=== PATIENT | male | born 1970 | race Caucasian/White ===

== ENCOUNTER 2018-10-21 03:24 | Emergency (ER) | payer BC ==
--- OUTSIDE RECORDS SUMMARY | 2018-10-21 03:27 | XMS REPORT ---
:1970 Author Organization [facility] Address [address] [place] [address] Care Team Providers Name Role Phone Unavailable Unavailable Unavailable Payers Payer Name Policy Type Policy Number Effective Date Expiration Date Problems This patient has no known problems. Allergies, Adverse Reactions, Alerts Allergy Name Allergy Status Severity Reaction(s) Onset Inactive Treating Comments Type Date Date Clinician No Known DA Active U 2018-0 Allergies 07-30 00:00: 00 methylprednisol DA Active SV 2018- one 07-30 00:00: 00 Medications This patient has no known medications. Results Test Description Test Time Test Comments Text Results Atomic Results Result Comments - MRI LW JNT W/CONTRAST RT 2018-07-30 12:20:00 Patient Name: DEMARCUS SWEENEY Unit No: [id number] EXAMS: CPT CODE: [id number] MRI LW JNT W/[place] [id number] MRI ARTHROGRAM RIGHT HIP DIAGNOSIS: 1. 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 Complex moderately displaced tear of the superior anterior and posterior labrum. There is associated moderate to high-grade diffuse chondral loss right hip joint. 2. Mild distal gluteus medius minimus tendinosis. INDICATION: Right hip pain COMPARISON: None PULSE SEQUENCES: Multiplanar, multisequence MRI is obtained of the right hip post arthrography. There is satisfactory contrast distention of the right hip joint. Complex acetabular labral tear. The ligamentum teres and transverse ligaments are intact. High grade chondral loss right hip joint. 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 The iliopsoas, rectus femoris and hamstring tendons are normal. Gluteus minimus tendinosis. No muscle belly atrophy or edema. No iliopsoas or trochanteric bursal fluid to suggest bursitis. The visualized pelvic structures are normal. There are no regional soft tissue abnormalities or aggressive osseous lesions. RIGHT HIP ARTHROGRAM WITH INTRA-ARTICULAR MARCAINE INJECTION Comment: After informed consent was obtained a 25-gauge needle is inserted into the right hip joint under fluoroscopic control using sterile technique. A total volume of 8 mL consisting of a combination of equal parts Isovue-300 and dilute gadolinium is instilled into the joint space. This is followed by intra-articular injection of 4 mL of Marcaine. The patient tolerated the procedure well. 0.5 minutes of fluoroscopy time was used on this exam. Post arthrographic films show no extravasation of contrast outside the joint. at 1220 Reported and signed by: Tina Kate MD [facility] NAME: DEMARCUS SWEENEY [address] [facility] PHYS: DEVANTECAROLA Eric Winn : 1970 AGE: 47 SEX: M [place] [id number] LOC: [facility] PHONE #: [phone] EXAM DATE: 07/30/2018 STATUS: REG CLI FAX #: [phone] RAD #: D/C DT PAGE 1 Signed Report (CONTINUED) Patient Name: DEMARCUS SWEENEY Unit No: [id number] EXAMS: CPT CODE: [id number] MRI LW JNT W/[place] [id number] <Continued> CC: Eric Vargas MD Technologist: Caro Paredes(R) Transcribed D/ (1220) tMARISELAGVG [facility] NAME: DEMARCUS SWEENEY [address] [facility] PHYS: SOO VargasEric Mason : 1970 AGE: 47 SEX: M [place] [address] LOC: [facility] PHONE #: [phone] EXAM DATE: 07/30/2018 STATUS: REG CLI FAX #: [phone] RAD #: D/C DT PAGE 2 Signed Report Patient Name: DEMARCUS SWEENEY Unit No: [id number] EXAMS: CPT CODE: [id number] MRI LW JNT W/[place] [id number] <Continued> Orig Print D/T: S: 07/30/2018 (1223) [facility] NAME: DEMARCUS SWEENEY [address] [facility] PHYS: Eric Scherer : 1970 AGE: 47 SEX: M [place], [place] [address] LOC: [facility] PHONE #: [phone] EXAM DATE: 07/30/2018 STATUS: REG CLI FAX #: [phone] RAD #: D/C DT PAGE 3 Signed Report - XR ARTHROGRAM HIP W/O AN 2018-07-30 12:20:00 Patient Name: DEMARCUS SWEENEY RT+ Unit No: [id number] EXAMS: CPT CODE: [id number] XR ARTHROGRAM HIP W/O AN RT+ [id number] MRI ARTHROGRAM RIGHT HIP DIAGNOSIS: 1. 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 Complex moderately displaced tear of the superior anterior and posterior labrum. There is associated moderate to high-grade diffuse chondral loss right hip joint. 2. Mild distal gluteus medius minimus tendinosis. INDICATION: Right hip pain COMPARISON: None PULSE SEQUENCES: Multiplanar, multisequence MRI is obtained of the right hip post arthrography. There is satisfactory contrast distention of the right hip joint. Complex acetabular labral tear. The ligamentum teres and transverse ligaments are intact. High grade chondral loss right hip joint. 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 The iliopsoas, rectus femoris and hamstring tendons are normal. Gluteus minimus tendinosis. No muscle belly atrophy or edema. No iliopsoas or trochanteric bursal fluid to suggest bursitis. The visualized pelvic structures are normal. There are no regional soft tissue abnormalities or aggressive osseous lesions. RIGHT HIP ARTHROGRAM WITH INTRA-ARTICULAR MARCAINE INJECTION Comment: After informed consent was obtained a 25-gauge needle is inserted into the right hip joint under fluoroscopic control using sterile technique. A total volume of 8 mL consisting of a combination of equal parts Isovue-300 and dilute gadolinium is instilled into the joint space. This is followed by intra-articular injection of 4 mL of Marcaine. The patient tolerated the procedure well. 0.5 minutes of fluoroscopy time was used on this exam. Post arthrographic films show no extravasation of contrast outside the joint. at 1220 Reported and signed by: Tina Kate MD [facility] NAME: DEMARCUS SWEENEY [address] [facility] PHYS: SOO Eric Winn : 1970 AGE: 47 SEX: M [place] [address] LOC: Y.RAD PHONE #: [phone] EXAM DATE: 07/30/2018 STATUS: REG CLI FAX #: [phone] RAD #: D/C DT PAGE 1 Signed Report (CONTINUED) Patient Name: DEMARCUS SWEENEY Unit No: [id number] EXAMS: CPT CODE: [id number] XR ARTHROGRAM HIP W/O AN RT+ [id number] <Continued> CC: Chico Hurtado MD; Eric Vargas MD Technologist: WERNER LAUREN, RT(R) Transcribed D/ (1220) t.GVG [facility] NAME: DEMARCUS SWEENEY [address] [facility] PHYS: DEVANTECAROLA Eric Winn : 1970 AGE: 47 SEX: M [place] [address] LOC: Y.RAD PHONE #: [phone] EXAM DATE: 07/30/2018 STATUS: REG CLI FAX #: [phone] RAD #: D/C DT PAGE 2 Signed Report Patient Name: DEMARCUS SWEENEY Unit No: [id number] EXAMS: CPT CODE: [id number] XR ARTHROGRAM HIP W/O AN RT+ [id number] <Continued> Orig Print D/T: S: 07/30/2018 (1223) [facility] NAME: DEMARCUS SWEENEY [address] [facility] PHYS: Eric Scherer : 1970 AGE: 47 SEX: M [place], [place] [address] LOC: Y.RAD PHONE #: [phone] EXAM DATE: 07/30/2018 STATUS: REG CLI FAX #: [phone] RAD #: D/C DT PAGE 3 Signed Report
[2018-10-21] MEDS ORDERED: THIAMINE 200 MG/2 ML INJ ONE (04:04)
[2018-10-21] MEDS ORDERED: MULTIVITAMINS 10 ML VIAL (INJ) IV ONE (04:04)
[2018-10-21] MEDS ORDERED: NA CHLORIDE 0.9% 1,000 ML ONE (04:04)
[2018-10-21] MEDS ORDERED: FOLIC ACID 5 MG/ML VIAL ONE (04:05)
[2018-10-21 04:10] LABS: Absolute Lymphocytes (CBC) 1.7 K/uL (0.7-4.9); Basophils % 0.5 % (0-1.3); Eosinophils % 0.3 % (0-4.4); Hematocrit 42.2 % (39.6-49.0); Lymphocytes % 13.6 % (15.3-44.8); MPV 8.8 fL (7.6-11.3); Monocytes % 6.1 % (3.3-12.3); RBC Red Blood Cell Count 4.57 M/uL (4.33-5.43)
[2018-10-21] MEDS ORDERED: MORPHINE 4 MG/ML SYR ONE (04:11)
[2018-10-21] MEDS ORDERED: ONDANSETRON 4 MG/2 ML VIAL ONE (04:11)
[2018-10-21 04:16] LABS: Potassium 3.1 mmol/L (3.5-5.1)
[2018-10-21] MEDS ORDERED: POTASSIUM CL SA 10 MEQ TAB PO ONE (06:17)
[2018-10-21] MEDS ORDERED: FENTANYL CITR 100 MCG/2 ML ONE (06:25)
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
--- NOTE | 2018-10-22 07:55 | EKG ---
Test Date: 2018-10-21 Test Time: 04:05:28 Estimator: MEASUREMENT RESULTS: Intervals: Rate: 88 NV: 150 QRSD: 92 QT: 420 QTc: 508 Belcher: P: 78 NV: 150 QRS: 49 T: 59 INTERPRETIVE STATEMENTS: Normal sinus rhythm Prolonged QT Abnormal ECG Compared to ECG 06/03/2014 11:21:56 Prolonged QT interval now present Electronically Signed On 10-22-18 07:53:56 CDT by Geronimo Grace
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
== END 2018-10-21 09:23 | disposition home or self-care (01) ==
LOC: ER 03:24
DX: S29.011A Strain of muscle and tendon of front wall of thorax, initial encounter (principal); F10.129 Alcohol abuse with intoxication, unspecified; Y04.2XXA Assault by strike against or bumped into by another person, initial encounter; Y93.9 Activity, unspecified; Y92.89 Other specified places as the place of occurrence of the external cause; Z72.0 Tobacco use
CPT/HCPCS: 36415; 70450; 70486; 71250; 72192; 76377; 80048; 80320; 85025; 93005; 96365; 96366; 96375; 99284; J2405; J3010; J3411; J7030

== ENCOUNTER 2019-11-16 03:29 | Emergency (ER) | payer OTHER, SELFPAY ==
--- OUTSIDE RECORDS SUMMARY | 2019-11-16 03:31 | XMS REPORT | Continuity of Care Document ---
:[address] [facility] t Address [address] [place] [address] Care Team Providers Name Role Phone Unavailable Unavailable Unavailable Payers Payer Name Policy Type Policy Number Effective Date Expiration Date S ource Problems This patient has no known problems. Allergies, Adverse Reactions, Alerts Allergy Allergy Status Severity Reaction(s) Onset Inactive Treating Comm ents Source Name Type Date Date Clinician No Known DA Active U 0 [facility] 07[facility]30 [place] [facility] DA Active SV 0 [facility] ednisolo 07-30 [place] ne 00[facility]00[facility] Medications This patient has no known medications. Procedures This patient has no known procedures. Results Test Description Test Time Test Comments Results Result [facility] e Comments - MRI [facility] 2018-07-30 Patient Name: W/CONTRAST RT 12:20:00 DEMARCUS SWEENEY Unit No: [id number] EXAMS: CPT CODE: [id number] MRI LW [facility] W/[place] [id number] MRI ARTHROGRAM RIGHT HIP DIAGNOSIS: 1. Congenitally [...] Reported and signed by: Tina Kate MD [facility] NAME: DEMARCUS SWEENEY [address] [facility] PHYS: Eric Scherer : 1970 AGE: 47 SEX: M [place], [place] [address] LOC: Y.RAD PHONE #: [phone] EXAM DATE: 07/30/2018 STATUS: REG CLI FAX #: [phone] RAD #: D/C DT PAGE 1 Signed Report (CONTINUED) Patient Name: DEMARCUS SWEENEY Unit No: [id number] EXAMS: CPT CODE: [id number] MRI LW JNT W/[place] [id number] <Continued> CC: Eric Vargas MD Technologist: Caro Paredes(R) Transcribed D/ (1220) [email or web address] [facility] NAME: DEMARCUS SWEENEY [address] [facility] PHYS: Eric Scherer : 1970 AGE: 47 SEX: M [place], [place] [address] LOC: Y.RAD PHONE #: [phone] EXAM DATE: 07/30/2018 STATUS: REG CLI FAX #: [phone] RAD #: D/C DT PAGE 2 Signed Report Patient Name: DEMARCUS SWEENEY Unit No: [id number] EXAMS: CPT CODE: [id number] MRI LW JNT W/[place] [id number] <Continued> Orig Print D/T: S: 07/30/2018 (1223) [facility] NAME: DEMARCUS SWEENEY [address] [facility] PHYS: Eric Scherer Shgreysonwinnie : 1970 AGE: 47 SEX: M [place], [place] [address] LOC: Y.RAD PHONE #: [phone] EXAM DATE: 07/30/2018 STATUS: REG CLI FAX #: [phone] RAD #: D/C DT PAGE 3 Signed Report - XR ARTHROGRAM 2018-07-30 Patient Name: HIP W/O AN RT+ 12:20:00 DEMARCUS SWEENEY Unit No: [id number] EXAMS: CPT CODE: [id number] XR ARTHROGRAM HIP W/O AN RT+ [id number] MRI ARTHROGRAM RIGHT HIP DIAGNOSIS: 1. Congenitally [...] Reported and signed by: Tina Kate MD [facility] NAME: DEMARCUS SWEENEY [address] [facility] PHYS: SOO VargasEric Mason : 1970 AGE: 47 SEX: M [place] [address] LOC: Y.RAD PHONE #: [phone] EXAM DATE: 07/30/2018 STATUS: REG CLI FAX #: [phone] RAD #: D/C DT PAGE 1 Signed Report (CONTINUED) Patient Name: DEMARCUS SWEENEY Unit No: [id number] EXAMS: CPT CODE: [id number] XR ARTHROGRAM HIP W/O AN RT+ [id number] <Continued> CC: Chico Hurtado MD; Eric Vargas MD Technologist: WERNER LAUREN, RT(R) Transcribed D/ (1220) [email or web address] [facility] NAME: DEMARCUS SWEENEY [address] [facility] PHYS: SOO VargasEric Mason : 1970 AGE: 47 SEX: M [place] [address] LOC: Y.RAD PHONE #: [phone] EXAM DATE: 07/30/2018 STATUS: REG CLI FAX #: [phone] RAD #: D/C DT PAGE 2 Signed Report Patient Name: DEMARCUS SWEENEY Unit No: [id number] EXAMS: CPT CODE: [id number] XR ARTHROGRAM HIP W/O AN RT+ [id number] <Continued> Orig Print D/T: S: 07/30/2018 (1223) [facility] NAME: DEMARCUS SWEENEY [address] [facility] PHYS: Eric Scherer : 1970 AGE: 47 SEX: M [place], [place] [address] LOC: Y.RAD PHONE #: [phone] EXAM DATE: 07/30/2018 STATUS: REG CLI FAX #: [phone] RAD #: D/C DT PAGE 3 Signed Report
[2019-11-16] MEDS ORDERED: NA CHLORIDE 0.9% 1,000 ML ONE (05:26)
[2019-11-16] MEDS ORDERED: ONDANSETRON 4 MG/2 ML VIAL ONE (05:26)
[2019-11-16] MEDS ORDERED: MORPHINE 4 MG/ML SYR ONE ×2 (05:26→06:55)
[2019-11-16 05:38] LABS: Absolute Lymphocytes (CBC) 1.5 K/uL (0.7-4.9); Basophils % 0.7 % (0-1.3); Hematocrit 39.2 % (39.6-49.0); Lymphocytes % 19.4 % (15.3-44.8); MPV 8.9 fL (7.6-11.3); RBC Red Blood Cell Count 4.26 M/uL (4.33-5.43)
[2019-11-16 05:46] LABS: Urine Blood 3+ (NEG); Urine Glucose NEGATIVE (NEG); Urine Protein 2+ (NEG); Urine Specific Gravity 1.025 (1.005-1.030); Urine pH 6.5 (5.0-7.0)
[2019-11-16 05:47] LABS: Albumin 3.6 g/dL (3.4-5.0); Bilirubin Direct 0.1 mg/dL (0-0.2); Bilirubin Total 0.4 mg/dL (0.2-1.0); Potassium 3.9 mmol/L (3.5-5.1); Protein, Total 7.2 g/dL (6.4-8.2)
--- NOTE | 2019-11-16 06:43 | EDPHYS ---
Physician Documentation [facility] Name: Brandon Galdamez Age: 49 yrs Sex: Male : 1970 Arrival Date: 11/16/2019 Time: 03:31 Bed 17 Private MD: ED Physician Tray Tillman HPI: 11/15 05:45 This 49 yrs old Male presents to ER via Ambulatory with complaints of Back pkl Pain. 05:45 The patient complains of pain in the right flank. The pain does not radiate. Onset: The pkl symptoms/episode began/occurred just prior to arrival, 3 hour(s) ago. Historical: - Allergies: 03:45 No Known Allergies; sg - PMHx: 03:58 None; sg - PSHx: 03:45 bone scraping R hip; sg - Immunization history:: Adult Immunizations up to date. - Social history:: Smoking status: Patient denies any tobacco usage or history of. ROS: 05:45 Eyes: Negative for injury, pain, redness, and discharge, ENT: Negative for injury, pkl pain, and discharge, Neck: Negative for injury, pain, and swelling, Cardiovascular: Negative for chest pain, palpitations, and edema, Respiratory: Negative for shortness of breath, cough, wheezing, and pleuritic chest pain, Abdomen/GI: Negative for abdominal pain, nausea, vomiting, diarrhea, and constipation. 05:45 Back: Positive for flank pain, on the right. 05:45 : Negative for urinary symptoms. 05:45 MS/extremity: Negative for acute changes. 05:45 Skin: Negative for rash. 05:45 Neuro: Negative for altered mental status, loss of consciousness. Exam: 05:45 Head/Face: Normocephalic, atraumatic. Eyes: Pupils equal round and reactive to light, pkl extra-ocular motions intact. Lids and lashes normal. Conjunctiva and sclera are non-icteric and not injected. Cornea within normal limits. Periorbital areas with no swelling, redness, or edema. ENT: Nares patent. No nasal discharge, no septal abnormalities noted. Tympanic membranes are normal and external auditory canals are clear. Oropharynx with no redness, swelling, or masses, exudates, or evidence of obstruction, uvula midline. Mucous membranes moist. Neck: Trachea midline, no thyromegaly or masses palpated, and no cervical lymphadenopathy. Supple, full range of motion without nuchal rigidity, or vertebral point tenderness. No Meningismus. Chest/axilla: Normal chest wall appearance and motion. Nontender with no deformity. No lesions are appreciated. Cardiovascular: Regular rate and rhythm with a normal S1 and S2. No gallops, murmurs, or rubs. Normal PMI, no JVD. No pulse deficits. Respiratory: Lungs have equal breath sounds bilaterally, clear to auscultation and percussion. No rales, rhonchi or wheezes noted. No increased work of breathing, no retractions or nasal flaring. Abdomen/GI: Soft, non-tender, with normal bowel sounds. No distension or tympany. No guarding or rebound. No evidence of tenderness throughout. 05:45 Back: pain, that is moderate, of the right flank. 05:45 : Exam negative for acute changes. 05:45 Musculoskeletal/extremity: Exam is negative for acute changes. 05:45 Skin: Exam negative for rash. 05:45 Neuro: Orientation: is normal, Mentation: is normal, Cranial nerves: grossly normal, Motor: is normal. Vital Signs: 03:45 BP 142 / 80; Pulse 77; Resp 18; Temp 97.6; Pulse Ox 99% on R/A; Weight 113.4 kg (R); sg Pain 4/10; 04:30 BP 149 / 101; Pulse 90; Resp 19; Pulse Ox 98% on R/A; Pain 9/10; mt2 05:00 BP 138 / 90; Pulse 88; Resp 16; Pulse Ox 98% on R/A; Pain 5/10; mt2 06:00 BP 126 / 65; Pulse 83; Resp 16; Pulse Ox 96% on R/A; Pain 0/10; mt2 07:08 BP 125 / 69; Pulse 72; Temp 98.0(TE); Pulse Ox 97% ; Pain 0/10; mt2 MDM: 04:35 Patient medically screened. pkl 06:29 Data reviewed: vital signs, nurses notes, radiologic studies, CT scan. ED course: pkl Patient feeling better. Discussed lab. and CT Scan results with patient. Advised to folllow up with Urologist in 2 to 3 days. Patient understood instructions. 11/15 04:41 Order name: Basic Metabolic Panel; Complete Time: 05:48 pkl 11/15 04:41 Order name: CBC with Diff; Complete Time: 05:48 pkl 11/15 04:41 Order name: Hepatic Function; Complete Time: 05:48 pkl 11/15 04:41 Order name: Lipase; Complete Time: 05:48 pkl 11/15 04:41 Order name: CT Stone Protocol pkl 11/15 05:19 Order name: Urine Dipstick--Ancillary (enter results); Complete Time: 05:48 sg 11/15 04:41 Order name: IV Saline Lock; Complete Time: 05:23 pkl 11/15 04:41 Order name: Labs collected and sent; Complete Time: 05:23 pkl Administered Medications: 05:22 Drug: Zofran (Ondansetron) 4 mg Route: IVP; Site: right antecubital; mt2 06:00 Follow up: Response: No adverse reaction; Marked relief of symptoms; Nausea is decreasedmt2 05:23 Drug: NS 0.9% 1000 ml Route: IV; Rate: 1000 ml; Site: right antecubital; mt2 06:12 Follow up: Response: No adverse reaction; Marked relief of symptoms; IV Status: mt2 Completed infusion; IV Intake: 1000ml 07:09 Follow up: IV Status: Completed infusion; IV Intake: 1000ml mt2 05:23 Drug: morphine 4 mg Route: IVP; Site: right antecubital; mt2 06:00 Follow up: BP 126 / 65; Pulse 83 bpm; Resp 16 bpm; Pulse Ox 96% RA; Pain 0/10 Adult; mt2 Response: No adverse reaction; Marked relief of symptoms; Pain is decreased 06:46 Drug: morphine 4 mg Route: IVP; Site: right antecubital; mt2 07:08 Follow up: BP 125 / 69; Pulse 72 bpm; Temp 98.0 Temporal; Pulse Ox 97% ; Pain 0/10 mt2 Adult; Response: No adverse reaction; Marked relief of symptoms; Pain is decreased Disposition: 11/16/19 06:42 Discharged to Home. Impression: Mild right hydronephrosis and proximal hydroureter. 5 mm proximal right ureteral calculus . - Condition is Stable. - Prescriptions for Tylenol- Codeine #3 300-30 mg Oral Tablet - take 2 tablets by ORAL route every 8 hours As needed; 40 tablet. Flomax 0.4 mg Oral Capsule, Sust. Release 24 hr - take 1 capsule by ORAL route once daily 1/2 hour following the same meal each day; 20 capsule. - Medication Reconciliation Form, Thank You Letter, Antibiotic Education, Prescription Opioid Use form. - Follow up: Brian Dwyer MD; When: 2 - 3 days; Reason: Re-evaluation by your physician. - Problem is new. - Symptoms have improved. Signatures: Dispatcher [employer] EDME Eric Kitchen RN RN sg Tray Tillman MD MD pkl Ysabel Barry RN RN mt2 Corrections: (The following items were deleted from the chart) 07:11 06:42 11/16/2019 06:42 Discharged to Home. Impression: Mild right hydronephrosis and mt2 proximal hydroureter. 5 mm proximal right ureteral calculus . Condition is Stable. Forms are Medication Reconciliation Form, Thank You Letter, Antibiotic Education, Prescription Opioid Use. Follow up: Brian Dwyer; When: 2 - 3 days; Reason: Re-evaluation by your physician. Problem is new. Symptoms have improved. pkl
--- NOTE | 2019-11-16 06:43 | ER ---
Nurse's Notes [facility] Name: Brandon Galdamez Age: 49 yrs Sex: Male : 1970 Arrival Date: 11/16/2019 Time: 03:31 Bed 17 Private MD: Diagnosis: Mild right hydronephrosis and proximal hydroureter. 5 mm proximal right ureteral calculus Presentation: 11/15 03:45 Chief complaint: Patient states: Right sided flank pain that is described as dull and sg stabbing, pt reports that the pain does not radiate any where, reports nausea, states pain was severe 02/07 now states its more just dull like 08/08. Coronavirus screen: Patient denies a cough. Patient denies shortness of breath or difficulty breathing. Patient denies measured and/or subjective temperature greater than 100.4F prior to today's visit. Patient denies travel on a cruise ship or to a country the [facility] currently lists as an affected area. Patient denies contact with known and/or suspected case of COVID-19. Proceed with normal triage. Ebola Screen: Patient negative for fever greater than or equal to 101.5 degrees Fahrenheit, and additional compatible Ebola Virus Disease symptoms Patient denies exposure to infectious person. Patient denies travel to an Ebola-affected area in the 21 days before illness onset. No symptoms or risks identified at this time. Initial Sepsis Screen: Does the patient meet any 2 criteria? No. Patient's initial sepsis screen is negative. Does the patient have a suspected source of infection? No. Patient's initial sepsis screen is negative. Risk Assessment: Do you want to hurt yourself or someone else? Patient reports no desire to harm self or others. Onset of symptoms was November 16, 2019. Care prior to arrival: None. Transition of care: patient was not received from another setting of care. 03:45 Method Of Arrival: Ambulatory sg 03:45 Acuity: KAILA 3 sg Historical: - Allergies: 03:45 No Known Allergies; sg - PMHx: 03:58 None; sg - PSHx: 03:45 bone scraping R hip; sg - Immunization history:: Adult Immunizations up to date. - Social history:: Smoking status: Patient denies any tobacco usage or history of. Screenin:30 Abuse screen: Denies threats or abuse. Nutritional screening: No deficits noted. mt2 Tuberculosis screening: No symptoms or risk factors identified. Fall Risk None identified. Assessment: 04:30 Reassessment: No changes from previously documented assessment. Patient and/or family mt2 updated on plan of care and expected duration. Pain level reassessed. General: Appears uncomfortable, Behavior is cooperative. Pain: Complains of pain in abdomen Pain currently is 9 out of 10 on a pain scale. Quality of pain is described as sharp. Neuro: No deficits noted. Cardiovascular: No deficits noted. Respiratory: No deficits noted. GI: Reports upper abdominal pain, nausea. : No deficits noted. EENT: No deficits noted. Derm: No deficits noted. Musculoskeletal: No deficits noted. 05:30 Reassessment: Patient and/or family updated on plan of care and expected duration. Pain mt2 level reassessed. Neuro: No deficits noted. Neuro: No deficits noted. Level of Consciousness is awake, alert, obeys commands. 06:50 Reassessment: Patient states symptoms have improved. Pain: Denies pain. mt2 Vital Signs: 03:45 BP 142 / 80; Pulse 77; Resp 18; Temp 97.6; Pulse Ox 99% on R/A; Weight 113.4 kg (R); sg Pain 4/10; 04:30 BP 149 / 101; Pulse 90; Resp 19; Pulse Ox 98% on R/A; Pain 9/10; mt2 05:00 BP 138 / 90; Pulse 88; Resp 16; Pulse Ox 98% on R/A; Pain 5/10; mt2 06:00 BP 126 / 65; Pulse 83; Resp 16; Pulse Ox 96% on R/A; Pain 0/10; mt2 07:08 BP 125 / 69; Pulse 72; Temp 98.0(TE); Pulse Ox 97% ; Pain 0/10; mt2 ED Course: 03:31 Patient arrived in ED. ag3 03:44 Arm band placed on. sg 03:45 Triage completed. sg 03:51 Ysabel Barry, RN is Primary Nurse. mt2 04:30 Patient has correct armband on for positive identification. Fall risk band placed. Bed mt2 in low position. Call light in reach. Side rails up X 1. 04:30 No provider procedures requiring assistance completed. Inserted saline lock: 18 gauge mt2 in right antecubital area, using aseptic technique. 04:35 Tray Tillman MD is Attending Physician. pkl 05:23 Basic Metabolic Panel Sent. mt2 05:23 CBC with Diff Sent. mt2 05:23 Hepatic Function Sent. mt2 05:23 Lipase Sent. mt2 05:43 CT Stone Protocol In Process Unspecified. EDMS 06:39 Brian Dwyer MD is Referral Physician. pkl 06:50 IV discontinued, intact, bleeding controlled, No redness/swelling at site. Pressure mt2 dressing applied. Administered Medications: 05:22 Drug: Zofran (Ondansetron) 4 mg Route: IVP; Site: right antecubital; mt2 06:00 Follow up: Response: No adverse reaction; Marked relief of symptoms; Nausea is decreasedmt2 05:23 Drug: NS 0.9% 1000 ml Route: IV; Rate: 1000 ml; Site: right antecubital; mt2 06:12 Follow up: Response: No adverse reaction; Marked relief of symptoms; IV Status: mt2 Completed infusion; IV Intake: 1000ml 07:09 Follow up: IV Status: Completed infusion; IV Intake: 1000ml mt2 05:23 Drug: morphine 4 mg Route: IVP; Site: right antecubital; mt2 06:00 Follow up: BP 126 / 65; Pulse 83 bpm; Resp 16 bpm; Pulse Ox 96% RA; Pain 0/10 Adult; mt2 Response: No adverse reaction; Marked relief of symptoms; Pain is decreased 06:46 Drug: morphine 4 mg Route: IVP; Site: right antecubital; mt2 07:08 Follow up: BP 125 / 69; Pulse 72 bpm; Temp 98.0 Temporal; Pulse Ox 97% ; Pain 0/10 mt2 Adult; Response: No adverse reaction; Marked relief of symptoms; Pain is decreased Intake: 06:12 IV: 1000ml; Total: 1000ml. mt2 07:09 IV: 1000ml; Total: 2000ml. mt2 Outcome: 06:42 Discharge ordered by . pkl 06:50 Discharged to home ambulatory. mt2 06:50 Condition: improved 06:50 Discharge instructions given to patient, Instructed on discharge instructions, follow up and referral plans. medication usage, Demonstrated understanding of instructions, follow-up care, medications, Prescriptions given X 2. 07:11 Patient left the ED. mt2 Signatures: Dispatcher [employer] Eric Holliday RN RN sg Tray Tillman MD MD pkl Gomez, Alice ag3 Ysabel Barry RN RN mt2 Corrections: (The following items were deleted from the chart) 03:58 03:45 Acuity: KAILA 4 tanja agrawal
--- NOTE | 2019-11-18 08:36 | RAD REPORT ---
EXAM DESCRIPTION: CT - Stone Protocol - 11/16/2019 7:29 am CLINICAL HISTORY: The patient is 49 years old and is Male; right flank pain TECHNIQUE: Axial computed tomography images of the abdomen and pelvis without intravenous contrast. Sagittal and coronal reformatted images were created and reviewed. This CT exam was performed usi ng one or more of the following dose reduction techniques: automated exposure control, adjustment o f the mA and/or kV according to patient size, and/or use of iterative reconstruction technique. COMPARISON: No relevant prior studies available. FINDINGS: LUNG BASES: Unremarkable. No mass. No consolidation. ABDOMEN: LIVER: Homogeneous without focal mass. GALLBLADDER AND BILE DUCTS: Surgical clips are present in the right upper quadrant, consistent w ith previous cholecystectomy. PANCREAS: Unremarkable. No ductal dilation. SPLEEN: Unremarkable. ADRENALS: Unremarkable. No mass. KIDNEYS AND URETERS: Mild right hydronephrosis and proximal hydroureter is present secondary to a 0.5 cm proximal right ureteral calculus. Mild edema of the right kidney with perinephric and elina ureteral stranding is present. The left kidney is normal. STOMACH AND BOWEL: Postsurgical change of the stomach is present. The small bowel is normal in c aliber. Stool is present throughout colon. A few scattered colonic diverticula are noted without surr ounding inflammation. There is no bowel obstruction. PELVIS: APPENDIX: The appendix is normal in caliber without surrounding inflammation. BLADDER: The bladder is not well distended. REPRODUCTIVE: Unremarkable as visualized. ABDOMEN and PELVIS: INTRAPERITONEAL SPACE: Unremarkable. No free air. No significant fluid collection. BONES/JOINTS: Mild multilevel degenerative change of the spine is present. SOFT TISSUES: The soft tissues are normal. VASCULATURE: Unremarkable. No abdominal aortic aneurysm. LYMPH NODES: Unremarkable. No enlarged lymph nodes. IMPRESSION: Mild right hydronephrosis and proximal hydroureter is present secondary to a 0.5 cm prox imal right ureteral calculus. Electronically signed by: Angle Saul MD 11/16/2019 6:14 AM CDT Due to temporary technical issues with the PACS/Fluency reporting system, reports are being signed by the in house radiologist without review as a courtesy to ensure prompt reporting. The interpreting r adiologist is fully responsible for the content of the report.
== END 2019-11-16 07:11 | disposition home or self-care (01) ==
LOC: ER 03:29
DX: N13.2 Hydronephrosis with renal and ureteral calculous obstruction (principal)
CPT/HCPCS: 96361; 85025; 80048; 36415; 80076; 81003; 83690; 76377; 74176; 96375; 96374; 99284; J7030; J2405

== ENCOUNTER 2020-01-30 09:03 | Emergency (ER) | payer OTHER ==
[2020-01-30 09:35] LABS: Absolute Lymphocytes (CBC) 1.3 K/uL (0.7-4.9); Basophils % 0.5 % (0-1.3); Hematocrit 46.8 % (39.6-49.0); Lymphocytes % 15.3 % (15.3-44.8); MPV 8.5 fL (7.6-11.3); RBC Red Blood Cell Count 5.17 M/uL (4.33-5.43)
[2020-01-30 09:55] LABS: Albumin 4.2 g/dL (3.4-5.0); Bilirubin Direct 0.3 mg/dL (0-0.2); Bilirubin Total 1.1 mg/dL (0.2-1.0); Potassium 3.8 mmol/L (3.5-5.1); Protein, Total 8.8 g/dL (6.4-8.2)
[2020-01-30] MEDS ORDERED: NA CHLORIDE 0.9% 1,000 ML ONE (10:10)
[2020-01-30] MEDS ORDERED: ONDANSETRON 4 MG/2 ML VIAL ONE (10:10)
[2020-01-30] MEDS ORDERED: MORPHINE 4 MG/ML SYR ONE (10:10)
--- NOTE | 2020-01-30 10:30 | ER ---
Nurse's Notes [facility] Name: Brandon Galdamez Age: 49 yrs Sex: Male : 1970 Arrival Date: 01/30/2020 Time: 09:06 Bed 20 Private MD: Diagnosis: Upper abdominal pain, unspecified-enteritis vs ilieus Presentation: 01/29 09:21 Chief complaint: Patient states: upper abd pain, diarrhea, nausea since yesterday after iw lunch, hx of hernia repair. Coronavirus screen: At this time, the client does not indicate any symptoms associated with coronavirus-19. Ebola Screen: Patient negative for fever greater than or equal to 101.5 degrees Fahrenheit, and additional compatible Ebola Virus Disease symptoms Patient denies exposure to infectious person. Patient denies travel to an Ebola-affected area in the 21 days before illness onset. No symptoms or risks identified at this time. Initial Sepsis Screen: Does the patient meet any 2 criteria? No. Patient's initial sepsis screen is negative. Does the patient have a suspected source of infection? No. Patient's initial sepsis screen is negative. Risk Assessment: Do you want to hurt yourself or someone else? Patient reports no desire to harm self or others. Onset of symptoms was January 29, 2020. 09:21 Method Of Arrival: Ambulatory iw 09:21 Acuity: KAILA 3 iw Historical: - Allergies: 09:24 No Known Allergies; iw - PSHx: 10:38 bone scraping R hip; Hernia repair; ph - Immunization history:: Adult Immunizations. - Social history:: Smoking status: unknown. Screenin:01 Abuse screen: Denies threats or abuse. Denies injuries from another. Nutritional ph screening: No deficits noted. Tuberculosis screening: No symptoms or risk factors identified. Fall Risk None identified. Assessment: 10:00 General: Appears in no apparent distress. comfortable, Behavior is calm, cooperative, ph appropriate for age, Denies fever. Pain: Complains of pain in right upper quadrant. Neuro: Level of Consciousness is awake, alert, obeys commands, Oriented to person, place, time, situation. Cardiovascular: Capillary refill < 3 seconds in bilateral fingers Patient's skin is warm and dry. Respiratory: Airway is patent Respiratory effort is even, unlabored, Respiratory pattern is regular, symmetrical, Denies cough, shortness of breath. GI: Abdomen is non-distended, Reports upper abdominal pain, diarrhea, nausea. Derm: Skin is healthy with good turgor, Skin is pink, warm \T\ dry. Musculoskeletal: Circulation, motion, and sensation intact. Range of motion: intact in all extremities. 10:02 Reassessment: Patient appears in no apparent distress at this time. Patient and/or ph family updated on plan of care and expected duration. Pain level reassessed. Patient is alert, oriented x 3, equal unlabored respirations, skin warm/dry/pink. Pt medicated for pain per provider order, awaiting CT results. Vital Signs: 09:21 BP 136 / 86; Pulse 92; Resp 18 S; Temp 98.2; Pulse Ox 99% on R/A; iw 10:51 BP 139 / 91; Pulse 86; Resp 18; Temp 97.9; Pulse Ox 99% on R/A; ph ED Course: 09:06 Patient arrived in ED. ds1 09:17 [facility]C [facility] kb 09:17 Jayme Clark MD is Attending Physician. kb 09:22 Triage completed. iw 09:25 Initial lab(s) drawn, by me, sent to lab. Inserted saline lock: 20 gauge in right dh3 antecubital area, using aseptic technique. Blood collected. 09:48 CT Abd/Pelvis - IV Contrast Only In Process Unspecified. EDMS 09:59 Tiffany Jaramillo, RN is Primary Nurse. ph 10:01 Arm band placed on Patient placed in an exam room, on a stretcher. ph 10:02 Patient has correct armband on for positive identification. Placed in gown. Bed in low ph position. Call light in reach. Side rails up X 1. Pulse ox on. NIBP on. Door closed. Noise minimized. Warm blanket given. 10:38 No provider procedures requiring assistance completed. ph Administered Medications: 10:05 Drug: morphine 4 mg Route: IVP; Site: right antecubital; iw 10:38 Follow up: Response: No adverse reaction; Pain is decreased; RASS: Alert and Calm (0) ph 10:05 Drug: Zofran (Ondansetron) 4 mg Route: IVP; Site: right antecubital; iw 10:38 Follow up: Response: No adverse reaction; Nausea is decreased ph 10:05 Drug: NS 0.9% 1000 ml Route: IV; Rate: 1000 ml; Site: right antecubital; 10:51 Follow up: Response: No adverse reaction; IV Status: Completed infusion; IV Intake: ph 300ml Intake: 10:51 IV: 300ml; Total: 300ml. ph Outcome: 10:29 Discharge ordered by . israel 10:51 Discharged to home ambulatory, with significant other. ph 10:51 Condition: good 10:51 Discharge instructions given to patient, Instructed on discharge instructions, follow up and referral plans. medication usage, clear liquid diet Demonstrated understanding of instructions, follow-up care, wound care, Prescriptions given X 2. 10:52 Patient left the ED. ph Signatures: Dispatcher [employer] EDMS Mita Mercer, NEERAJ CONKLIN-Delmis Roger ds1 Christie Ozuna RN JOSE ENRIQUE Tiffany Jaramillo RN RN Tahira Dunlap 3
--- NOTE | 2020-01-30 10:30 | EDPHYS ---
Physician Documentation [facility] Name: Brandon Galdamez Age: 49 yrs Sex: Male : 1970 Arrival Date: 01/30/2020 Time: 09:06 Bed 20 Private MD: ED Physician Jayme Clark HPI: 01/29 09:25 This 49 yrs old Male presents to ER via Ambulatory with complaints of kb Abdominal Pain - Upper. 09:25 The patient presents with abdominal pain in the upper abdomen. Onset: The kb symptoms/episode began/occurred yesterday. The symptoms do not radiate. Associated signs and symptoms: Pertinent positives: diarrhea, nausea, Pertinent negatives: fever, vomiting. The symptoms are described as constant. Modifying factors: The symptoms are alleviated by nothing, the symptoms are aggravated by pressure. Severity of pain: At its worst the pain was moderate in the emergency department the pain is unchanged. The patient has experienced a previous episode, several years ago he came in with similar pain and was taken to surgery for a hernia. The patient has not recently seen a physician. Historical: - Allergies: 09:24 No Known Allergies; iw - PSHx: 10:38 bone scraping R hip; Hernia repair; ph - Immunization history:: Adult Immunizations. - Social history:: Smoking status: unknown. ROS: 09:25 Constitutional: Negative for fever, chills, and weight loss, Cardiovascular: Negative kb for chest pain, palpitations, and edema, Respiratory: Negative for shortness of breath, cough, wheezing, and pleuritic chest pain, Back: Negative for injury and pain, : Negative for injury, bleeding, discharge, and swelling, MS/Extremity: Negative for injury and deformity, Skin: Negative for injury, rash, and discoloration, Neuro: Negative for headache, weakness, numbness, tingling, and seizure. 09:25 Abdomen/GI: Positive for abdominal pain, nausea, diarrhea, Negative for vomiting. Exam: 09:25 Constitutional: This is a well developed, well nourished patient who is awake, alert, kb and in no acute distress. Head/Face: Normocephalic, atraumatic. Chest/axilla: Normal chest wall appearance and motion. Nontender with no deformity. No lesions are appreciated. Cardiovascular: Regular rate and rhythm with a normal S1 and S2. No gallops, murmurs, or rubs. Normal PMI, no JVD. No pulse deficits. Respiratory: Lungs have equal breath sounds bilaterally, clear to auscultation and percussion. No rales, rhonchi or wheezes noted. No increased work of breathing, no retractions or nasal flaring. Back: No spinal tenderness. No costovertebral tenderness. Full range of motion. Skin: Warm, dry with normal turgor. Normal color with no rashes, no lesions, and no evidence of cellulitis. MS/ Extremity: Pulses equal, no cyanosis. Neurovascular intact. Full, normal range of motion. Neuro: Awake and alert, GCS 15, oriented to person, place, time, and situation. Cranial nerves II-XII grossly intact. Motor strength 5/5 in all extremities. Sensory grossly intact. Cerebellar exam normal. Normal gait. 09:25 Abdomen/GI: Inspection: obese Bowel sounds: normal, Palpation: soft, in all quadrants, moderate abdominal tenderness, in the right upper quadrant. Vital Signs: 09:21 BP 136 / 86; Pulse 92; Resp 18 S; Temp 98.2; Pulse Ox 99% on R/A; iw 10:51 BP 139 / 91; Pulse 86; Resp 18; Temp 97.9; Pulse Ox 99% on R/A; ph MDM: 09:17 Patient medically screened. kb 09:25 Data reviewed: vital signs, nurses notes. Data interpreted: Pulse oximetry: on room air kb is 99 %. Interpretation: normal. 10:21 Counseling: I had a detailed discussion with the patient and/or guardian regarding: the kb historical points, exam findings, and any diagnostic results supporting the discharge/admit diagnosis, lab results, radiology results, the need for outpatient follow up, a family practitioner, to return to the emergency department if symptoms worsen or persist or if there are any questions or concerns that arise at home. 10:23 ED course: Verbal CT report received from Dr Marvin. Small bowel enteritis vs ileus, kb no small bowel obstruction.. 01/29 09:23 Order name: Basic Metabolic Panel; Complete Time: 09:56 kb 01/29 09:23 Order name: CBC with Diff; Complete Time: 09:43 kb 01/29 09:23 Order name: Hepatic Function; Complete Time: 09:56 kb 01/29 09:23 Order name: Lipase; Complete Time: 09:56 kb 01/29 09:23 Order name: CT Abd/Pelvis - IV Contrast Only kb 01/29 09:23 Order name: IV Saline Lock; Complete Time: 09:29 kb 01/29 09:23 Order name: Labs collected and sent; Complete Time: 09:29 kb Administered Medications: 10:05 Drug: morphine 4 mg Route: IVP; Site: right antecubital; iw 10:38 Follow up: Response: No adverse reaction; Pain is decreased; RASS: Alert and Calm (0) ph 10:05 Drug: Zofran (Ondansetron) 4 mg Route: IVP; Site: right antecubital; iw 10:38 Follow up: Response: No adverse reaction; Nausea is decreased ph 10:05 Drug: NS 0.9% 1000 ml Route: IV; Rate: 1000 ml; Site: right antecubital; iw 10:51 Follow up: Response: No adverse reaction; IV Status: Completed infusion; IV Intake: ph 300ml Disposition: 01/30 09:19 Co-signature as Attending Physician, Jayme Clark MD I agree with the assessment and kdr plan of care. Disposition: 01/30/20 10:29 Discharged to Home. Impression: Upper abdominal pain, unspecified - enteritis vs ilieus. - Condition is Stable. - Discharge Instructions: Viral Gastroenteritis, Adult, [id number], Ileus. - Prescriptions for Bentyl 20 mg Oral Tablet - take 1 tablet by ORAL route every 6 hours As needed; 20 tablet. Zofran 4 mg Oral Tablet - take 1 tablet by ORAL route every 6 hours As needed; 20 tablet. - Medication Reconciliation Form, Thank You Letter, Antibiotic Education, Prescription Opioid Use, Work release form form. - Follow up: Emergency Department; When: As needed; Reason: Worsening of condition. Follow up: Private Physician; When: 2 - 3 days; Reason: Recheck today's complaints, Continuance of care, Re-evaluation by your physician. Signatures: Dispatcher [employer] EDMita Mena, NEERAJ CONKLIN-Jayme Mendiola MD MD kdr Williams, Irene, RN RN iw Tiffany Jaramillo RN RN ph Corrections: (The following items were deleted from the chart) 10/01 10:52 10:29 01/30/2020 10:29 Discharged to Home. Impression: Upper abdominal pain, ph unspecified - enteritis vs ilieus. Condition is Stable. Discharge Instructions: Ileus. Forms are Medication Reconciliation Form, Thank You Letter, Antibiotic Education, Prescription Opioid Use. Follow up: Emergency Department; When: As needed; Reason: Worsening of condition. Follow up: Private Physician; When: 2 - 3 days; Reason: Recheck today's complaints, Continuance of care, Re-evaluation by your physician. kb
[2020-01-30 11:01] VITALS: O2SAT 99
[2020-01-30 11:02] VITALS: BP 139/91; TEMP 97.9
--- NOTE | 2020-01-31 09:01 | RAD REPORT ---
EXAM DESCRIPTION: CT - Abdomen Pelvis W Contrast - 01/30/2020 10:18 pm CLINICAL HISTORY: ABD PAIN COMPARISON: Stone Protocol dated 11/16/2019 TECHNIQUE: Biphasic, helical CT imaging of the abdomen and pelvis was performed following 100 ml non -ionic IV contrast. No oral contrast administered. All CT scans are performed using dose optimization technique as appropriate and may include automated exposure control or mA/KV adjustment according to patient size. FINDINGS: No suspicious findings in the lung bases. The liver, spleen, and pancreas show no suspicious findings. Liver attenuation is borderline or mild fatty infiltrated. Cholecystectomy clips are present. No biliary tree dilatation. Symmetric renal function is seen with no hydronephrosis or suspicious renal mass. No pyelonephritis o r acute parenchymal process. Urinary bladder is contracted limiting assessment. No adrenal abnormalit ies. Small hiatal hernia is present. Gastric surgical changes are noted. No mass or wall thickening at the gastric staple line. Multiple distended and dilated air and fluid-filled small bowel loops are prese nt in the jejunum and proximal ileum. Patient has a relatively smooth tapering back to normal diamete r in the mid and distal ileum. An obstructing mass is not identified. Appendix is normal. No acute co nelia finding identifiable. Patient has a few diverticula. No free air, free fluid or inflammatory stranding. No mass or bulky lymphadenopathy. Postsurgical c hanges are present to the midline upper abdomen from prior hernia repair. Patient has a 6 centimeter fat only supraumbilical hernia. Neck of the hernia is relatively small at 15 mm. No bowel involvement . Fat extends into each inguinal canal. Disc and bony degenerative changes are present. No acute bone finding. No acute vascular finding. IMPRESSION: Multiple distended and dilated small bowel loops with smooth transition into the mid and distal ileum. Enteritis is favored over small bowel obstruction. Repeat imaging can be performed if the patient has progressive symptoms. No free or emergent CT finding. Patient has a 6 centimeter supraumbilical fat only hernia with a 15 millimeter neck. This is inferior to the prior surgically repaired upper abdominal ventral hernia.
== END 2020-01-30 10:52 | disposition home or self-care (01) ==
LOC: ER 09:03
DX: R10.10 Upper abdominal pain, unspecified (principal)
CPT/HCPCS: 96361; 85025; 80048; 36415; 82565; 80076; 83690; 74177; 96375; 96374; 99284; Q9967; J7030; J2405

== ENCOUNTER 2020-11-20 07:12 | Day surgery (SDC) | payer OTHER ==
[2020-11-20] MEDS ORDERED: Ringers Lactate 1,000 ML IV ONE (07:43)
[2020-11-20] MEDS ORDERED: Phenylephrine HCl 10 MG/ML 1 ML VIAL ONE (08:07)
[2020-11-20] MEDS ORDERED: propofoL 200 MG/20 ML VIAL IV ONE ×4 (08:07→08:55)
[2020-11-20] MEDS ORDERED: LIDOCAINE 1% MPF 5 ML VIAL ONE (08:07)
[2020-11-20] MEDS ORDERED: SIMETHICONE 40 MG/ 0.6 ML ONE (08:55)
[2020-11-20 09:22] VITALS: O2SAT 99
[2020-11-20 09:36] VITALS: BP 130/85; TEMP 97.5
--- NOTE | 2020-11-20 15:23 | OP ---
Surgeon: Apollo Roe MD Procedure Performed: Colonoscopy. Indication For Procedure: Abdominal pain, rectal bleeding, questionable history of Crohn disease. Plan For Anesthesia: Monitored anesthesia care. Complexity: Average. Technique: After obtaining informed consent from the patient and explaining risks and complications, which include, but are not limited to bleeding, infection, perforation, and anesthesia complication, the patient was placed in the left lateral position and sedation was given. Subsequently, digital r ectal exam was performed that revealed large external hemorrhoids. The scope was inserted into the r ectum. Retroflexion had revealed medium-sized internal hemorrhoids. The patient's hemorrhoids are t he likely source of bleeding. Scope was then advanced to the cecum. The TI could not be intubated, then gradually withdrawn while carefully examining the mucosa. After the completion of examination, scope and equipment were withdrawn and procedure terminated in a safe manner. Findings: External and internal hemorrhoids. Few diverticula seen in the sigmoid. In the descendin g colon, a 4 mm polyp seen. This was removed by hot biopsy polypectomy. In the mid descending colon , a large flat polyp around 2.5 cm was seen. This was removed. First this was injected with tattoo ink for left and then using EMR technique with the help of a snare complete resection of the polyp wa s done. Subsequently, a clip was placed to close the site of the resection. No other gross abnormal ity seen in the colon. Random biopsies taken. Complications: None. Tolerance To Anesthesia: Excellent. Postoperative Diagnoses: Large colon polyp, diverticulosis, internal and external hemorrhoids. Plan: 1.Await pathology results. 2.Staged colonoscopy in 1 year due to large polyps. 3.Proceed with EGD, small bowel workup and capsule. 4.For hemorrhoids, recommend seeing General Surgery. Return to GI clinic in 2 weeks. US/MODL Voice ID: [id number] Report ID: [id number]
== END 2020-11-20 09:47 | disposition home or self-care (01) ==
LOC: OR 07:12
PROVIDERS: ATTEND Internal Medicine Gastroenterology
PROC: 0DBM8ZX Excision of Descending Colon, Via Natural or Artificial Opening Endoscopic, Diagnostic (ICD-10-PCS; 2020-11-20)
PROC: 0DBE8ZX Excision of Large Intestine, Via Natural or Artificial Opening Endoscopic, Diagnostic (ICD-10-PCS; 2020-11-20)
PROC: 0DBK8ZX Excision of Ascending Colon, Via Natural or Artificial Opening Endoscopic, Diagnostic (ICD-10-PCS; principal; 2020-11-20 08:00)
DX: R10.9 Unspecified abdominal pain (principal); R19.7 Diarrhea, unspecified; K62.5 Hemorrhage of anus and rectum; R15.9 Full incontinence of feces; R53.83 Other fatigue; K50.90 Crohn's disease, unspecified, without complications; D12.2 Benign neoplasm of ascending colon; D12.4 Benign neoplasm of descending colon; K64.4 Residual hemorrhoidal skin tags; K64.8 Other hemorrhoids; K57.30 Diverticulosis of large intestine without perforation or abscess without bleeding
CPT/HCPCS: 88305; 45384; 45380; 45385; J2704 ×4; J2370; J7120

== ENCOUNTER 2020-11-30 07:30 | Day surgery (SDC) | payer OTHER ==
[2020-11-30] MEDS ORDERED: Ringers Lactate 1,000 ML IV ONE (08:08)
[2020-11-30] MEDS ORDERED: SUCCINYLCHOLINE 20 MG/ML (10 ML) IV ONE (08:58)
[2020-11-30] MEDS ORDERED: LIDOCAINE 2% MPF 5 ML VIAL IJ ONE (09:00)
[2020-11-30] MEDS ORDERED: propofoL 200 MG/20 ML VIAL IV ONE (09:00)
[2020-11-30 09:32] VITALS: TEMP 97.7; O2SAT 98
[2020-11-30 09:45] VITALS: BP 126/87
--- NOTE | 2020-11-30 14:21 | OP ---
Surgeon: Apollo Roe MD Procedure Performed: Esophagogastroduodenoscopy. Indication For Procedure: Abdominal pain, diarrhea. Plan For Anesthesia: Monitored anesthesia care. Complexity: Average. Technique: After obtaining informed consent from the patient and explaining risks and complications, which include, but are not limited to bleeding, infection, perforation, and anesthesia complication, the patient was placed in left lateral position. Sedation was given. From then on, the scope was a dvanced to the mouth and carefully guided up to the third portion of the duodenum. After completion of examination, scope and equipment were withdrawn. The procedure terminated in a safe manner. Findings: Esophagus: No gross lesions in the upper and mid esophagus. In the distal esophagus, the re was evidence of salmon-colored mucosa suspicious of Reyes [place] classification C1M2. The GE ju nction appeared to be at around 40 cm from the incisors. Stomach: In the proximal stomach fundic region, there was residual food debris that was noticed and at around 45 cm length from the incisors, a moderate stricture was visualized. With gentle pressure, the scope was advanced through the stricture. The total stricture lines appears to be around 3 cm. Biopsies were taken from the stricture site. After the stricture across the rest of the stomach ant rum and remaining body showed mild striped erythema. Biopsies done. Duodenum: The bulb second and third portion appeared normal. Small bowel biopsies taken to rule out celiac disease. Complications: None. Tolerance To Anesthesia: Excellent. 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 Plan: 1.Await pathology results. 2.Follow up in the GI Clinic. 3.Continue PPI. 4.Follow up with bariatric surgeon for further management of stricture as it is likely causing his s ymptoms. US/MODL Voice ID: [id number] Report ID: [id number]
== END 2020-11-30 09:50 | disposition home or self-care (01) ==
LOC: OR 07:30
PROVIDERS: ATTEND Internal Medicine Gastroenterology
PROC: 0DB88ZX Excision of Small Intestine, Via Natural or Artificial Opening Endoscopic, Diagnostic (ICD-10-PCS; 2020-11-30)
PROC: 0DB78ZX Excision of Stomach, Pylorus, Via Natural or Artificial Opening Endoscopic, Diagnostic (ICD-10-PCS; 2020-11-30)
PROC: 0DB68ZX Excision of Stomach, Via Natural or Artificial Opening Endoscopic, Diagnostic (ICD-10-PCS; 2020-11-30)
PROC: 0DB38ZX Excision of Lower Esophagus, Via Natural or Artificial Opening Endoscopic, Diagnostic (ICD-10-PCS; principal; 2020-11-30 08:30)
DX: K21.00 Gastro-esophageal reflux disease with esophagitis, without bleeding (principal); K29.50 Unspecified chronic gastritis without bleeding; R19.7 Diarrhea, unspecified; Z20.822 Contact with and (suspected) exposure to COVID-19
CPT/HCPCS: 88312; 88305; 43239; U0003; J2704; J0330; J7120

== ENCOUNTER 2021-03-07 07:41 | Emergency (ER) | payer OTHER ==
[2021-03-07] MEDS ORDERED: NA CHLORIDE 0.9% 1,000 ML ONE (08:03)
[2021-03-07] MEDS ORDERED: ONDANSETRON 4 MG/2 ML VIAL ONE (08:03)
[2021-03-07] MEDS ORDERED: MORPHINE 4 MG/ML SYR ONE (08:03)
[2021-03-07 08:23] LABS: Absolute Lymphocytes (CBC) 1.5 K/uL (0.7-4.9); Basophils % 0.4 % (0-1.3); Hematocrit 41.6 % (39.6-49.0); Lymphocytes % 17.6 % (15.3-44.8); MPV 7.8 fL (7.6-11.3); RBC Red Blood Cell Count 4.53 M/uL (4.33-5.43)
--- NOTE | 2021-03-07 08:44 | RAD REPORT ---
EXAM DESCRIPTION: CT - Stone Protocol - 03/07/2021 8:24 am CLINICAL HISTORY: Abdominal pain. COMPARISON: 2018 TECHNIQUE: Computed axial tomography of the abdomen pelvis was obtained without oral or IV contrast. Lack of IV and oral contrast limits evaluation of solid organs, bowel, and vessels. Coronal reformat jessica images were obtained and reviewed. All CT scans are performed using dose optimization technique as appropriate and may include automated exposure control or mA/KV adjustment according to patient size. FINDINGS: 4 millimeter calculus right UVJ. Mild to moderate right hydronephrosis. A renal calculus i s not seen. Subcentimeter left renal cystic mass An ureteral calculus is not noted. A bladder calculus is not present. The liver, spleen, pancreas and adrenals appear grossly normal. Postsurgical changes involve the stomach. Cholecystectomy. A ventral hernia repair. Complex ventral hernia. Contains fat. The neck measures 1.5 centimeters. The herniated fat above 1 co mponent of a hernia measures 6.7 centimeters. A second component of the hernia contains herniated fat measuring 4.1 centimeters. Postsurgical changes lower lumbar spine. Small inguinal hernias contain fat There is no evidence of diverticulitis. The appendix appears normal. Calcified left lung granuloma IMPRESSION: 4 millimeter calculus right UVJ resulting in mild to moderate right hydronephrosis
[2021-03-07] MEDS ORDERED: TAMSULOSIN 0.4 MG SR CAP ONE (08:53)
[2021-03-07] MEDS ORDERED: KETOROLAC 30 MG/ML INJ ONE (08:53)
[2021-03-07] MEDS ORDERED: MAGNESIUM SULFATE 1 gm IVPB 1 GM/100 ML BAG IV ONE (08:54)
[2021-03-07 08:58] LABS: Urine Blood 1+ (Negative); Urine Glucose Negative (Negative); Urine Protein Negative (Negative); Urine Specific Gravity >=1.030 (1.005-1.030)
[2021-03-07 09:25] LABS: Urine Amorphous Sediment 1+ /HPF (NONE SEEN); Urine Bacteria <20 /HPF (NONE SEEN)
--- NOTE | 2021-03-07 09:55 | ER ---
Nurse's Notes [facility] Name: Brandon Galdamez Age: 50 yrs Sex: Male : 1970 Arrival Date: 03/07/2021 Time: 07:43 Bed 7 Private MD: Diagnosis: Calculus of ureter Presentation: 03/07 08:00 Chief complaint: Patient states: "I have been having right flank pain since 0300 this jd3 morning and it feels like my previous kidney stones. my doctor recently started me on Flomax to help move the stones.". Coronavirus screen: At this time, the client does not indicate any symptoms associated with coronavirus-19. Ebola Screen: Patient negative for fever greater than or equal to 101.5 degrees Fahrenheit, and additional compatible Ebola Virus Disease symptoms. Initial Sepsis Screen: Does the patient meet any 2 criteria? No. Patient's initial sepsis screen is negative. Does the patient have a suspected source of infection? No. Patient's initial sepsis screen is negative. Risk Assessment: Do you want to hurt yourself or someone else? Patient reports no desire to harm self or others. Onset of symptoms was March 07, 2021. 08:00 Method Of Arrival: Ambulatory jd3 08:00 Acuity: KAILA 3 jd3 Historical: - Allergies: 08:02 No Known Allergies; jd3 - Home Meds: 08:02 Omeprazole Oral [Active]; gabapentin oral [Active]; Flomax Oral [Active]; jd3 - PMHx: 08:02 GERD; Kidney stone; jd3 - PSHx: 08:02 hernia repair; Cholecystectomy; back; hip; jd3 - Immunization history:: Adult Immunizations up to date, Client reports receiving the 2nd dose of the Covid vaccine. - Social history:: Smoking status: Patient/guardian denies using tobacco, but has a distant history of tobacco abuse. Screenin:04 Abuse screen: Denies threats or abuse. Nutritional screening: No deficits noted. jd3 Tuberculosis screening: No symptoms or risk factors identified. Fall Risk Ambulatory Aid- None/Bed Rest/Nurse Assist (0 pts). Gait- Normal/Bed Rest/Wheelchair (0 pts) Mental Status- Oriented to own ability (0 pts). Total Long Fall Scale indicates No Risk (0-24 pts). Assessment: 08:19 General: Appears in no apparent distress. uncomfortable, Behavior is calm, cooperative. jd3 Pain: Complains of pain in right flank Also complains of nausea. Neuro: Level of Consciousness is awake, alert, obeys commands, Oriented to person, place, time, situation. Cardiovascular: Capillary refill < 3 seconds Patient's skin is warm and dry. Respiratory: Airway is patent Respiratory effort is even, unlabored, Respiratory pattern is regular, symmetrical. GI: Abd is soft X 4 quads Abdomen is tender to palpation. : Reports inability to void, pain in right flank(s). 08:48 Reassessment: Patient and/or family updated on plan of care and expected duration. Pain tw2 level reassessed. Patient is alert, oriented x 3, equal unlabored respirations, skin warm/dry/pink. 10:18 Reassessment: Patient and/or family updated on plan of care and expected duration. Pain jd3 level reassessed. Patient is alert, oriented x 3, equal unlabored respirations, skin warm/dry/pink. Vital Signs: 08:03 BP 175 / 100; Pulse 91; Resp 21 S; Temp 97.9(O); Pulse Ox 98% on R/A; Weight 140.61 kg jd3 (R); Height 6 ft. 1 in. (185.42 cm) (R); Pain 10/10; 08:47 BP 103 / 65; Pulse 80; Resp 18; Pulse Ox 97% on R/A; tw2 10:18 BP 120 / 65; Pulse 73; Resp 18; Pulse Ox 100% on R/A; jd3 08:03 Body Mass Index 40.90 (140.61 kg, 185.42 cm) jd3 ED Course: 07:43 Patient arrived in ED. ds1 07:52 [facility] Mercer [facility]C [facility] kb 07:52 Sarabjit Smith MD is Attending Physician. kb 07:55 Yousuf Marin RN is Primary Nurse. jd3 08:02 Triage completed. jd3 08:04 Arm band placed on. jd3 08:04 Patient has correct armband on for positive identification. Placed in gown. Bed in low jd3 position. Call light in reach. Side rails up X2. Adult w/ patient. Pulse ox on. NIBP on. 08:19 Inserted saline lock: 18 gauge in right antecubital area, using aseptic technique. jd3 Blood collected. 08:24 CT Stone Protocol In Process Unspecified. EDMS 09:54 Darien Shin MD is Referral Physician. kb 10:19 No provider procedures requiring assistance completed. IV discontinued, intact, jd3 bleeding controlled, No redness/swelling at site. Pressure dressing applied. Administered Medications: 08:18 Drug: NS 0.9% 1000 ml Route: IV; Rate: 1000 ml; Site: right antecubital; jd3 09:30 Follow up: Response: No adverse reaction; IV Status: Completed infusion; IV Intake: jd3 1000ml 08:18 Drug: Zofran (Ondansetron) 4 mg Route: IVP; Site: right antecubital; jd3 09:18 Follow up: Response: No adverse reaction; Nausea is decreased jd3 08:18 Drug: morphine 4 mg Route: IVP; Site: right antecubital; jd3 09:18 Follow up: Response: No adverse reaction; Pain is decreased; RASS: Alert and Calm (0) jd3 09:03 Drug: Flomax (tamsulosin) 0.4 mg Route: PO; tw2 10:03 Follow up: Response: No adverse reaction jd3 09:04 Drug: Ketorolac 15 mg Route: IVP; Site: right antecubital; tw2 10:04 Follow up: Response: No adverse reaction; Pain is decreased jd3 09:06 Drug: Magnesium Sulfate 1 grams Route: IVPB; Infused Over: 30 mins; Site: right tw2 antecubital; 09:38 Follow up: Response: No adverse reaction; IV Status: Completed infusion; IV Intake: jd3 100ml Intake: 09:30 IV: 1000ml; Total: 1000ml. jd3 09:38 IV: 100ml; Total: 1100ml. jd3 Outcome: 09:54 Discharge ordered by . kb 10:19 Discharged to home ambulatory, with significant other. jd3 10:19 Condition: stable 10:19 Discharge instructions given to patient, significant other, Instructed on discharge instructions, follow up and referral plans. medication usage, Demonstrated understanding of instructions, follow-up care, medications, Prescriptions given X 2. 10:19 Patient left the ED. jd3 Signatures: Dispatcher [employer] EDMita Mena, PHARMACY GRAD INTERN-C PHARMACY GRAD INTERN-Ckb Delmis Blue ds1 Maria L Virgen, RN RN tw2 Yousuf Marin, RN RN jd3
--- NOTE | 2021-03-07 09:55 | EDPHYS ---
Physician Documentation [facility] Name: Brandon Galdamez Age: 50 yrs Sex: Male : 1970 Arrival Date: 03/07/2021 Time: 07:43 Bed 7 Private MD: ED Physician Sarabjit Smith HPI: 03/07 07:58 This 50 yrs old Male presents to ER via Unassigned with complaints of kb Possible Kidney Stone. 07:58 The patient complains of pain in the right flank. The pain does not radiate. Onset: The kb symptoms/episode began/occurred this morning, at 03:00. Modifying factors: The symptoms are alleviated by nothing. the symptoms are aggravated by nothing. Associated signs and symptoms: Pertinent positives: nausea, difficulty urinating, small amounts. Severity of pain: At its worst the pain was moderate in the emergency department the pain is unchanged. The patient has experienced similar episodes in the past, a few times. The patient has not recently seen a physician. Pt reports right flank pain that began at 0300 today. States he feels like he needs to urinate, but when he tries he only dribbles. Has had kidney stones in the past and this feels the same. . Historical: - Allergies: 08:02 No Known Allergies; jd3 - Home Meds: 08:02 Omeprazole Oral [Active]; gabapentin oral [Active]; Flomax Oral [Active]; jd3 - PMHx: 08:02 GERD; Kidney stone; jd3 - PSHx: 08:02 hernia repair; Cholecystectomy; back; hip; jd3 - Immunization history:: Adult Immunizations up to date, Client reports receiving the 2nd dose of the Covid vaccine. - Social history:: Smoking status: Patient/guardian denies using tobacco, but has a distant history of tobacco abuse. ROS: 07:59 Constitutional: Negative for fever, chills, and weight loss. kb 07:59 Abdomen/GI: Positive for nausea, Negative for abdominal pain, vomiting, diarrhea. 07:59 Back: Positive for flank pain, on the right. 07:59 : Positive for small amounts, difficulty urinating. 07:59 All other systems are negative. Exam: 07:59 Constitutional: This is a well developed, well nourished patient who is awake, alert, kb and in no acute distress. Head/Face: Normocephalic, atraumatic. ENT: Moist Mucous membranes Cardiovascular: Regular rate and rhythm with a normal S1 and S2. No gallops, murmurs, or rubs. No pulse deficits. Respiratory: Respirations even and unlabored. No increased work of breathing, no retractions or nasal flaring. Abdomen/GI: Soft, non-tender. No distention Skin: Warm, dry with normal turgor. Normal color. MS/ Extremity: Pulses equal, no cyanosis. Neurovascular intact. Full, normal range of motion. Neuro: Awake and alert, GCS 15, oriented to person, place, time, and situation. Moves all extremities. Normal gait. Psych: Awake, alert, with orientation to person, place and time. Behavior, mood, and affect are within normal limits. 07:59 Back: CVA tenderness, that is mild, is noted on the right. Vital Signs: 08:03 BP 175 / 100; Pulse 91; Resp 21 S; Temp 97.9(O); Pulse Ox 98% on R/A; Weight 140.61 kg jd3 (R); Height 6 ft. 1 in. (185.42 cm) (R); Pain 10/10; 08:47 BP 103 / 65; Pulse 80; Resp 18; Pulse Ox 97% on R/A; tw2 10:18 BP 120 / 65; Pulse 73; Resp 18; Pulse Ox 100% on R/A; jd3 08:03 Body Mass Index 40.90 (140.61 kg, 185.42 cm) jd3 MDM: 07:53 Patient medically screened. kb 07:57 Data reviewed: vital signs, nurses notes. Data interpreted: Pulse oximetry: on room air kb is 100 %. Interpretation: normal. 09:47 Counseling: I had a detailed discussion with the patient and/or guardian regarding: the kb historical points, exam findings, and any diagnostic results supporting the discharge/admit diagnosis, lab results, radiology results, the need for outpatient follow up, a urologist, to return to the emergency department if symptoms worsen or persist or if there are any questions or concerns that arise at home. ED course: Pain controlled. Pt educated on need for follow up with urology. Verbal understanding received. Pt has prescription for flomax that was given by pcp yesterday. 09:56 ED course: [employer] aware reviewed. Pt was prescribed 120 Tramadol on 03/05/21. kb 03/07 07:57 Order name: Basic Metabolic Panel; Complete Time: 08:37 kb 03/07 07:57 Order name: CBC with Diff; Complete Time: 08:24 kb 03/07 07:57 Order name: CT Stone Protocol; Complete Time: 08:48 kb 03/07 07:57 Order name: Urine Microscopic Only; Complete Time: 09:28 kb 03/07 08:58 Order name: Urine Dipstick-Ancillary; Complete Time: 09:01 EDMS 03/07 07:57 Order name: IV Saline Lock; Complete Time: 08:18 kb 03/07 07:57 Order name: Labs collected and sent; Complete Time: 08:18 kb 03/07 07:57 Order name: Urine Dipstick-Ancillary (obtain specimen); Complete Time: 08:59 kb Administered Medications: 08:18 Drug: NS 0.9% 1000 ml Route: IV; Rate: 1000 ml; Site: right antecubital; jd3 09:30 Follow up: Response: No adverse reaction; IV Status: Completed infusion; IV Intake: jd3 1000ml 08:18 Drug: Zofran (Ondansetron) 4 mg Route: IVP; Site: right antecubital; jd3 09:18 Follow up: Response: No adverse reaction; Nausea is decreased jd3 08:18 Drug: morphine 4 mg Route: IVP; Site: right antecubital; jd3 09:18 Follow up: Response: No adverse reaction; Pain is decreased; RASS: Alert and Calm (0) jd3 09:03 Drug: Flomax (tamsulosin) 0.4 mg Route: PO; tw2 10:03 Follow up: Response: No adverse reaction jd3 09:04 Drug: Ketorolac 15 mg Route: IVP; Site: right antecubital; tw2 10:04 Follow up: Response: No adverse reaction; Pain is decreased jd3 09:06 Drug: Magnesium Sulfate 1 grams Route: IVPB; Infused Over: 30 mins; Site: right tw2 antecubital; 09:38 Follow up: Response: No adverse reaction; IV Status: Completed infusion; IV Intake: jd3 100ml Disposition Summary: 03/07/21 09:54 Discharge Ordered Location: Home kb Condition: Stable kb Diagnosis - Calculus of ureter kb Followup: kb - With: Emergency Department - When: As needed - Reason: Worsening of condition Followup: kb - With: Darien Shin MD - When: 2 - 3 days - Reason: Recheck today's complaints Discharge Instructions: - Kidney Stones, [id number]-[id number] kb - Dietary Guidelines to Help Prevent Kidney Stones kb - Discharge Summary Sheet tw2 Forms: - Medication Reconciliation Form kb - Work release form tw2 - Thank You Letter kb - Antibiotic Education kb - Prescription Opioid Use kb Prescriptions: - Zofran 4 mg Oral Tablet - take 1 tablet by ORAL route every 6 hours As needed; 20 tablet; Refills: 0, kb Product Selection Permitted - Diclofenac Sodium 75 mg Oral tablet,delayed release (DR/EC) - take 1 tablet by ORAL route 2 times per day As needed; 30 tablet; Refills: 0, kb Product Selection Permitted Addendum: 03/09/2021 08:35 Co-signature as Attending Physician, Sarabjit Smith MD I agree with the assessment and s p3 plan of care. Signatures: Dispatcher [employer] EDMita Mena, PARCEL CONTRACTOR-C PARCEL CONTRACTOR-CkMaria L Matos, RN RN tw2 Yousuf Marin RN RN jd3 Sarabjit Smith MD MD sp3
[2021-03-07 10:49] VITALS: TEMP 97.9
[2021-03-07 10:51] VITALS: BP 120/65; O2SAT 100
--- OUTSIDE RECORDS SUMMARY | 2021-03-13 15:01 | XMS REPORT | Continuity of Care Document ---
:1970 Author Organization [facility] t Address [address] [place] [address] Care Team Providers Name Role Phone Unavailable Unavailable Unavailable Payers Payer Name Policy Type Policy Number Effective Date Expiration Date S ource Problems This patient has no known problems. Allergies, Adverse Reactions, Alerts Allergy Allergy Status Severity Reaction(s) Onset Inactive Treating Comm ents Source Name Type Date Date Clinician No Known DA Active U 2018-0 [facility] [place] [facility] DA Active SV 2018-0 [facility] ed[facility] 07[facility]30 [place] [facility] Medications This patient has no known medications. Procedures This patient has no known procedures. Results Test Description Test Time Test Comments Results Result [facility] e Comments - MRI [facility] 2018-07-30 Patient Name: W/CONTRAST RT 12:20:00 DEMARCUS SWEENEY Unit No: [id number] EXAMS: CPT CODE: [id number] MRI [facility] W/[place] [address] MRI ARTHROGRAM RIGHT HIP DIAGNOSIS: 1. Congenitally [...] Reported and signed by: Tina Kate MD [facility] NAME: DEMARCUS SWEENEY [address] [facility] [address] PHYS: Eric Scherer : 1970 AGE: 47 SEX: M [place], [place] [address] LOC: Y.RAD PHONE #: [phone] EXAM DATE: 07/30/2018 STATUS: REG CLI FAX #: [phone] RAD #: D/C DT PAGE 1 Signed Report (CONTINUED) Patient Name: DEMARCUS SWEENEY Unit No: [id number] EXAMS: CPT CODE: [id number] MRI LW JNT W/[place] [address] <Continued> CC: Eric Vargas MD Technologist: Caro Paredes(R) Transcribed D/ (1220) t.BRAEDEN.GVG [facility] NAME: DEMARCUS SWEENEY [address] [facility] [address] PHYS: Eric Scherer : 1970 AGE: 47 SEX: M [place], [place] [address] LOC: Y.RAD PHONE #: [phone] EXAM DATE: 07/30/2018 STATUS: REG CLI FAX #: [phone] RAD #: D/C DT PAGE 2 Signed Report Patient Name: DEMARCUS SWEENEY Unit No: [id number] EXAMS: CPT CODE: [id number] MRI LW JNT W/[place] [address] <Continued> Orig Print D/T: S: 07/30/2018 (1223) [facility] NAME: DEMARCUS SWEENEY [address] [facility] [address] PHYS: BROBA - Brown,Eric Shgreysonwinnie : 1970 AGE: 47 SEX: M [place], [place] [address] LOC: Y.RAD PHONE #: [phone] EXAM DATE: 07/30/2018 STATUS: REG CLI FAX #: [phone] RAD #: D/C DT PAGE 3 Signed Report - XR ARTHROGRAM 2018-07-30 Patient Name: HIP W/O AN RT+ 12:20:00 DEMARCUS SWEENEY Unit No: [id number] EXAMS: CPT CODE: [id number] XR ARTHROGRAM HIP W/O AN RT+ 55362 MRI ARTHROGRAM RIGHT HIP DIAGNOSIS: 1. Congenitally [...] Reported and signed by: Tina Kate MD [facility] NAME: DEMARCUS SWEENEY [address] [facility] [address] PHYS: SOO VargasEric Mason : 1970 AGE: 47 SEX: M [place] [address] LOC: Y.RAD PHONE #: [phone] EXAM DATE: 07/30/2018 STATUS: REG CLI FAX #: [phone] RAD #: D/C DT PAGE 1 Signed Report (CONTINUED) Patient Name: DEMARCUS SWEENEY Unit No: [id number] EXAMS: CPT CODE: [id number] XR ARTHROGRAM HIP W/O AN RT+ 18105 <Continued> CC: Chico Hurtado MD; Eric Vargas MD Technologist: WERNER LAUREN, RT(R) Transcribed D/ (1220) t.MAGDALENAR.GVG [facility] NAME: DEMARCUS SWEENEY [address] [facility] [address] PHYS: SOO VargasEric Mason : 1970 AGE: 47 SEX: M [place] [address] LOC: Y.RAD PHONE #: [phone] EXAM DATE: 07/30/2018 STATUS: REG CLI FAX #: [phone] RAD #: D/C DT PAGE 2 Signed Report Patient Name: DEMARCUS SWEENEY Unit No: [id number] EXAMS: CPT CODE: [id number] XR ARTHROGRAM HIP W/O AN RT+ 09493 <Continued> Orig Print D/T: S: 07/30/2018 (1223) [facility] NAME: DEMARCUS SWEENEY [address] [facility] [address] PHYS: Eric Scherer : 1970 AGE: 47 SEX: M [place], [place] [address] LOC: Y.RAD PHONE #: [phone] EXAM DATE: 07/30/2018 STATUS: REG CLI FAX #: [phone] RAD #: D/C DT PAGE 3 Signed Report
== END 2021-03-07 10:19 | disposition home or self-care (01) ==
LOC: ER 07:41
DX: N20.1 Calculus of ureter (principal); K21.9 Gastro-esophageal reflux disease without esophagitis
CPT/HCPCS: 96365; 96361; 85025; 80048; 36415; 76377; 74176; 96375; 99284; J3475; J7030; J2405; 81003; 81015

== ENCOUNTER 2021-03-23 19:52 | Emergency (ER) | payer OTHER ==
--- OUTSIDE RECORDS SUMMARY | 2021-03-23 19:54 | XMS REPORT | Continuity of Care Document ---
:1970 Author Organization [facility] t Address [address] [place] [address] Care Team Providers Name Role Phone Unavailable Unavailable Unavailable Payers Payer Name Policy Type Policy Number Effective Date Expiration Date S ource Problems This patient has no known problems. Allergies, Adverse Reactions, Alerts Allergy Allergy Status Severity Reaction(s) Onset Inactive Treating Comm ents Source Name Type Date Date Clinician No Known DA Active U 0 [facility] 07[facility] [place] [facility] methylpr DA Active SV 0 [facility] ednisolo 07-30 [place] ne 00:00[facility] Medications This patient has no known medications. Procedures This patient has no known procedures. Results Test Description Test Time Test Comments Results Result [facility] e Comments - MRI [facility] 2018-07-30 Patient Name: W/CONTRAST RT 12:20:00 DEMARCUS SWEENEY Unit No: [id number] EXAMS: CPT CODE: [id number] MRI [facility] W/[place] [address] MRI ARTHROGRAM RIGHT HIP DIAGNOSIS: 1. Congenitally [...] Reported and signed by: Tina Kate MD [facility] NAME: DEMARCUS SWEENEY [address] [facility] PHYS: Eric Scherer : 1970 AGE: 47 SEX: M [place], [place] [address] LOC: Y.RAD PHONE #: [phone] EXAM DATE: 07/30/2018 STATUS: REG CLI FAX #: [phone] RAD #: D/C DT PAGE 1 Signed Report (CONTINUED) Patient Name: DEMARCUS SWEENEY Unit No: [id number] EXAMS: CPT CODE: [id number] MRI LW JNT W/[place] [address] <Continued> CC: Eric Vargas MD Technologist: Caro Paredes(R) Transcribed D/ (1220) t.MAGDALENAR.GVG [facility] NAME: DEMARCUS SWEENEY [address] [facility] PHYS: Eric Scherer : 1970 AGE: 47 SEX: M [place], [place] [address] LOC: Y.RAD PHONE #: [phone] EXAM DATE: 07/30/2018 STATUS: REG CLI FAX #: [phone] RAD #: D/C DT PAGE 2 Signed Report Patient Name: DEMARCUS SWEENEY Unit No: [id number] EXAMS: CPT CODE: [id number] MRI LW JNT W/[place] [address] <Continued> Orig Print D/T: S: 07/30/2018 (1223) [facility] NAME: DEMARCUS SWEENEY [address] [facility] PHYS: SOO Hoa Eric Vargas : 1970 AGE: 47 SEX: M [place], [place] [address] LOC: Y.RAD PHONE #: [phone] EXAM DATE: 07/30/2018 STATUS: REG CLI FAX #: [phone] RAD #: D/C DT PAGE 3 Signed Report - XR ARTHROGRAM 2018-07-30 Patient Name: HIP W/O AN RT+ 12:20:00 DEMARCUS SWEENEY Unit No: [id number] EXAMS: CPT CODE: [id number] XR ARTHROGRAM HIP W/O AN RT+ 42649 MRI ARTHROGRAM RIGHT HIP DIAGNOSIS: 1. Congenitally [...] Reported and signed by: Tina Kate MD [facility] NAME: DEMARCUS SWEENEY [address] [facility] PHYS: SOO VargasEric Mason : 1970 AGE: 47 SEX: M [place] [address] LOC: Y.RAD PHONE #: [phone] EXAM DATE: 07/30/2018 STATUS: REG CLI FAX #: [phone] RAD #: D/C DT PAGE 1 Signed Report (CONTINUED) Patient Name: DEMARCUS SWEENEY Unit No: [id number] EXAMS: CPT CODE: [id number] XR ARTHROGRAM HIP W/O AN RT+ 15087 <Continued> CC: Chico Hurtado MD; Eric Vargas MD Technologist: WERNER LAUREN, RT(R) Transcribed D/ (1220) t.MAGDALENAR.GVG [facility] NAME: DEMARCUS SWEENEY [address] [facility] PHYS: SOO VargasEric Mason : 1970 AGE: 47 SEX: M [place] [address] LOC: Y.RAD PHONE #: [phone] EXAM DATE: 07/30/2018 STATUS: REG CLI FAX #: [phone] RAD #: D/C DT PAGE 2 Signed Report Patient Name: DEMARCUS SWEENEY Unit No: [id number] EXAMS: CPT CODE: [id number] XR ARTHROGRAM HIP W/O AN RT+ 35764 <Continued> Orig Print D/T: S: 07/30/2018 (1223) [facility] NAME: DEMARCUS SWEENEY [address] [facility] PHYS: Eric Scherer : 1970 AGE: 47 SEX: M [place], [place] [address] LOC: Y.RAD PHONE #: [phone] EXAM DATE: 07/30/2018 STATUS: REG CLI FAX #: [phone] RAD #: D/C DT PAGE 3 Signed Report
--- NOTE | 2021-03-23 21:08 | RAD REPORT ---
EXAM DESCRIPTION: RAD - Hip Right 2 View - 03/23/2021 8:56 pm CLINICAL HISTORY: hip pain COMPARISON: Hip Right 2 View dated 10/21/2018; Hip Right 2 View dated 03/02/2018; Stone Protocol dated 03/07/2021 FINDINGS: AP and frog-leg views of the right hip were obtained. No dislocation or acute fracture identifiable. Joint space is narrowed superiorly. Minimal sclerotic changes to the acetabular rim noted not significantly different from prior imaging. Degenerative spur s are seen along the articular margins of the femoral head. This has progressed over the multi year i nterval back to 2018. Patient has a shortened right femoral neck as a normal variant. There is a oval rather than rounded contour to the femoral head. This is a developmental variant for this patient. N o AVN in the femoral head identified on plain film. No pathologic or destructive process seen. No per iarticular mass or hematoma. IMPRESSION: Right hip moderate degenerative changes are present and have shown slow progression over the interval dating back to 2018. No acute right hip joint finding.
[2021-03-23] MEDS ORDERED: HYDROCODONE/APAP 7.5/325 MG TAB ONE (21:19)
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
[2021-03-23 21:58] VITALS: TEMP 97.9; O2SAT 99
[2021-03-23 21:59] VITALS: BP 125/85
== END 2021-03-23 21:53 | disposition home or self-care (01) ==
LOC: ER 19:52
DX: M25.551 Pain in right hip (principal); V89.2XXA Person injured in unspecified motor-vehicle accident, traffic, initial encounter
CPT/HCPCS: 99283

== ENCOUNTER 2022-09-21 11:43 | Emergency (ER) | payer OTHER ==
--- OUTSIDE RECORDS SUMMARY | 2022-09-21 11:47 | XMS REPORT | Continuity of Care Document ---
:1970 Author Organization [facility] t Address [address] [place] [address] [address] [place] [address] Care Team Providers Name Role Phone July Gonzalez Attending Clinician Unavailable Ricky Torres Attending Clinician Unavailable TRICIA_Dallin Attending Clinician Unavailable Ricky Torres Admitting Clinician Unavailable Phi Admitting Clinician Unavailable UNDEFINED Admitting Clinician Unavailable Payers Payer Name Policy Type Policy Number Effective Date Expiration Date S forrest [facility] [id number] UHC - MEDICARE [id number] COMPLETE (MEDICARE REPLACEMENT [facility] [id number] [facility] 00:00:00 (PPO) Problems Condition Condition Condition Status Onset Resolution Last Treating Co mments Source Name Details Category Date Date Treatment Clinician Date Neck pain Neck Pain Problem Active Aza aleisha 2-03 Orthope 00:00: dic 00 Sports Medicin e Cervical Cervical Problem Active Azale a spondylosi Spondylosi 2-03 Or thope s with s with 00:00: dic radiculopa Radiculopa 00 Sp orts thy thy Medicin e Situation Situation Problem Active Aza aleisha with with 1-18 Orthope explicit Explicit 00:00: dic context Context 00 Sports Medicin e 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 2-10 Orthop e of the of the 00:00: dic capital [employer] 00 Sports femoral Femoral Medicin 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 Sourav payne itis of itis of 5-30 Orthope hip Hip 00:00: dic 00 Sports Medicin e Acetabular Acetabular Problem Active A elmer labrum Labrum 4-01 Orthope tear Tear 00:00: dic 00 Sports Medicin e Hip pain Hip Pain Problem Active Azale a 3-22 Orthope 00:00: dic 00 Sports Medicin e Allergies, Adverse Reactions, Alerts Allergy Allergy Status Severity Reaction(s) Onset Inactive Treating Comm ents Source Name Type Date Date Clinician methylpr DA Active SV BLISTERS [facility] ednisolo FACE/MOUTH 07-30 [facility] ne 00:00: [place] 00 [facility] No Known DA Active U [facility] Allergie 07-30 [facility] 00:00: Orthope 00 dic Hospita l methylpr DA Active SV [facility] ednisolo 07-30 [facility] 00:00: Orthope 00 dic Hospita l Social History Smoking Status Start Date Stop Date Source Former Smoker [facility] Sports Medicine Medications Ordered Filled Start Stop Current Ordering Indication Dosage Frequency Signature Comments Components Source Medication Medication Date Date Medication? Clinician (SIG) Name Name meloxicam meloxicam No meloxicam Kendra 15 mg 15 mg 2-15 15 mg Orthope tablet TAKE tablet TAKE 00:00: tablet dic 1 TABLET BY 1 TABLET BY 00 TAKE 1 Sports MOUTH EVERY MOUTH EVERY TABLET BY Medicin DAY DAY MOUTH e EVERY DAY aspirin 325 aspirin 325 No aspirin Kendra mg tablet 1 mg tablet 1 08-07 325 mg Orthope TAB PO Q12H TAB PO Q12H 00:00: tablet 1 dic 00 TAB PO Sports Q12H Medicin e Tylenol-Cod Tylenol-Cod No Tylenol-Co Kendra eine #3 300 eine #3 300 08-07 deine #3 Orthope mg-30 mg mg-30 mg 00:00: 300 mg-30 dic tablet 1 tablet 1 00 mg tablet Sp orts tablet PO tablet PO 1 tablet M edicin Q6H PRN Q6H PRN PO Q6H PRN e pain pain pain Zofran 4 mg Zofran 4 mg 2019-0 No Zofran 4 Kendra tablet 1 tablet 1 4-09 mg tablet Or thope TAB PO Q4H TAB PO Q4H 00:00: 1 TAB PO dic PRN NAUSEA PRN NAUSEA 00 Q4H PRN Sports NAUSEA Medicin e Accu-Chek Accu-Chek No Accu-Chek Kendra Arlene Plus Arlene Plus Arlene Plus Orthope test strips test strips test d ic USE TO USE TO strips USE Sport s CHECK CHECK TO CHECK Medicin GLUSOE GLUSOE GLUSOE e TWICE A DAY TWICE A DAY TWICE A DAY Accu-Chek Accu-Chek No Accu-Chek Kendra Fastclix Fastclix Fastclix Ort hope Lancet Drum Lancet Drum Lancet dic USE TO USE TO Drum USE Sports CHECK BLOOD CHECK BLOOD TO CHECK Medicin SUGAR TWICE SUGAR TWICE BLOOD e A DAY A DAY SUGAR TWICE A DAY Accu-Chek Accu-Chek No Accu-Chek Kendra Guide Me Guide Me Guide Sc Meredith lopez Glucose Glucose Glucose dic Meter USE Meter USE Meter USE Sports TO TEST TO TEST TO TEST Medici n BLOOD SUGAR BLOOD SUGAR BLOOD e TWICE A DAY TWICE A DAY SUGAR TWICE A DAY amoxicillin amoxicillin No amoxicilli Kendra [phone] 875 Orthope mg-potassiu mg-potassiu mg-potassi dic m m um Sports clavulanate clavulanate clavulanat Medicin 125 mg 125 mg e 125 mg e tablet TAKE tablet TAKE tablet ONE (1) ONE (1) TAKE ONE TABLET(S) TABLET(S) (1) BY MOUTH BY MOUTH TABLET(S) EVERY EVERY BY MOUTH TWELVE TWELVE EVERY HOURS FOR HOURS FOR TWELVE SEVEN DAYS. SEVEN DAYS. HOURS FOR SEVEN DAYS. celecoxib celecoxib No celecoxib Kendra 200 mg 200 mg 200 mg Orthope capsule capsule capsule dic TAKE ONE TAKE ONE TAKE ONE Spo rts (1) (1) (1) Medicin CAPSULE(S) CAPSULE(S) CAPSULE(S) e BY MOUTH BY MOUTH BY MOUTH TWICE A DAY TWICE A DAY TWICE A WITH FOOD. WITH FOOD. DAY WITH FOOD. doxycycline doxycycline No doxycyclin Kendra hyclate 100 hyclate 100 e hyclate Orthope mg capsule mg capsule 100 mg d ic TAKE 1 TAKE 1 capsule Sports CAPSULE BY CAPSULE BY TAKE 1 M edicin MOUTH TWICE MOUTH TWICE CAPSULE BY e A DAY A DAY MOUTH TWICE A DAY gabapentin gabapentin No gabapentin Kendra 600 mg 600 mg 600 mg Orthope tablet TAKE tablet TAKE tablet dic ONE (1) ONE (1) TAKE ONE Sport s TABLET(S) TABLET(S) (1) Medic in BY MOUTH BY MOUTH TABLET(S) e THREE TIMES THREE TIMES BY MOUTH A DAY. A DAY. THREE TIMES A DAY. hydrocodone hydrocodone No hydrocodon Kendra 10 10 e 10 Orthope mg-acetamin mg-acetamin mg-acetami dic ophen 325 ophen 325 nophen 325 Sports mg tablet mg tablet mg tablet Medicin TAKE 1 TAKE 1 TAKE 1 e TABLET BY TABLET BY TABLET BY MOUTH EVERY MOUTH EVERY MOUTH 6 HOURS 6 HOURS EVERY 6 NEEDED ONLY NEEDED ONLY HOURS FOR FOR NEEDED BREAKTHROUG BREAKTHROUG ONLY FOR H PAIN H PAIN BREAKTHROU GH PAIN ibuprofen ibuprofen No ibuprofen Kendra 800 mg 800 mg 800 mg Orthope tablet tablet tablet dic Sports Medicin e metaxalone metaxalone No metaxalone Kendra 800 mg 800 mg 800 mg Orthope tablet TAKE tablet TAKE tablet dic ONE (1) ONE (1) TAKE ONE Sport s TABLET(S) TABLET(S) (1) Medic in BY MOUTH BY MOUTH TABLET(S) e TWICE A DAY TWICE A DAY BY MOUTH NEEDED. NEEDED. TWICE A DAY NEEDED. metformin metformin No metformin Kendra ER 500 mg ER 500 mg ER 500 mg Orthope tablet,exte tablet,exte tablet,ext dic nded nded ended Sports release 24 release 24 release 24 Medicin hr TAKE ONE hr TAKE ONE hr TAKE e (1) (1) ONE (1) TABLET(S) TABLET(S) TABLET(S) BY MOUTH BY MOUTH BY MOUTH ONCE A DAY ONCE A DAY ONCE A DAY WITH WITH WITH EVENING EVENING EVENING MEAL. MEAL. MEAL. methocarbam methocarbam No methocarba Kendra ol 500 mg ol 500 mg mol 500 mg Orthope tablet TAKE tablet TAKE tablet dic 1 TABLET BY 1 TABLET BY TAKE 1 Sports MOUTH THREE MOUTH THREE TABLET BY Medicin TIMES A DAY TIMES A DAY MOUTH e NEEDED NEEDED THREE FOR MUSCLE FOR MUSCLE TIMES A SPASMS SPASMS DAY NEEDED FOR MUSCLE SPASMS Micro Thin Micro Thin No Micro Thin Kendra Lancets 33 Lancets 33 Lancets 33 Orthope gauge USE gauge USE gauge USE dic DIRECTED DIRECTED S ports ONCE A DAY ONCE A DAY DIRECTED Medicin WHILE WHILE ONCE A DAY e FASTING IN FASTING IN WHILE THE THE FASTING IN MORNING. MORNING. THE MORNING. mupirocin 2 mupirocin 2 No mupirocin Kendra % topical % topical 2 % Ortho pe ointment ointment topical dic APPLY TO APPLY TO ointment Spo rts AFFECTED AFFECTED APPLY TO Med icin AREA TWICE AREA TWICE AFFECTED e A DAY FOR 5 A DAY FOR 5 AREA TWICE DAYS. DAYS. A DAY FOR 5 DAYS. naproxen naproxen No naproxen Aza aleisha 375 mg 375 mg 375 mg Orthope tablet TAKE tablet TAKE tablet dic 1 TABLET BY 1 TABLET BY TAKE 1 Sports MOUTH TWICE MOUTH TWICE TABLET BY Medicin A DAY WITH A DAY WITH MOUTH e MEALS MEALS TWICE A DAY WITH MEALS ofloxacin ofloxacin No ofloxacin Kendra 0.3 % ear 0.3 % ear 0.3 % ear Orthope drops drops drops dic INSTILL INSTILL INSTILL Sports FIVE (5) FIVE (5) FIVE (5) Med icin DROPS INTO DROPS INTO DROPS INTO e EACH EAR EACH EAR EACH EAR TWICE A DAY TWICE A DAY TWICE A FOR 7 DAYS. FOR 7 DAYS. DAY FOR 7 DAYS. omeprazole omeprazole No omeprazole Kendra 40 mg 40 mg 40 mg Orthope capsule,del capsule,del capsule,de dic ayed ayed layed Sports release release release Medici n TAKE ONE TAKE ONE TAKE ONE e (1) (1) (1) CAPSULE(S) CAPSULE(S) CAPSULE(S) BY MOUTH BY MOUTH BY MOUTH ONCE A DAY. ONCE A DAY. ONCE A DAY. Ozempic Ozempic No Ozempic Kendra 0.25 mg or 0.25 mg or 0.25 mg or Orthope 0.5 mg (2 0.5 mg (2 0.5 mg (2 dic mg/1.5 mL) mg/1.5 mL) mg/1.5 mL) Sports subcutaneou subcutaneou subcutaneo Medicin s pen s pen us pen e injector injector injector INJECT 0.5 INJECT 0.5 INJECT 0.5 MG UNDER MG UNDER MG UNDER THE SKIN THE SKIN THE SKIN ONCE ONCE ONCE WEEKLY. WEEKLY. WEEKLY. phentermine phentermine No phentermin Kendra 37.5 mg 37.5 mg e 37.5 mg Orth ope tablet TAKE tablet TAKE tablet dic ONE (1) ONE (1) TAKE ONE Sport s TABLET(S) TABLET(S) (1) Medic in BY MOUTH BY MOUTH TABLET(S) e ONCE A DAY. ONCE A DAY. BY MOUTH ONCE A DAY. ropinirole ropinirole No ropinirole Kendra 1 mg tablet 1 mg tablet 1 mg O rthope TAKE ONE TAKE ONE tablet dic (1) (1) TAKE ONE Sports TABLET(S) TABLET(S) (1) Medic in BY MOUTH BY MOUTH TABLET(S) e TWICE A DAY TWICE A DAY BY MOUTH NEEDED. NEEDED. TWICE A DAY NEEDED. sildenafil sildenafil No sildenafil Kendra 50 mg 50 mg 50 mg Orthope tablet TAKE tablet TAKE tablet dic ONE (1) ONE (1) TAKE ONE Sport s TABLET(S) TABLET(S) (1) Medic in BY MOUTH BY MOUTH TABLET(S) e ONCE A DAY ONCE A DAY BY MOUTH NEEDED. NEEDED. ONCE A DAY NEEDED. tamsulosin tamsulosin No tamsulosin Kendra 0.4 mg 0.4 mg 0.4 mg Orthope capsule capsule capsule dic TAKE ONE TAKE ONE TAKE ONE Spo rts (1) (1) (1) Medicin CAPSULE(S) CAPSULE(S) CAPSULE(S) e BY MOUTH BY MOUTH BY MOUTH DAILY. DAILY. DAILY. terbinafine terbinafine No terbinafin Kendra HCl 250 mg HCl 250 mg e HCl 250 Orthope tablet TAKE tablet TAKE mg tablet dic ONE (1) ONE (1) TAKE ONE Sport s TABLET(S) TABLET(S) (1) Medic in BY MOUTH BY MOUTH TABLET(S) e ONCE A DAY. ONCE A DAY. BY MOUTH ONCE A DAY. tramadol 50 tramadol 50 No tramadol Kendra mg tablet mg tablet 50 mg Orth ope TAKE ONE TAKE ONE tablet dic (1) (1) TAKE ONE Sports TABLET(S) TABLET(S) (1) Medic in BY MOUTH BY MOUTH TABLET(S) e EVERY SIX EVERY SIX BY MOUTH HOURS HOURS EVERY SIX NEEDED. NEEDED. HOURS NEEDED. triamcinolo triamcinolo No triamcinol Kendra ne ne one Orthope acetonide acetonide acetonide dic 0.1 % 0.1 % 0.1 % Sports topical topical topical Medici n cream APPLY cream APPLY cream e A SMALL A SMALL APPLY A AMOUNT TO AMOUNT TO SMALL AFFECTED AFFECTED AMOUNT TO AREA TWICE AREA TWICE AFFECTED A DAY. A DAY. AREA TWICE A DAY. venlafaxine venlafaxine No venlafaxin Kendra ER 37.5 mg ER 37.5 mg e ER 37.5 Orthope capsule,ext capsule,ext mg d ic ended ended capsule,ex Sports release 24 release 24 tended M edicin hr TAKE ONE hr TAKE ONE release 24 e (1) (1) hr TAKE CAPSULE(S) CAPSULE(S) ONE (1) BY MOUTH BY MOUTH CAPSULE(S) ONCE A DAY ONCE A DAY BY MOUTH WITH FOOD. WITH FOOD. ONCE A DAY WITH FOOD. Vital Signs Vital Name Observation Time Observation Value Comments Source Height 2022-04-07 00:00:00 72 [in_i] Kendra O rthopedic Sports Medicine BMI (Body Mass 2022-04-07 00:00:00 38 kg/m2 Kendra Orthopedic Index) Sports Medicine Body Weight 2022-04-07 00:00:00 280 [lb_av] Kendra Robin rthopedic Sports Medicine Procedures Procedure Date / Time Performing Clinician Source Performed MRI CERVICAL SPINE W/O 2022-04-07 00:00:00 Danuta benjamin Orthopedic CONTRAST Sports Medicine electromyogram + nerve 2022-04-07 00:00:00 Danuta benjamin Orthopedic conduction study Sports Medicine [id number] 2021-05-18 00:00:00 [facility] [place] [facility] Plan of Care Planned Activity Planned Date Details Comments Source Instructions Kendra Estradaed ic Sports Medicine Encounters Start End Encounter Admission Attending Care Care Encounter Source Date/Time Date/Time Type Type Clinicians Facility Department ID 2022-07-25 [place] [facility] [id number] Common 10:01:02 July [id number] [facility]22-07-22 [facility] [id number] Common 11:46:08 July [place]24 [facility] 2022-07-01 [facility] [id number] Common 08:21:02 July [place]03 [facility] 2022-06-17 Outpatient [place], [facility] [id number] [facility] 11:07:03 July [id number] [facility] 2021-05-07 Inpatient OANH Vance ADMI [id number] [facility] 14:00:00 Ricky [id number] [place] [facility] 2022-04-08 2022-04-08 Outpatient FOG_Goytia_ AOSM AOSM [id number] Kendra 00:00:00 00:00:00 eSnia [id number] Ortho pe dic Sports Medicin e 2022-04-07 2022-04-07 Outpatient FOG_Goytia_ AOSM AOSM [id number] Kendra 00:00:00 00:00:00 Senia [id number] Ortho pe dic Sports Medicin e 2022-04-07 2022-04-07 Kevin Webb [facility]OS[facility] [place] - [facility]o [id number] Kendra 00:00:00 00:00:00 Lucy Villagomez MD: 74[address] FOG[facility]Ofc dic [facility], [place] [address] , Ph. [phone] 2021-10-01 2021-10-01 Outpatient FOG_Goytia_ AOSM AOSM [id number] Kendra 03:15:00 03:15:00 Senia [id number] Ortho pe dic Sports Medicin e 2021-10-01 2021-10-01 Outpatient FOG_Goytia_ AOSM AOSM [id number] Kendra 00:00:00 00:00:00 Senia [id number] Ortho pe dic Sports Medicin e 2021-10-01 2021-10-01 Outpatient FOG_Goytia_ AOSM AOSM [id number] Kendra 00:00:00 00:00:00 Senia [id number] Ortho pe dic Sports Medicin e 2021-05-18 2021-05-19 Inpatient OANH Vance ADMI [id number] [facility] 07:44:00 12:18:00 Ricky [id number] [place] [facility] 2021-05-18 2021-05-19 Inpatient OANH Vance ADMI [id number] [facility] 07:44:00 12:18:00 Ricky 96 [place] [facility] 2021-05-07 2021-05-07 Outpatient TJ Torres LABO [id number] [facility] 18:12:00 18:12:00 Ricky 43 [facility] Results Test Description Test Time Test Comments Results Result [facility] e Comments - XR PELVIS 1/2021-05-19 VIEWS 07:25:00 [facility] : 1970 Sex: M Patient Name: DEMARCUS SWEENEY Unit No: [id number] EXAMS: CPT CODE: [id number] XR PELVIS 05/02 VIEWS 84744 INTRAOPERATIVE LEG LENGTH FILM COMMENT: COMPARISON: No prior exams available. In progress right hip replacement is noted. INTRAOPERATIVE LEG LENGTH FILM COMMENT: COMPARISON: No prior exams available. In progress right hip replacement is noted. AP portable right hip COMMENT: The patient is status post joint replacement which is articulating normally. at 0725 Reported and signed by: Jonathan Park MD CC: Ricky Torres Technologist: ALEXIS ANNA. RT(R) Transcribed D/ (0725) [facility] NAME: DEMARCUS SWEENEY [address] [facility] PHYS: Ricky Rizzo MD : 1970 AGE: 50 SEX: M [place], [place] [address] LOC: Y.315 A PHONE #: [phone] EXAM DATE: 05/18/2021 STATUS: ADM IN FAX #: [phone] RAD #: D/C DT PAGE 1 Signed Report Patient Name: DEMARCUS SWEENEY Unit No: [id number] EXAMS: CPT CODE: [id number] XR PELVIS 1/2 VIEWS 64329 (Continued) Orig Print D/T: S: 05/19/2021 (0856) [facility] NAME: DEMARCUS SWEENEY [address] [facility] PHYS: Ricky Rizzo MD : 1970 AGE: 50 SEX: M [place], [place] [address] LOC: Y.315 A PHONE #: [phone] EXAM DATE: 05/18/2021 STATUS: ADM IN FAX #: [phone] RAD #: D/C DT PAGE 2 Signed Report - XR PELVIS 1/2 2021-05-19 VIEWS 07:25:00 [facility] 1970 Sex: M Patient Name: DEMARCUS SWEENEY Unit No: [id number] EXAMS: CPT CODE: [id number] XR PELVIS 1/2 VIEWS 69020 INTRAOPERATIVE LEG LENGTH FILM COMMENT: COMPARISON: No prior exams available. In progress right hip replacement is noted. INTRAOPERATIVE LEG LENGTH FILM COMMENT: COMPARISON: No prior exams available. In progress right hip replacement is noted. AP portable right hip COMMENT: The patient is status post joint replacement which is articulating normally. at 0725 Reported and signed by: Jonathan Park MD CC: Ricky Torres Technologist: ALEXIS ANNA. RT(R) Transcribed D/ (0725) [facility] NAME: DEMARCUS SWEENEY [address] [facility] PHYS: Ricky Rizzo MD : 1970 AGE: 50 SEX: M [place], [place] [address] LOC: Y.315 A PHONE #: [phone] EXAM DATE: 05/18/2021 STATUS: ADM IN FAX #: [phone] RAD #: D/C DT PAGE 1 Signed Report Patient Name: DEMARCUS SWEENEY Unit No: [id number] EXAMS: CPT CODE: [id number] XR PELVIS 05/02 VIEWS 96436 (Continued) Orig Print D/T: S: 05/19/2021 (0856) [facility] NAME: DEMARCUS SWEENEY [address] [facility] PHYS: Ricky Rizzo MD : 1970 AGE: 50 SEX: M [place], [place] [address] LOC: Y.315 A PHONE #: [phone] EXAM DATE: 05/18/2021 STATUS: ADM IN FAX #: [phone] RAD #: D/C DT PAGE 2 Signed Report - XR PELVIS /2021-05-19 VIEWS 07:25:00 [facility] 1970 Sex: M Patient Name: DEMARCUS SWEENEY Unit No: [id number] EXAMS: CPT CODE: [id number] XR PELVIS 1/2 VIEWS 86278 INTRAOPERATIVE LEG LENGTH FILM COMMENT: COMPARISON: No prior exams available. In progress right hip replacement is noted. INTRAOPERATIVE LEG LENGTH FILM COMMENT: COMPARISON: No prior exams available. In progress right hip replacement is noted. AP portable right hip COMMENT: The patient is status post joint replacement which is articulating normally. at 0725 Reported and signed by: Jonathan Park MD CC: Ricky Torres Technologist: IVAN HUDSON RT(R) Transcribed D/ (0725) [facility] NAME: DEMARCUS SWEENEY [address] [facility] PHYS: Ricky Rizzo MD : 1970 AGE: 50 SEX: M [place] [address] LOC: Y.315 A PHONE #: [phone] EXAM DATE: 05/18/2021 STATUS: ADM IN FAX #: [phone] RAD #: D/C DT PAGE 1 Signed Report Patient Name: DEMARCUS SWEENEY Unit No: [id number] EXAMS: CPT CODE: [id number] XR PELVIS 1/2 VIEWS 86372 (Continued) Orig Print D/T: S: 05/19/2021 (0856) [facility] NAME: DEMARCUS SWEENEY [address] [facility] PHYS: Ricky Rizzo MD : 1970 AGE: 50 SEX: M [place] [address] LOC: Y.315 A PHONE #: [phone] EXAM DATE: 05/18/2021 STATUS: ADM IN FAX #: [phone] RAD #: D/C DT PAGE 2 Signed Report BASIC METABOLIC PANEL 2021-05-19 06:46:00 Test Item Value Reference Range Interpretation Comme nts SODIUM (test code = NA) 141 mmol/L 136-145 N POTASSIUM (test code = K) 4.6 mmol/L 3.5-5.1 N CHLORIDE (test code = CL) 104.0 mmol/L 98-107 N CARBON DIOXIDE (test code = 27.6 mmol/L 21-32 N CO2) GLUCOSE (test code = GLU) 95 mg/dL 70-110 N BLOOD UREA NITROGEN (test code 15 mg/dL 7-18 N = BUN) GLOMERULAR FILTRATION RATE 66.9 >60 U nit of measure: mL/min/1.73 (test code = GFR) [id number] Range:Healthy Adults >90 mL/m in/1.73 m2 For Chronic Kidney Disease: Stage II Mild Decreas e in GFR 60-90 Stage III Moder ate Decrease in GFR 30-59 St age IV Severe Decrease in GFR 15-29 Stage V Kidney Failure <15 CREATININE (test code = CREAT) 1.16 mg/dL 0.55-1.30 N CALCIUM (test code = CA) 8.4 mg/dL 8.2-10.1 N HGB [id number] 06:04:00 Test Item Value Reference Range Interpretation Comments HEMOGLOBIN (test code = HGB) 12.1 g/dL 12-16 N HEMATOCRIT (test code = HCT) 36.1 % 37-47 L SPECIMEN COMMENT: POD #[id number] 08:39:00 Test Item Value Reference Range Interpretation Comments [id number] Negative Negative The test was performed (test code = at: [facility] [id number]) TESTING SIT ENote: this entry is for TR ACKING purposes only a nd the testwas done ou [facility] per[facility] in spec imen comments. The test was performed at: [facility] TESTING SITEon: 05/11/21Patient's account number from transferring facility: [id number] patient's current lab results are: NegativePROTHROMBIN [id number] 17:18:00 Test Item Value Reference Range Interpretation Comments PROTHROMBIN TIME 11.7 secs 10.1-12.5 N PATIENT (test code = PTP) INTERNATIONAL NORMAL 1.03 <2.0 RECOMME NDED THERAPEUTIC RATIO (test code = RANGE FOR ORAL INR) ANTICOAGULANTTR EATMENT: CONDITION INRPr ophylaxis of venous throm bosis in 2.0 - 3.0 high- risk medical or surg ical patientsTreatme nt of venous thrombos is 2.0 - 3.0Prevention o f embolism 2.0 - 3.0Prevention o f recurrent embol ism, or 3.0 - 4.5 patie nts with mechanical pros thetic intravascular v burr IS PATIENT ON ANTICOAGULANTS ? YLIST ANTICOAGULANT/ANTI PLT MEDICATION : AspirinHas Lab been notified if Patient is on Heparin Drip? NOIf Yes, order CBC, OCCULT BLOOD, PT every other day NTHROMBOPLASTIN TIME [id number] 17:18:00 Test Item Value Reference Range Interpretation Comments PTT ACTIVATED (test 40.1 secs 24.9-37.0 HH VERIFIED BY REPEAT code = APTT) ANALYSIS.CRITIC AL VALUE CALLED TO KEVIN GRANADOS BACK & CONFIRMED? YESB Kellee Bailey.AEG 05/07 1718 IS PATIENT ON ANTICOAGULANTS ? YLIST ANTICOAGULANT/ANTI PLT MEDICATION : AspirinHas Lab been notified if Patient is on Heparin Drip? NOIf Yes, order CBC, OCCULT BLOOD, PT every other day NCOMPREHENSIVE METABOLIC [id number] 17:08:00 Test Item Value Reference Range Interpretation Comments SODIUM (test code = 140 mmol/L 136-145 N NA) POTASSIUM (test code = 4.6 mmol/L 3.5-5.1 N K) CHLORIDE (test code = 104.0 mmol/L 98-107 N CL) CARBON DIOXIDE (test 27.5 mmol/L 21-32 N code = CO2) GLUCOSE (test code = 114 mg/dL 70-110 H GLU) BLOOD UREA NITROGEN 15 mg/dL 7-18 N (test code = BUN) GLOMERULAR FILTRATION 66.9 >60 Unit o f measure: RATE (test code = GFR) mL/mi n/1.73 [id number] Range:Healthy Adults >90 mL/min/1.73 m2 For Chronic Kidney Disease: Stage II Mild Decrease i n GFR 60-90 Stage III Moderate Decrea se in GFR 30-59 St age IV Severe Decre ase in GFR 15-29 St age V Kidney Failur e <15 CREATININE (test code 1.16 mg/dL 0.55-1.30 N = CREAT) TOTAL PROTEIN (test 6.9 g/dL 6.4-8.2 N code = PROT) ALBUMIN (test code = 3.6 g/dL 3.4-5.0 N ALB) GLOBULIN (test code = 3.3 g/dL 2.2-4.2 N GLOB) ALBUMIN/GLOBULIN RATIO 1.1 0.7-2.0 N (test code = A/G) CALCIUM (test code = 8.4 mg/dL 8.2-10.1 N CA) BILIRUBIN TOTAL (test 0.40 mg/dL 0.2-1.00 N code = BILT) SGOT/AST (test code = 16.0 U/L 15-37 N AST) SGPT/ALT (test code = 28.0 U/L 12-78 N Please note new ALT) normal range. ALKALINE PHOSPHATASE 115 U/L 46-116 N TOTAL (test code = ALKP) CBC W/AUTO [id number] 17:07:00 Test Item Value Reference Range Interpretation Comments WHITE BLOOD CELL (test code = WBC) 5.4 K/mm3 5.7-10.5 L RED BLOOD CELL (test code = RBC) 4.48 M/mm3 4.2-5.4 N HEMOGLOBIN (test code = HGB) 13.7 g/dL 12-16 N HEMATOCRIT (test code = HCT) 39.4 % 37-47 N MEAN CELL VOLUME (test code = MCV) 88 fL 80-98 N MEAN CELL HGB (test code = MCH) 30.6 pg 27-34 N MEAN CELL HGB CONCENTRATION (test 34.8 g/dL 30.8-34.1 H code = MCHC) RED CELL DISTRIBUTION WIDTH (test 12.6 % 11-16 N code = RDW) PLT (test code = PLT) 269 K/mm3 130-400 N MEAN PLATELET VOLUME (test code = 10.6 fL 8.9-12.1 N MPV) NEUTROPHIL % (test code = NT%) 51.3 % 45-70 N LYMPHOCYTE % (test code = LY%) 36.2 % 20-40 N MONOCYTE % (test code = MO%) 8.3 % 3-10 N EOSINOPHIL % (test code = EO%) 3.3 % 1-5 N BASOPHIL % (test code = BA%) 0.7 % 0.0-1.1 N NEUTROPHIL # (test code = NT#) 2.76 K/mm3 2.00-7.50 N LYMPHOCYTE # (test code = LY#) 1.95 K/mm3 1.50-4.00 N MONOCYTE # (test code = MO#) 0.45 K/mm3 0.2-0.8 N EOSINOPHIL # (test code = EO#) 0.18 K/mm3 0.04-0.4 N BASOPHIL # (test code = BA#) 0.04 K/mm3 0.02-0.10 N MANUAL DIFF REQUIRED (test code = NO MANUAL DIFF MDIFF) NUCLEATED RED BLOOD CELL (test 0 % 0-0 N code = NRBC) - MRI LW JNT W/CONTRAST [id number] 12:20:00 Patient Name: DEMARCUS SWEENEY Unit No: [id number] EXAMS: CPT CODE: [id number] MRI LW JNT W/CONTRASTRT 23299 MRI ARTHROGRAM RIGHT HIP DIAGNOSIS: 1. 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 Complex moderately displaced tear of the [...] 25-gauge needle is inserted into the right hipjoint under fluoroscopic control using sterile technique. A total volume of 8 mL consisting of a combination of equal parts Isovue-300 and dilute gadolinium is instilled into the joint space. This is followed by intra-articular injection of 4 mL of Marcaine. The patient tolerated the procedure well. 0.5 minutes of fluoroscopy time was used on this exam. Post arthrographic films show no extravasationof contrast outside the joint. at 1220 Reported and signed by: Manjit Kate MD [facility] NAME: DEMARCUS SWEENEY [address] [facility] Main PHYS: Eric Scherer : 1970 AGE: 47 SEX: M [place] [address] LOC: Y.RAD PHONE #: [phone] EXAM DATE: 07/30/2018 STATUS: REG CLI FAX #: [phone] RAD #: D/C DT PAGE 1 Signed Report (CONTINUED) Patient Name: DEMARCUS SWEENEY Unit No: [id number] EXAMS: CPT CODE: [id number] MRI LW JNT W/[place] [id number] (Continued) CC: Eric Vargas MD Technologist: Caro Paredes(R) Transcribed D/ (1220) SantiG [facility] NAME: DEMARCUS SWEENEY [address] [facility] Main PHYS: Eric Scherer : 1970 AGE: 47 SEX: M [place] [address] LOC: Y.RAD PHONE #: [phone] EXAM DATE: 07/30/2018 STATUS: REG CLI FAX #: [phone] RAD #: D/C DT PAGE 2 Signed Report Patient Name: DEMARCUS SWEENEY Unit No: [id number] EXAMS: CPT CODE: [id number] MRI LW JNT W/[place] [id number] (Continued) Orig Print D/T: S: 07/30/2018 (1223) [facility] NAME: DEMARCUS SWEENEY[address] [facility] Main PHYS: Eric Scherer : 1970 AGE: 47 SEX: M [place] [address] LOC: Y.RAD PHONE #: [phone] EXAM DATE: 07/30/2018 STATUS: REG CLI FAX#: [phone] RAD #: D/C DT PAGE 3 Signed Report- XR ARTHROGRAM HIP W/O AN RT+2018-07-30 12:20:00 Patient Name: DEMARCUS SWEENEY Unit No: [id number] EXAMS: CPT CODE: [id number] XR ARTHROGRAM HIP W/O AN RT+ 98943 MRI ARTHROGRAM RIGHT HIP DIAGNOSIS: 1. 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 Complex moderately displaced tear of the superior anterior and posterior labrum.There is associated moderate to high-grade diffuse chondral [...] aggressive osseous lesions. RIGHT HIP ARTHROGRAM WITH INTRA- ARTICULAR MARCAINE INJECTION Comment: After informed consent was obtained a 25- gauge needle is inserted into the right hip joint under fluoroscopic control using sterile technique. A total volume of 8 mL consisting ofa combination of equal parts Isovue-300 and dilute gadolinium is instilled into the joint space. This is followed by intra-articular injection of 4 mL of Marcaine. The patient tolerated the procedure well. 0.5 minutes of fluoroscopy time was used on this exam. Post arthrographic films show no extravasation of contrast outside the joint. at 1220 Reported and signed by: Manjit Kate MD [facility] NAME: DEMARCUS SWEENEY [address] [facility] PHYS: Eric Scherer : 1970 AGE: 47 SEX: M [place], [place] [address] LOC: Y.RAD PHONE #: [phone] EXAM DATE: 07/30/2018 STATUS: REG CLI FAX #:[phone] RAD #: D/C DT PAGE 1 Signed Report (CONTINUED) Patient Name: DEMARCUS SWEENEY Unit No:[id number] EXAMS: CPT CODE: [id number] XR ARTHROGRAM HIP W/O AN RT+ 65363 (Continued) CC: Kevin Hurtado MD; Eric Vargas MD Technologist: WERNER LAUREN, RT(R) Transcribed D/ (1220) ValerieGVG [facility] NAME: DEMARCUS SWEENEY [address] [facility] PHYS: Eric Scherer : 1970 AGE: 47 SEX: M [place] [address] LOC: Y.RAD PHONE #: [phone] EXAM DATE: 07/30/2018 STATUS: REG CLI FAX #: [phone] RAD #: D/C DT PAGE 2 Signed Report Patient Name: DEMARCUS SWEENEY Unit No: [id number] EXAMS: CPT CODE: [id number] XR ARTHROGRAM HIP W/O AN RT+ 47562 (Continued) Orig Print D/T: S: 07/30/2018 (1223) [facility] NAME: DEMARCUS SWEENEY [address] [facility] PHYS: Eric Scherer : 1970 AGE: 47 SEX: M [place] [address] LOC: Y.RAD PHONE #: [phone] EXAM DATE: 07/30/2018 STATUS: REG CLI FAX #: [phone] RAD #: D/C DT PAGE 3 Signed Report Notes Date/Time Note Provider Source 2021-05-19 09:10:00-00:00 [facility] ([facility]) Clinical Note REPORT#:[id number] REPORT STATUS: Signed DATE:05/19/21 TIME: 909 PATIENT: DEAMRCUS SWEENEY UNIT #: [id number] ROOM/BED: [address] : [birth year] AGE: 50 SEX: M ATTEND: Elias Torres MD ADM AUTHOR: Flako Hoover MD * ALL edits or amendments must be made on the el ectronic/computer document * Clinical Note Note: [facility] Flako bhakta M.D. (cell text [phone]) Assessment/Plan 1.) Anemia of acute blood loss- .Hgb 12.1, asymp tomatic. 2.) S/p Right AHA- .acute mu lti-modal pain control and followup. Anticoagulation as per Dr. Torres. 3.) GERD Hx DVT LLE 2010- .on Tx. States he is o n life long asa. 4.) OsteoArthritis Morbid Obeisty[BMI 40 .6]- .continue on Rx. Body habitus may slow recovery rehab. * OK for DISCHARGE per Internal Medicine. Prior Events/Overnight: Uneventful. Chief Complaint: No significant complaints. Objective Vital Signs Date Temp Pulse Resp B/P B/P Mean Pulse Ox FiO2 05/18-05/19 96.3-98.1 61-80 12-18 110-163/62-80 81.5-98.3 90-100 32 Gen: Alert, oriented, in mild discomfort Neck: No Masses, No Thyromegaly- CV: Regular Rate Rhythm / Edema- no significant Resp: Clear To Ascultation / Normal Respiratory Effort ABD: NonTender / NonDistended MS/Skin: No sign of compartment syndrome / +ankl e DF/PF Other: Labs/X-ray: Laboratory Tests: 05/19 0404 Chemistry Sodium (136 - 145 mmol/L) 141 Potassium (3.5 - 5.1 mmol/L) 4.6 Chloride (98 - 107 mmol/L) 104.0 Carbon Dioxide (21 - 32 mmol/L) 27.6 BUN (7 - 18 mg/dL) 15 Creatinine (0.55 - 1.30 mg/dL) 1.16 Glomerular Filtr Rate (>60) 66.9 Glucose (70 - 110 mg/dL) 95 Calcium (8.2 - 10.1 mg/dL) 8.4 Hematology Hgb (12 - 16 g/dL) 12.1 Hct (37 - 47 %) 36.1 L Flako Mccauley M.D. at 1053 RUST #:[id number] END OF REPORT 2021-05-19 06:44:00-00:00 [facility] ([facility]) Discharge Summary REPORT#:[id number] REPORT STATUS: Signed DATE:05/19/21 TIME: 643 PATIENT: DEMARCUS SWEENEY UNIT #: [id number] ROOM/BED: [address] : [birth year] AGE: 50 SEX: M ATTEND: Elias Torres MD ADM AUTHOR: Ricky Torres MD * ALL edits or amendments must be made on the [employer]/computer document * General Information Discharge date: 05/19/21 Hospital course: Discharge Diagnosis: Right Hip Degenerative Dise ase Procedure: Right Hip Arthroplasty Hospital Course and Findings The patient underwent the pr ocedure without incident. Findings were significant for degenerative disease of the hip. The patient was hemodynamically and medically monitored during the postoperative per iod. Anticoagulation was instituted for postoperative DVT prophylaxis. Th e patient was progressively able to tolerate PO pain med ications and the appropriate diet. Physical therapy was instituted, with a progressive ability to am bulate and perform exercises. The patient was eventually deemed stable and saf e for discharge. Despite factors which projected a longer hospita l stay, the patient fulfilled criteria for earlier than expected disch arge, including control of pain, early mobilization with therapy, and a stable hemodyna linda status. At discharge, the patient was comfortabl e, with a controlled pain level. There were no chest or abdominal symptoms present. Dis charge physical examination demonstrated stable vital signs and no acute dis tress. The patient had an intact wound with no signifi cant drainage, and no calf tenderness and a negative Pat s sign bilaterally. There were no neurolog ic or vascular deficits or changes from the preoperative state. Disposition: Discharged to home Discharge Condition: Stable Instructions: Instruction sheet given to patient Activity: Ambulate with assistance and walking a id, with weight-bearing as instructed in the hospital. Weight bearing limit ations were reviewed with the patient during the hospitalization. Diet: As per preoperatively Prescriptions 1. Pain Medications: As per discharge prescription, with progressive weaning as pain decreases 2. Anticoagulation: As per discharge prescription, or PreOp anticoa gulant, as discussed with patient Follow-up Appointment: Patient instructe d to arrange appointment for an office visit in 2 weeks Med Rec Med Rec Discharge meds: Stop taking the following medications: ASPIRIN (ASPIRIN) 81 MG TAB.CHEW 162 MILLIGRAM ORAL DAILY. traMADol (ULTRAM) 50 MG TAB 50 MILLIGRAM ORAL EVERY 6 HOURS NEEDED. as n eeded for PAIN Continue taking these medications: OMEPRAZOLE ER (PriLOSEC) 40 MG CAP.DR 40 MILLIGRAM ORAL DAILY. MAGNESIUM OXIDE (MAG-OXIDE) 400 MG TAB 400 MILLIGRAM ORAL TWICE DAILY. Start taking the following new medications: ASPIRIN EC (ECOTRIN) 81 MG TAB.EC 81 MILLIGRAM ORAL TWICE DAILY WITH MEALS. Qty = 60 No Refills DOXYCYCLINE HYCLATE (VIBRAMYCIN) 100 MG CAP 100 MILLIGRAM ORAL TWICE DAILY. Days = 7 Qty = 14 No Refills POLYETHYLENE GLYCOL 3350 (MIRALAX) 17 GM POWDER 17 GRAM ORAL BEDTIME. Days = 30 Qty = 30 No Refills Instructions: please take daily for constipation prevention MELOXICAM (MOBIC) 15 MG TAB 15 MILLIGRAM ORAL DAILY. Qty = 30 No Refills HYDROcodone/APAP (NORCO 10/325) 10 MG-325 MG TAB 1 TABLET ORAL EVERY SIX HOURS NEEDED as need ed for prn break through pain Qty = 28 No Refills Instructions: one tab every 6 hours only for breakthrough nely n methocarbamoL (ROBAXIN) 500 MG TAB 500 MILLIGRAM ORAL THREE TIMES DAILY NEEDED. as needed for muscle spasm Qty = 28 No Refills traMADol (ULTRAM) 50 MG TAB 50 MILLIGRAM ORAL EVERY 4 HOURS NEEDED. as n eeded for pain Days = 7 Qty = 28 No Refills Discharge Instructions PCP )( Discharge to: Home/Self Care Discharge Instructions Additional Discharge Routines: Attending Follow- Up )( Diet: Res Diet )( Activity: As Tolerated, C rutches/Walker, Do not Submerge Incision, No Driving Follow-up Appointments Attending Physician: Attending Physician: Ricky Torres MD Electronically Signed by Ricky Torres MD on at 0756 RPT #:[id number] END OF REPORT 2021-05-19 06:43:00-00:00 [facility] ([facility]) Clinical Note REPORT#:[id number] REPORT STATUS: Signed DATE:05/19/21 TIME: 642 PATIENT: DEMARCUS SWEENEY UNIT #: [id number] [facility] AGE: 50 SEX: M ATTEND: Elias Torres MD ADM AUTHOR: Ricky Torres MD * ALL edits or amendments must be made on the el ectronic/computer document * Clinical Note Note: POD# 1 Joint Arthroplasty Patient well, reports pain is mild-moderate AF VSS Exam: dressing dry/intact Moves toes DF/PF Sensory unchanged A/P: Mobilize with physical Therapy DVT prophylaxis ongoing Following labs Remove coverlet, do not recover, patient may ceasar wer Discharge planning home today if PT clears Laboratory Tests 05/19/21 0404: [Embedded Image Not Available] 24 hour I O ending at 0700: 05/19 0700 05/18 1900 Intake Total 680.00 Output Total 1300 300 Balance -620.00 -300 Intake, IV 440.00 Intake, Oral 240 Number Voids 3 1 Output, Urine 1300 300 Patient 291 lb Weight Electronically Signed by Ricky Torres MD on at 0643 RPT #:[id number] END OF REPORT 2021-05-18 20:33:00-00:00 [facility] ([facility]) Clinical Note REPORT#:[id number] REPORT STATUS: Signed DATE:05/18/21 TIME: 2032 PATIENT: DEMARCUS SWEENEY UNIT #: [id number] [facility] AGE: 50 SEX: M ATTEND: Elias Torres MD ADM AUTHOR: Flako Hoover MD * ALL edits or amendments must be made on the el ectronic/computer document * Clinical Note Note: [facility] Flako bhakta MD (cell text [phone]) Internal Medicine Consult at request of : Dr. Kiya Arceo Chief Complaint: right hip pain HPI: 50yo M is now s/p Right Anterior To kike Hip Arthroplasty (AHA) with spinal anesthesia by Dr. Torres. Mr. Sweeney relates 3 months of progressive right hip pain (recently severe), worse with activity, and popping crunchy with restricted motion at times in quality. He has fa iled conservative management. Comorbidities: see below. PmHx: . DVT left leg 10 years ago, childhood ast hma, GERD, BMI 40.6 ALLERGY: Allergies: methylprednisolone (From Faveous) (Coded, Severe, BLISTERS FACE/MOUTH, 07/30/18) Home Medications: Home Medications: OMEPRAZOLE ER (PriLOSEC) 40 MG PO DAILY MAGNESIUM OXIDE (MAG-OXIDE) 400 MG PO BID ASPIRIN EC (ECOTRIN) 81 MG PO BID MEALS DOXYCYCLINE HYCLATE (VIBRAMYCIN) 100 MG PO BID POLYETHYLENE GLYCOL 3350 (MIRALAX) 17 GM PO BEDT MAGALIS MELOXICAM (MOBIC) 15 MG PO DAILY HYDROcodone/APAP (NORCO 10/325) 1 TAB PO Q6HPRN PRN prn break through pain methocarbamoL (ROBAXIN) 500 MG PO TID PRN PRN mu scle spasm traMADol (ULTRAM) 50 MG PO Q4H PRN PRN pain SgHx: . Laminectomy, hernia repair, cholecystect dot, lap band, right hip SHx: Tob: none FHx: .No significant hx of DVT/P E. Alcohol: none Drugs: none Lives: with spouse Vitals: Vital Signs Date Temp Pulse Resp B/P B/P Mean Pulse Ox FiO 2 05/18 96.3-97.8 60-80 12-18 121-163/62-80 93-98 .3 97-100 32 Gen: Alert, in mild discomfort, nl nutrition. EYE: Nl lids conjunctiva. ENT: Nl ears Nose, nl lips,. Neck: Supple, nl thyroid, No masses. CV: Regular Rate Rhythm, no heave or significant murmur. Edema- none RESP: Clear to Auscultation, normal Respiratory effort. ABD: Soft, NonDistended,. LYM: No significant cervical Lymphadenopathy. MS: No sign of compartment syndrome, hip dressin g dry and intact, NEURO: Nonfocal, grossly normal sensation of LE, +Ankle DF/PF . Preop Labs(05/07/2021): CBC:. Hgb 13.7, Plt 269, CHEM: Na 140, K 4.6, Cr 1.16 (eGFR 66.9%), . (medium to high risk of complications or morbid ity) (major surgery) (IV sedative, meds) Assessment Plan 1.) Anemia of Acute Blood Loss- .will recheck to chacha. 2.) S/p Right AHA0 .acute mu lti-modal pain control and followup. Anticoagulation as per Dr. Torres. 3.) GERD Hx DVT LLE 2020- .on Tx. 4.) OsteoArthritis Morbid Obeisty[BMI 40 .6]- .continue on Rx. Body habitus may slow recovery rehab. Flako Mccauley M.D. Thanks! G8427 - current medications obtained and froilane rafi G8730 - pain assessment with tool and followup p [facility] [id number] - offered discussion o n advanced care plan and patient declined to address issue at this time. at 2035 RPT #:[id number] END OF REPORT 2021-05-18 12:44:00-00:00 [facility] ([facility]) Operative Note - Full REPORT#:[id number] REPORT STATUS: Signed DATE:05/18/21 TIME: 1244 PATIENT: DEMARCUS SWEENEY UNIT #: [id number] ROOM/BED: [place] [address] : 72 AGE: 50 SEX: M ATTEND: Elias Torres MD ADM AUTHOR: Ricky Torres MD * ALL edits or amendments must be made on the el [employer]/computer document * Operative Report Start date: 05/18/21 Start time: 0000 Pre-procedure diagnosis: R hip dysplasia, OA, OBESITY BMI 40.6 Post-procedure diagnosis: same Procedures performed: R COMPLEX ZELALEM Technique/Procedure: Posterior Total Hip Replacement OPERATIVE PROCEDURE IN DETAIL [facility], and all questions and concerns were answered. The patient verbally conf irmed the site and side of the surgery and marking of the site was done. The patient was brought to located within [facility] operating room and, after adequate anesthesia was obtained was turned into the lateral decubitus p osition and held there with a well padded pelvic gunn and airplane a rm splint. The leg was then prepped in routine sterile manner, following which it was d raped free, including the perineum and operative areas with adhesive Ioban Drape. A surgical time-out was perf ormed to identify correct patient, surgical site and surgery. We verified patient had received preope rative antibiotics. The skin incision was made i n the axis of the shaft of the femur centered on the greater trochanter and slanted backward in the d irection of the fibers of the gluteus seamus. The skin in cision was carried through subcutaneous tissue down to fascia. After hemostasis, the fascia was divi ded in the direction of its fibers, splitting the fibers of gluteus seamus superiorly. After hemostasis, anterior and posterior flaps were raised, and the Charnley retractor was placed. The interval between the piriformis and the inferior border of gluteus minimus and medius was then identified, and a retractor placed deep beneath gluteus minimus. Gluteus minimus was then retracted off the underlying hip capsule. The piriformis tendon and the rest of the sh ort external rotators and capsule were identified and cut close to its attachment to th e greater trochanter by internally rotating the leg. The hip was then dislocated. Retractors were naila adi around the femoral neck. Using a neck cuting guide, the femoral head and neck were cut at the pre- templated level. Attention was directed to the a cetabulum where anterior and posterior retractors were pl aced. Remnants of labrum were excised anteriorly and posteriorly using a combination of electrocauter y and sharp dissection. Posterior capsule was preserved. The contents of the acetabular fossa were removed by electrocautery an d curettes. This allowed visualization of the cavity of the acetabulum, which was then reamed with molina ccessive reamers. The acetabular component was then insert ed in press-fit mode into the floor of the acetabulum in an appropriate amount of incli nation and anteversion. The trial liner was then introduced into the cup. The retractors were removed, and attention was directed to the femur. Electrocautery was used to remove the tendinous stump of piriformis and surrounding soft tissue to e xpose the lateral-most extent of the femoral neck. A box osteotome was then used to enter the proxima l femur, following which the femur was reamed with successive reamers. The fe mur was then broached with appropriate broaches. A tria l neck and head were placed onto the broach and the hip was reduced. ROM and stability were checked. An intraoperative x-ray confirmed placement of the c omponents and it was used to see if any adjustments were needed. The trial components were th en removed, and the cup liner was inserted and fully seated. The stem was inserted in press-fit mode. The femoral head was seated onto the trunion. The hip wa s then reduced after thoroughly cleansing the inner aspect of the acetabulum to assure that all debr is was removed. The wound was thoroughly washed, and, after reduction of the h ip, the leg was placed on a metal anode machine operator slight abduction and internal rot ation. The capsule, with overlying short rotators, was then reattached in anatomic fashion to the intertrochanteric line and posterior trochanteri c ridge through bony tunnels. The fascia was closed with interrupted #1 Vicryl and #2 Quill sutures. The subcutaneous tissues were closed with as deep la johana of #1 Vicryl, superficial layer of 2-0 Vicryl sutures, and the ski n edges were re-approximate. Dermabond mesh applied. A pillow was placed between the knees an d the patient was then returned to the recovery room in good condition having tolerated the procedure well. Complexity Case was off added complexity due to patient s m orbid obesity with a BMI of 40.6. We needed additional t magalis for positioning, exposure, handling of the soft tissues, management of limb, positioning of retractors and additional time for complex multilayer closure. This case took 1.5 t imes longer than a typical procedure INDICATIONS FOR STREET CLEANER The presence of a skilled molina rgical assistant real estate manager was medically necessary to aid for the entire procedure. Their responsibilities inc lude patient positioning, retraction of soft tissues for wide exposure so that the surgeon can use both hands to perform the surgery, as well as stabili zing the limb for surgical instrumentation throughout the case. Ret raction for exposure/visualization, as well as stabilization of the extremity is vital to the procedure and not possible without an assistant real estate manager. In addition keishain manjit an assistant real estate manager shortens operative times which decrea ses expenses and improves outcomes. I am not part of any residency or fellowship training programs and therefore require the help of the assistant real estate manager listed above for this surgery. IMPLANTS Depuy 54 mm Lehigh cup, 36+4 liner, 6std trilo ck, 36+ 1.5mm CERAMIC head Primary Surgeon: CHRISTI Concentrator Operator(s): YOHAN KATZ Anesthesia: general anesthesia Operative findings: OA Complications: none Estimated blood loss in ml's: 300 Specimens removed/altered: none Implant(s): DEPUY Electronically Signed by Ricky Torres MD on at 1247 RPT #:[id number] END OF REPORT 2018-08-07 10:20:00-00:00 [id number] [place] [address] PATIENT NAME: DEMARCUS SWEENEY ADMIT DATE: 08/07/18 ACCOUNT NO: [id number] ROOM NO: AGE: 47 REPORT TYPE: OPERATIVE REPORT SEX: M ADMITTING PHYSICIAN: ATTENDING PHYSICIAN:Eric Vargas MD OPERATION DATE: 08/07/2018 PREOPERATIVE DIAGNOSIS: Right hip labral tear wi th right hip proximal femoral dysplasia. POSTOPERATIVE DIAGNOSIS: Right hip sandro l tear with right hip proximal femoral dysplasia. PROCEDURE: Right hip arthroscopy with labral mariela ridement. SURGEON: Eric Vargas MD STREET CLEANER: ANESTHESIA: General. DESCRIPTION OF FINDINGS AND INDICATIONS FOR PROC EDURE: The patient is a 47-year-old male with right hip pain and mechani nikita symptoms, progressive in nature, unresponsive to conservative measures. C linical and radiographic evaluation is consistent with a labral t ear and proximal femoral deformity. He had a positive anesthetic re sponse after arthrogram injection to the right hip. Clinical and radiographic evaluation is consiste nt with a labral tear. He was counseled as to the risks and benefits of recomm ended treatment of operative intervention including but not limited to bleedi ng, infection, neurovascular injury, persistent pain, need for additional pro cedures, re-tear, loss of function, development or progression of arthriti s, inability to return to activity, as well as anesthetic risks including but not limited to change in blood pressure, deep venous thrombosis, pulmonar y embolism, heart attack, stroke, or . The patient voiced understandi ng and wished to proceed. PROCEDURE IN DETAIL: After o btaining informed consent, the right hip was marked by me in the preoperative holding area. The jesusita ent was brought to the operative room suite where satisfactory anesthes ia was established by the anesthesia service. The patient was placed in th e Cruz and Nephew hip positioner, well-padded elina don post, and well-padded traction boots. All bony prominences were well padded . Region of the right hip anterior peritrochanteric portal was prepped with ChloraPrep. Time -out was called prior to commencing of procedure, verifying the correct site and correc t side. The patient received preoperative antibiotics within 1 hour of commen cing of procedure. At this point, under spinal needle guidance, the anterio r peritrochanteric portal was established. Traction was placed at the appropriate level. This was marked and subsequently released. At this point, the region of the right hip itself was PATIENT NAME: DEMARCUS SWEENEY ACCOUNT #: [id number] prepped and draped using Chl oraPrep. Time-out was called prior to commencing of procedure, verifying the correct site and correc t side. The patient received preoperative antibiotics within 1 hour of commen cing of procedure. Subsequently, traction was placed and spinal nee dle was then utilized to establish the anterior peritrochanteric portal. Skin incision was made through the skin only. Hemostat was utilized to spread t he subcutaneous tissue. After placement of a nitinol wire in the hip j oint proper through the spinal needle, Cruz and Nephew 4.5-mm trocar was inserted into the hip joint. Upon initial inspection of the hip, there was advanced articu lar cartilage change on the femoral head as well as the acetabulum. Mid ante rior portal was then established under spinal needle guidance. Identi nikita technique was utilized. A 5.0-mm trocar was inserted. Arthroscope was placed in the mid anterior portal. Satisfactory positioning of the anterior peritrochanteric portal was noted. At this point, systematic inspection was performed. Again, there was diffuse labral tearing as well as advanced articular car tilage change on the femoral head and acetabulum. Subsequently, using a combi nation of motorized shaver as well as radiofrequency ablat or, unstable labral tissue was debrided to a stable base. Hemostasis was obtained with electrocauter y. This was performed sequentially with the arthroscope both i n the mid anterior as well as anterior peritrochanteric portals. Anterosuperiorly, ther e was an osteocartilaginous flap that was unstable. This was debrided using motorized shaver back to a stable base. Completion of the labral debridemen t, final images were then obtained. Satisfactory hemostasis was obtained. Traction was then released. Excess fluid was extravasated from the hip. All arthroscopic instruments were removed. A total of 50 mL of 0.5% Marcaine with epinephrine was instilled into the elina-incisional tissues. Wounds were cl osed using interrupted nylon suture. Sterile dressing of Xeroform and 4 x 4s were applied, and they were secured with a Tegaderm. The patient tolerated t he procedure well, was extubated, transferred to [facility], onto the [facility] room in satisfactory condition. ESTIMATED BLOOD LOSS: Minimal. IV FLUIDS: Maintenance. PROGNOSIS: Guarded given underlying nature of hi s condition. Dictated By: Eric Vargas MD WT: OP:YVICKY/SOO/BARON Conf#: [id number]/DID#: [id number] Authenticated and Edited by Eric terry MD On 08/08/18 7:27:37 AM at 0788 PATIENT NAME: DEMARCUS SWEENEY ACCOUNT #: [id number]
[2022-09-21] MEDS ORDERED: DIPHENHYDRAMINE 50 MG/ML VIAL ONE (13:25)
[2022-09-21] MEDS ORDERED: METOCLOPRAMIDE 10 MG/2mL INJ ONE (13:25)
[2022-09-21 13:27] LABS: Absolute Lymphocytes (CBC) 1.5 K/uL (0.7-4.9); Hematocrit 41.9 % (39.6-49.0); Lymphocytes % 26.3 % (15.3-44.8); MCV 91.4 fL (80-100); MPV 8.8 fL (7.6-11.3); RBC Red Blood Cell Count 4.59 M/uL (4.33-5.43)
[2022-09-21 13:50] LABS: Potassium 3.9 mEq/L (3.5-5.1)
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
[2022-09-21 15:58] VITALS: TEMP 98.3
[2022-09-21 16:01] VITALS: BP 115/58; O2SAT 95
== END 2022-09-21 15:39 | disposition home or self-care (01) ==
LOC: ER 11:43
DX: R51.9 Headache, unspecified (principal); V86.59XA Driver of other special all-terrain or other off-road motor vehicle injured in nontraffic accident, initial encounter
CPT/HCPCS: 85025; 80048; 36415; 86900; 86850; 86901; 70450; 72125; 71260; 74177; Q9967; J2765; J1200

== ENCOUNTER 2022-10-04 13:43 | Emergency (ER) | payer OTHER ==
--- OUTSIDE RECORDS SUMMARY | 2022-10-04 14:03 | XMS REPORT | Continuity of Care Document ---
:1970 Author Organization [facility] t Address [address] [place] [address] [address] [place] [address] Care Team Providers Name Role Phone July Gonzalez Attending Clinician Unavailable Ricky Torres Attending Clinician Unavailable TRICIA_Dallin Attending Clinician Unavailable Ricky Torres Admitting Clinician Unavailable Phi Admitting Clinician Unavailable UNDEFINED Admitting Clinician Unavailable Payers Payer Name Policy Type Policy Number Effective Date Expiration Date S forrest [facility] [id number] UHC - MEDICARE [id number] COMPLETE (MEDICARE REPLACEMENT [facility] [id number] 2019 [facility] 00:00:00 (PPO) Problems Condition [...] 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 A elmer itis of itis of 5-30 Orthope hip [...] Date Clinician No Known DA Active [facility] [place] [facility] methylpr DA Active [facility] 07[facility]30 [place] 00:[facility] 00 [facility] methylpr DA Active SV BLISTERS [facility] FACE/MOUTH 07-30 [facility] 00:00: [place] 00 [facility] Social History Smoking Status Start Date Stop [...] Kendra mg tablet 1 mg tablet 1 09 325 mg Orthope TAB PO Q12H TAB [...] Accu-Chek Kendra Guide Me Guide Me Guide Ak Meredith lopez Glucose Glucose Glucose dic Meter [...] Danuta benjamin Orthopedic conduction study Sports Medicine [id number] 2021-05-18 00:00:00 [facility] Plan of Care Planned Activity Planned Date Details Comments Source Instructions Kendra Estradaed ic Sports Medicine Encounters Start End Encounter Admission Attending Care Care Encounter Source Date/Time Date/Time Type Type Clinicians Facility Department ID 2022-07-25 Outpatient [place] [facility] [id number] Common 10:01:02 July [id number] [facility] 2022-07-22 [facility] [id number] Common 11:46:08 July [place]24 [facility] 2022-07-01 [facility] [id number] Common 08:21:02 July Holland03 [facility] 2022-06-17 Outpatient [place], [facility] [id number] [facility] 11:07:03 July [id number] [facility] 2021-05-07 Inpatient OANH Vance ADMI [id number] [facility] 14:00:00 Ricky [id number] [place] [facility] 2022-04-08 2022-04-08 Outpatient FOG_Goytia_ AOSM AOSM [id number] Kendra 00:00:00 00:00:00 [place] [id number] [facility] 2022-04-07 2022-04-07 Outpatient FOG_Goytia_ AOSM AOSM [id number] Kendra 00:00:00 00:00:00 [place] [id number] [facility] 2022-04-07 2022-04-07 Kevin Webb AOSM [place] - Ortho [id number] Kendra 00:00:00 00:00:00 Lucy Villagomez MD: [address] FOG_Ofc dic [facility], [place] [address] , Ph. [phone] 2021-10-01 2021-10-01 Outpatient FOG_Goytia_ AOSM AOSM [id number] Kendra 03:15:00 03:15:00 [place] [id number] Orth[facility] 2021-10-01 2021-10-01 Outpatient FOG_Goytia_ AOSM AOSM [id number] Kendra 00:00:00 00:00:00 [place] [id number] [facility] 2021-10-01 2021-10-01 Outpatient FOG_Goytia_ AOSM AOSM [id number] Kendra 00:00:00 00:00:00 [place] [id number] Orth[facility] pe [facility] 2021-05-18 2021-05-19 Inpatient OANH Vance ADMI [id number] [facility] 07:44:00 12:18:00 Ricky [id number] [place] [facility] 2021-05-18 2021-05-19 Inpatient OANH Vance ADMI [id number] [facility] 07:44:00 12:18:00 Ricky 96 [place] [facility] 2021-05-07 2021-05-07 Outpatient TJ Torres LABO [id number] 113 [facility] 18:12:00 18:12:00 Ricky 43 [facility] Results Test Description Test Time Test Comments Results Result [facility] e Comments - XR PELVIS 1/2021-05-19 VIEWS 07:25:00 [facility] : 1970 Sex: M Patient Name: DEMARCUS SWEENEY Unit No: [id number] EXAMS: CPT CODE: [id number] XR PELVIS 05/02 VIEWS 12082 INTRAOPERATIVE LEG LENGTH FILM COMMENT: COMPARISON: No [...] ALEXIS ANNA. RT(R) Transcribed D/ (0725) [facility] [place] [facility] NAME: DEMARCUS SWEENEY [address] [facility] PHYS: Ricky Rizzo MD : 1970 AGE: 50 SEX: M [place], [place] [address] LOC: Y.315 A PHONE #: [phone] EXAM DATE: 05/18/2021 STATUS: ADM IN FAX #: [phone] RAD #: D/C DT PAGE 1 Signed Report Patient Name: DEMARCUS SWEENEY Unit No: [id number] EXAMS: CPT CODE: [id number] XR PELVIS 1/2 VIEWS 34184 (Continued) Orig Print D/T: S: 05/19/2021 (0856) [place] [facility] NAME: DEMARCUS SWEENEY [address] [facility] PHYS: Ricky Rizzo MD : 1970 AGE: 50 SEX: M [place], [place] [address] LOC: Y.315 A PHONE #: [phone] EXAM DATE: 05/18/2021 STATUS: ADM IN FAX #: [phone] RAD #: D/C DT PAGE 2 Signed Report - XR PELVIS 1/2 2021-05-19 VIEWS 07:25:00 [facility] : 1970 Sex: M Patient Name: DEMARCUS SWEENEY Unit No: [id number] EXAMS: CPT CODE: [id number] XR PELVIS 1/2 VIEWS 12035 INTRAOPERATIVE LEG LENGTH FILM COMMENT: COMPARISON: No [...] ALEXIS ANNA. RT(R) Transcribed D/ (0725) [facility] NAME: DEMARCUS SWEENEY [address] [facility] PHYS: Ricky Rizzo MD : 1970 AGE: 50 SEX: M [place], [place] [address] LOC: Y.315 A PHONE #: [phone] EXAM DATE: 05/18/2021 STATUS: ADM IN FAX #: [phone] RAD #: D/C DT PAGE 1 Signed Report Patient Name: DEMARCUS SWEENEY Unit No: [id number] EXAMS: CPT CODE: [id number] XR PELVIS 05/02 VIEWS 61887 (Continued) Orig Print D/T: S: 05/19/2021 (0856) [facility] NAME: DEMARCUS SWEENEY [address] [facility] PHYS: Ricky Rizzo MD : 1970 AGE: 50 SEX: M [place], [place] [address] LOC: Y.315 A PHONE #: [phone] EXAM DATE: 05/18/2021 STATUS: ADM IN FAX #: [phone] RAD #: D/C DT PAGE 2 Signed Report - XR PELVIS /2021-05-19 VIEWS 07:25:00 [facility] : 1970 Sex: M Patient Name: DEMARCUS SWEENEY Unit No: [id number] EXAMS: CPT CODE: [id number] XR PELVIS 1/2 VIEWS 47113 INTRAOPERATIVE LEG LENGTH FILM COMMENT: COMPARISON: No [...] IVAN HUDSON RT(R) Transcribed D/ (0725) BetitoL [facility] NAME: DEMARCUS SWEENEY [address] [facility] PHYS: Ricky Rizzo MD : 1970 AGE: 50 SEX: M [place] [address] LOC: Y.315 A PHONE #: [phone] EXAM DATE: 05/18/2021 STATUS: ADM IN FAX #: [phone] RAD #: D/C DT PAGE 1 Signed Report Patient Name: DEMARCUS SWEENEY Unit No: [id number] EXAMS: CPT CODE: [id number] XR PELVIS 1/2 VIEWS 64434 (Continued) Orig Print D/T: S: 05/19/2021 (0856) [facility] NAME: DEMARCUS SWEENEY [address] [facility] PHYS: Ricky Rizzo MD : 1970 AGE: 50 SEX: M [place] [address] LOC: Y.315 A PHONE #: [phone] EXAM DATE: 05/18/2021 STATUS: ADM IN FAX #: [phone] RAD #: D/C DT PAGE 2 Signed [...] of measure: mL/min/1.73 (test code = GFR) [id number] e Range:Healthy Adults >90 mL/m in/1.73 m2 For Chronic Kidney Disease: Stage II Mild Decreas e in GFR 60-90 Stage III Moder ate Decrease in GFR 30-59 St age IV Severe Decrease in GFR 15-29 Stage V Kidney Failure <15 CREATININE (test code = CREAT) 1.16 mg/dL 0.55-1.30 N CALCIUM (test code = CA) 8.4 mg/dL 8.2-10.1 N HGB [id number] 06:04:00 Test Item Value Reference Range Interpretation Comments HEMOGLOBIN (test code = HGB) 12.1 g/dL 12-16 N HEMATOCRIT (test code = HCT) 36.1 % 37-47 L SPECIMEN COMMENT: POD #[id number] 08:39:00 Test Item Value Reference Range Interpretation Comments [id number] Negative Negative The test was performed (test code = at: [facility] [id number]) TESTING SIT ENote: this entry is for TR ACKING purposes only a nd the testwas done ou [facility], the [facility]froming [facility] in spec imen comments. The test was performed at: [facility] TESTING SITEon: 05/11/21Patient's account number from transferring facility: [id number] patient's current lab results are: NegativePROTHROMBIN [id number] 17:18:00 Test Item Value Reference Range Interpretation [...] BLOOD, PT every other day NTHROMBOPLASTIN TIME [id number] 17:18:00 Test Item Value Reference Range Interpretation [...] BLOOD, PT every other day NCOMPREHENSIVE METABOLIC [id number] 17:08:00 Test Item Value Reference Range Interpretation [...] RATE (test code = GFR) mL/mi n/1.73 [id number] Range:Healthy Adults >90 mL/min/1.73 m2 For Chronic [...] TOTAL (test code = ALKP) CBC W/AUTO [id number] 17:07:00 Test Item Value Reference Range Interpretation [...] = NRBC) - MRI LW JNT W/CONTRAST [id number] 12:20:00 Patient Name: DEMARCUS SWEENEY Unit No: [id number] EXAMS: CPT CODE: [id number] MRI LW JNT W/CONTRASTRT 39753 MRI ARTHROGRAM RIGHT HIP DIAGNOSIS: 1. Congenitally [...] Reported and signed by: Manjit Kate MD [facility] NAME: DEMARCUS SWEENEY [address] PHYS: Eric Scherer : 1970 AGE: 47 SEX: M [place] [address] LOC: Y.RAD PHONE #: [phone] EXAM DATE: 07/30/2018 STATUS: REG CLI FAX #: [phone] RAD #: D/C DT PAGE 1 Signed Report (CONTINUED) Patient Name: DEMARCUS SWEENEY Unit No: [id number] EXAMS: CPT CODE: [id number] [place] LW JNT W/[place] [address] (Continued) CC: Eric Vargas MD Technologist: Caro Paredes(R) Transcribed D/ (1220) SantiG [facility] NAME: DEMARCUS SWEENEY [address] PHYS: Eric Scherer : 1970 AGE: 47 SEX: M [place] [address] LOC: Y.RAD PHONE #: [phone] EXAM DATE: 07/30/2018 STATUS: REG CLI FAX #: [phone] RAD #: D/C DT PAGE 2 Signed Report Patient Name: DEMARCUS SWEENEY Unit No: [id number] EXAMS: CPT CODE: [id number] [place] JNT W/[place] [address] (Continued) Orig Print D/T: S: 07/30/2018 (1223) [facility] NAME: DEMARCUS SWEENEY[address] [facility] PHYS: Eric Scherer : 1970 AGE: 47 SEX: M [place] [address] LOC: Y.RAD PHONE #: [phone] EXAM DATE: 07/30/2018 STATUS: REG CLI FAX#: [phone] RAD #: D/C DT PAGE 3 Signed Report- XR ARTHROGRAM HIP W/O AN RT+2018-07-30 12:20:00 Patient Name: DEMARCUS SWEENEY Unit No: [id number] EXAMS: CPT CODE: [id number] XR ARTHROGRAM HIP W/O AN RT+ 89380 MRI ARTHROGRAM RIGHT HIP DIAGNOSIS: 1. Congenitally [...] Reported and signed by: Manjit Kate MD [facility] NAME: DEMARCUS SWEENEY [address] [facility] PHYS: Eric Scherer : 1970 AGE: 47 SEX: M [place], [place] [address] LOC: Y.RAD PHONE #: [phone] EXAM DATE: 07/30/2018 STATUS: REG CLI FAX #:[phone] RAD #: D/C DT PAGE 1 Signed Report (CONTINUED) Patient Name: DEMARCUS SWEENEY Unit No:[id number] EXAMS: CPT CODE: [id number] XR ARTHROGRAM HIP W/O AN RT+ 07364 (Continued) CC: Kevin Hurtado MD; Eric Vargas MD Technologist: WERNER LAUREN, RT(R) Transcribed D/ (1220) ValerieGVG [facility] NAME: DEMARCUS SWEENEY [address] [facility] PHYS: Eric Scherer : 1970 AGE: 47 SEX: M [place] [address] LOC: Y.RAD PHONE #: [phone] EXAM DATE: 07/30/2018 STATUS: REG CLI FAX #: [phone] RAD #: D/C DT PAGE 2 Signed Report Patient Name: DEMARCUS SWEENEY Unit No: [id number] EXAMS: CPT CODE: [id number] XR ARTHROGRAM HIP W/O AN RT+ 78786 (Continued) Orig Print D/T: S: 07/30/2018 (1223) [facility] NAME: DEMARCUS SWEENEY [address] [facility] PHYS: Eric Scherer : 1970 AGE: 47 SEX: M [place] [address] LOC: Y.RAD PHONE #: [phone] EXAM DATE: 07/30/2018 STATUS: REG CLI FAX #: [phone] RAD #: D/C DT PAGE 3 Signed Report Notes Date/Time Note Provider Source 2021-05-19 09:10:00-00:00 [facility] Clinical Note REPORT#:[id number] REPORT STATUS: Signed DATE:05/19/21 TIME: 909 PATIENT: DEMARCUS SWEENEY UNIT #: [id number] ROOM/BED: [address] : [birth year] AGE: 50 SEX: M ATTEND: Elias Torres MD ADM AUTHOR: Flako Hoover MD * ALL edits or amendments must be made on the el ectronic/computer document * Clinical Note Note: [facility] Flako bhakta M.D. (cell text [phone]) Assessment/Plan 1.) Anemia of acute blood loss- [...] 36.1 L Flako Mccauley M.D. at [address] [facility] #:[id number] END OF REPORT 2021-05-19 06:44:00-00:00 [facility] ([facility]) Discharge Summary REPORT#:[id number] REPORT STATUS: Signed DATE:05/19/21 TIME: 643 PATIENT: DEMARCUS SWEENEY UNIT #: [id number] ROOM/BED: [address] : [birth year] AGE: 50 SEX: M ATTEND: Elias Torres MD ADM AUTHOR: Ricky Torres MD * ALL edits or amendments must be made on the [employer]/computer document * General Information Discharge date: 05/19/21 [...] Physician: Ricky Torres MD Electronically Signed by Rikcy Torres MD on at 0756 RPT #:[id number] END OF REPORT 2021-05-19 06:43:00-00:00 [facility] ([facility]) Clinical Note REPORT#:[id number] REPORT STATUS: Signed DATE:05/19/21 TIME: 642 PATIENT: DEMARCUS SWEENEY UN[facility] [id number] AGE[facility] 50 SEX: M ATTEND: [...] Ricky Torres MD on at 0643 RPT #:[id number] END OF REPORT 2021-05-18 20:33:00-00:00 [facility]) Clinical Note REPORT#:[id number] REPORT STATUS: Signed DATE:05/18/21 TIME: 2032 PATIENT: DEMARCUS SWEENEY UNIT #: [id number] [facility] AGE: 50 SEX: M ATTEND: Elias Torres MD ADM AUTHOR: Flako Hoover MD * ALL edits or amendments must be made on the el ectronic/computer document * Clinical Note Note: [facility] Flako bhakta MD (cell text [phone]) Internal Medicine Consult at request of : [...] GERD, BMI 40.6 ALLERGY: Allergies: methylprednisolone (From Genomind) (Coded, Severe, BLISTERS FACE/MOUTH, 07/30/18) Home Medications: [...] pain assessment with tool and followup p [facility] 1126F - offered discussion o n advanced care plan and patient declined to address issue at this time. at 2035 RPT #:[id number] END OF REPORT 2021-05-18 12:44:00-00:00 [facility] ([facility]) Operative Note - Full REPORT#:[id number] REPORT STATUS: Signed DATE:05/18/21 TIME: 1244 PATIENT: DEMARCUS SWEENEY UNIT #: [id number] ROOM/BED: [place] [address] : [birth year] AGE: 50 SEX: M ATTEND: Elias Torres MD ADM AUTHOR: Ricky Torres MD * ALL edits or amendments must be made on the el [employer]/computer document * Operative Report Start date: 05/18/21 Start time: 0000 Pre-procedure diagnosis: R hip dysplasia, OA, OBESITY BMI 40.6 Post-procedure diagnosis: same Procedures performed: R COMPLEX ZELALEM Technique/Procedure: Posterior Total Hip Replacement OPERATIVE PROCEDURE IN DETAIL [facility] and all questions and concerns were answered. The patient verbally conf irmed the site and side of the surgery and marking of the site was done. The patient was brought to [facility] operating room and, after adequate [...] the leg was placed on a metal molding and trim installer slight abduction and internal rot ation. 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 In addition keishain manjit an facilities maintenance assistant shortens operative times which decrea ses expenses and improves outcomes. I am not part of any residency or fellowship training programs and therefore require the help of the facilities maintenance assistant listed above for this surgery. IMPLANTS Depuy 54 mm Donna cup, 36+4 liner, 6std trilo ck, 36+ 1.5mm CERAMIC head Primary Surgeon: CHRISTI Acid Tank Cleaner(s): YOHAN KATZ Anesthesia: general anesthesia Operative findings: OA Complications: none Estimated blood loss in ml's: 300 Specimens removed/altered: none Implant(s): DEPUY Electronically Signed by Ricky Torres MD on at 1247 RPT #:[id number] END OF REPORT 2018-08-07 10:20:00-00:00 [id number] [place] [address] PATIENT NAME: DEMARCUS SWEENEY ADMIT DATE: 08/07/18 ACCOUNT NO: [id number] ROOM NO: AGE: 47 REPORT TYPE: OPERATIVE REPORT SEX: M ADMITTING PHYSICIAN: ATTENDING PHYSICIAN:Eric Vargas MD OPERATION DATE: 08/07/2018 PREOPERATIVE DIAGNOSIS: Right hip labral tear wi th right hip proximal femoral dysplasia. POSTOPERATIVE DIAGNOSIS: Right hip sandro l tear with right hip proximal femoral dysplasia. PROCEDURE: Right hip arthroscopy with labral mariela ridement. SURGEON: Eric Vargas MD VOLUNTEER FIREFIGHTER: ANESTHESIA: General. DESCRIPTION OF FINDINGS AND INDICATIONS [...] PATIENT NAME: DEMARCUS SWEENEY ACCOUNT #: [id number] prepped and draped using Chl oraPrep. Time-out [...] he procedure well, was extubated, transferred to [facility], onto the [facility] room in satisfactory condition. ESTIMATED BLOOD LOSS: Minimal. IV FLUIDS: Maintenance. PROGNOSIS: Guarded given underlying nature of hi s condition. Dictated By: Eric Vargas MD WT: OP:YVICKY/SOO/BARON Conf#: [id number]/DID#: [id number] Authenticated and Edited by rEic terry MD On 08/08/18 7:27:37 AM at 0714 PATIENT NAME: DEMARCUS SWEENEY ACCOUNT #: [id number]
--- NOTE | 2022-10-04 14:54 | RAD REPORT ---
EXAM DESCRIPTION: CT - Head Brain Wo Cont - 10/04/2022 2:46 pm CLINICAL HISTORY: HEADACHE Headache, drowsiness COMPARISON: Facial Bones W/ Mpr dated 10/21/2018; Head Brain Wo Cont dated 10/21/2018 TECHNIQUE: All CT scans are performed using dose optimization technique as appropriate and may inclu de automated exposure control or mA/KV adjustment according to patient size. FINDINGS: No intracranial hemorrhage, hydrocephalus or extra-axial fluid collection.No areas of brai n edema or evidence of midline shift. The paranasal sinuses and mastoids are clear. The calvarium is intact. IMPRESSION: No acute intracranial abnormality.
--- NOTE | 2022-10-04 14:56 | RAD REPORT ---
EXAM DESCRIPTION: CT - Head angio - 10/04/2022 2:49 pm CLINICAL HISTORY: HEADACHE Headache, drowsiness COMPARISON: Head Brain Wo Cont dated 10/04/2022; Facial Bones W/ Mpr dated 10/21/2018 TECHNIQUE: CT angiography of the head was performed with MIPs. All CT scans are performed using dose optimization technique as appropriate and may include automated exposure control or mA/KV adjustment according to patient size. FINDINGS: No evidence of large vessel occlusion. No evidence of aneurysm is detected. No flow-limiti ng stenosis or vascular malformation identified. Antegrade flow is seen in the vertebral arteries. The vertebral arteries are codominant. The visualized dural venous sinuses are patent. IMPRESSION: No significant flow abnormality is detected.
--- NOTE | 2022-10-04 14:59 | RAD REPORT ---
EXAM DESCRIPTION: CT - Neck Angio - 10/04/2022 2:49 pm CLINICAL HISTORY: headache, neck pain on right Neck pain, headache, COMPARISON: No comparisons TECHNIQUE: CT angiography of the neck vessels was performed with MIPs. All CT scans are performed using dose optimization technique as appropriate and may include automated exposure control or mA/KV adjustment according to patient size. FINDINGS: A left aortic arch is identified with normal three vessel configuration of the great vesse ls. No significant flow abnormality is seen of the common carotid bilaterally. No significant stenosis is identified involving the cervical segments of both internal carotid arteri es. Normal flow is seen within both vertebral arteries. IMPRESSION: No significant flow abnormality of the neck vessels is identified. NASCET criteria used. Mild 0-49% stenosis Moderate 50-69% stenosis Severe 70-99% stenosis
[2022-10-04 15:08] LABS: Absolute Lymphocytes (CBC) 1.8 K/uL (0.7-4.9); Lymphocytes % 23.1 % (15.3-44.8); MCV 91.3 fL (80-100); MPV 8.6 fL (7.6-11.3); RBC Red Blood Cell Count 4.49 M/uL (4.33-5.43)
[2022-10-04 15:10] LABS: Protime INR 1.03
[2022-10-04 15:23] LABS: Potassium 3.8 mEq/L (3.5-5.1)
[2022-10-04] MEDS ORDERED: dexAMETHasone 10 MG/ML VIAL ONE (15:25)
[2022-10-04] MEDS ORDERED: NA CHLORIDE 0.9% 1,000 ML ONE (15:25)
--- NOTE | 2022-10-04 15:35 | ER ---
Nurse's Notes [facility] Name: Brandon Galdamez Age: 52 yrs Sex: Male : 1970 Arrival Date: 10/04/2022 Time: 13:43 Bed DIS1 Private MD: Diagnosis: Concussion without loss of consciousness;Postconcussional syndrome;Acute post-traumatic headache, not intractable Presentation: 10/04 14:08 Chief complaint: Patient states: "I had an accident at work about 3-4 weeks ago and aa5 I've had a headache since then". Onset of symptoms was September 2022. 14:08 Acuity: KAILA 3 aa5 14:08 Method Of Arrival: Ambulatory aa5 14:08 Coronavirus screen: At this time, the client does not indicate any symptoms associated aa5 with coronavirus-19. Ebola Screen: Patient denies travel to an Ebola-affected area in the 21 days before illness onset. Initial Sepsis Screen: Does the patient meet any 2 criteria? No. Patient's initial sepsis screen is negative. Does the patient have a suspected source of infection? No. Patient's initial sepsis screen is negative. Risk Assessment: Do you want to hurt yourself or someone else? Patient reports no desire to harm self or others. 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 - Social history:: Smoking status: Patient denies any tobacco usage or history of. - Family history:: not pertinent. - Hospitalizations: : No recent hospitalization is reported. Vital Signs: 14:08 BP 140 / 106; Pulse 83; Resp 18 S; Temp 97.5(TE); Pulse Ox 97% on R/A; Weight 129.27 kg aa5 (R); Height 6 ft. 1 in. (R); 14:08 Body Mass Index 37.60 (129.27 kg, 185.42 cm) aa5 Cheney Coma Score: 15:33 Eye Response: spontaneous(4). Motor Response: obeys commands(6). Verbal Response: rn oriented(5). Total: 15. ED Course: 13:45 Patient arrived in ED. rg4 13:55 Jose Alves MD is Attending Physician. rn 14:08 Arm band placed on. aa5 14:10 Triage completed. aa5 14:48 Head Brain Wo Cont In Process Unspecified. EDMS 14:51 CT Head Angio In Process Unspecified. EDMS 14:[address] In Process Unspecified. EDMS 14:53 CT completed. Patient tolerated procedure well. Note: 20 g to rt ac, labs drawn and sj sent by cat. Patient moved back from CT. 15:34 Gonzales Moreland MD is Referral Physician. rn 15:54 Zoë Edward, JOSE ENRIQUE is Primary Nurse. jl7 16:04 Patient has correct armband on for positive identification. aa5 16:04 No provider procedures requiring assistance completed. IV discontinued, intact, aa5 bleeding controlled, No redness/swelling at site. Pressure dressing applied. Administered Medications: 15:22 Drug: Decadron - Dexamethasone IVP 10 mg Route: IVP; Site: right antecubital; aa5 16:03 Follow up: Response: No adverse reaction aa5 15:22 Drug: NS 0.9% IV 1000 ml Route: IV; Rate: 1000 ml; Site: right antecubital; aa5 16:03 Follow up: Response: No adverse reaction; IV Status: Completed infusion; IV Intake: aa5 600ml 16:03 Drug: Ketorolac IVP 30 mg Route: IVP; Site: right antecubital; aa5 16:03 Follow up: Response: Medication administered at discharge. aa5 Medication: 16:04 VIS not applicable for this client. aa5 Intake: 16:03 IV: 600ml; Total: 600ml. aa5 Outcome: 15:34 Discharge ordered by . rn 16:04 Discharged to home ambulatory. aa5 16:04 Condition: stable 16:04 Discharge instructions given to patient, Instructed on discharge instructions, follow up and referral plans. medication usage, Demonstrated understanding of instructions, follow-up care, medications, Prescriptions given X 1. 16:04 Patient left the ED. aa5 Signatures: Dispatcher [employer] Cat Rodriguez Jose Alves MD MD rn Calderon, Audri, RN RN aa5 Jenna Sheridan rg4 Zoë Edward RN RN jl7 Corrections: (The following items were deleted from the chart) 14:17 14:08 BP 140 / 106; Pulse 83bpm; Resp 18bpm; Spontaneous; Pulse Ox 97% RA; Temp 97.5F aa5 Temporal; aa5
--- NOTE | 2022-10-04 15:35 | EDPHYS ---
Physician Documentation [facility] Name: Brandon Galdamez Age: 52 yrs Sex: Male : 1970 Arrival Date: 10/04/2022 Time: 13:43 Bed DIS1 Private MD: ED Physician Jose Alves HPI: 10/04 14:24 This 52 yrs old Male presents to ER via Ambulatory with complaints of Headache. rn 14:24 The patient complains of pain to the right frontal area, right side of the back of head rn and right temporal area. The patient describes the headache as aching. Onset: The symptoms/episode began/occurred 2 week(s) ago. Associated signs and symptoms: Pertinent negatives: altered mental status, fever, rash, vision changes, vision loss, weakness, vertigo. Severity of symptoms: At its worst the pain was moderate, in the emergency department the pain is unchanged. Headache History: Denies prior headaches. The symptoms are alleviated by nothing. the symptoms are aggravated by nothing. The patient has not experienced similar symptoms in the past. The patient has been recently seen by a physician: The patient has been recently seen at the [facility] Emergency Department. Pt reports accident at work 2 weeks ago, came in as trauma, had neg imaging that time, discharged home, headache since then, on right side, no headaches before accident. No focal weakness or neurological complaint. Not on blood thinners. Doesn't recall direct trauma to head, was hearing hard hat. No vomiting. . 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 - Social history:: Smoking status: Patient denies any tobacco usage or history of. - Family history:: not pertinent. - Hospitalizations: : No recent hospitalization is reported. ROS: 14:24 Constitutional: Negative for fever, chills, and weight loss, Eyes: Negative for injury, rn pain, redness, and discharge, Neck: + mild right neck pain Cardiovascular: Negative for chest pain, palpitations, and edema, Respiratory: Negative for shortness of breath, cough, wheezing, and pleuritic chest pain, Abdomen/GI: Negative for abdominal pain, nausea, vomiting, diarrhea, and constipation, Back: Negative for injury and pain, MS/Extremity: Negative for injury and deformity, Skin: Negative for injury, rash, and discoloration, Neuro: Negative for weakness, numbness, tingling, and seizure. Exam: 14:24 Constitutional: This is a well developed, well nourished patient who is awake, alert, rn and in no acute distress. Head/Face: Normocephalic, atraumatic. Eyes: Pupils equal round and reactive to light, extra-ocular motions intact Neck: Mild pain with flexion of neck, not stiff, no masses, no discoloration Cardiovascular: Regular rate and rhythm. No pulse deficits. Respiratory: No increased work of breathing, no retractions or nasal flaring. Abdomen/GI: Soft, non-tender Skin: Warm, dry MS/ Extremity: Pulses equal, no cyanosis. Neuro: Awake and alert, GCS 15, oriented to person, place, time, and situation. Cranial nerves II-XII grossly intact. Motor strength 5/5 in all extremities. Vital Signs: 14:08 BP 140 / 106; Pulse 83; Resp 18 S; Temp 97.5(TE); Pulse Ox 97% on R/A; Weight 129.27 kg aa5 (R); Height 6 ft. 1 in. (R); 14:08 Body Mass Index 37.60 (129.27 kg, 185.42 cm) aa5 Lawley Coma Score: 15:33 Eye Response: spontaneous(4). Motor Response: obeys commands(6). Verbal Response: rn oriented(5). Total: 15. MDM: 13:55 Patient medically screened. rn 15:33 Differential diagnosis: hypertensive headache, migraine, neoplasm, subarachnoid bleed, rn tension headache, trigeminal neuralgia, vasomotor headache, concussion, post-concussion headache. Data reviewed: vital signs, nurses notes, lab test result(s), radiologic studies, CT scan, and as a result, I will discharge patient. Counseling: I had a detailed discussion with the patient and/or guardian regarding: the historical points, exam findings, and any diagnostic results supporting the discharge/admit diagnosis, lab results, radiology results, the need for outpatient follow up, to return to the emergency department if symptoms worsen or persist or if there are any questions or concerns that arise at home. Response to treatment: the patient's symptoms have mildly improved after treatment. Special discussion: I discussed with the patient/guardian in detail that at this point there is no indication for admission to the hospital. It is understood, however, that if the symptoms persist or worsen the patient needs to return immediately for re-evaluation. Based on the history and exam findings, there is no indication for further emergent testing or inpatient evaluation. I discussed with the patient/guardian the need to see the neurologist for further evaluation of the symptoms. 10/04 14:18 Order name: CBC with Diff; Complete Time: 15:32 rn 10/04 14:18 Order name: Basic Metabolic Panel; Complete Time: 15:32 rn 10/04 14:18 Order name: Protime (+inr); Complete Time: 15:11 rn 10/04 14:18 Order name: Ptt, Activated; Complete Time: 15:11 rn 10/04 14:18 Order name: CT Head Angio; Complete Time: 15:11 rn 10/04 14:18 Order name: Neck Angio CT; Complete Time: 15:11 rn 10/04 14:33 Order name: Head Brain Wo Cont; Complete Time: 15:11 EDMS 10/04 14:18 Order name: IV Start; Complete Time: 15:16 rn Administered Medications: 15:22 Drug: Decadron - Dexamethasone IVP 10 mg Route: IVP; Site: right antecubital; aa5 16:03 Follow up: Response: No adverse reaction aa5 15:22 Drug: NS 0.9% IV 1000 ml Route: IV; Rate: 1000 ml; Site: right antecubital; aa5 16:03 Follow up: Response: No adverse reaction; IV Status: Completed infusion; IV Intake: aa5 600ml 16:03 Drug: Ketorolac IVP 30 mg Route: IVP; Site: right antecubital; aa5 16:03 Follow up: Response: Medication administered at discharge. aa5 Disposition Summary: 10/04/22 15:34 Discharge Ordered Location: Home rn Problem: new rn Symptoms: have improved rn Condition: Stable rn Diagnosis - Concussion without loss of consciousness rn - Postconcussional syndrome rn - Acute post-traumatic headache, not intractable rn Followup: rn - With: Gonzales Moreland MD - When: As needed - Reason: Recheck today's complaints, Re-evaluation by your physician Discharge Instructions: - Discharge Summary Sheet rn - Head Injury, Adult rn - Post-Concussion Syndrome rn Forms: - Medication Reconciliation Form rn - Thank You Letter rn - Antibiotic clinical quality rn - Prescription Opioid Use rn - Work release form aa5 Prescriptions: - Medrol (August) 4 mg Oral Tablets, Dose Pack - take 1 tablet by ORAL route as directed - follow package instructions; 1 rn packet; Refills: 0, Product Selection Permitted Signatures: Dispatcher [employer] Jose Hawkins MD MD rn Cherri Agustin RN RN aa5
[2022-10-04] MEDS ORDERED: KETOROLAC 30 MG/ML INJ ONE (16:03)
[2022-10-04 16:12] VITALS: BP 140/106; TEMP 97.5; O2SAT 97
== END 2022-10-04 16:04 | disposition home or self-care (01) ==
LOC: ER 13:43
DX: S06.0X0A Concussion without loss of consciousness, initial encounter (principal); G44.319 Acute post-traumatic headache, not intractable
CPT/HCPCS: 96361; 85025; 80048; 36415; 85610; 85730; 70450; 70496; 70498; 96375; 96374; 99284; Q9967; J1100; J7030

== ENCOUNTER 2022-10-16 20:34 | Emergency (ER) | payer OTHER ==
--- OUTSIDE RECORDS SUMMARY | 2022-10-16 20:37 | XMS REPORT | Continuity of Care Document ---
:1970 Author Organization [facility] t Address [address] [place] [address] [address] [place] [address] Care Team Providers Name Role Phone July Gonzalez Attending Clinician Unavailable Ricky Torres Attending Clinician Unavailable TRICIA_Dallin Attending Clinician Unavailable Ricky Torres Admitting Clinician Unavailable Phi Admitting Clinician Unavailable UNDEFINED Admitting Clinician Unavailable Payers Payer Name Policy Type Policy Number Effective Date Expiration Date S forerst [facility] [id number] UHC - MEDICARE [id number] COMPLETE (MEDICARE REPLACEMENT [facility] [id number] 2019 [facility] 00:00:00 (PPO) Problems Condition Condition Condition Status [...] Known DA Active [facility] [place] [facility] methylpr DA Active [facility] ed[facility]olo 07-30 [place] 00:[place] Orthope 00 [facility] methylpr DA Active SV BLISTERS [facility] ed[facility]olo FACE/MOUTH 07-30 [facility] 00:00: [place] 00 [facility] Social History Smoking Status Start Date Stop [...] Accu-Chek Kendra Guide Me Guide Me Guide Mi Meredith lopez Glucose Glucose Glucose dic Meter [...] Danuta benjamin Orthopedic conduction study Sports Medicine [id number] 2021-05-18 00:00:00 [facility] Plan of Care Planned Activity Planned Date Details Comments Source Instructions Kendra Estradaed ic Sports Medicine Encounters Start End Encounter Admission Attending Care Care Encounter Source Date/Time Date/Time Type Type Clinicians Facility Department ID 2022-07-25 [place] [facility] [id number] Common 10:01:02 July [id number] [facility]22[facility]07[facility]22 [facility] [id number] 11:46:08 July [place]24 [facility] 2022-07-01 [facility] [id number] Common 08:21:02 July [place]03 [facility] 2022-06-17 Outpatient [place], [facility] [id number] [facility] 11:07:03 July [id number] [facility] 2021-05-07 Inpatient OANH Vance ADMI [id number] [facility] 14:00:00 Ricky [id number] [place] [facility] 2022-04-08 2022-04-08 Outpatient FOG_Goytia_ AOSM AOSM [id number] Kendra 00:00:00 00:00:00 Senia [id number] [facility] 2022-04-07 2022-04-07 Outpatient FOG_Goytia_ AOSM AOSM [id number] Kendra 00:00:00 00:00:00 Senia [id number] [facility] 2022-04-07 2022-04-07 Kevin Webb AOSM [place] - [place] [id number] Kendra 00:00:00 00:00:00 Lucy Villagomez MD: 7401 FOG_Ofc dic [facility] [place] [phone] , Ph. [phone] 2021-10-01 2021-10-01 Outpatient FOG_Goytia_ AOSM AOSM [id number] Kendra 03:15:00 03:15:00 [place]ia [id number] Orth[facility] 2021-10-01 2021-10-01 Outpatient FOG_Goytia_ AOSM AOSM [id number] Kendra 00:00:00 00:00:00 Senia [id number] [facility] 2021-10-01 2021-10-01 Outpatient FOG_Goytia_ AOSM AOSM [id number] Kendra 00:00:00 00:00:00 Senia [id number] Orth[facility] pe [facility] 2021-05-18 2021-05-19 Inpatient OANH Vance ADMI [id number] [facility] 07:44:00 12:18:00 Ricky [id number] [place] [facility] 2021-05-18 2021-05-19 Inpatient OANH Vance ADMI [id number] [facility] 07:44:00 12:18:00 Ricky 96 [place] [facility] 2021-05-07 2021-05-07 Outpatient TJ Torres LABO [id number] 113 [facility] 18:12:00 18:12:00 Ricky 43 [facility] Results Test Description Test Time Test Comments Results Result [facility] e Comments - XR PELVIS 1/2021-05-19 VIEWS 07:25:00 [facility] : 1970 Sex: M Patient Name: DEMARCUS SWEENEY Unit No: [id number] EXAMS: CPT CODE: [id number] XR PELVIS 05/02 VIEWS 16880 INTRAOPERATIVE LEG LENGTH FILM COMMENT: COMPARISON: No [...] ALEXIS ANNA. RT(R) Transcribed D/ (0725) Martin [place] [facility] NAME: DEMARCUS SWEENEY [address] [facility] PHYS: Ricky Rizzo MD : 1970 AGE: 50 SEX: M [place], [place] [address] LOC: Y.315 A PHONE #: [phone] EXAM DATE: 05/18/2021 STATUS: ADM IN FAX #: [phone] RAD #: D/C DT PAGE 1 Signed Report Patient Name: DEMARCUS SWEENEY Unit No: [id number] EXAMS: CPT CODE: [id number] XR PELVIS 1/2 VIEWS 87117 (Continued) Orig Print D/T: S: 05/19/2021 (0856) [place] [facility] NAME: DEMARCUS SWEENEY [address] [facility] PHYS: Ricky Rizzo MD : 1970 AGE: 50 SEX: M [place], [place] [address] LOC: Y.315 A PHONE #: [phone] EXAM DATE: 05/18/2021 STATUS: ADM IN FAX #: [phone] RAD #: D/C DT PAGE 2 Signed Report - XR PELVIS 1/2 2021-05-19 VIEWS 07:25:00 [facility] : 1970 Sex: M Patient Name: DEMARCUS SWEENEY Unit No: [id number] EXAMS: CPT CODE: [id number] XR PELVIS 1/2 VIEWS 55390 INTRAOPERATIVE LEG LENGTH FILM COMMENT: COMPARISON: No [...] ALEXIS ANNA. RT(R) Transcribed D/ (0725) Martin [facility] NAME: DEMARCUS SWEENEY [address] [facility] PHYS: Ricky Rizzo MD : 1970 AGE: 50 SEX: M [place], [place] [address] LOC: Y.315 A PHONE #: [phone] EXAM DATE: 05/18/2021 STATUS: ADM IN FAX #: [phone] RAD #: D/C DT PAGE 1 Signed Report Patient Name: DEMARCUS SWEENEY Unit No: [id number] EXAMS: CPT CODE: [id number] XR PELVIS 05/02 VIEWS 75697 (Continued) Orig Print D/T: S: 05/19/2021 (0856) [facility] NAME: DEMARCUS SWEENEY [address] [facility] PHYS: Ricky Rizzo MD : 1970 AGE: 50 SEX: M [place], [place] [address] LOC: Y.315 A PHONE #: [phone] EXAM DATE: 05/18/2021 STATUS: ADM IN FAX #: [phone] RAD #: D/C DT PAGE 2 Signed Report - XR PELVIS /2021-05-19 VIEWS 07:25:00 [facility] 1970 Sex: M Patient Name: DEMARCUS SWEENEY Unit No: [id number] EXAMS: CPT CODE: [id number] XR PELVIS 1/2 VIEWS 37163 INTRAOPERATIVE LEG LENGTH FILM COMMENT: COMPARISON: No [...] IVAN HUDSON RT(R) Transcribed D/ (0725) BetitoL [facility] NAME: DEMARCUS SWEENEY [address] [facility] PHYS: Ricky Rizzo MD : 1970 AGE: 50 SEX: M [place] [address] LOC: Y.315 A PHONE #: [phone] EXAM DATE: 05/18/2021 STATUS: ADM IN FAX #: [phone] RAD #: D/C DT PAGE 1 Signed Report Patient Name: DEMARCUS SWEENEY Unit No: [id number] EXAMS: CPT CODE: [id number] XR PELVIS 1/2 VIEWS 96586 (Continued) Orig Print D/T: S: 05/19/2021 (0856) [facility] NAME: DEMARCUS SWEENEY [address] [facility] PHYS: Ricky Rizzo MD : 1970 AGE: 50 SEX: M [place] [address] LOC: Y.315 A PHONE #: [phone] EXAM DATE: 05/18/2021 STATUS: ADM IN FAX #: [phone] RAD #: D/C DT PAGE 2 Signed [...] of measure: mL/min/1.73 (test code = GFR) y5Aclifque e Range:Healthy Adults >90 mL/m in/1.73 m2 For Chronic Kidney Disease: Stage II Mild Decreas e in GFR 60-90 Stage III Moder ate Decrease in GFR 30-59 St age IV Severe Decrease in GFR 15-29 Stage V Kidney Failure <15 CREATININE (test code = CREAT) 1.16 mg/dL 0.55-1.30 N CALCIUM (test code = CA) 8.4 mg/dL 8.2-10.1 N HGB [id number] 06:04:00 Test Item Value Reference Range Interpretation Comments HEMOGLOBIN (test code = HGB) 12.1 g/dL 12-16 N HEMATOCRIT (test code = HCT) 36.1 % 37-47 L SPECIMEN COMMENT: POD #[id number] 08:39:00 Test Item Value Reference Range Interpretation Comments [id number] Negative Negative The test was performed (test code = at: [facility] [id number]) TESTING SIT ENote: this entry is for TR ACKING purposes only a nd the testwas done ou [facility] in spec imen comments. The test was performed at: [facility] TESTING SITEon: 05/11/21Patient's account number from transferring facility: [id number] patient's current lab results are: NegativePROTHROMBIN [id number] 17:18:00 Test Item Value Reference Range Interpretation [...] BLOOD, PT every other day NTHROMBOPLASTIN TIME [id number] 17:18:00 Test Item Value Reference Range Interpretation [...] BLOOD, PT every other day NCOMPREHENSIVE METABOLIC [id number] 17:08:00 Test Item Value Reference Range Interpretation [...] RATE (test code = GFR) mL/mi n/1.73 u8Stviymcmu Range:Healthy Adults >90 mL/min/1.73 m2 For Chronic [...] TOTAL (test code = ALKP) CBC W/AUTO [id number] 17:07:00 Test Item Value Reference Range Interpretation [...] = NRBC) - MRI LW JNT W/CONTRAST [id number] 12:20:00 Patient Name: DEMARCUS SWEENEY Unit No: [id number] EXAMS: CPT CODE: [id number] MRI LW JNT W/CONTRASTRT 67933 MRI ARTHROGRAM RIGHT HIP DIAGNOSIS: 1. Congenitally [...] Reported and signed by: Manjit Kate MD [facility] NAME: DEMARCUS SWEENEY [address] [facility] PHYS: Eric Scherer : 1970 AGE: 47 SEX: M [place] [address] LOC: Y.RAD PHONE #: [phone] EXAM DATE: 07/30/2018 STATUS: REG CLI FAX #: [phone] RAD #: D/C DT PAGE 1 Signed Report (CONTINUED) Patient Name: DEMARCUS SWEENEY Unit No: [id number] EXAMS: CPT CODE: [id number] [place] LW JNT W/[place] [address] (Continued) CC: Eric Vargas MD Technologist: Caro Paredes(R) Transcribed D/ (1220) SantiG [facility] NAME: DEMARCUS SWEENEY [address] [facility] PHYS: Eric Scherer : 1970 AGE: 47 SEX: M [place] [address] LOC: Y.RAD PHONE #: [phone] EXAM DATE: 07/30/2018 STATUS: REG CLI FAX #: [phone] RAD #: D/C DT PAGE 2 Signed Report Patient Name: DEMARCUS SWEENEY Unit No: [id number] EXAMS: CPT CODE: [id number] MRI LW JNT W/[place] [address] (Continued) Orig Print D/T: S: 07/30/2018 (1223) [facility] NAME: DEMARCUS SWEENEY[address] [facility] PHYS: Eric Scherer : 1970 AGE: 47 SEX: M [place] [address] LOC: Y.RAD PHONE #: [phone] EXAM DATE: 07/30/2018 STATUS: REG CLI FAX#: [phone] RAD #: D/C DT PAGE 3 Signed Report- XR ARTHROGRAM HIP W/O AN RT+2018-07-30 12:20:00 Patient Name: DEMARCUS SWEENEY Unit No: [id number] EXAMS: CPT CODE: [id number] XR ARTHROGRAM HIP W/O AN RT+ 08055 MRI ARTHROGRAM RIGHT HIP DIAGNOSIS: 1. Congenitally [...] Reported and signed by: Manjit Kate MD [facility] NAME: DEMARCUS SWEENEY [address] [facility] PHYS: Eric Scherer : 1970 AGE: 47 SEX: M [place], [place] [address] LOC: Y.RAD PHONE #: [phone] EXAM DATE: 07/30/2018 STATUS: REG CLI FAX #:[phone] RAD #: D/C DT PAGE 1 Signed Report (CONTINUED) Patient Name: DEMARCUS SWEENEY Unit No:[id number] EXAMS: CPT CODE: [id number] XR ARTHROGRAM HIP W/O AN RT+ 58657 (Continued) CC: Kevin Hurtado MD; Eric Vargas MD Technologist: WERNER LAUREN, RT(R) Transcribed D/ (1220) ValerieGVG [facility] NAME: DEMARCUS SWEENEY [address] [facility] PHYS: Eric Scherer : 1970 AGE: 47 SEX: M [place] [address] LOC: Y.RAD PHONE #: [phone] EXAM DATE: 07/30/2018 STATUS: REG CLI FAX #: [phone] RAD #: D/C DT PAGE 2 Signed Report Patient Name: DEMARCUS SWEENEY Unit No: [id number] EXAMS: CPT CODE: [id number] XR ARTHROGRAM HIP W/O AN RT+ 90021 (Continued) Orig Print D/T: S: 07/30/2018 (1223) [facility] NAME: DEMARCUS SWEENEY [address] [facility] PHYS: Eric Scherer : 1970 AGE: 47 SEX: M [place] [address] LOC: Y.RAD PHONE #: [phone] EXAM DATE: 07/30/2018 STATUS: REG CLI FAX #: [phone] RAD #: D/C DT PAGE 3 Signed Report Notes Date/Time Note Provider Source 2021-05-19 09:10:00-00:00 [facility] Clinical Note REPORT#:[id number] REPORT STATUS: Signed DATE:05/19/21 TIME: 909 PATIENT: DEMARCUS SWEENEY UNIT #: [id number] ROOM/BED: [address] : [birth year] AGE: 50 SEX: M ATTEND: Elias Torres MD ADM AUTHOR: Flako Hoover MD * ALL edits or amendments must be made on the el [employer]ronic/computer document * Clinical Note Note: [facility] Flako bhakta M.D. (cell text [phone]) Assessment/Plan 1.) Anemia of acute blood loss- [...] 36.1 L Flako Mccauley M.D. at 1053 [facility] #:[id number] END OF REPORT 2021-05-19 06:44:00-00:00 [facility] ([facility]) Discharge Summary REPORT#:[id number] REPORT STATUS: Signed DATE:05/19/21 TIME: 643 PATIENT: DEMARCUS SWEENEY UNIT #: [id number] ROOM/BED: [address] : 71 AGE: 50 SEX: M ATTEND: Elias Torres MD ADM AUTHOR: Ricky Torres MD * ALL edits or amendments must be made on the [employer]/computer document * General Information Discharge date: 05/19/21 [...] Ricky Torres MD on at 0756 RPT #:[id number] END OF REPORT 2021-05-19 06:43:00-00:00 [facility] ([facility]) Clinical Note REPORT#:[id number] REPORT STATUS: Signed DATE:05/19/21 TIME: 642 PATIENT: DEMARCUS SWEENEY UNIT #: [id number] [facility] AGE: 50 SEX: M ATTEND: [...] Ricky Torres MD on at 0643 RPT #:[id number] END OF REPORT 2021-05-18 20:33:00-00:00 [facility] ([facility]) Clinical Note REPORT#:[id number] REPORT STATUS: Signed DATE:05/18/21 TIME: 2032 PATIENT: DEMARCUS SWEENEY UNIT #: [id number] [facility] AGE: 50 SEX: M ATTEND: Elias Torres MD ADM AUTHOR: Flako Hoover MD * ALL edits or amendments must be made on the el [employer]/computer document * Clinical Note Note: [facility] Flako bhakta MD (cell text [phone]) Internal Medicine Consult at request of : [...] GERD, BMI 40.6 ALLERGY: Allergies: methylprednisolone (From Accertify) (Coded, Severe, BLISTERS FACE/MOUTH, 07/30/18) Home Medications: [...] pain assessment with tool and followup p [facility] 1126F - offered discussion o n advanced care plan and patient declined to address issue at this time. at 2035 RPT #:[id number] END OF REPORT 2021-05-18 12:44:00-00:00 [facility] ([facility]) Operative Note - Full REPORT#:[id number] REPORT STATUS: Signed DATE:05/18/21 TIME: 1244 PATIENT: DEMARCUS SWEENEY UNIT #: [id number] ROOM/BED: [place] [address] : [birth year] AGE: 50 SEX: M ATTEND: Elias Torres MD ADM AUTHOR: Ricky Torres MD * ALL edits or amendments must be made on the el [employer]/computer document * Operative Report Start date: 05/18/21 Start time: 0000 Pre-procedure diagnosis: R hip dysplasia, OA, OBESITY BMI 40.6 Post-procedure diagnosis: same Procedures performed: R COMPLEX ZELALEM Technique/Procedure: Posterior Total Hip Replacement OPERATIVE PROCEDURE IN DETAIL [facility], and all questions and concerns were answered. The patient verbally conf irmed the site and side of the surgery and marking of the site was done. The patient was brought to [facility] operating room and, after adequate anesthesia was [...] the leg was placed on a metal power electronics engineer slight abduction and internal rot ation. The [...] longer than a typical procedure INDICATIONS FOR SOIL CHECKER The presence of a skilled molina rgical recovery assistant was medically necessary to aid for [...] the procedure and not possible without an recovery assistant. In addition keishain manjit an recovery assistant shortens operative times which decrea ses expenses and improves outcomes. I am not part of any residency or fellowship training programs and therefore require the help of the recovery assistant listed above for this surgery. IMPLANTS Depuy 54 mm [place] cup, 36+4 liner, 6std trilo ck, 36+ 1.5mm CERAMIC head Primary Surgeon: CHRISTI Cap Jewel Plate Assembler(s): YOHAN KATZ Anesthesia: general anesthesia Operative findings: OA Complications: none Estimated blood loss in ml's: 300 Specimens removed/altered: none Implant(s): DEPUY Electronically Signed by Ricky Torres MD on at 1247 RPT #:[id number] END OF REPORT 2018-08-07 10:20:00-00:00 [id number] [place] [address] PATIENT NAME: DEMARCUS SWEENEY ADMIT DATE: 08/07/18 ACCOUNT NO: [id number] ROOM NO: AGE: 47 REPORT TYPE: OPERATIVE REPORT SEX: M ADMITTING PHYSICIAN: ATTENDING PHYSICIAN:Eric Vargas MD OPERATION DATE: 08/07/2018 PREOPERATIVE DIAGNOSIS: Right hip labral tear wi th right hip proximal femoral dysplasia. POSTOPERATIVE DIAGNOSIS: Right hip sandro l tear with right hip proximal femoral dysplasia. PROCEDURE: Right hip arthroscopy with labral mariela ridement. SURGEON: Eric Vargas MD SOIL CHECKER: ANESTHESIA: General. DESCRIPTION OF FINDINGS AND INDICATIONS [...] PATIENT NAME: DEMARCUS SWEENEY ACCOUNT #: [id number] prepped and draped using Chl oraPrep. Time-out [...] he procedure well, was extubated, transferred [facility], onto the [facility] room in satisfactory condition. ESTIMATED BLOOD LOSS: Minimal. IV FLUIDS: Maintenance. PROGNOSIS: Guarded given underlying nature of hi s condition. Dictated By: Eric Vargas MD WT: OP:YVICKY/SOO/BARON Conf#: [id number]/DID#: [id number] Authenticated and Edited by Eric terry MD On 08/08/18 7:27:37 AM at 0712 PATIENT NAME: DEMARCUS SWEENEY ACCOUNT #: [id number]
[2022-10-16 21:32] LABS: Absolute Lymphocytes (CBC) 2.1 K/uL (0.7-4.9); Hematocrit 41.8 % (39.6-49.0); Lymphocytes % 26.5 % (15.3-44.8); MCV 92.3 fL (80-100); MPV 8.9 fL (7.6-11.3); RBC Red Blood Cell Count 4.53 M/uL (4.33-5.43)
[2022-10-16 21:53] LABS: Protime INR 1.05
[2022-10-16 21:57] LABS: Albumin 3.7 g/dL (3.4-5.0); Bilirubin Direct 0.1 mg/dL (0-0.2); Bilirubin Indirect, Calculated 0.3 mg/dL (0.2-0.8); Bilirubin Total 0.4 mg/dL (0.2-1.0); Potassium 3.6 mEq/L (3.5-5.1); Protein, Total 7.2 g/dL (6.4-8.2); Troponin High Sensitivity 3.8 pg/mL (<58.9)
--- NOTE | 2022-10-16 22:08 | RAD REPORT ---
EXAM DESCRIPTION: Abrahamt Single View10/16/2022 9:48 pm CLINICAL HISTORY: CHEST PAIN COMPARISON: CHEST SINGLE VIEW dated 06/03/2014; CHEST SINGLE VIEW dated 11/21/2008; CHEST PA AND LAT 2 VIEW dated 02/07/2008 TECHNIQUE: Portable AP view of the chest. FINDINGS: The lungs show no significant interval change, with stable right costophrenic angle blunti ng. No pneumothorax or effusion. The cardiomediastinal contours are unremarkable. IMPRESSION: No acute cardiopulmonary process. Right costophrenic angle blunting, stable probably rel ated to atelectasis.
[2022-10-16] MEDS ORDERED: CYCLOBENZAPRINE 10 MG TAB ONE (22:20)
[2022-10-16] MEDS ORDERED: METOCLOPRAMIDE 10 MG/2mL INJ ONE (22:20)
[2022-10-16] MEDS ORDERED: NA CHLORIDE 0.9% 500 ML ONE (22:21)
[2022-10-16] MEDS ORDERED: KETOROLAC 30 MG/ML INJ ONE (22:21)
[2022-10-16] MEDS ORDERED: MORPHINE 4 MG/ML SYR ONE (22:21)
--- NOTE | 2022-10-16 22:41 | RAD REPORT ---
EXAM DESCRIPTION: CT - Head Brain Wo Cont - 10/16/2022 10:20 pm CLINICAL HISTORY: HEADACHE COMPARISON: Head angio dated 10/04/2022; Head Brain Wo Cont dated 10/04/2022; Head angio dated 10/16/2022 TECHNIQUE: Noncontrast head CT images ad were obtained without IV contrast. Multiplanar reformats we re generated and reviewed. All CT scans are performed using dose optimization technique as appropriate and may include automated exposure control or mA/KV adjustment according to patient size. FINDINGS: No intracranial hemorrhage, mass, or edema. Midline structures are unremarkable. Normal ventricular caliber for age. Akhtar-white matter differentiation is preserved, without evidence of acute infarct. No abnormal extra- axial fluid collections. Mastoid air cells are well aerated. Maxillary sinus mucous retention cyst. No acute bony findings. IMPRESSION: No evidence of an acute intracranial process.
--- NOTE | 2022-10-16 22:51 | RAD REPORT ---
EXAM DESCRIPTION: CT - Head angio - 10/16/2022 10:20 pm CLINICAL HISTORY: persistent headaches COMPARISON: Head Brain Wo Cont dated 10/16/2022; Head angio dated 10/04/2022 TECHNIQUE: Axial CT angiography images of the head was performed with multiplanar and maximum intens ity projection reconstructions. Images performed following intravenous administration of 95 mLmL Isov ue 370. All CT scans are performed using dose optimization technique as appropriate and may include automated exposure control or mA/KV adjustment according to patient size. FINDINGS: No evidence of large vessel occlusion. No evidence of aneurysm or dissection flap is detec jessica. No flow-limiting stenosis or vascular malformation identified. Mild short-segment stenoses maría elena g distal left WIRE BORDER ASSEMBLER branch, and left A2 proximal segment. Antegrade flow is seen in the vertebral arteries. The vertebral arteries are codominant. The visualized dural venous sinuses are grossly patent. IMPRESSION: No evidence of large vessel occlusion or flow-limiting stenosis. Mild short-segment stenoses along the left WIRE BORDER ASSEMBLER and left EC as above. Findings could relate to vasospa sm or vasculitis in the appropriate clinical setting.
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
[2022-10-17 00:43] VITALS: TEMP 98.3
[2022-10-17 00:44] VITALS: O2SAT 95
[2022-10-17 00:47] VITALS: BP 125/60
--- NOTE | 2022-10-17 17:50 | EKG ---
Test Date: 2022-10-16 Test Time: 21:30:35 Reconciliation Specialist: BRENT MEASUREMENT RESULTS: Intervals: Rate: 74 [place]: 150 QRSD: 94 QT: 400 QTc: 444 [place]: P: 61 [place]: 150 QRS: 4 T: 45 INTERPRETIVE STATEMENTS: Normal sinus rhythm with sinus arrhythmia Minimal voltage criteria for LVH, may be normal variant Borderline ECG Compared to ECG 10/21/2018 04:05:28 Left ventricular hypertrophy now present Prolonged QT interval no longer present Electronically Signed On 10-17-22 17:48:58 CDT by Aashish Basilio
== END 2022-10-16 23:59 | disposition home or self-care (01) ==
LOC: ER 20:34
DX: G44.311 Acute post-traumatic headache, intractable (principal); F07.81 Postconcussional syndrome; M54.50 Low back pain, unspecified; R73.03 Prediabetes
CPT/HCPCS: 96361; 93005; 85025; 80048; 36415; 85610; 80076; 84484; 83880; 70450; 70496; 71045; 96375; 96374; 99284; Q9967; J2765; J7040

== ENCOUNTER 2022-11-23 06:22 | Day surgery (SDC) | payer OTHER ==
[2022-11-17 11:10] LABS: Absolute Lymphocytes (CBC) 1.2 K/uL (0.7-4.9); Hematocrit 42.5 % (39.6-49.0); Lymphocytes % 20.1 % (15.3-44.8); MPV 8.3 fL (7.6-11.3); RBC Red Blood Cell Count 4.62 M/uL (4.33-5.43)
[2022-11-17 11:17] LABS: Protime INR 1.04
[2022-11-17 11:25] LABS: Potassium 3.7 mEq/L (3.5-5.1)
[2022-11-23] MEDS ORDERED: NA CHLORIDE 0.9% 1,000 ML ONE (06:47)
[2022-11-23] MEDS ORDERED: FENTANYL CITR 100 MCG/2 ML ONE (07:40)
[2022-11-23] MEDS ORDERED: MIDAZOLAM HCL 2 MG/2 ML INJ ONE (07:40)
[2022-11-23] MEDS ORDERED: NS 0.9% VIAL 30 ML ONE (07:41)
[2022-11-23] MEDS ORDERED: LIDOCAINE 1% MPF 30 ML VIAL ONE (07:41)
[2022-11-23] MEDS ORDERED: LIDOCAINE 2% MPF 5 ML VIAL ONE (07:41)
[2022-11-23] MEDS: CEFAZOLIN SODIUM 1 GM/VIAL ONE ×3 (07:46→08:20)
[2022-11-23] MEDS: BUPIVACAINE 0.25% PF 10 ML VIAL ONE ×2 (07:47→08:21)
[2022-11-23] MEDS ORDERED: propofoL 200 MG/20 ML VIAL IV ONE ×3 (08:00→08:36)
[2022-11-23 10:01] VITALS: BP 113/67; TEMP 97; O2SAT 95
--- NOTE | 2022-11-23 10:51 | P.BOP ---
Preoperative diagnosis: left carpal tunnel syndrome Postoperative diagnosis: same Primary procedure: left open carpal tunnel release Dehydrator Tender: NONE,NONE Estimated blood loss: 3 cc Specimen: none Findings: see dictation Anesthesia: [place]acho block Complications: None Implants: none Fluids & blood products: per anesthesia record Transferred to: Recovery Room Condition: Good
--- NOTE | 2022-11-23 10:53 | P.OP ---
Preoperative diagnosis: left carpal tunnel syndrome Postoperative diagnosis: same Primary procedure: left open carpal tunnel release Anesthesia: [place] block Estimated blood loss: 3 cc Specimen: none Findings: see dictation Operative Technique: Reason for Surgery: The patient had physical exam findings as well as EMG findings consistent with carpal tunnel syndrome. I discussed with the patient at length risks and benefits associated with the procedure. They expressed understanding and elected proceed with operative treatment. Description of Procedure: After informed consent was obtained the patient was identified in the preoperative holding area. The left upper extremity was marked patient. Patient then brought back to the operating room transferred the operative table in supine fashion and placed under [place] block anesthesia. Approximately a 3 cm longitudinal incision was made just ulnar to the thenar crease. Dissection was then taken down to the palmar fascia which was identified. A [place] elevator was then placed just deep to the palmar fascia to protect the median nerve at all times. A 15 blade was then used to release the palmar fascia and transverse carpal ligament leaving the [place] elevator to protect the nerve at all times. Any remaining fascial bands were then released using a blunt tip Metzenbaum scissor. The tips were him superficially to protect the median nerve at all times. The wound was then irrigated thoroughly with normal saline. The skin was approximated using a 5-0 Prolene. Sterile dressings were applied and patient was awakened and transferred to PACU in stable condition. Postoperative plan: The patient will follow-up in 1 to 2 weeks for wound check and suture removal. They may begin to work on range of motion exercises at this time. Complications: None Implants: none Fluids & blood products: per anesthesia record Transferred to: Recovery Room Condition: Good
== END 2022-11-23 09:52 | disposition home or self-care (01) ==
LOC: OR 06:22
PROVIDERS: ATTEND Orthopaedic Surgery Sports Medicine
PROC: 01N50ZZ Release Median Nerve, Open Approach (ICD-10-PCS; principal; 2022-11-23 08:00)
DX: G56.02 Carpal tunnel syndrome, left upper limb (principal)
CPT/HCPCS: 85025; 80048; 36415; 85610; 82947; 85730; 64721; A4216; J2704 ×3; J2001 ×2; J2250; J3010; J7030; J0690

== ENCOUNTER 2022-12-30 06:55 | Day surgery (SDC) | payer OTHER ==
[2022-12-26 11:05] LABS: Absolute Lymphocytes (CBC) 2.1 K/uL (0.7-4.9); Lymphocytes % 32.4 % (15.3-44.8); MCV 90.6 fL (80-100); MPV 8.6 fL (7.6-11.3); Platelets 232 thou/uL (152-406); RBC Red Blood Cell Count 4.52 M/uL (4.33-5.43)
[2022-12-26 11:11] LABS: Protime INR 0.96
[2022-12-26 11:18] LABS: Potassium 3.6 mEq/L (3.5-5.1)
[2022-12-30] MEDS ORDERED: propofoL 200 MG/20 ML VIAL IV ONE ×3 (07:14→08:40)
[2022-12-30] MEDS ORDERED: KETOROLAC 30 MG/ML INJ ONE (07:14)
[2022-12-30] MEDS ORDERED: FENTANYL CITR 100 MCG/2 ML ONE (07:14)
[2022-12-30] MEDS ORDERED: MIDAZOLAM HCL 2 MG/2 ML INJ ONE (07:14)
[2022-12-30] MEDS ORDERED: LIDOCAINE 2% MPF 5 ML VIAL ONE (07:15)
[2022-12-30] MEDS ORDERED: ONDANSETRON 4 MG/2 ML VIAL ONE (07:15)
[2022-12-30] MEDS ORDERED: NS 0.9% VIAL 30 ML ONE (07:21)
[2022-12-30] MEDS ORDERED: LIDOCAINE 1% MPF 30 ML VIAL ONE (07:21)
[2022-12-30] MEDS ORDERED: LIDOCAINE HCL/EPINEPHRINE 20 ML MDV ONE (07:24)
[2022-12-30] MEDS ORDERED: NA CHLORIDE 0.9% 1,000 ML ONE (07:31)
[2022-12-30] MEDS ORDERED: CEFAZOLIN SODIUM 2 GM/VIAL ONE (07:31)
[2022-12-30] MEDS ORDERED: BUPIVACAINE 0.25% PF 10 ML VIAL ONE (07:41)
[2022-12-30 07:49] VITALS: BP 136/75; TEMP 97.9; O2SAT 95
--- NOTE | 2022-12-30 09:00 | P.BOP ---
Preoperative diagnosis: right carpal tunnel syndrome Postoperative diagnosis: same Primary procedure: right open carpal tunnel release Doll Eye Setter: NONE,NONE Estimated blood loss: 2 cc Specimen: none Findings: see dictation Anesthesia: [place]acho block Complications: None Implants: none Fluids & blood products: per anesthesia record Transferred to: Recovery Room Condition: Good
== END 2022-12-30 10:00 | disposition home or self-care (01) ==
LOC: OR 06:55
PROVIDERS: ATTEND Orthopaedic Surgery Sports Medicine
PROC: 01N50ZZ Release Median Nerve, Open Approach (ICD-10-PCS; principal; 2022-12-30 08:00)
DX: G56.01 Carpal tunnel syndrome, right upper limb (principal)
CPT/HCPCS: 85025; 80048; 36415; 85610; 82947; 85730; 64721; A4216; J2704 ×3; J2001 ×2; J2250; J3010; J2405; J7030

== ENCOUNTER 2023-02-24 06:05 | Day surgery (SDC) | payer OTHER ==
[2023-02-15 08:38] LABS: Absolute Lymphocytes (CBC) 1.8 K/uL (0.7-4.9); Hematocrit 40.1 % (39.6-49.0); Lymphocytes % 30.3 % (15.3-44.8); MCV 90.2 fL (80-100); MPV 8.3 fL (7.6-11.3); Platelets 209 thou/uL (152-406); RBC Red Blood Cell Count 4.44 M/uL (4.33-5.43)
[2023-02-15 08:54] LABS: Potassium 3.9 mEq/L (3.5-5.1)
[2023-02-24] MEDS ORDERED: CEFAZOLIN SODIUM 2 GM/VIAL ONE (06:22)
[2023-02-24] MEDS ORDERED: NA CHLORIDE 0.9% 1,000 ML ONE (06:22)
[2023-02-24] MEDS ORDERED: LIDOCAINE 1% MPF 5 ML VIAL ONE (07:07)
[2023-02-24] MEDS ORDERED: dexAMETHasone 10 MG/ML VIAL ONE ×2 (07:07→08:09)
[2023-02-24] MEDS ORDERED: FENTANYL CITR 100 MCG/2 ML ONE (07:07)
[2023-02-24] MEDS ORDERED: SODIUM BICARB 50 MEQ/50ML VIAL ONE (07:08)
[2023-02-24] MEDS ORDERED: MIDAZOLAM HCL 2 MG/2 ML INJ ONE (07:08)
[2023-02-24] MEDS ORDERED: EPINEPHRINE/PF 1 MG/ML AMP ONE ×2 (07:08→07:24)
[2023-02-24] MEDS ORDERED: KETOROLAC 30 MG/ML INJ ONE (08:09)
[2023-02-24] MEDS ORDERED: propofoL 200 MG/20 ML VIAL IV ONE (08:09)
[2023-02-24] MEDS ORDERED: LIDOCAINE 2% MPF 5 ML VIAL ONE (08:10)
[2023-02-24] MEDS ORDERED: ROCURONIUM 50 MG/5 ML VIAL IV ONE (08:10)
[2023-02-24] MEDS ORDERED: ONDANSETRON 4 MG/2 ML VIAL ONE (08:11)
--- NOTE | 2023-02-24 10:12 | P.BOP ---
Preoperative diagnosis: right shoulder rotator cuff tear, biceps tendinitis, impingement syndrome Postoperative diagnosis: same, SLAP tear Primary procedure: right shoulder arthroscopic rotator cuff repair Secondary procedure: right shoulder arthroscopic SLAP debridement Other procedure(s): right shoulder arthroscopic subacromial decompression Estimated blood loss: 5 cc Specimen: none Findings: see dictation Anesthesia: General Complications: None Implants: 1- 5.5 mm arthrex corkscrew, 2- 4.75 mm arthrex swivelocks Fluids & blood products: per anesthesia record Transferred to: Recovery Room Condition: Good
--- NOTE | 2023-02-24 11:34 | RAD REPORT ---
EXAM DESCRIPTION: RAD - Shoulder 1 View - 02/24/2023 11:05 am CLINICAL HISTORY: S/P R RC REPAIR COMPARISON: No comparisons FINDINGS: Single frontal right shoulder projection is submitted. Mild AC joint and glenohumeral join t arthritic changes. No unexpected immediate postoperative finding.
[2023-02-24] MEDS ORDERED: HYDROCODONE/APAP 7.5/325 MG TAB ONE (11:57)
[2023-02-24 14:46] VITALS: BP 119/73; TEMP 97.5; O2SAT 95
== END 2023-02-24 12:44 | disposition home or self-care (01) ==
LOC: OR 06:05
PROVIDERS: ATTEND Orthopaedic Surgery Sports Medicine
PROC: 0RNJ4ZZ Release Right Shoulder Joint, Percutaneous Endoscopic Approach (ICD-10-PCS; principal; 2023-02-24 08:00)
DX: M75.101 Unspecified rotator cuff tear or rupture of right shoulder, not specified as traumatic (principal); M25.811 Other specified joint disorders, right shoulder; M75.21 Bicipital tendinitis, right shoulder; M25.511 Pain in right shoulder
CPT/HCPCS: 85025; 80048; 36415; 85610; 82947; 85730; 73020; 29827; 29826; 29822; J2704; J0171 ×2; J2001 ×2; J2250; J3010; J1100 ×2; J2405; J7030

== ENCOUNTER 2023-12-06 11:37 | Emergency (ER) | payer OTHER ==
--- OUTSIDE RECORDS SUMMARY | 2023-12-06 11:45 | XMS REPORT | Continuity of Care Document ---
Author Name Unknown Address [address] [facility]. [address] [place] [address] [facility] thconnect Address [address] [facility] [address] [place] [address] Care Team Providers Care Electrolysis Investigator Name Role Phone July Gonzalez Attending Clinician Unavailable Ricky Torres Attending Clinician Unavailable Phi Attending Clinician Unavaila Ricky Barrett Admitting Clinician Unavailable Phi Admitting Clinician Unavaila ble UNDEFINED Admitting Clinician Unavailable Payers Payer Name Policy Type Policy Number Effective Date Expirati on Date Source [facility] [id number] Co on [facility] [id number] [facility] - MEDICARE COMPLETE (MEDICARE REPLACEMENT HMO) [id number] [facility] [id number] 2019 00:00:00 Problems Condition Name Condition Details Condition Category Status Onset Date Resolution Date Last Treatment Date Treating Clinician Comments Source Cervical radiculopa thy Cervical Radiculopa thy Problem Active 2022-05 2 00:00: 00 [facility] Neck pain Neck Pain Problem Active 2 00:00: 00 [facility] Cervical spondylosi s with radiculopa thy Cervical Spondylosi s with Radiculopa thy Problem Active 2 00:00: 00 [facility] Situation with explicit context Situation with Explicit Context Problem Active 05-18 00:00: 00 [facility] 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 Problem Active 2020-05 2 00:00: 00 [facility] Acetabular labrum tear Acetabular Labrum Tear Problem Active 07-30 00:00: 00 [facility] Hip pain Hip Pain Problem Active 07-20 00:00: 00 [facility] [id number] Other chronic pain Problem Common [facility] [id number] RLS (restless legs syndrome) Problem Common [facility] [id number] PTSD (post-trau matic stress disorder) Problem [facility] Hyperthyro idism Hyperthyro idism Problem [facility] [id number] Carpal tunnel syndrome of left wrist Problem [facility] [id number] DM (diabetes mellitus) type 2, uncontroll ed, with ketoacidos is Problem Common [facility] [id number] Tear of right rotator cuff, unspecifie d tear extent, unspecifie d whether traumatic Problem Common [facility] [id number] Other secondary osteoarthr itis of right hip Problem Common [facility] [id number] Arthritis Problem [facility] [id number] Carpal tunnel syndrome on both sides Problem Common [facility] [id number] Gastroesop hageal reflux disease without esophagiti s Problem Common [facility] [id number] Carpal tunnel syndrome of right wrist Problem Common [facility] Allergies, Adverse Reactions, Alerts Allergy Name Allergy Type Status Severity Reaction(s) Onset Date Inactive Date Treating Clinician Comments Source No Known Allergie s DA Active U 07-30 00:00: 00 [facility] methylpr ednisolo ne DA Active SV 07-30 00:00: 00 [facility] methylpr ednisolo ne DA Active SV BLISTERS FACE/MOUTH 07-30 00:00: 00 [facility] methylpr ednisolo ne methylpr ednisolo ne Active Unknown [facility] Social History Social Habit Start Date Stop Date Quantity Comments Source History of Tobacco Use [facility] Sex Assigned At [facility] Smoking Status Start Date Stop Date Source Former Smoker [facility] Never Smoker [facility] Medications Ordered Medication Name Filled Medication Name Start Date Stop Date Current Medication? Ordering Clinician Indication Dosage Frequency Signature (SIG) Comments Components Source Methocarbam ol 500 MG Methocarbam ol 500 MG 4-0 - 00:00: 00 No 1{table t} TID Methocarba mol 500 MG HYDROcodone -Acetaminop hen 5-325 MG HYDROcodone -Acetaminop hen 5-325 MG 4-0 - 00:00: 00 No 1{table t_as_ne eded} QID HYDROcodon e-Acetamin ophen 5-325 MG Methocarbam ol 500 MG Methocarbam ol 500 MG 4-0 - 00:00: 00 No 1{table t} TID Methocarba mol 500 MG Methocarbam ol 500 MG Methocarbam ol 500 MG 4-0 1- 00:00: 00 No 1{table t} TID Methocarba mol 500 MG HYDROcodone -Acetaminop hen 5-325 MG HYDROcodone -Acetaminop hen 5-325 MG 4-0 - 00:00: 00 No 1{table t_as_ne eded} QID HYDROcodon e-Acetamin ophen 5-325 MG Methocarbam ol 500 MG Methocarbam ol 500 MG 4-0 - 00:00: 00 No 1{table t} TID Methocarba mol 500 MG HYDROcodone -Acetaminop hen 5-325 MG HYDROcodone -Acetaminop hen 5-325 MG 2024-0 1-03 00:00: 00 No 1{table t_as_ne eded} QID HYDROcodon e-Acetamin ophen 5-325 MG Methocarbam ol 500 MG Methocarbam ol 500 MG 2024-0 1-03 00:00: 00 No 1{table t} TID Methocarba mol 500 MG HYDROcodone -Acetaminop hen 5-325 MG HYDROcodone -Acetaminop hen 5-325 MG 2024-0 1-03 00:00: 00 No 1{table t_as_ne eded} QID HYDROcodon e-Acetamin ophen 5-325 MG Methocarbam ol 500 MG Methocarbam ol 500 MG 2024-0 1-03 00:00: 00 No 1{table t} TID Methocarba mol 500 MG HYDROcodone -Acetaminop hen 5-325 MG HYDROcodone -Acetaminop hen 5-325 MG 2024-0 1- 00:00: 00 No 1{table t_as_ne eded} QID HYDROcodon e-Acetamin ophen 5-325 MG Methocarbam ol 500 MG Methocarbam ol 500 MG 2024-0 1-03 00:00: 00 No 1{table t} TID Methocarba mol 500 MG HYDROcodone -Acetaminop hen 5-325 MG HYDROcodone -Acetaminop hen 5-325 MG 2024-0 1-03 00:00: 00 No 1{table t_as_ne eded} QID HYDROcodon e-Acetamin ophen 5-325 MG Methocarbam ol 500 MG Methocarbam ol 500 MG 2024-0 1-03 00:00: 00 No 1{table t} TID Methocarba mol 500 MG HYDROcodone -Acetaminop hen 5-325 MG HYDROcodone -Acetaminop hen 5-325 MG 2024-0 1-03 00:00: 00 No 1{table t_as_ne eded} QID HYDROcodon e-Acetamin ophen 5-325 MG Methocarbam ol 500 MG Methocarbam ol 500 MG 2024-0 1-03 00:00: 00 No 1{table t} TID Methocarba mol 500 MG HYDROcodone -Acetaminop hen 5-325 MG HYDROcodone -Acetaminop hen 5-325 MG 2024-0 1-03 00:00: 00 No 1{table t_as_ne eded} QID HYDROcodon e-Acetamin ophen 5-325 MG Methocarbam ol 500 MG Methocarbam ol 500 MG 4-0 1-03 00:00: 00 No 1{table t} TID Methocarba mol 500 MG HYDROcodone -Acetaminop hen 5-325 MG HYDROcodone -Acetaminop hen 5-325 MG 4-0 1-03 00:00: 00 No 1{table t_as_ne eded} QID HYDROcodon e-Acetamin ophen 5-325 MG Methocarbam ol 500 MG Methocarbam ol 500 MG 4-0 1-03 00:00: 00 No 1{table t} TID Methocarba mol 500 MG HYDROcodone -Acetaminop hen 5-325 MG HYDROcodone -Acetaminop hen 5-325 MG 4-0 1-03 00:00: 00 No 1{table t_as_ne eded} QID HYDROcodon e-Acetamin ophen 5-325 MG Methocarbam ol 500 MG Methocarbam ol 500 MG 4-0 1-03 00:00: 00 No 1{table t} TID Methocarba mol 500 MG HYDROcodone -Acetaminop hen 5-325 MG HYDROcodone -Acetaminop hen 5-325 MG 4-0 1-03 00:00: 00 No 1{table t_as_ne eded} QID HYDROcodon e-Acetamin ophen 5-325 MG HYDROcodone -Acetaminop hen 5-325 MG HYDROcodone -Acetaminop hen 5-325 MG 4-0 1-03 00:00: 00 No 1{table t_as_ne eded} QID HYDROcodon e-Acetamin ophen 5-325 MG Methocarbam ol 500 MG Methocarbam ol 500 MG 3-1 2-14 00:00: 00 No 1{table t} Methocarba mol 500 MG HYDROcodone -Acetaminop hen 5-325 MG HYDROcodone -Acetaminop hen 5-325 MG 3-1 2-14 00:00: 00 No 1{table t_as_ne eded} QID HYDROcodon e-Acetamin ophen 5-325 MG Methocarbam ol 500 MG Methocarbam ol 500 MG 2022-05 2-14 00:00: 00 No 1{table t} Methocarba mol 500 MG HYDROcodone -Acetaminop hen 5-325 MG HYDROcodone -Acetaminop hen 5-325 MG 2022-05 2-14 00:00: 00 No 1{table t_as_ne eded} QID HYDROcodon e-Acetamin ophen 5-325 MG HYDROcodone -Acetaminop hen 5-325 MG HYDROcodone -Acetaminop hen 5-325 MG 2022-05 2-14 00:00: 00 No 1{table t_as_ne eded} QID HYDROcodon e-Acetamin ophen 5-325 MG Methocarbam ol 500 MG Methocarbam ol 500 MG 2022-05 2-14 00:00: 00 No 1{table t} Methocarba mol 500 MG HYDROcodone -Acetaminop hen 5-325 MG HYDROcodone -Acetaminop hen 5-325 MG 2022-05 2-14 00:00: 00 No 1{table t_as_ne eded} QID HYDROcodon e-Acetamin ophen 5-325 MG Methocarbam ol 500 MG Methocarbam ol 500 MG 2022-05 2-14 00:00: 00 No 1{table t} Methocarba mol 500 MG HYDROcodone -Acetaminop hen 5-325 MG HYDROcodone -Acetaminop hen 5-325 MG 2022-05 2-14 00:00: 00 No 1{table t_as_ne eded} QID HYDROcodon e-Acetamin ophen 5-325 MG Methocarbam ol 500 MG Methocarbam ol 500 MG 2022-05 2-14 00:00: 00 No 1{table t} Methocarba mol 500 MG HYDROcodone -Acetaminop hen 5-325 MG HYDROcodone -Acetaminop hen 5-325 MG 2022-05 2-14 00:00: 00 No 1{table t_as_ne eded} QID HYDROcodon e-Acetamin ophen 5-325 MG Methocarbam ol 500 MG Methocarbam ol 500 MG 2022-05 2-14 00:00: 00 No 1{table t} Methocarba mol 500 MG HYDROcodone -Acetaminop hen 5-325 MG HYDROcodone -Acetaminop hen 5-325 MG 2023-1 2-14 00:00: 00 No 1{table t_as_ne eded} QID HYDROcodon e-Acetamin ophen 5-325 MG Methocarbam ol 500 MG Methocarbam ol 500 MG 2022-05 2-14 00:00: 00 No 1{table t} Methocarba mol 500 MG HYDROcodone -Acetaminop hen 5-325 MG HYDROcodone -Acetaminop hen 5-325 MG 2022-05 2-14 00:00: 00 No 1{table t_as_ne eded} QID HYDROcodon e-Acetamin ophen 5-325 MG Methocarbam ol 500 MG Methocarbam ol 500 MG 2022-05 2-14 00:00: 00 No 1{table t} Methocarba mol 500 MG HYDROcodone -Acetaminop hen 5-325 MG HYDROcodone -Acetaminop hen 5-325 MG 2022-05 2-14 00:00: 00 No 1{table t_as_ne eded} QID HYDROcodon e-Acetamin ophen 5-325 MG Methocarbam ol 500 MG Methocarbam ol 500 MG 2022-05 2-14 00:00: 00 No 1{table t} Methocarba mol 500 MG HYDROcodone -Acetaminop hen 5-325 MG HYDROcodone -Acetaminop hen 5-325 MG 2022-05 2-14 00:00: 00 No 1{table t_as_ne eded} QID HYDROcodon e-Acetamin ophen 5-325 MG Methocarbam ol 500 MG Methocarbam ol 500 MG 2022-05 2-14 00:00: 00 No 1{table t} Methocarba mol 500 MG HYDROcodone -Acetaminop hen 5-325 MG HYDROcodone -Acetaminop hen 5-325 MG 2022- 2-14 00:00: 00 No 1{table t_as_ne eded} QID HYDROcodon e-Acetamin ophen 5-325 MG Methocarbam ol 500 MG Methocarbam ol 500 MG 2022-05 2-14 00:00: 00 No 1{table t} Methocarba mol 500 MG HYDROcodone -Acetaminop hen 5-325 MG HYDROcodone -Acetaminop hen 5-325 MG 2022- 2-14 00:00: 00 No 1{table t_as_ne eded} QID HYDROcodon e-Acetamin ophen 5-325 MG Methocarbam ol 500 MG Methocarbam ol 500 MG 2022-05 2-14 00:00: 00 No 1{table t} Methocarba mol 500 MG HYDROcodone -Acetaminop hen 5-325 MG HYDROcodone -Acetaminop hen 5-325 MG 2022-05 2-14 00:00: 00 No 1{table t_as_ne eded} QID HYDROcodon e-Acetamin ophen 5-325 MG Methocarbam ol 500 MG Methocarbam ol 500 MG 2022-05 2-14 00:00: 00 No 1{table t} Methocarba mol 500 MG HYDROcodone -Acetaminop hen 5-325 MG HYDROcodone -Acetaminop hen 5-325 MG 2022-05 2-14 00:00: 00 No 1{table t_as_ne eded} QID HYDROcodon e-Acetamin ophen 5-325 MG Methocarbam ol 500 MG Methocarbam ol 500 MG 2022-05 2-14 00:00: 00 No 1{table t} Methocarba mol 500 MG HYDROcodone -Acetaminop hen 5-325 MG HYDROcodone -Acetaminop hen 5-325 MG 2022-05 2-14 00:00: 00 No 1{table t_as_ne eded} QID HYDROcodon e-Acetamin ophen 5-325 MG Methocarbam ol 500 MG Methocarbam ol 500 MG 2022-05 2-14 00:00: 00 No 1{table t} Methocarba mol 500 MG HYDROcodone -Acetaminop hen 5-325 MG HYDROcodone -Acetaminop hen 5-325 MG 2022-05 2-14 00:00: 00 No 1{table t_as_ne eded} QID HYDROcodon e-Acetamin ophen 5-325 MG Methocarbam ol 500 MG Methocarbam ol 500 MG 1 2-14 00:00: 00 No 1{table t} Methocarba mol 500 MG HYDROcodone -Acetaminop hen 5-325 MG HYDROcodone -Acetaminop hen 5-325 MG 2022- 2-14 00:00: 00 No 1{table t_as_ne eded} QID HYDROcodon e-Acetamin ophen 5-325 MG Methocarbam ol 500 MG Methocarbam ol 500 MG 2022-05 2- 00:00: 00 No 1{table t} Methocarba mol 500 MG Methocarbam ol 500 MG Methocarbam ol 500 MG 2022-05 2- 00:00: 00 No 1{table t} Methocarba mol 500 MG HYDROcodone -Acetaminop hen 5-325 MG HYDROcodone -Acetaminop hen 5-325 MG 2022-05 2- 00:00: 00 No 1{table t_as_ne eded} QID HYDROcodon e-Acetamin ophen 5-325 MG HYDROcodone -Acetaminop hen 7.5-325 MG HYDROcodone -Acetaminop hen 7.5-325 MG 2022-05 00:00: 00 No 1{table t_as_ne eded} QID HYDROcodon e-Acetamin ophen 7.5-325 MG HYDROcodone -Acetaminop hen 7.5-325 MG HYDROcodone -Acetaminop hen 7.5-325 MG 2022-05 00:00: 00 No 1{table t_as_ne eded} QID HYDROcodon e-Acetamin ophen 7.5-325 MG HYDROcodone -Acetaminop hen 7.5-325 MG HYDROcodone -Acetaminop hen 7.5-325 MG 2022-05 00:00: 00 No 1{table t_as_ne eded} QID HYDROcodon e-Acetamin ophen 7.5-325 MG HYDROcodone -Acetaminop hen 7.5-325 MG HYDROcodone -Acetaminop hen 7.5-325 MG 2022-05 00:00: 00 No 1{table t_as_ne eded} QID HYDROcodon e-Acetamin ophen 7.5-325 MG HYDROcodone -Acetaminop hen 7.5-325 MG HYDROcodone -Acetaminop hen 7.5-325 MG 2022-05 00:00: 00 No 1{table t_as_ne eded} QID HYDROcodon e-Acetamin ophen 7.5-325 MG HYDROcodone -Acetaminop hen 7.5-325 MG HYDROcodone -Acetaminop hen 7.5-325 MG 2022-05 00:00: 00 No 1{table t_as_ne eded} QID HYDROcodon e-Acetamin ophen 7.5-325 MG HYDROcodone -Acetaminop hen 7.5-325 MG HYDROcodone -Acetaminop hen 7.5-325 MG 2022-05 00:00: 00 No 1{table t_as_ne eded} QID HYDROcodon e-Acetamin ophen 7.5-325 MG HYDROcodone -Acetaminop hen 7.5-325 MG HYDROcodone -Acetaminop hen 7.5-325 MG 2022-05 00:00: 00 No 1{table t_as_ne eded} QID HYDROcodon e-Acetamin ophen 7.5-325 MG HYDROcodone -Acetaminop hen 7.5-325 MG HYDROcodone -Acetaminop hen 7.5-325 MG 2022-05 00:00: 00 No 1{table t_as_ne eded} QID HYDROcodon e-Acetamin ophen 7.5-325 MG HYDROcodone -Acetaminop hen 7.5-325 MG HYDROcodone -Acetaminop hen 7.5-325 MG 2022-05 00:00: 00 No 1{table t_as_ne eded} QID HYDROcodon e-Acetamin ophen 7.5-325 MG HYDROcodone -Acetaminop hen 7.5-325 MG HYDROcodone -Acetaminop hen 7.5-325 MG 2022-05 00:00: 00 No 1{table t_as_ne eded} QID HYDROcodon e-Acetamin ophen 7.5-325 MG HYDROcodone -Acetaminop hen 7.5-325 MG HYDROcodone -Acetaminop hen 7.5-325 MG 2022-05 00:00: 00 No 1{table t_as_ne eded} QID HYDROcodon e-Acetamin ophen 7.5-325 MG HYDROcodone -Acetaminop hen 7.5-325 MG HYDROcodone -Acetaminop hen 7.5-325 MG 2022-05 00:00: 00 No 1{table t_as_ne eded} QID HYDROcodon e-Acetamin ophen 7.5-325 MG HYDROcodone -Acetaminop hen 7.5-325 MG HYDROcodone -Acetaminop hen 7.5-325 MG 2022-05 00:00: 00 No 1{table t_as_ne eded} QID HYDROcodon e-Acetamin ophen 7.5-325 MG HYDROcodone -Acetaminop hen 7.5-325 MG HYDROcodone -Acetaminop hen 7.5-325 MG 2022-05 00:00: 00 No 1{table t_as_ne eded} QID HYDROcodon e-Acetamin ophen 7.5-325 MG HYDROcodone -Acetaminop hen 7.5-325 MG HYDROcodone -Acetaminop hen 7.5-325 MG 2022-05 00:00: 00 No 1{table t_as_ne eded} QID HYDROcodon e-Acetamin ophen 7.5-325 MG HYDROcodone -Acetaminop hen 7.5-325 MG HYDROcodone -Acetaminop hen 7.5-325 MG 2022-05 00:00: 00 No 1{table t_as_ne eded} QID HYDROcodon e-Acetamin ophen 7.5-325 MG HYDROcodone -Acetaminop hen 7.5-325 MG HYDROcodone -Acetaminop hen 7.5-325 MG 2022-05 00:00: 00 No 1{table t_as_ne eded} QID HYDROcodon e-Acetamin ophen 7.5-325 MG HYDROcodone -Acetaminop hen 7.5-325 MG HYDROcodone -Acetaminop hen 7.5-325 MG 2022-05 00:00: 00 No 1{table t_as_ne eded} QID HYDROcodon e-Acetamin ophen 7.5-325 MG HYDROcodone -Acetaminop hen 7.5-325 MG HYDROcodone -Acetaminop hen 7.5-325 MG 2022-05 00:00: 00 No 1{table t_as_ne eded} QID HYDROcodon e-Acetamin ophen 7.5-325 MG HYDROcodone -Acetaminop hen 7.5-325 MG HYDROcodone -Acetaminop hen 7.5-325 MG 2022-05 00:00: 00 No 1{table t_as_ne eded} QID HYDROcodon e-Acetamin ophen 7.5-325 MG HYDROcodone -Acetaminop hen 7.5-325 MG HYDROcodone -Acetaminop hen 7.5-325 MG 2022-05 00:00: 00 No 1{table t_as_ne eded} QID HYDROcodon e-Acetamin ophen 7.5-325 MG HYDROcodone -Acetaminop hen 7.5-325 MG HYDROcodone -Acetaminop hen 7.5-325 MG 2022-05 00:00: 00 No 1{table t_as_ne eded} QID HYDROcodon e-Acetamin ophen 7.5-325 MG Methocarbam ol 500 MG Methocarbam ol 500 MG 2022-05 00:00: 00 No 1{table t} Methocarba mol 500 MG Methocarbam ol 500 MG Methocarbam ol 500 MG 2022-05 00:00: 00 No 1{table t} Methocarba mol 500 MG Methocarbam ol 500 MG Methocarbam ol 500 MG 2022-05 00:00: 00 No 1{table t} Methocarba mol 500 MG HYDROcodone -Acetaminop hen 7.5-325 MG HYDROcodone -Acetaminop hen 7.5-325 MG 2022-05 00:00: 00 No 1{table t_as_ne eded} QID HYDROcodon e-Acetamin ophen 7.5-325 MG Methocarbam ol 500 MG Methocarbam ol 500 MG 2022-05 00:00: 00 No 1{table t} Methocarba mol 500 MG HYDROcodone -Acetaminop hen 7.5-325 MG HYDROcodone -Acetaminop hen 7.5-325 MG 2022-05 00:00: 00 No 1{table t_as_ne eded} QID HYDROcodon e-Acetamin ophen 7.5-325 MG Methocarbam ol 500 MG Methocarbam ol 500 MG 2022-05 00:00: 00 No 1{table t} Methocarba mol 500 MG HYDROcodone -Acetaminop hen 7.5-325 MG HYDROcodone -Acetaminop hen 7.5-325 MG 2022-05 00:00: 00 No 1{table t_as_ne eded} QID HYDROcodon e-Acetamin ophen 7.5-325 MG Methocarbam ol 500 MG Methocarbam ol 500 MG 2022-05 00:00: 00 No 1{table t} Methocarba mol 500 MG HYDROcodone -Acetaminop hen 7.5-325 MG HYDROcodone -Acetaminop hen 7.5-325 MG 2022-05 00:00: 00 No 1{table t_as_ne eded} QID HYDROcodon e-Acetamin ophen 7.5-325 MG Methocarbam ol 500 MG Methocarbam ol 500 MG 2022-05 00:00: 00 No 1{table t} Methocarba mol 500 MG Methocarbam ol 500 MG Methocarbam ol 500 MG 2022-05 00:00: 00 No 1{table t} Methocarba mol 500 MG Methocarbam ol 500 MG Methocarbam ol 500 MG 2022-05 00:00: 00 No 1{table t} Methocarba mol 500 MG Methocarbam ol 500 MG Methocarbam ol 500 MG 2022-05 00:00: 00 No 1{table t} Methocarba mol 500 MG Methocarbam ol 500 MG Methocarbam ol 500 MG 2022-05 00:00: 00 No 1{table t} Methocarba mol 500 MG Methocarbam ol 500 MG Methocarbam ol 500 MG 2022-05 00:00: 00 No 1{table t} Methocarba mol 500 MG Methocarbam ol 500 MG Methocarbam ol 500 MG 2022-05 00:00: 00 No 1{table t} Methocarba mol 500 MG Methocarbam ol 500 MG Methocarbam ol 500 MG 2022-05 00:00: 00 No 1{table t} Methocarba mol 500 MG Methocarbam ol 500 MG Methocarbam ol 500 MG 2022-05 00:00: 00 No 1{table t} Methocarba mol 500 MG Methocarbam ol 500 MG Methocarbam ol 500 MG 2022-05 00:00: 00 No 1{table t} Methocarba mol 500 MG Methocarbam ol 500 MG Methocarbam ol 500 MG 2022-05 00:00: 00 No 1{table t} Methocarba mol 500 MG Methocarbam ol 500 MG Methocarbam ol 500 MG 2022-05 00:00: 00 No 1{table t} Methocarba mol 500 MG Methocarbam ol 500 MG Methocarbam ol 500 MG 2022-05 00:00: 00 No 1{table t} Methocarba mol 500 MG Methocarbam ol 500 MG Methocarbam ol 500 MG 2022-05 00:00: 00 No 1{table t} Methocarba mol 500 MG Methocarbam ol 500 MG Methocarbam ol 500 MG 2022-05 00:00: 00 No 1{table t} Methocarba mol 500 MG Methocarbam ol 500 MG Methocarbam ol 500 MG 2022-05 00:00: 00 No 1{table t} Methocarba mol 500 MG Methocarbam ol 500 MG Methocarbam ol 500 MG 2022-05 00:00: 00 No 1{table t} Methocarba mol 500 MG Methocarbam ol 500 MG Methocarbam ol 500 MG 2022-05 00:00: 00 No 1{table t} Methocarba mol 500 MG Methocarbam ol 500 MG Methocarbam ol 500 MG 2022-05 00:00: 00 No 1{table t} Methocarba mol 500 MG Methocarbam ol 500 MG Methocarbam ol 500 MG 2022-05 00:00: 00 No 1{table t} Methocarba mol 500 MG Methocarbam ol 500 MG Methocarbam ol 500 MG 2022-05 00:00: 00 No 1{table t} Methocarba mol 500 MG HYDROcodone -Acetaminop hen 7.5-325 MG HYDROcodone -Acetaminop hen 7.5-325 MG 2022-05 00:00: 00 No 1{table t_as_ne eded} QID HYDROcodon e-Acetamin ophen 7.5-325 MG HYDROcodone -Acetaminop hen 7.5-325 MG HYDROcodone -Acetaminop hen 7.5-325 MG 2022-05 00:00: 00 No 1{table t_as_ne eded} QID HYDROcodon e-Acetamin ophen 7.5-325 MG HYDROcodone -Acetaminop hen 7.5-325 MG HYDROcodone -Acetaminop hen 7.5-325 MG 2022-05 00:00: 00 No 1{table t_as_ne eded} QID HYDROcodon e-Acetamin ophen 7.5-325 MG HYDROcodone -Acetaminop hen 7.5-325 MG HYDROcodone -Acetaminop hen 7.5-325 MG 2022-05 00:00: 00 No 1{table t_as_ne eded} QID HYDROcodon e-Acetamin ophen 7.5-325 MG HYDROcodone -Acetaminop hen 7.5-325 MG HYDROcodone -Acetaminop hen 7.5-325 MG 2022-05 00:00: 00 No 1{table t_as_ne eded} QID HYDROcodon e-Acetamin ophen 7.5-325 MG HYDROcodone -Acetaminop hen 7.5-325 MG HYDROcodone -Acetaminop hen 7.5-325 MG 2022-05 00:00: 00 No 1{table t_as_ne eded} QID HYDROcodon e-Acetamin ophen 7.5-325 MG HYDROcodone -Acetaminop hen 7.5-325 MG HYDROcodone -Acetaminop hen 7.5-325 MG 2022-05 00:00: 00 No 1{table t_as_ne eded} QID HYDROcodon e-Acetamin ophen 7.5-325 MG HYDROcodone -Acetaminop hen 7.5-325 MG HYDROcodone -Acetaminop hen 7.5-325 MG 2022-05 00:00: 00 No 1{table t_as_ne eded} QID HYDROcodon e-Acetamin ophen 7.5-325 MG HYDROcodone -Acetaminop hen 7.5-325 MG HYDROcodone -Acetaminop hen 7.5-325 MG 2022-05 00:00: 00 No 1{table t_as_ne eded} QID HYDROcodon e-Acetamin ophen 7.5-325 MG HYDROcodone -Acetaminop hen 7.5-325 MG HYDROcodone -Acetaminop hen 7.5-325 MG 2022- 1- 00:00: 00 No 1{table t_as_ne eded} QID HYDROcodon e-Acetamin ophen 7.5-325 MG HYDROcodone -Acetaminop hen 7.5-325 MG HYDROcodone -Acetaminop hen 7.5-325 MG 2022-1 1- 00:00: 00 No 1{table t_as_ne eded} QID HYDROcodon e-Acetamin ophen 7.5-325 MG HYDROcodone -Acetaminop hen 7.5-325 MG HYDROcodone -Acetaminop hen 7.5-325 MG 2022-1 1- 00:00: 00 No 1{table t_as_ne eded} QID HYDROcodon e-Acetamin ophen 7.5-325 MG HYDROcodone -Acetaminop hen 7.5-325 MG HYDROcodone -Acetaminop hen 7.5-325 MG 2022-05 01- 00:00: 00 No 1{table t_as_ne eded} QID HYDROcodon e-Acetamin ophen 7.5-325 MG HYDROcodone -Acetaminop hen 7.5-325 MG HYDROcodone -Acetaminop hen 7.5-325 MG 2022-05-06 00:00: 00 No 1{table t_as_ne eded} QID HYDROcodon e-Acetamin ophen 7.5-325 MG HYDROcodone -Acetaminop hen 7.5-325 MG HYDROcodone -Acetaminop hen 7.5-325 MG 2022-05 01- 00:00: 00 No 1{table t_as_ne eded} QID HYDROcodon e-Acetamin ophen 7.5-325 MG HYDROcodone -Acetaminop hen 7.5-325 MG HYDROcodone -Acetaminop hen 7.5-325 MG 2022- 1- 00:00: 00 No 1{table t_as_ne eded} QID HYDROcodon e-Acetamin ophen 7.5-325 MG HYDROcodone -Acetaminop hen 7.5-325 MG HYDROcodone -Acetaminop hen 7.5-325 MG 2022- 1- 00:00: 00 No 1{table t_as_ne eded} QID HYDROcodon e-Acetamin ophen 7.5-325 MG HYDROcodone -Acetaminop hen 7.5-325 MG HYDROcodone -Acetaminop hen 7.5-325 MG 2022-05 00:00: 00 No 1{table t_as_ne eded} QID HYDROcodon e-Acetamin ophen 7.5-325 MG HYDROcodone -Acetaminop hen 7.5-325 MG HYDROcodone -Acetaminop hen 7.5-325 MG 2022-05 00:00: 00 No 1{table t_as_ne eded} QID HYDROcodon e-Acetamin ophen 7.5-325 MG HYDROcodone -Acetaminop hen 7.5-325 MG HYDROcodone -Acetaminop hen 7.5-325 MG 2022-05 00:00: 00 No 1{table t_as_ne eded} QID HYDROcodon e-Acetamin ophen 7.5-325 MG HYDROcodone -Acetaminop hen 7.5-325 MG HYDROcodone -Acetaminop hen 7.5-325 MG 2022-05 00:00: 00 No 1{table t_as_ne eded} QID HYDROcodon e-Acetamin ophen 7.5-325 MG HYDROcodone -Acetaminop hen 7.5-325 MG HYDROcodone -Acetaminop hen 7.5-325 MG 2022-05 00:00: 00 No 1{table t_as_ne eded} QID HYDROcodon e-Acetamin ophen 7.5-325 MG HYDROcodone -Acetaminop hen 7.5-325 MG HYDROcodone -Acetaminop hen 7.5-325 MG 2022-05 00:00: 00 No 1{table t_as_ne eded} QID HYDROcodon e-Acetamin ophen 7.5-325 MG HYDROcodone -Acetaminop hen 7.5-325 MG HYDROcodone -Acetaminop hen 7.5-325 MG 2022-05 00:00: 00 No 1{table t_as_ne eded} QID HYDROcodon e-Acetamin ophen 7.5-325 MG HYDROcodone -Acetaminop hen 7.5-325 MG HYDROcodone -Acetaminop hen 7.5-325 MG 2022-05 00:00: 00 No 1{table t_as_ne eded} QID HYDROcodon e-Acetamin ophen 7.5-325 MG HYDROcodone -Acetaminop hen 7.5-325 MG HYDROcodone -Acetaminop hen 7.5-325 MG 2022-1 1- 00:00: 00 No 1{table t_as_ne eded} QID HYDROcodon e-Acetamin ophen 7.5-325 MG HYDROcodone -Acetaminop hen 7.5-325 MG HYDROcodone -Acetaminop hen 7.5-325 MG 3-1 1- 00:00: 00 No 1{table t_as_ne eded} QID HYDROcodon e-Acetamin ophen 7.5-325 MG HYDROcodone -Acetaminop hen 7.5-325 MG HYDROcodone -Acetaminop hen 7.5-325 MG 3-1 0 00:00: 00 No 1{table t_as_ne eded} QID HYDROcodon e-Acetamin ophen 7.5-325 MG HYDROcodone -Acetaminop hen 7.5-325 MG HYDROcodone -Acetaminop hen 7.5-325 MG 2022-1 0- 00:00: 00 No 1{table t_as_ne eded} QID HYDROcodon e-Acetamin ophen 7.5-325 MG HYDROcodone -Acetaminop hen 7.5-325 MG HYDROcodone -Acetaminop hen 7.5-325 MG 2022-1 0 00:00: 00 No 1{table t_as_ne eded} QID HYDROcodon e-Acetamin ophen 7.5-325 MG HYDROcodone -Acetaminop hen 7.5-325 MG HYDROcodone -Acetaminop hen 7.5-325 MG 3-1 0- 00:00: 00 No 1{table t_as_ne eded} QID HYDROcodon e-Acetamin ophen 7.5-325 MG HYDROcodone -Acetaminop hen 7.5-325 MG HYDROcodone -Acetaminop hen 7.5-325 MG 3-1 0- 00:00: 00 No 1{table t_as_ne eded} QID HYDROcodon e-Acetamin ophen 7.5-325 MG HYDROcodone -Acetaminop hen 7.5-325 MG HYDROcodone -Acetaminop hen 7.5-325 MG 3-1 0-31 00:00: 00 No 1{table t_as_ne eded} QID HYDROcodon e-Acetamin ophen 7.5-325 MG HYDROcodone -Acetaminop hen 7.5-325 MG HYDROcodone -Acetaminop hen 7.5-325 MG 3-1 0-31 00:00: 00 No 1{table t_as_ne eded} QID HYDROcodon e-Acetamin ophen 7.5-325 MG HYDROcodone -Acetaminop hen 7.5-325 MG HYDROcodone -Acetaminop hen 7.5-325 MG 2022-1 0- 00:00: 00 No 1{table t_as_ne eded} QID HYDROcodon e-Acetamin ophen 7.5-325 MG HYDROcodone -Acetaminop hen 7.5-325 MG HYDROcodone -Acetaminop hen 7.5-325 MG 2022- 0- 00:00: 00 No 1{table t_as_ne eded} QID HYDROcodon e-Acetamin ophen 7.5-325 MG HYDROcodone -Acetaminop hen 7.5-325 MG HYDROcodone -Acetaminop hen 7.5-325 MG 2022-1 0- 00:00: 00 No 1{table t_as_ne eded} QID HYDROcodon e-Acetamin ophen 7.5-325 MG HYDROcodone -Acetaminop hen 7.5-325 MG HYDROcodone -Acetaminop hen 7.5-325 MG 2022-1 0- 00:00: 00 No 1{table t_as_ne eded} QID HYDROcodon e-Acetamin ophen 7.5-325 MG HYDROcodone -Acetaminop hen 7.5-325 MG HYDROcodone -Acetaminop hen 7.5-325 MG 2022-1 0-31 00:00: 00 No 1{table t_as_ne eded} QID HYDROcodon e-Acetamin ophen 7.5-325 MG HYDROcodone -Acetaminop hen 7.5-325 MG HYDROcodone -Acetaminop hen 7.5-325 MG 2022-1 0-31 00:00: 00 No 1{table t_as_ne eded} QID HYDROcodon e-Acetamin ophen 7.5-325 MG HYDROcodone -Acetaminop hen 7.5-325 MG HYDROcodone -Acetaminop hen 7.5-325 MG 2022-1 0- 00:00: 00 No 1{table t_as_ne eded} QID HYDROcodon e-Acetamin ophen 7.5-325 MG HYDROcodone -Acetaminop hen 7.5-325 MG HYDROcodone -Acetaminop hen 7.5-325 MG 2022-1 0- 00:00: 00 No 1{table t_as_ne eded} QID HYDROcodon e-Acetamin ophen 7.5-325 MG HYDROcodone -Acetaminop hen 7.5-325 MG HYDROcodone -Acetaminop hen 7.5-325 MG 2022-1 0 00:00: 00 No 1{table t_as_ne eded} QID HYDROcodon e-Acetamin ophen 7.5-325 MG HYDROcodone -Acetaminop hen 7.5-325 MG HYDROcodone -Acetaminop hen 7.5-325 MG 2022- 0 00:00: 00 No 1{table t_as_ne eded} QID HYDROcodon e-Acetamin ophen 7.5-325 MG HYDROcodone -Acetaminop hen 7.5-325 MG HYDROcodone -Acetaminop hen 7.5-325 MG 2022- 0 00:00: 00 No 1{table t_as_ne eded} QID HYDROcodon e-Acetamin ophen 7.5-325 MG HYDROcodone -Acetaminop hen 7.5-325 MG HYDROcodone -Acetaminop hen 7.5-325 MG 2022-1 0 00:00: 00 No 1{table t_as_ne eded} QID HYDROcodon e-Acetamin ophen 7.5-325 MG HYDROcodone -Acetaminop hen 7.5-325 MG HYDROcodone -Acetaminop hen 7.5-325 MG 2022-1 0 00:00: 00 No 1{table t_as_ne eded} QID HYDROcodon e-Acetamin ophen 7.5-325 MG HYDROcodone -Acetaminop hen 7.5-325 MG HYDROcodone -Acetaminop hen 7.5-325 MG 2023-1 0-31 00:00: 00 No 1{table t_as_ne eded} QID HYDROcodon e-Acetamin ophen 7.5-325 MG HYDROcodone -Acetaminop hen 7.5-325 MG HYDROcodone -Acetaminop hen 7.5-325 MG 3-1 0-31 00:00: 00 No 1{table t_as_ne eded} QID HYDROcodon e-Acetamin ophen 7.5-325 MG HYDROcodone -Acetaminop hen 7.5-325 MG HYDROcodone -Acetaminop hen 7.5-325 MG 3-1 0- 00:00: 00 No 1{table t_as_ne eded} QID HYDROcodon e-Acetamin ophen 7.5-325 MG HYDROcodone -Acetaminop hen 7.5-325 MG HYDROcodone -Acetaminop hen 7.5-325 MG 3-1 0- 00:00: 00 No 1{table t_as_ne eded} QID HYDROcodon e-Acetamin ophen 7.5-325 MG HYDROcodone -Acetaminop hen 7.5-325 MG HYDROcodone -Acetaminop hen 7.5-325 MG 3-1 0- 00:00: 00 No 1{table t_as_ne eded} QID HYDROcodon e-Acetamin ophen 7.5-325 MG HYDROcodone -Acetaminop hen 7.5-325 MG HYDROcodone -Acetaminop hen 7.5-325 MG 3-1 0- 00:00: 00 No 1{table t_as_ne eded} QID HYDROcodon e-Acetamin ophen 7.5-325 MG HYDROcodone -Acetaminop hen 7.5-325 MG HYDROcodone -Acetaminop hen 7.5-325 MG 3-1 0- 00:00: 00 No 1{table t_as_ne eded} QID HYDROcodon e-Acetamin ophen 7.5-325 MG HYDROcodone -Acetaminop hen 7.5-325 MG HYDROcodone -Acetaminop hen 7.5-325 MG 3-1 0- 00:00: 00 No 1{table t_as_ne eded} QID HYDROcodon e-Acetamin ophen 7.5-325 MG HYDROcodone -Acetaminop hen 7.5-325 MG HYDROcodone -Acetaminop hen 7.5-325 MG 2022- 0-19 00:00: 00 No 1{table t_as_ne eded} QID HYDROcodon e-Acetamin ophen 7.5-325 MG HYDROcodone -Acetaminop hen 7.5-325 MG HYDROcodone -Acetaminop hen 7.5-325 MG 2022- 0-19 00:00: 00 No 1{table t_as_ne eded} QID HYDROcodon e-Acetamin ophen 7.5-325 MG HYDROcodone -Acetaminop hen 7.5-325 MG HYDROcodone -Acetaminop hen 7.5-325 MG 2022- 0- 00:00: 00 No 1{table t_as_ne eded} QID HYDROcodon e-Acetamin ophen 7.5-325 MG HYDROcodone -Acetaminop hen 7.5-325 MG HYDROcodone -Acetaminop hen 7.5-325 MG 2022-05 0-19 00:00: 00 No 1{table t_as_ne eded} QID HYDROcodon e-Acetamin ophen 7.5-325 MG HYDROcodone -Acetaminop hen 7.5-325 MG HYDROcodone -Acetaminop hen 7.5-325 MG 2022-05 0 00:00: 00 No 1{table t_as_ne eded} QID HYDROcodon e-Acetamin ophen 7.5-325 MG HYDROcodone -Acetaminop hen 7.5-325 MG HYDROcodone -Acetaminop hen 7.5-325 MG 2022- 0-19 00:00: 00 No 1{table t_as_ne eded} QID HYDROcodon e-Acetamin ophen 7.5-325 MG HYDROcodone -Acetaminop hen 7.5-325 MG HYDROcodone -Acetaminop hen 7.5-325 MG 2022- 0-19 00:00: 00 No 1{table t_as_ne eded} QID HYDROcodon e-Acetamin ophen 7.5-325 MG HYDROcodone -Acetaminop hen 7.5-325 MG HYDROcodone -Acetaminop hen 7.5-325 MG 2023-1 0-19 00:00: 00 No 1{table t_as_ne eded} QID HYDROcodon e-Acetamin ophen 7.5-325 MG HYDROcodone -Acetaminop hen 7.5-325 MG HYDROcodone -Acetaminop hen 7.5-325 MG 3-1 0-19 00:00: 00 No 1{table t_as_ne eded} QID HYDROcodon e-Acetamin ophen 7.5-325 MG HYDROcodone -Acetaminop hen 7.5-325 MG HYDROcodone -Acetaminop hen 7.5-325 MG 3-1 0-19 00:00: 00 No 1{table t_as_ne eded} QID HYDROcodon e-Acetamin ophen 7.5-325 MG HYDROcodone -Acetaminop hen 7.5-325 MG HYDROcodone -Acetaminop hen 7.5-325 MG 3-1 0-19 00:00: 00 No 1{table t_as_ne eded} QID HYDROcodon e-Acetamin ophen 7.5-325 MG HYDROcodone -Acetaminop hen 7.5-325 MG HYDROcodone -Acetaminop hen 7.5-325 MG 3-1 0-19 00:00: 00 No 1{table t_as_ne eded} QID HYDROcodon e-Acetamin ophen 7.5-325 MG HYDROcodone -Acetaminop hen 7.5-325 MG HYDROcodone -Acetaminop hen 7.5-325 MG 3-1 0-19 00:00: 00 No 1{table t_as_ne eded} QID HYDROcodon e-Acetamin ophen 7.5-325 MG HYDROcodone -Acetaminop hen 7.5-325 MG HYDROcodone -Acetaminop hen 7.5-325 MG 3-1 0-19 00:00: 00 No 1{table t_as_ne eded} QID HYDROcodon e-Acetamin ophen 7.5-325 MG HYDROcodone -Acetaminop hen 7.5-325 MG HYDROcodone -Acetaminop hen 7.5-325 MG 3-1 0-19 00:00: 00 No 1{table t_as_ne eded} QID HYDROcodon e-Acetamin ophen 7.5-325 MG HYDROcodone -Acetaminop hen 7.5-325 MG HYDROcodone -Acetaminop hen 7.5-325 MG 2022-1 0-19 00:00: 00 No 1{table t_as_ne eded} QID HYDROcodon e-Acetamin ophen 7.5-325 MG HYDROcodone -Acetaminop hen 7.5-325 MG HYDROcodone -Acetaminop hen 7.5-325 MG 2022- 0-19 00:00: 00 No 1{table t_as_ne eded} QID HYDROcodon e-Acetamin ophen 7.5-325 MG HYDROcodone -Acetaminop hen 7.5-325 MG HYDROcodone -Acetaminop hen 7.5-325 MG 2022- 0-19 00:00: 00 No 1{table t_as_ne eded} QID HYDROcodon e-Acetamin ophen 7.5-325 MG HYDROcodone -Acetaminop hen 7.5-325 MG HYDROcodone -Acetaminop hen 7.5-325 MG 2022- 0-19 00:00: 00 No 1{table t_as_ne eded} QID HYDROcodon e-Acetamin ophen 7.5-325 MG HYDROcodone -Acetaminop hen 7.5-325 MG HYDROcodone -Acetaminop hen 7.5-325 MG 2022- 0- 00:00: 00 No 1{table t_as_ne eded} QID HYDROcodon e-Acetamin ophen 7.5-325 MG HYDROcodone -Acetaminop hen 7.5-325 MG HYDROcodone -Acetaminop hen 7.5-325 MG 2022- 0-19 00:00: 00 No 1{table t_as_ne eded} QID HYDROcodon e-Acetamin ophen 7.5-325 MG HYDROcodone -Acetaminop hen 7.5-325 MG HYDROcodone -Acetaminop hen 7.5-325 MG 2022- 0-19 00:00: 00 No 1{table t_as_ne eded} QID HYDROcodon e-Acetamin ophen 7.5-325 MG HYDROcodone -Acetaminop hen 7.5-325 MG HYDROcodone -Acetaminop hen 7.5-325 MG 2022-1 0-19 00:00: 00 No 1{table t_as_ne eded} QID HYDROcodon e-Acetamin ophen 7.5-325 MG HYDROcodone -Acetaminop hen 7.5-325 MG HYDROcodone -Acetaminop hen 7.5-325 MG 3-1 0-19 00:00: 00 No 1{table t_as_ne eded} QID HYDROcodon e-Acetamin ophen 7.5-325 MG HYDROcodone -Acetaminop hen 7.5-325 MG HYDROcodone -Acetaminop hen 7.5-325 MG 3-1 0-19 00:00: 00 No 1{table t_as_ne eded} QID HYDROcodon e-Acetamin ophen 7.5-325 MG HYDROcodone -Acetaminop hen 7.5-325 MG HYDROcodone -Acetaminop hen 7.5-325 MG 3-1 0-19 00:00: 00 No 1{table t_as_ne eded} QID HYDROcodon e-Acetamin ophen 7.5-325 MG HYDROcodone -Acetaminop hen 7.5-325 MG HYDROcodone -Acetaminop hen 7.5-325 MG 3-1 0-19 00:00: 00 No 1{table t_as_ne eded} QID HYDROcodon e-Acetamin ophen 7.5-325 MG HYDROcodone -Acetaminop hen 7.5-325 MG HYDROcodone -Acetaminop hen 7.5-325 MG 3-1 0-19 00:00: 00 No 1{table t_as_ne eded} QID HYDROcodon e-Acetamin ophen 7.5-325 MG HYDROcodone -Acetaminop hen 7.5-325 MG HYDROcodone -Acetaminop hen 7.5-325 MG 3-1 0-19 00:00: 00 No 1{table t_as_ne eded} QID HYDROcodon e-Acetamin ophen 7.5-325 MG Acetaminoph en-Codeine 300-30 MG Acetaminoph en-Codeine 300-30 MG 3-1 0-11 00:00: 00 No 1{table t_as_ne eded} QID Acetaminop hen-Codein e 300-30 MG Acetaminoph en-Codeine 300-30 MG Acetaminoph en-Codeine 300-30 MG 2023-1 0-11 00:00: 00 No 1{table t_as_ne eded} QID Acetaminop hen-Codein e 300-30 MG Acetaminoph en-Codeine 300-30 MG Acetaminoph en-Codeine 300-30 MG 2023-1 0-11 00:00: 00 No 1{table t_as_ne eded} QID Acetaminop hen-Codein e 300-30 MG Acetaminoph en-Codeine 300-30 MG Acetaminoph en-Codeine 300-30 MG 2023-1 0-11 00:00: 00 No 1{table t_as_ne eded} QID Acetaminop hen-Codein e 300-30 MG Acetaminoph en-Codeine 300-30 MG Acetaminoph en-Codeine 300-30 MG 2023-1 0-11 00:00: 00 No 1{table t_as_ne eded} QID Acetaminop hen-Codein e 300-30 MG Acetaminoph en-Codeine 300-30 MG Acetaminoph en-Codeine 300-30 MG 2023-1 0-11 00:00: 00 No 1{table t_as_ne eded} QID Acetaminop hen-Codein e 300-30 MG Acetaminoph en-Codeine 300-30 MG Acetaminoph en-Codeine 300-30 MG 2023-1 0-11 00:00: 00 No 1{table t_as_ne eded} QID Acetaminop hen-Codein e 300-30 MG Acetaminoph en-Codeine 300-30 MG Acetaminoph en-Codeine 300-30 MG 2023-1 0-11 00:00: 00 No 1{table t_as_ne eded} QID Acetaminop hen-Codein e 300-30 MG Acetaminoph en-Codeine 300-30 MG Acetaminoph en-Codeine 300-30 MG 2023-1 0-11 00:00: 00 No 1{table t_as_ne eded} QID Acetaminop hen-Codein e 300-30 MG Acetaminoph en-Codeine 300-30 MG Acetaminoph en-Codeine 300-30 MG 2023-1 0-11 00:00: 00 No 1{table t_as_ne eded} QID Acetaminop hen-Codein e 300-30 MG Acetaminoph en-Codeine 300-30 MG Acetaminoph en-Codeine 300-30 MG 2023-1 0-11 00:00: 00 No 1{table t_as_ne eded} QID Acetaminop hen-Codein e 300-30 MG Acetaminoph en-Codeine 300-30 MG Acetaminoph en-Codeine 300-30 MG 2023-1 0-11 00:00: 00 No 1{table t_as_ne eded} QID Acetaminop hen-Codein e 300-30 MG Acetaminoph en-Codeine 300-30 MG Acetaminoph en-Codeine 300-30 MG 2023-1 0- 00:00: 00 No 1{table t_as_ne eded} QID Acetaminop hen-Codein e 300-30 MG Acetaminoph en-Codeine 300-30 MG Acetaminoph en-Codeine 300-30 MG 2023-1 0-11 00:00: 00 No 1{table t_as_ne eded} QID Acetaminop hen-Codein e 300-30 MG Acetaminoph en-Codeine 300-30 MG Acetaminoph en-Codeine 300-30 MG 2023-1 0-11 00:00: 00 No 1{table t_as_ne eded} QID Acetaminop hen-Codein e 300-30 MG Acetaminoph en-Codeine 300-30 MG Acetaminoph en-Codeine 300-30 MG 2023-1 0-11 00:00: 00 No 1{table t_as_ne eded} QID Acetaminop hen-Codein e 300-30 MG Acetaminoph en-Codeine 300-30 MG Acetaminoph en-Codeine 300-30 MG 2023-1 0-11 00:00: 00 No 1{table t_as_ne eded} QID Acetaminop hen-Codein e 300-30 MG Acetaminoph en-Codeine 300-30 MG Acetaminoph en-Codeine 300-30 MG 2023-1 0-11 00:00: 00 No 1{table t_as_ne eded} QID Acetaminop hen-Codein e 300-30 MG Acetaminoph en-Codeine 300-30 MG Acetaminoph en-Codeine 300-30 MG 2023-1 0-11 00:00: 00 No 1{table t_as_ne eded} QID Acetaminop hen-Codein e 300-30 MG Acetaminoph en-Codeine 300-30 MG Acetaminoph en-Codeine 300-30 MG 2023-1 0-11 00:00: 00 No 1{table t_as_ne eded} QID Acetaminop hen-Codein e 300-30 MG Acetaminoph en-Codeine 300-30 MG Acetaminoph en-Codeine 300-30 MG 2023-1 0-11 00:00: 00 No 1{table t_as_ne eded} QID Acetaminop hen-Codein e 300-30 MG Acetaminoph en-Codeine 300-30 MG Acetaminoph en-Codeine 300-30 MG 2023-1 0-11 00:00: 00 No 1{table t_as_ne eded} QID Acetaminop hen-Codein e 300-30 MG Acetaminoph en-Codeine 300-30 MG Acetaminoph en-Codeine 300-30 MG 2023-1 0-11 00:00: 00 No 1{table t_as_ne eded} QID Acetaminop hen-Codein e 300-30 MG Acetaminoph en-Codeine 300-30 MG Acetaminoph en-Codeine 300-30 MG 2023-1 0-11 00:00: 00 No 1{table t_as_ne eded} QID Acetaminop hen-Codein e 300-30 MG Acetaminoph en-Codeine 300-30 MG Acetaminoph en-Codeine 300-30 MG 2023-1 0-11 00:00: 00 No 1{table t_as_ne eded} QID Acetaminop hen-Codein e 300-30 MG Acetaminoph en-Codeine 300-30 MG Acetaminoph en-Codeine 300-30 MG 2023-1 0-11 00:00: 00 No 1{table t_as_ne eded} QID Acetaminop hen-Codein e 300-30 MG Acetaminoph en-Codeine 300-30 MG Acetaminoph en-Codeine 300-30 MG 2023-1 0-11 00:00: 00 No 1{table t_as_ne eded} QID Acetaminop hen-Codein e 300-30 MG Acetaminoph en-Codeine 300-30 MG Acetaminoph en-Codeine 300-30 MG 2023-1 0-11 00:00: 00 No 1{table t_as_ne eded} QID Acetaminop hen-Codein e 300-30 MG Acetaminoph en-Codeine 300-30 MG Acetaminoph en-Codeine 300-30 MG 2023-1 0-11 00:00: 00 No 1{table t_as_ne eded} QID Acetaminop hen-Codein e 300-30 MG Acetaminoph en-Codeine 300-30 MG Acetaminoph en-Codeine 300-30 MG 2023-0 8-29 00:00: 00 No 1{table t_as_ne eded} QID Acetaminop hen-Codein e 300-30 MG Acetaminoph en-Codeine 300-30 MG Acetaminoph en-Codeine 300-30 MG 2023-0 8-29 00:00: 00 No 1{table t_as_ne eded} QID Acetaminop hen-Codein e 300-30 MG Acetaminoph en-Codeine 300-30 MG Acetaminoph en-Codeine 300-30 MG 2023-0 8-29 00:00: 00 No 1{table t_as_ne eded} QID Acetaminop hen-Codein e 300-30 MG Acetaminoph en-Codeine 300-30 MG Acetaminoph en-Codeine 300-30 MG 2023-0 8-29 00:00: 00 No 1{table t_as_ne eded} QID Acetaminop hen-Codein e 300-30 MG Acetaminoph en-Codeine 300-30 MG Acetaminoph en-Codeine 300-30 MG 2023-0 8-29 00:00: 00 No 1{table t_as_ne eded} QID Acetaminop hen-Codein e 300-30 MG Acetaminoph en-Codeine 300-30 MG Acetaminoph en-Codeine 300-30 MG 2023-0 8-29 00:00: 00 No 1{table t_as_ne eded} QID Acetaminop hen-Codein e 300-30 MG Acetaminoph en-Codeine 300-30 MG Acetaminoph en-Codeine 300-30 MG 2023-0 8-29 00:00: 00 No 1{table t_as_ne eded} QID Acetaminop hen-Codein e 300-30 MG Acetaminoph en-Codeine 300-30 MG Acetaminoph en-Codeine 300-30 MG 2023-0 8-29 00:00: 00 No 1{table t_as_ne eded} QID Acetaminop hen-Codein e 300-30 MG Acetaminoph en-Codeine 300-30 MG Acetaminoph en-Codeine 300-30 MG 2023-0 8-29 00:00: 00 No 1{table t_as_ne eded} QID Acetaminop hen-Codein e 300-30 MG Acetaminoph en-Codeine 300-30 MG Acetaminoph en-Codeine 300-30 MG 2023-0 8-29 00:00: 00 No 1{table t_as_ne eded} QID Acetaminop hen-Codein e 300-30 MG Acetaminoph en-Codeine 300-30 MG Acetaminoph en-Codeine 300-30 MG 2023-0 8-29 00:00: 00 No 1{table t_as_ne eded} QID Acetaminop hen-Codein e 300-30 MG Acetaminoph en-Codeine 300-30 MG Acetaminoph en-Codeine 300-30 MG 2023-0 8-29 00:00: 00 No 1{table t_as_ne eded} QID Acetaminop hen-Codein e 300-30 MG Acetaminoph en-Codeine 300-30 MG Acetaminoph en-Codeine 300-30 MG 2023-0 8-29 00:00: 00 No 1{table t_as_ne eded} QID Acetaminop hen-Codein e 300-30 MG Acetaminoph en-Codeine 300-30 MG Acetaminoph en-Codeine 300-30 MG 2023-0 8-29 00:00: 00 No 1{table t_as_ne eded} QID Acetaminop hen-Codein e 300-30 MG Acetaminoph en-Codeine 300-30 MG Acetaminoph en-Codeine 300-30 MG 2023-0 8-29 00:00: 00 No 1{table t_as_ne eded} QID Acetaminop hen-Codein e 300-30 MG Acetaminoph en-Codeine 300-30 MG Acetaminoph en-Codeine 300-30 MG 2023-0 8-29 00:00: 00 No 1{table t_as_ne eded} QID Acetaminop hen-Codein e 300-30 MG Acetaminoph en-Codeine 300-30 MG Acetaminoph en-Codeine 300-30 MG 2023-0 8-29 00:00: 00 No 1{table t_as_ne eded} QID Acetaminop hen-Codein e 300-30 MG Acetaminoph en-Codeine 300-30 MG Acetaminoph en-Codeine 300-30 MG 2023-0 8-29 00:00: 00 No 1{table t_as_ne eded} QID Acetaminop hen-Codein e 300-30 MG Acetaminoph en-Codeine 300-30 MG Acetaminoph en-Codeine 300-30 MG 2023-0 8-29 00:00: 00 No 1{table t_as_ne eded} QID Acetaminop hen-Codein e 300-30 MG Acetaminoph en-Codeine 300-30 MG Acetaminoph en-Codeine 300-30 MG 2023-0 8-29 00:00: 00 No 1{table t_as_ne eded} QID Acetaminop hen-Codein e 300-30 MG Acetaminoph en-Codeine 300-30 MG Acetaminoph en-Codeine 300-30 MG 2023-0 8-29 00:00: 00 No 1{table t_as_ne eded} QID Acetaminop hen-Codein e 300-30 MG Acetaminoph en-Codeine 300-30 MG Acetaminoph en-Codeine 300-30 MG 2023-0 8-29 00:00: 00 No 1{table t_as_ne eded} QID Acetaminop hen-Codein e 300-30 MG Acetaminoph en-Codeine 300-30 MG Acetaminoph en-Codeine 300-30 MG 2023-0 8-29 00:00: 00 No 1{table t_as_ne eded} QID Acetaminop hen-Codein e 300-30 MG Acetaminoph en-Codeine 300-30 MG Acetaminoph en-Codeine 300-30 MG 2023-0 8-29 00:00: 00 No 1{table t_as_ne eded} QID Acetaminop hen-Codein e 300-30 MG Acetaminoph en-Codeine 300-30 MG Acetaminoph en-Codeine 300-30 MG 2023-0 8-29 00:00: 00 No 1{table t_as_ne eded} QID Acetaminop hen-Codein e 300-30 MG Acetaminoph en-Codeine 300-30 MG Acetaminoph en-Codeine 300-30 MG 2023-0 8-29 00:00: 00 No 1{table t_as_ne eded} QID Acetaminop hen-Codein e 300-30 MG Acetaminoph en-Codeine 300-30 MG Acetaminoph en-Codeine 300-30 MG 2023-0 8-29 00:00: 00 No 1{table t_as_ne eded} QID Acetaminop hen-Codein e 300-30 MG Acetaminoph en-Codeine 300-30 MG Acetaminoph en-Codeine 300-30 MG 2023-0 8-29 00:00: 00 No 1{table t_as_ne eded} QID Acetaminop hen-Codein e 300-30 MG Acetaminoph en-Codeine 300-30 MG Acetaminoph en-Codeine 300-30 MG 2023-0 8-29 00:00: 00 No 1{table t_as_ne eded} QID Acetaminop hen-Codein e 300-30 MG Acetaminoph en-Codeine 300-30 MG Acetaminoph en-Codeine 300-30 MG 2023-0 7-25 00:00: 00 No 1{table t_as_ne eded} QID Acetaminop hen-Codein e 300-30 MG Acetaminoph en-Codeine 300-30 MG Acetaminoph en-Codeine 300-30 MG 2023-0 725 00:00: 00 No 1{table t_as_ne eded} QID Acetaminop hen-Codein e 300-30 MG Acetaminoph en-Codeine 300-30 MG Acetaminoph en-Codeine 300-30 MG 2023-0 7-25 00:00: 00 No 1{table t_as_ne eded} QID Acetaminop hen-Codein e 300-30 MG Acetaminoph en-Codeine 300-30 MG Acetaminoph en-Codeine 300-30 MG 2023-0 7-25 00:00: 00 No 1{table t_as_ne eded} QID Acetaminop hen-Codein e 300-30 MG Acetaminoph en-Codeine 300-30 MG Acetaminoph en-Codeine 300-30 MG 2023-0 -25 00:00: 00 No 1{table t_as_ne eded} QID Acetaminop hen-Codein e 300-30 MG Acetaminoph en-Codeine 300-30 MG Acetaminoph en-Codeine 300-30 MG 2023-0 -25 00:00: 00 No 1{table t_as_ne eded} QID Acetaminop hen-Codein e 300-30 MG Acetaminoph en-Codeine 300-30 MG Acetaminoph en-Codeine 300-30 MG 2023-0 -25 00:00: 00 No 1{table t_as_ne eded} QID Acetaminop hen-Codein e 300-30 MG Acetaminoph en-Codeine 300-30 MG Acetaminoph en-Codeine 300-30 MG 2023-0 -25 00:00: 00 No 1{table t_as_ne eded} QID Acetaminop hen-Codein e 300-30 MG Acetaminoph en-Codeine 300-30 MG Acetaminoph en-Codeine 300-30 MG 2023-0 7-25 00:00: 00 No 1{table t_as_ne eded} QID Acetaminop hen-Codein e 300-30 MG Acetaminoph en-Codeine 300-30 MG Acetaminoph en-Codeine 300-30 MG 2023-0 -25 00:00: 00 No 1{table t_as_ne eded} QID Acetaminop hen-Codein e 300-30 MG Acetaminoph en-Codeine 300-30 MG Acetaminoph en-Codeine 300-30 MG 2023-0 7-25 00:00: 00 No 1{table t_as_ne eded} QID Acetaminop hen-Codein e 300-30 MG Acetaminoph en-Codeine 300-30 MG Acetaminoph en-Codeine 300-30 MG 2023-0 7-25 00:00: 00 No 1{table t_as_ne eded} QID Acetaminop hen-Codein e 300-30 MG Acetaminoph en-Codeine 300-30 MG Acetaminoph en-Codeine 300-30 MG 2023-0 7-25 00:00: 00 No 1{table t_as_ne eded} QID Acetaminop hen-Codein e 300-30 MG Acetaminoph en-Codeine 300-30 MG Acetaminoph en-Codeine 300-30 MG 2023-0 7-25 00:00: 00 No 1{table t_as_ne eded} QID Acetaminop hen-Codein e 300-30 MG Acetaminoph en-Codeine 300-30 MG Acetaminoph en-Codeine 300-30 MG 2023-0 7-25 00:00: 00 No 1{table t_as_ne eded} QID Acetaminop hen-Codein e 300-30 MG Acetaminoph en-Codeine 300-30 MG Acetaminoph en-Codeine 300-30 MG 2023-0 7-25 00:00: 00 No 1{table t_as_ne eded} QID Acetaminop hen-Codein e 300-30 MG Acetaminoph en-Codeine 300-30 MG Acetaminoph en-Codeine 300-30 MG 2023-0 7-25 00:00: 00 No 1{table t_as_ne eded} QID Acetaminop hen-Codein e 300-30 MG Acetaminoph en-Codeine 300-30 MG Acetaminoph en-Codeine 300-30 MG 2023-0 7-25 00:00: 00 No 1{table t_as_ne eded} QID Acetaminop hen-Codein e 300-30 MG Acetaminoph en-Codeine 300-30 MG Acetaminoph en-Codeine 300-30 MG 2023-0 7-25 00:00: 00 No 1{table t_as_ne eded} QID Acetaminop hen-Codein e 300-30 MG Acetaminoph en-Codeine 300-30 MG Acetaminoph en-Codeine 300-30 MG 2023-0 7-25 00:00: 00 No 1{table t_as_ne eded} QID Acetaminop hen-Codein e 300-30 MG Acetaminoph en-Codeine 300-30 MG Acetaminoph en-Codeine 300-30 MG 2023-0 7-25 00:00: 00 No 1{table t_as_ne eded} QID Acetaminop hen-Codein e 300-30 MG Acetaminoph en-Codeine 300-30 MG Acetaminoph en-Codeine 300-30 MG 2023-0 7-25 00:00: 00 No 1{table t_as_ne eded} QID Acetaminop hen-Codein e 300-30 MG Acetaminoph en-Codeine 300-30 MG Acetaminoph en-Codeine 300-30 MG 2023-0 7-25 00:00: 00 No 1{table t_as_ne eded} QID Acetaminop hen-Codein e 300-30 MG Acetaminoph en-Codeine 300-30 MG Acetaminoph en-Codeine 300-30 MG 2023-0 7-25 00:00: 00 No 1{table t_as_ne eded} QID Acetaminop hen-Codein e 300-30 MG Acetaminoph en-Codeine 300-30 MG Acetaminoph en-Codeine 300-30 MG 2023-0 7-25 00:00: 00 No 1{table t_as_ne eded} QID Acetaminop hen-Codein e 300-30 MG Acetaminoph en-Codeine 300-30 MG Acetaminoph en-Codeine 300-30 MG 2023-0 7-25 00:00: 00 No 1{table t_as_ne eded} QID Acetaminop hen-Codein e 300-30 MG Acetaminoph en-Codeine 300-30 MG Acetaminoph en-Codeine 300-30 MG 2023-0 725 00:00: 00 No 1{table t_as_ne eded} QID Acetaminop hen-Codein e 300-30 MG Acetaminoph en-Codeine 300-30 MG Acetaminoph en-Codeine 300-30 MG 2023-0 7-25 00:00: 00 No 1{table t_as_ne eded} QID Acetaminop hen-Codein e 300-30 MG Acetaminoph en-Codeine 300-30 MG Acetaminoph en-Codeine 300-30 MG 2023-0 -25 00:00: 00 No 1{table t_as_ne eded} QID Acetaminop hen-Codein e 300-30 MG Pregabalin 100 MG Pregabalin 100 MG 3-0 -19 00:00: 00 No 1{capsu le} BID Pregabalin 100 MG Pregabalin 100 MG Pregabalin 100 MG 3-0 -19 00:00: 00 No 1{capsu le} BID Pregabalin 100 MG Pregabalin 100 MG Pregabalin 100 MG 3-0 -19 00:00: 00 No 1{capsu le} BID Pregabalin 100 MG Pregabalin 100 MG Pregabalin 100 MG 3-0 -19 00:00: 00 No 1{capsu le} BID Pregabalin 100 MG Pregabalin 100 MG Pregabalin 100 MG 3-0 -19 00:00: 00 No 1{capsu le} BID Pregabalin 100 MG Pregabalin 100 MG Pregabalin 100 MG 3-0 -19 00:00: 00 No 1{capsu le} BID Pregabalin 100 MG Pregabalin 100 MG Pregabalin 100 MG 3-0 -19 00:00: 00 No 1{capsu le} BID Pregabalin 100 MG Pregabalin 100 MG Pregabalin 100 MG 3-0 -19 00:00: 00 No 1{capsu le} BID Pregabalin 100 MG Pregabalin 100 MG Pregabalin 100 MG 3-0 -19 00:00: 00 No 1{capsu le} BID Pregabalin 100 MG Pregabalin 100 MG Pregabalin 100 MG 3-0 -19 00:00: 00 No 1{capsu le} BID Pregabalin 100 MG Pregabalin 100 MG Pregabalin 100 MG 3-0 -19 00:00: 00 No 1{capsu le} BID Pregabalin 100 MG Pregabalin 100 MG Pregabalin 100 MG 3-0 -19 00:00: 00 No 1{capsu le} BID Pregabalin 100 MG Pregabalin 100 MG Pregabalin 100 MG 3-0 -19 00:00: 00 No 1{capsu le} BID Pregabalin 100 MG Pregabalin 100 MG Pregabalin 100 MG 3-0 -19 00:00: 00 No 1{capsu le} BID Pregabalin 100 MG Pregabalin 100 MG Pregabalin 100 MG 3-0 -19 00:00: 00 No 1{capsu le} BID Pregabalin 100 MG Pregabalin 100 MG Pregabalin 100 MG 3-0 09-16 00:00: 00 No 1{capsu le} BID Pregabalin 100 MG Pregabalin 100 MG Pregabalin 100 MG 2022-0 09-16 00:00: 00 No 1{capsu le} BID Pregabalin 100 MG Pregabalin 100 MG Pregabalin 100 MG 3-0 09-16 00:00: 00 No 1{capsu le} BID Pregabalin 100 MG Pregabalin 100 MG Pregabalin 100 MG 2022-0 09-16 00:00: 00 No 1{capsu le} BID Pregabalin 100 MG Pregabalin 100 MG Pregabalin 100 MG 2022-0 09-16 00:00: 00 No 1{capsu le} BID Pregabalin 100 MG Pregabalin 100 MG Pregabalin 100 MG 3-0 09-16 00:00: 00 No 1{capsu le} BID Pregabalin 100 MG Pregabalin 100 MG Pregabalin 100 MG 3-0 19 00:00: 00 No 1{capsu le} BID Pregabalin 100 MG Pregabalin 100 MG Pregabalin 100 MG 3-0 09-16 00:00: 00 No 1{capsu le} BID Pregabalin 100 MG Pregabalin 100 MG Pregabalin 100 MG 3-0 19 00:00: 00 No 1{capsu le} BID Pregabalin 100 MG Pregabalin 100 MG Pregabalin 100 MG 0 -19 00:00: 00 No 1{capsu le} BID Pregabalin 100 MG Pregabalin 100 MG Pregabalin 100 MG 0 -19 00:00: 00 No 1{capsu le} BID Pregabalin 100 MG Pregabalin 100 MG Pregabalin 100 MG 0 -19 00:00: 00 No 1{capsu le} BID Pregabalin 100 MG Pregabalin 100 MG Pregabalin 100 MG 0 -19 00:00: 00 No 1{capsu le} BID Pregabalin 100 MG Pregabalin 100 MG Pregabalin 100 MG 0 19 00:00: 00 No 1{capsu le} BID Pregabalin 100 MG meloxicam 15 mg tablet TAKE 1 TABLET BY MOUTH EVERY DAY meloxicam 15 mg tablet TAKE 1 TABLET BY MOUTH EVERY DAY 0 2-15 00:00: 00 No meloxicam 15 mg tablet TAKE 1 TABLET BY MOUTH EVERY DAY [facility] aspirin 325 mg tablet 1 TAB PO Q12H aspirin 325 mg tablet 1 TAB PO Q12H 0 -09 00:00: 00 No aspirin 325 mg tablet 1 TAB PO Q12H [facility] Tylenol-Cod eine #3 300 mg-30 mg tablet 1 tablet PO Q6H PRN pain Tylenol-Cod eine #3 300 mg-30 mg tablet 1 tablet PO Q6H PRN pain 09 00:00: 00 No Tylenol-Co deine #3 300 mg-30 mg tablet 1 tablet PO Q6H PRN pain [facility] Zofran 4 mg tablet 1 TAB PO Q4H PRN NAUSEA Zofran 4 mg tablet 1 TAB PO Q4H PRN NAUSEA 0 09 00:00: 00 No Zofran 4 mg tablet 1 TAB PO Q4H PRN NAUSEA [facility] Tylenol with Codeine #3 300-30 MG Tylenol with Codeine #3 300-30 MG 0 3-07 00:00: 00 No 1{table t_as_ne eded} QID Tylenol with Codeine #3 300-30 MG Tylenol with Codeine #3 300-30 MG Tylenol with Codeine #3 300-30 MG 2019-0 3-07 00:00: 00 No 1{table t_as_ne eded} QID Tylenol with Codeine #3 300-30 MG Tylenol with Codeine #3 300-30 MG Tylenol with Codeine #3 300-30 MG 2019-0 307 00:00: 00 No 1{table t_as_ne eded} QID Tylenol with Codeine #3 300-30 MG Tylenol with Codeine #3 300-30 MG Tylenol with Codeine #3 300-30 MG 2019-0 3 00:00: 00 No 1{table t_as_ne eded} QID Tylenol with Codeine #3 300-30 MG Tylenol with Codeine #3 300-30 MG Tylenol with Codeine #3 300-30 MG 2019-0 07-05 00:00: 00 No 1{table t_as_ne eded} QID Tylenol with Codeine #3 300-30 MG Tylenol with Codeine #3 300-30 MG Tylenol with Codeine #3 300-30 MG 2019-0 07-05 00:00: 00 No 1{table t_as_ne eded} QID Tylenol with Codeine #3 300-30 MG Tylenol with Codeine #3 300-30 MG Tylenol with Codeine #3 300-30 MG 2019-0 07-05 00:00: 00 No 1{table t_as_ne eded} QID Tylenol with Codeine #3 300-30 MG Tylenol with Codeine #3 300-30 MG Tylenol with Codeine #3 300-30 MG 2019-0 3 00:00: 00 No 1{table t_as_ne eded} QID Tylenol with Codeine #3 300-30 MG Tylenol with Codeine #3 300-30 MG Tylenol with Codeine #3 300-30 MG 2019-0 307 00:00: 00 No 1{table t_as_ne eded} QID Tylenol with Codeine #3 300-30 MG Tylenol with Codeine #3 300-30 MG Tylenol with Codeine #3 300-30 MG 2019-0 3- 00:00: 00 No 1{table t_as_ne eded} QID Tylenol with Codeine #3 300-30 MG Tylenol with Codeine #3 300-30 MG Tylenol with Codeine #3 300-30 MG 2019-0 3-07 00:00: 00 No 1{table t_as_ne eded} QID Tylenol with Codeine #3 300-30 MG Tylenol with Codeine #3 300-30 MG Tylenol with Codeine #3 300-30 MG 2019-0 3-07 00:00: 00 No 1{table t_as_ne eded} QID Tylenol with Codeine #3 300-30 MG Tylenol with Codeine #3 300-30 MG Tylenol with Codeine #3 300-30 MG 2019-0 3 00:00: 00 No 1{table t_as_ne eded} QID Tylenol with Codeine #3 300-30 MG Tylenol with Codeine #3 300-30 MG Tylenol with Codeine #3 300-30 MG 2019-0 3 00:00: 00 No 1{table t_as_ne eded} QID Tylenol with Codeine #3 300-30 MG Tylenol with Codeine #3 300-30 MG Tylenol with Codeine #3 300-30 MG 2019-0 3 00:00: 00 No 1{table t_as_ne eded} QID Tylenol with Codeine #3 300-30 MG Tylenol with Codeine #3 300-30 MG Tylenol with Codeine #3 300-30 MG 2019-0 307 00:00: 00 No 1{table t_as_ne eded} QID Tylenol with Codeine #3 300-30 MG Tylenol with Codeine #3 300-30 MG Tylenol with Codeine #3 300-30 MG 2019-0 3-07 00:00: 00 No 1{table t_as_ne eded} QID Tylenol with Codeine #3 300-30 MG Tylenol with Codeine #3 300-30 MG Tylenol with Codeine #3 300-30 MG 2019-0 3-07 00:00: 00 No 1{table t_as_ne eded} QID Tylenol with Codeine #3 300-30 MG Tylenol with Codeine #3 300-30 MG Tylenol with Codeine #3 300-30 MG 2019-0 3-07 00:00: 00 No 1{table t_as_ne eded} QID Tylenol with Codeine #3 300-30 MG Tylenol with Codeine #3 300-30 MG Tylenol with Codeine #3 300-30 MG 2019-0 307 00:00: 00 No 1{table t_as_ne eded} QID Tylenol with Codeine #3 300-30 MG Tylenol with Codeine #3 300-30 MG Tylenol with Codeine #3 300-30 MG 2019-0 3 00:00: 00 No 1{table t_as_ne eded} QID Tylenol with Codeine #3 300-30 MG Tylenol with Codeine #3 300-30 MG Tylenol with Codeine #3 300-30 MG 2019-0 07-05 00:00: 00 No 1{table t_as_ne eded} QID Tylenol with Codeine #3 300-30 MG Tylenol with Codeine #3 300-30 MG Tylenol with Codeine #3 300-30 MG 2019-0 07-05 00:00: 00 No 1{table t_as_ne eded} QID Tylenol with Codeine #3 300-30 MG Tylenol with Codeine #3 300-30 MG Tylenol with Codeine #3 300-30 MG 2019-0 07-05 00:00: 00 No 1{table t_as_ne eded} QID Tylenol with Codeine #3 300-30 MG Tylenol with Codeine #3 300-30 MG Tylenol with Codeine #3 300-30 MG 2019-0 07-05 00:00: 00 No 1{table t_as_ne eded} QID Tylenol with Codeine #3 300-30 MG Tylenol with Codeine #3 300-30 MG Tylenol with Codeine #3 300-30 MG 2019-0 3 00:00: 00 No 1{table t_as_ne eded} QID Tylenol with Codeine #3 300-30 MG Tylenol with Codeine #3 300-30 MG Tylenol with Codeine #3 300-30 MG 2019-0 307 00:00: 00 No 1{table t_as_ne eded} QID Tylenol with Codeine #3 300-30 MG Tylenol with Codeine #3 300-30 MG Tylenol with Codeine #3 300-30 MG 07-05 00:00: 00 No 1{table t_as_ne eded} QID Tylenol with Codeine #3 300-30 MG Tylenol with Codeine #3 300-30 MG Tylenol with Codeine #3 300-30 MG 07-05 00:00: 00 No 1{table t_as_ne eded} QID Tylenol with Codeine #3 300-30 MG One Daily Multivitami n Men - One Daily Multivitami n Men - No One Daily Multivitam in Men - traZODone HCl 50 MG traZODone HCl 50 MG No traZODone HCl 50 MG rOPINIRole HCl 1 MG rOPINIRole HCl 1 MG No 1{table t} BID rOPINIRole HCl 1 MG Celecoxib 200 MG Celecoxib 200 MG No 1{capsu le_with _food} BID Celecoxib 200 MG Ondansetron HCl 8 MG Ondansetron HCl 8 MG No 1{table t_as_ne eded} QD Ondansetro n HCl 8 MG Metaxalone 800 MG Metaxalone 800 MG No 1{table t} BID Metaxalone 800 MG Omeprazole 40 MG Omeprazole 40 MG No QD Omeprazole 40 MG Potassium 99 MG Potassium 99 MG No 1{table t} QD Potassium 99 MG Magnesium 250 MG Magnesium 250 MG No 1{table t_with_ a_meal} QD Magnesium 250 MG metFORMIN HCl 500 MG metFORMIN HCl 500 MG No 1{table t_with_ a_meal} QD metFORMIN HCl 500 MG Ozempic (1 MG/DOSE) 4 MG/3ML Ozempic (1 MG/DOSE) 4 MG/3ML No Ozempic (1 MG/DOSE) 4 MG/3ML Diclofenac Sodium 75 MG Diclofenac Sodium 75 MG No Diclofenac Sodium 75 MG Aspirin 81 81 MG Aspirin 81 81 MG No 1{table t} QD Aspirin 81 81 MG Vitamin B-12 5000 MCG Vitamin B-12 5000 MCG No Vitamin B-12 5000 MCG PARoxetine HCl 30 MG PARoxetine HCl 30 MG No PARoxetine HCl 30 MG Calcium 600 MG Calcium 600 MG No 1{table t_with_ meals} QD Calcium 600 MG One Daily Multivitami n Men - One Daily Multivitami n Men - No One Daily Multivitam in Men - traZODone HCl 50 MG traZODone HCl 50 MG No traZODone HCl 50 MG rOPINIRole HCl 1 MG rOPINIRole HCl 1 MG No 1{table t} BID rOPINIRole HCl 1 MG Celecoxib 200 MG Celecoxib 200 MG No 1{capsu le_with _food} BID Celecoxib 200 MG Ondansetron HCl 8 MG Ondansetron HCl 8 MG No 1{table t_as_ne eded} QD Ondansetro n HCl 8 MG Metaxalone 800 MG Metaxalone 800 MG No 1{table t} BID Metaxalone 800 MG Omeprazole 40 MG Omeprazole 40 MG No QD Omeprazole 40 MG Potassium 99 MG Potassium 99 MG No 1{table t} QD Potassium 99 MG Magnesium 250 MG Magnesium 250 MG No 1{table t_with_ a_meal} QD Magnesium 250 MG metFORMIN HCl 500 MG metFORMIN HCl 500 MG No 1{table t_with_ a_meal} QD metFORMIN HCl 500 MG Ozempic (1 MG/DOSE) 4 MG/3ML Ozempic (1 MG/DOSE) 4 MG/3ML No Ozempic (1 MG/DOSE) 4 MG/3ML Diclofenac Sodium 75 MG Diclofenac Sodium 75 MG No Diclofenac Sodium 75 MG Aspirin 81 81 MG Aspirin 81 81 MG No 1{table t} QD Aspirin 81 81 MG Ozempic (1 MG/DOSE) 4 MG/3ML Ozempic (1 MG/DOSE) 4 MG/3ML No Ozempic (1 MG/DOSE) 4 MG/3ML Vitamin B-12 5000 MCG Vitamin B-12 5000 MCG No Vitamin B-12 5000 MCG PARoxetine HCl 30 MG PARoxetine HCl 30 MG No PARoxetine HCl 30 MG Calcium 600 MG Calcium 600 MG No 1{table t_with_ meals} QD Calcium 600 MG One Daily Multivitami n Men - One Daily Multivitami n Men - No One Daily Multivitam in Men - Aspirin 81 81 MG Aspirin 81 81 MG No 1{table t} QD Aspirin 81 81 MG traZODone HCl 50 MG traZODone HCl 50 MG No traZODone HCl 50 MG rOPINIRole HCl 1 MG rOPINIRole HCl 1 MG No 1{table t} BID rOPINIRole HCl 1 MG Celecoxib 200 MG Celecoxib 200 MG No 1{capsu le_with _food} BID Celecoxib 200 MG Ondansetron HCl 8 MG Ondansetron HCl 8 MG No 1{table t_as_ne eded} QD Ondansetro n HCl 8 MG Metaxalone 800 MG Metaxalone 800 MG No 1{table t} BID Metaxalone 800 MG Omeprazole 40 MG Omeprazole 40 MG No QD Omeprazole 40 MG Potassium 99 MG Potassium 99 MG No 1{table t} QD Potassium 99 MG rOPINIRole HCl 1 MG rOPINIRole HCl 1 MG No 1{table t} BID rOPINIRole HCl 1 MG Magnesium 250 MG Magnesium 250 MG No 1{table t_with_ a_meal} QD Magnesium 250 MG metFORMIN HCl 500 MG metFORMIN HCl 500 MG No 1{table t_with_ a_meal} QD metFORMIN HCl 500 MG Ozempic (1 MG/DOSE) 4 MG/3ML Ozempic (1 MG/DOSE) 4 MG/3ML No Ozempic (1 MG/DOSE) 4 MG/3ML Diclofenac Sodium 75 MG Diclofenac Sodium 75 MG No Diclofenac Sodium 75 MG Aspirin 81 81 MG Aspirin 81 81 MG No 1{table t} QD Aspirin 81 81 MG metFORMIN HCl 500 MG metFORMIN HCl 500 MG No 1{table t_with_ a_meal} QD metFORMIN HCl 500 MG Vitamin B-12 5000 MCG Vitamin B-12 5000 MCG No Vitamin B-12 5000 MCG Ondansetron HCl 8 MG Ondansetron HCl 8 MG No 1{table t_as_ne eded} QD Ondansetro n HCl 8 MG PARoxetine HCl 30 MG PARoxetine HCl 30 MG No PARoxetine HCl 30 MG Calcium 600 MG Calcium 600 MG No 1{table t_with_ meals} QD Calcium 600 MG One Daily Multivitami n Men - One Daily Multivitami n Men - No One Daily Multivitam in Men - traZODone HCl 50 MG traZODone HCl 50 MG No traZODone HCl 50 MG rOPINIRole HCl 1 MG rOPINIRole HCl 1 MG No 1{table t} BID rOPINIRole HCl 1 MG Celecoxib 200 MG Celecoxib 200 MG No 1{capsu le_with _food} BID Celecoxib 200 MG Ondansetron HCl 8 MG Ondansetron HCl 8 MG No 1{table t_as_ne eded} QD Ondansetro n HCl 8 MG Metaxalone 800 MG Metaxalone 800 MG No 1{table t} BID Metaxalone 800 MG Omeprazole 40 MG Omeprazole 40 MG No QD Omeprazole 40 MG Potassium 99 MG Potassium 99 MG No 1{table t} QD Potassium 99 MG Magnesium 250 MG Magnesium 250 MG No 1{table t_with_ a_meal} QD Magnesium 250 MG Magnesium 250 MG Magnesium 250 MG No 1{table t_with_ a_meal} QD Magnesium 250 MG metFORMIN HCl 500 MG metFORMIN HCl 500 MG No 1{table t_with_ a_meal} QD metFORMIN HCl 500 MG Ozempic (1 MG/DOSE) 4 MG/3ML Ozempic (1 MG/DOSE) 4 MG/3ML No Ozempic (1 MG/DOSE) 4 MG/3ML Diclofenac Sodium 75 MG Diclofenac Sodium 75 MG No Diclofenac Sodium 75 MG Aspirin 81 81 MG Aspirin 81 81 MG No 1{table t} QD Aspirin 81 81 MG Vitamin B-12 5000 MCG Vitamin B-12 5000 MCG No Vitamin B-12 5000 MCG PARoxetine HCl 30 MG PARoxetine HCl 30 MG No PARoxetine HCl 30 MG Calcium 600 MG Calcium 600 MG No 1{table t_with_ meals} QD Calcium 600 MG One Daily Multivitami n Men - One Daily Multivitami n Men - No One Daily Multivitam in Men - One Daily Multivitami n Men - One Daily Multivitami n Men - No One Daily Multivitam in Men - traZODone HCl 50 MG traZODone HCl 50 MG No traZODone HCl 50 MG rOPINIRole HCl 1 MG rOPINIRole HCl 1 MG No 1{table t} BID rOPINIRole HCl 1 MG Celecoxib 200 MG Celecoxib 200 MG No 1{capsu le_with _food} BID Celecoxib 200 MG Ondansetron HCl 8 MG Ondansetron HCl 8 MG No 1{table t_as_ne eded} QD Ondansetro n HCl 8 MG Metaxalone 800 MG Metaxalone 800 MG No 1{table t} BID Metaxalone 800 MG Omeprazole 40 MG Omeprazole 40 MG No QD Omeprazole 40 MG Potassium 99 MG Potassium 99 MG No 1{table t} QD Potassium 99 MG Magnesium 250 MG Magnesium 250 MG No 1{table t_with_ a_meal} QD Magnesium 250 MG metFORMIN HCl 500 MG metFORMIN HCl 500 MG No 1{table t_with_ a_meal} QD metFORMIN HCl 500 MG Ozempic (1 MG/DOSE) 4 MG/3ML Ozempic (1 MG/DOSE) 4 MG/3ML No Ozempic (1 MG/DOSE) 4 MG/3ML Celecoxib 200 MG Celecoxib 200 MG No 1{capsu le_with _food} BID Celecoxib 200 MG Diclofenac Sodium 75 MG Diclofenac Sodium 75 MG No Diclofenac Sodium 75 MG Aspirin 81 81 MG Aspirin 81 81 MG No 1{table t} QD Aspirin 81 81 MG Vitamin B-12 5000 MCG Vitamin B-12 5000 MCG No Vitamin B-12 5000 MCG Vitamin B-12 5000 MCG Vitamin B-12 5000 MCG No Vitamin B-12 5000 MCG PARoxetine HCl 30 MG PARoxetine HCl 30 MG No PARoxetine HCl 30 MG Calcium 600 MG Calcium 600 MG No 1{table t_with_ meals} QD Calcium 600 MG One Daily Multivitami n Men - One Daily Multivitami n Men - No One Daily Multivitam in Men - traZODone HCl 50 MG traZODone HCl 50 MG No traZODone HCl 50 MG rOPINIRole HCl 1 MG rOPINIRole HCl 1 MG No 1{table t} BID rOPINIRole HCl 1 MG Celecoxib 200 MG Celecoxib 200 MG No 1{capsu le_with _food} BID Celecoxib 200 MG Metaxalone 800 MG Metaxalone 800 MG No 1{table t} BID Metaxalone 800 MG Ondansetron HCl 8 MG Ondansetron HCl 8 MG No 1{table t_as_ne eded} QD Ondansetro n HCl 8 MG Metaxalone 800 MG Metaxalone 800 MG No 1{table t} BID Metaxalone 800 MG Omeprazole 40 MG Omeprazole 40 MG No QD Omeprazole 40 MG Potassium 99 MG Potassium 99 MG No 1{table t} QD Potassium 99 MG Magnesium 250 MG Magnesium 250 MG No 1{table t_with_ a_meal} QD Magnesium 250 MG PARoxetine HCl 30 MG PARoxetine HCl 30 MG No PARoxetine HCl 30 MG metFORMIN HCl 500 MG metFORMIN HCl 500 MG No 1{table t_with_ a_meal} QD metFORMIN HCl 500 MG Ozempic (1 MG/DOSE) 4 MG/3ML Ozempic (1 MG/DOSE) 4 MG/3ML No Ozempic (1 MG/DOSE) 4 MG/3ML Diclofenac Sodium 75 MG Diclofenac Sodium 75 MG No Diclofenac Sodium 75 MG Aspirin 81 81 MG Aspirin 81 81 MG No 1{table t} QD Aspirin 81 81 MG Potassium 99 MG Potassium 99 MG No 1{table t} QD Potassium 99 MG Vitamin B-12 5000 MCG Vitamin B-12 5000 MCG No Vitamin B-12 5000 MCG PARoxetine HCl 30 MG PARoxetine HCl 30 MG No PARoxetine HCl 30 MG Calcium 600 MG Calcium 600 MG No 1{table t_with_ meals} QD Calcium 600 MG One Daily Multivitami n Men - One Daily Multivitami n Men - No One Daily Multivitam in Men - traZODone HCl 50 MG traZODone HCl 50 MG No traZODone HCl 50 MG rOPINIRole HCl 1 MG rOPINIRole HCl 1 MG No 1{table t} BID rOPINIRole HCl 1 MG Celecoxib 200 MG Celecoxib 200 MG No 1{capsu le_with _food} BID Celecoxib 200 MG Ondansetron HCl 8 MG Ondansetron HCl 8 MG No 1{table t_as_ne eded} QD Ondansetro n HCl 8 MG Metaxalone 800 MG Metaxalone 800 MG No 1{table t} BID Metaxalone 800 MG Omeprazole 40 MG Omeprazole 40 MG No QD Omeprazole 40 MG Omeprazole 40 MG Omeprazole 40 MG No QD Omeprazole 40 MG Potassium 99 MG Potassium 99 MG No 1{table t} QD Potassium 99 MG Magnesium 250 MG Magnesium 250 MG No 1{table t_with_ a_meal} QD Magnesium 250 MG metFORMIN HCl 500 MG metFORMIN HCl 500 MG No 1{table t_with_ a_meal} QD metFORMIN HCl 500 MG Ozempic (1 MG/DOSE) 4 MG/3ML Ozempic (1 MG/DOSE) 4 MG/3ML No Ozempic (1 MG/DOSE) 4 MG/3ML Diclofenac Sodium 75 MG Diclofenac Sodium 75 MG No Diclofenac Sodium 75 MG Aspirin 81 81 MG Aspirin 81 81 MG No 1{table t} QD Aspirin 81 81 MG Calcium 600 MG Calcium 600 MG No 1{table t_with_ meals} QD Calcium 600 MG traZODone HCl 50 MG traZODone HCl 50 MG No traZODone HCl 50 MG Vitamin B-12 5000 MCG Vitamin B-12 5000 MCG No Vitamin B-12 5000 MCG PARoxetine HCl 30 MG PARoxetine HCl 30 MG No PARoxetine HCl 30 MG Calcium 600 MG Calcium 600 MG No 1{table t_with_ meals} QD Calcium 600 MG One Daily Multivitami n Men - One Daily Multivitami n Men - No One Daily Multivitam in Men - traZODone HCl 50 MG traZODone HCl 50 MG No traZODone HCl 50 MG rOPINIRole HCl 1 MG rOPINIRole HCl 1 MG No 1{table t} BID rOPINIRole HCl 1 MG Celecoxib 200 MG Celecoxib 200 MG No 1{capsu le_with _food} BID Celecoxib 200 MG Ondansetron HCl 8 MG Ondansetron HCl 8 MG No 1{table t_as_ne eded} QD Ondansetro n HCl 8 MG Metaxalone 800 MG Metaxalone 800 MG No 1{table t} BID Metaxalone 800 MG Omeprazole 40 MG Omeprazole 40 MG No QD Omeprazole 40 MG Potassium 99 MG Potassium 99 MG No 1{table t} QD Potassium 99 MG Magnesium 250 MG Magnesium 250 MG No 1{table t_with_ a_meal} QD Magnesium 250 MG metFORMIN HCl 500 MG metFORMIN HCl 500 MG No 1{table t_with_ a_meal} QD metFORMIN HCl 500 MG Ozempic (1 MG/DOSE) 4 MG/3ML Ozempic (1 MG/DOSE) 4 MG/3ML No Ozempic (1 MG/DOSE) 4 MG/3ML Diclofenac Sodium 75 MG Diclofenac Sodium 75 MG No Diclofenac Sodium 75 MG Aspirin 81 81 MG Aspirin 81 81 MG No 1{table t} QD Aspirin 81 81 MG Metaxalone 800 MG Metaxalone 800 MG No 1{table t} BID Metaxalone 800 MG Ozempic (1 MG/DOSE) 4 MG/3ML Ozempic (1 MG/DOSE) 4 MG/3ML No Ozempic (1 MG/DOSE) 4 MG/3ML Celecoxib 200 MG Celecoxib 200 MG No 1{capsu le_with _food} BID Celecoxib 200 MG metFORMIN HCl 500 MG metFORMIN HCl 500 MG No 1{table t_with_ a_meal} QD metFORMIN HCl 500 MG Calcium 600 MG Calcium 600 MG No 1{table t_with_ meals} QD Calcium 600 MG Omeprazole 40 MG Omeprazole 40 MG No QD Omeprazole 40 MG Vitamin B-12 5000 MCG Vitamin B-12 5000 MCG No Vitamin B-12 5000 MCG rOPINIRole HCl 1 MG rOPINIRole HCl 1 MG No 1{table t} BID rOPINIRole HCl 1 MG PARoxetine HCl 30 MG PARoxetine HCl 30 MG No PARoxetine HCl 30 MG Magnesium 250 MG Magnesium 250 MG No 1{table t_with_ a_meal} QD Magnesium 250 MG Diclofenac Sodium 75 MG Diclofenac Sodium 75 MG No Diclofenac Sodium 75 MG Ondansetron HCl 8 MG Ondansetron HCl 8 MG No 1{table t_as_ne eded} QD Ondansetro n HCl 8 MG Potassium 99 MG Potassium 99 MG No 1{table t} QD Potassium 99 MG One Daily Multivitami n Men - One Daily Multivitami n Men - No One Daily Multivitam in Men - Aspirin 81 81 MG Aspirin 81 81 MG No 1{table t} QD Aspirin 81 81 MG traZODone HCl 50 MG traZODone HCl 50 MG No traZODone HCl 50 MG Diclofenac Sodium 75 MG Diclofenac Sodium 75 MG No Diclofenac Sodium 75 MG rOPINIRole HCl 1 MG rOPINIRole HCl 1 MG No 1{table t} BID rOPINIRole HCl 1 MG Calcium 600 MG Calcium 600 MG No 1{table t_with_ meals} QD Calcium 600 MG Ozempic (1 MG/DOSE) 4 MG/3ML Ozempic (1 MG/DOSE) 4 MG/3ML No Ozempic (1 MG/DOSE) 4 MG/3ML Metaxalone 800 MG Metaxalone 800 MG No 1{table t} BID Metaxalone 800 MG Accu-Chek Arlene Plus test strips USE TO CHECK GLUSOE TWICE A DAY Accu-Chek Arlene Plus test strips USE TO CHECK GLUSOE TWICE A DAY No Accu-Chek Arlene Plus test strips USE TO CHECK GLUSOE TWICE A DAY [facility] Accu-Chek Fastclix Lancet Drum USE TO CHECK BLOOD SUGAR TWICE A DAY Accu-Chek Fastclix Lancet Drum USE TO CHECK BLOOD SUGAR TWICE A DAY No Accu-Chek Fastclix Lancet Drum USE TO CHECK BLOOD SUGAR TWICE A DAY [facility] Accu-Chek Guide Me Glucose Meter USE TO TEST BLOOD SUGAR TWICE A DAY Accu-Chek Guide Me Glucose Meter USE TO TEST BLOOD SUGAR TWICE A DAY No Accu-Chek Guide Me Glucose Meter USE TO TEST BLOOD SUGAR TWICE A DAY [facility] amoxicillin 875 mg-potassiu m clavulanate 125 mg tablet TAKE ONE (1) TABLET(S) BY MOUTH EVERY TWELVE HOURS FOR SEVEN DAYS. amoxicillin 875 mg-potassiu m clavulanate 125 mg tablet TAKE ONE (1) TABLET(S) BY MOUTH EVERY TWELVE HOURS FOR SEVEN DAYS. No amoxicilli n 875 mg-potassi um clavulanat e 125 mg tablet TAKE ONE (1) TABLET(S) BY MOUTH EVERY TWELVE HOURS FOR SEVEN DAYS. [facility] celecoxib 200 mg capsule TAKE ONE (1) CAPSULE(S) BY MOUTH TWICE A DAY WITH FOOD. celecoxib 200 mg capsule TAKE ONE (1) CAPSULE(S) BY MOUTH TWICE A DAY WITH FOOD. No celecoxib 200 mg capsule TAKE ONE (1) CAPSULE(S) BY MOUTH TWICE A DAY WITH FOOD. [facility] doxycycline hyclate 100 mg capsule TAKE 1 CAPSULE BY MOUTH TWICE A DAY doxycycline hyclate 100 mg capsule TAKE 1 CAPSULE BY MOUTH TWICE A DAY No doxycyclin e hyclate 100 mg capsule TAKE 1 CAPSULE BY MOUTH TWICE A DAY [facility] gabapentin 600 mg tablet TAKE ONE (1) TABLET(S) BY MOUTH THREE TIMES A DAY. gabapentin 600 mg tablet TAKE ONE (1) TABLET(S) BY MOUTH THREE TIMES A DAY. No gabapentin 600 mg tablet TAKE ONE (1) TABLET(S) BY MOUTH THREE TIMES A DAY. [facility] hydrocodone 10 mg-acetamin ophen 325 mg tablet TAKE 1 TABLET BY MOUTH EVERY 6 HOURS NEEDED ONLY FOR BREAKTHROUG H PAIN hydrocodone 10 mg-acetamin ophen 325 mg tablet TAKE 1 TABLET BY MOUTH EVERY 6 HOURS NEEDED ONLY FOR BREAKTHROUG H PAIN No hydrocodon e 10 mg-acetami nophen 325 mg tablet TAKE 1 TABLET BY MOUTH EVERY 6 HOURS NEEDED ONLY FOR BREAKTHROU GH PAIN [facility] ibuprofen 800 mg tablet ibuprofen 800 mg tablet No ibuprofen 800 mg tablet [facility] metaxalone 800 mg tablet TAKE ONE (1) TABLET(S) BY MOUTH TWICE A DAY NEEDED. metaxalone 800 mg tablet TAKE ONE (1) TABLET(S) BY MOUTH TWICE A DAY NEEDED. No metaxalone 800 mg tablet TAKE ONE (1) TABLET(S) BY MOUTH TWICE A DAY NEEDED. [facility] metformin ER 500 mg tablet,exte nded release 24 hr TAKE ONE (1) TABLET(S) BY MOUTH ONCE A DAY WITH EVENING MEAL. metformin ER 500 mg tablet,exte nded release 24 hr TAKE ONE (1) TABLET(S) BY MOUTH ONCE A DAY WITH EVENING MEAL. No metformin ER 500 mg tablet,ext ended release 24 hr TAKE ONE (1) TABLET(S) BY MOUTH ONCE A DAY WITH EVENING MEAL. [facility] methocarbam ol 500 mg tablet TAKE 1 TABLET BY MOUTH THREE TIMES A DAY NEEDED FOR MUSCLE SPASMS methocarbam ol 500 mg tablet TAKE 1 TABLET BY MOUTH THREE TIMES A DAY NEEDED FOR MUSCLE SPASMS No methocarba mol 500 mg tablet TAKE 1 TABLET BY MOUTH THREE TIMES A DAY NEEDED FOR MUSCLE SPASMS [facility] Micro Thin Lancets 33 gauge USE DIRECTED ONCE A DAY WHILE FASTING IN THE MORNING. Micro Thin Lancets 33 gauge USE DIRECTED ONCE A DAY WHILE FASTING IN THE MORNING. No Micro Thin Lancets 33 gauge USE DIRECTED ONCE A DAY WHILE FASTING IN THE MORNING. [facility] mupirocin 2 % topical ointment APPLY TO AFFECTED AREA TWICE A DAY FOR 5 DAYS. mupirocin 2 % topical ointment APPLY TO AFFECTED AREA TWICE A DAY FOR 5 DAYS. No mupirocin 2 % topical ointment APPLY TO AFFECTED AREA TWICE A DAY FOR 5 DAYS. [facility] naproxen 375 mg tablet TAKE 1 TABLET BY MOUTH TWICE A DAY WITH MEALS naproxen 375 mg tablet TAKE 1 TABLET BY MOUTH TWICE A DAY WITH MEALS No naproxen 375 mg tablet TAKE 1 TABLET BY MOUTH TWICE A DAY WITH MEALS [facility] ofloxacin 0.3 % ear drops INSTILL FIVE (5) DROPS INTO EACH EAR TWICE A DAY FOR 7 DAYS. ofloxacin 0.3 % ear drops INSTILL FIVE (5) DROPS INTO EACH EAR TWICE A DAY FOR 7 DAYS. No ofloxacin 0.3 % ear drops INSTILL FIVE (5) DROPS INTO EACH EAR TWICE A DAY FOR 7 DAYS. [facility] omeprazole 40 mg capsule,del ayed release TAKE ONE (1) CAPSULE(S) BY MOUTH ONCE A DAY. omeprazole 40 mg capsule,del ayed release TAKE ONE (1) CAPSULE(S) BY MOUTH ONCE A DAY. No omeprazole 40 mg capsule,de layed release TAKE ONE (1) CAPSULE(S) BY MOUTH ONCE A DAY. [facility] Ozempic 0.25 mg or 0.5 mg (2 mg/1.5 mL) subcutaneou s pen injector INJECT 0.5 MG UNDER THE SKIN ONCE WEEKLY. Ozempic 0.25 mg or 0.5 mg (2 mg/1.5 mL) subcutaneou s pen injector INJECT 0.5 MG UNDER THE SKIN ONCE WEEKLY. No Ozempic 0.25 mg or 0.5 mg (2 mg/1.5 mL) subcutaneo us pen injector INJECT 0.5 MG UNDER THE SKIN ONCE WEEKLY. [facility] phentermine 37.5 mg tablet TAKE ONE (1) TABLET(S) BY MOUTH ONCE A DAY. phentermine 37.5 mg tablet TAKE ONE (1) TABLET(S) BY MOUTH ONCE A DAY. No phentermin e 37.5 mg tablet TAKE ONE (1) TABLET(S) BY MOUTH ONCE A DAY. [facility] ropinirole 1 mg tablet TAKE ONE (1) TABLET(S) BY MOUTH TWICE A DAY NEEDED. ropinirole 1 mg tablet TAKE ONE (1) TABLET(S) BY MOUTH TWICE A DAY NEEDED. No ropinirole 1 mg tablet TAKE ONE (1) TABLET(S) BY MOUTH TWICE A DAY NEEDED. [facility] sildenafil 50 mg tablet TAKE ONE (1) TABLET(S) BY MOUTH ONCE A DAY NEEDED. sildenafil 50 mg tablet TAKE ONE (1) TABLET(S) BY MOUTH ONCE A DAY NEEDED. No sildenafil 50 mg tablet TAKE ONE (1) TABLET(S) BY MOUTH ONCE A DAY NEEDED. [facility] tamsulosin 0.4 mg capsule TAKE ONE (1) CAPSULE(S) BY MOUTH DAILY. tamsulosin 0.4 mg capsule TAKE ONE (1) CAPSULE(S) BY MOUTH DAILY. No tamsulosin 0.4 mg capsule TAKE ONE (1) CAPSULE(S) BY MOUTH DAILY. [facility] terbinafine HCl 250 mg tablet TAKE ONE (1) TABLET(S) BY MOUTH ONCE A DAY. terbinafine HCl 250 mg tablet TAKE ONE (1) TABLET(S) BY MOUTH ONCE A DAY. No terbinafin e HCl 250 mg tablet TAKE ONE (1) TABLET(S) BY MOUTH ONCE A DAY. [facility] tramadol 50 mg tablet TAKE ONE (1) TABLET(S) BY MOUTH EVERY SIX HOURS NEEDED. tramadol 50 mg tablet TAKE ONE (1) TABLET(S) BY MOUTH EVERY SIX HOURS NEEDED. No tramadol 50 mg tablet TAKE ONE (1) TABLET(S) BY MOUTH EVERY SIX HOURS NEEDED. [facility] triamcinolo ne acetonide 0.1 % topical cream APPLY A SMALL AMOUNT TO AFFECTED AREA TWICE A DAY. triamcinolo ne acetonide 0.1 % topical cream APPLY A SMALL AMOUNT TO AFFECTED AREA TWICE A DAY. No triamcinol one acetonide 0.1 % topical cream APPLY A SMALL AMOUNT TO AFFECTED AREA TWICE A DAY. [facility] venlafaxine ER 37.5 mg capsule,ext ended release 24 hr TAKE ONE (1) CAPSULE(S) BY MOUTH ONCE A DAY WITH FOOD. venlafaxine ER 37.5 mg capsule,ext ended release 24 hr TAKE ONE (1) CAPSULE(S) BY MOUTH ONCE A DAY WITH FOOD. No venlafaxin e ER 37.5 mg capsule,ex tended release 24 hr TAKE ONE (1) CAPSULE(S) BY MOUTH ONCE A DAY WITH FOOD. [facility] duloxetine 40 mg capsule,del ayed release TAKE ONE (1) CAPSULE(S) BY MOUTH ONCE A DAY. duloxetine 40 mg capsule,del ayed release TAKE ONE (1) CAPSULE(S) BY MOUTH ONCE A DAY. No duloxetine 40 mg capsule,de layed release TAKE ONE (1) CAPSULE(S) BY MOUTH ONCE A DAY. [facility] hydrocodone 5 mg-acetamin ophen 325 mg tablet TAKE ONE (1) TABLET(S) BY MOUTH EVERY SIX HOURS NEEDED. hydrocodone 5 mg-acetamin ophen 325 mg tablet TAKE ONE (1) TABLET(S) BY MOUTH EVERY SIX HOURS NEEDED. No hydrocodon e 5 mg-acetami nophen 325 mg tablet TAKE ONE (1) TABLET(S) BY MOUTH EVERY SIX HOURS NEEDED. [facility] metformin 500 mg tablet TAKE ONE (1) TABLET(S) BY MOUTH DAILY. metformin 500 mg tablet TAKE ONE (1) TABLET(S) BY MOUTH DAILY. No metformin 500 mg tablet TAKE ONE (1) TABLET(S) BY MOUTH DAILY. [facility] methocarbam ol 500 mg tablet TAKE ONE (1) TABLET(S) BY MOUTH THREE TIMES A DAY NEEDED. methocarbam ol 500 mg tablet TAKE ONE (1) TABLET(S) BY MOUTH THREE TIMES A DAY NEEDED. No methocarba mol 500 mg tablet TAKE ONE (1) TABLET(S) BY MOUTH THREE TIMES A DAY NEEDED. [facility] omeprazole 40 mg capsule,del ayed release TAKE ONE (1) CAPSULE(S) BY MOUTH EVERY MORNING 30 MINTUES BEFORE MORNING MEAL. omeprazole 40 mg capsule,del ayed release TAKE ONE (1) CAPSULE(S) BY MOUTH EVERY MORNING 30 MINTUES BEFORE MORNING MEAL. No omeprazole 40 mg capsule,de layed release TAKE ONE (1) CAPSULE(S) BY MOUTH EVERY MORNING 30 MINTUES BEFORE MORNING MEAL. [facility] ondansetron 8 mg disintegrat ing tablet TAKE ONE (1) TABLET(S) BY MOUTH EVERY EIGHT HOURS NEEDED. ondansetron 8 mg disintegrat ing tablet TAKE ONE (1) TABLET(S) BY MOUTH EVERY EIGHT HOURS NEEDED. No ondansetro n 8 mg disintegra ting tablet TAKE ONE (1) TABLET(S) BY MOUTH EVERY EIGHT HOURS NEEDED. [facility] Ozempic 1 mg/dose (4 mg/3 mL) subcutaneou s pen injector INJECT ONE (1) MG SUBCUTANEOU SLY WEEKLY. Ozempic 1 mg/dose (4 mg/3 mL) subcutaneou s pen injector INJECT ONE (1) MG SUBCUTANEOU SLY WEEKLY. No Ozempic 1 mg/dose (4 mg/3 mL) subcutaneo us pen injector INJECT ONE (1) MG SUBCUTANEO USLY WEEKLY. [facility] paroxetine 30 mg tablet TAKE ONE (1) TABLET(S) BY MOUTH DAILY. paroxetine 30 mg tablet TAKE ONE (1) TABLET(S) BY MOUTH DAILY. No paroxetine 30 mg tablet TAKE ONE (1) TABLET(S) BY MOUTH DAILY. [facility] pregabalin 100 mg capsule TAKE ONE (1) CAPSULE(S) BY MOUTH TWICE A DAY. pregabalin 100 mg capsule TAKE ONE (1) CAPSULE(S) BY MOUTH TWICE A DAY. No pregabalin 100 mg capsule TAKE ONE (1) CAPSULE(S) BY MOUTH TWICE A DAY. [facility] ropinirole 1 mg tablet TAKE ONE (1) TABLET(S) BY MOUTH TWICE A DAY. ropinirole 1 mg tablet TAKE ONE (1) TABLET(S) BY MOUTH TWICE A DAY. No ropinirole 1 mg tablet TAKE ONE (1) TABLET(S) BY MOUTH TWICE A DAY. [facility] Vitamin B-12 5000 MCG Vitamin B-12 5000 MCG No Vitamin B-12 5000 MCG Celecoxib 200 MG Celecoxib 200 MG No 1{capsu le_with _food} BID Celecoxib 200 MG traZODone HCl 50 MG traZODone HCl 50 MG No traZODone HCl 50 MG Magnesium 250 MG Magnesium 250 MG No 1{table t_with_ a_meal} QD Magnesium 250 MG metFORMIN HCl 500 MG metFORMIN HCl 500 MG No 1{table t_with_ a_meal} QD metFORMIN HCl 500 MG Omeprazole 40 MG Omeprazole 40 MG No QD Omeprazole 40 MG Potassium 99 MG Potassium 99 MG No 1{table t} QD Potassium 99 MG Diclofenac Sodium 75 MG Diclofenac Sodium 75 MG No Diclofenac Sodium 75 MG PARoxetine HCl 30 MG PARoxetine HCl 30 MG No PARoxetine HCl 30 MG Aspirin 81 81 MG Aspirin 81 81 MG No 1{table t} QD Aspirin 81 81 MG One Daily Multivitami n Men - One Daily Multivitami n Men - No One Daily Multivitam in Men - Ondansetron HCl 8 MG Ondansetron HCl 8 MG No 1{table t_as_ne eded} QD Ondansetro n HCl 8 MG metFORMIN HCl 500 MG metFORMIN HCl 500 MG No 1{table t_with_ a_meal} QD metFORMIN HCl 500 MG rOPINIRole HCl 1 MG rOPINIRole HCl 1 MG No 1{table t} BID rOPINIRole HCl 1 MG Calcium 600 MG Calcium 600 MG No 1{table t_with_ meals} QD Calcium 600 MG Ozempic (1 MG/DOSE) 4 MG/3ML Ozempic (1 MG/DOSE) 4 MG/3ML No Ozempic (1 MG/DOSE) 4 MG/3ML Metaxalone 800 MG Metaxalone 800 MG No 1{table t} BID Metaxalone 800 MG Vitamin B-12 5000 MCG Vitamin B-12 5000 MCG No Vitamin B-12 5000 MCG Celecoxib 200 MG Celecoxib 200 MG No 1{capsu le_with _food} BID Celecoxib 200 MG traZODone HCl 50 MG traZODone HCl 50 MG No traZODone HCl 50 MG Magnesium 250 MG Magnesium 250 MG No 1{table t_with_ a_meal} QD Magnesium 250 MG Omeprazole 40 MG Omeprazole 40 MG No QD Omeprazole 40 MG Potassium 99 MG Potassium 99 MG No 1{table t} QD Potassium 99 MG Diclofenac Sodium 75 MG Diclofenac Sodium 75 MG No Diclofenac Sodium 75 MG PARoxetine HCl 30 MG PARoxetine HCl 30 MG No PARoxetine HCl 30 MG Aspirin 81 81 MG Aspirin 81 81 MG No 1{table t} QD Aspirin 81 81 MG One Daily Multivitami n Men - One Daily Multivitami n Men - No One Daily Multivitam in Men - Ondansetron HCl 8 MG Ondansetron HCl 8 MG No 1{table t_as_ne eded} QD Ondansetro n HCl 8 MG Potassium 99 MG Potassium 99 MG No 1{table t} QD Potassium 99 MG traZODone HCl 50 MG traZODone HCl 50 MG No traZODone HCl 50 MG One Daily Multivitami n Men - One Daily Multivitami n Men - No One Daily Multivitam in Men - PARoxetine HCl 30 MG PARoxetine HCl 30 MG No PARoxetine HCl 30 MG Aspirin 81 81 MG Aspirin 81 81 MG No 1{table t} QD Aspirin 81 81 MG Celecoxib 200 MG Celecoxib 200 MG No 1{capsu le_with _food} BID Celecoxib 200 MG Vitamin B-12 5000 MCG Vitamin B-12 5000 MCG No Vitamin B-12 5000 MCG Magnesium 250 MG Magnesium 250 MG No 1{table t_with_ a_meal} QD Magnesium 250 MG Calcium 600 MG Calcium 600 MG No 1{table t_with_ meals} QD Calcium 600 MG Metaxalone 800 MG Metaxalone 800 MG No 1{table t} BID Metaxalone 800 MG metFORMIN HCl 500 MG metFORMIN HCl 500 MG No 1{table t_with_ a_meal} QD metFORMIN HCl 500 MG Omeprazole 40 MG Omeprazole 40 MG No QD Omeprazole 40 MG Diclofenac Sodium 75 MG Diclofenac Sodium 75 MG No Diclofenac Sodium 75 MG rOPINIRole HCl 1 MG rOPINIRole HCl 1 MG No 1{table t} BID rOPINIRole HCl 1 MG Ozempic (1 MG/DOSE) 4 MG/3ML Ozempic (1 MG/DOSE) 4 MG/3ML No Ozempic (1 MG/DOSE) 4 MG/3ML Ondansetron HCl 8 MG Ondansetron HCl 8 MG No 1{table t_as_ne eded} QD Ondansetro n HCl 8 MG Potassium 99 MG Potassium 99 MG No 1{table t} QD Potassium 99 MG traZODone HCl 50 MG traZODone HCl 50 MG No traZODone HCl 50 MG One Daily Multivitami n Men - One Daily Multivitami n Men - No One Daily Multivitam in Men - PARoxetine HCl 30 MG PARoxetine HCl 30 MG No PARoxetine HCl 30 MG Aspirin 81 81 MG Aspirin 81 81 MG No 1{table t} QD Aspirin 81 81 MG Celecoxib 200 MG Celecoxib 200 MG No 1{capsu le_with _food} BID Celecoxib 200 MG Vitamin B-12 5000 MCG Vitamin B-12 5000 MCG No Vitamin B-12 5000 MCG Magnesium 250 MG Magnesium 250 MG No 1{table t_with_ a_meal} QD Magnesium 250 MG Calcium 600 MG Calcium 600 MG No 1{table t_with_ meals} QD Calcium 600 MG Metaxalone 800 MG Metaxalone 800 MG No 1{table t} BID Metaxalone 800 MG metFORMIN HCl 500 MG metFORMIN HCl 500 MG No 1{table t_with_ a_meal} QD metFORMIN HCl 500 MG Omeprazole 40 MG Omeprazole 40 MG No QD Omeprazole 40 MG Diclofenac Sodium 75 MG Diclofenac Sodium 75 MG No Diclofenac Sodium 75 MG rOPINIRole HCl 1 MG rOPINIRole HCl 1 MG No 1{table t} BID rOPINIRole HCl 1 MG Ozempic (1 MG/DOSE) 4 MG/3ML Ozempic (1 MG/DOSE) 4 MG/3ML No Ozempic (1 MG/DOSE) 4 MG/3ML Ondansetron HCl 8 MG Ondansetron HCl 8 MG No 1{table t_as_ne eded} QD Ondansetro n HCl 8 MG Potassium 99 MG Potassium 99 MG No 1{table t} QD Potassium 99 MG traZODone HCl 50 MG traZODone HCl 50 MG No traZODone HCl 50 MG One Daily Multivitami n Men - One Daily Multivitami n Men - No One Daily Multivitam in Men - PARoxetine HCl 30 MG PARoxetine HCl 30 MG No PARoxetine HCl 30 MG Aspirin 81 81 MG Aspirin 81 81 MG No 1{table t} QD Aspirin 81 81 MG Celecoxib 200 MG Celecoxib 200 MG No 1{capsu le_with _food} BID Celecoxib 200 MG Vitamin B-12 5000 MCG Vitamin B-12 5000 MCG No Vitamin B-12 5000 MCG Magnesium 250 MG Magnesium 250 MG No 1{table t_with_ a_meal} QD Magnesium 250 MG Calcium 600 MG Calcium 600 MG No 1{table t_with_ meals} QD Calcium 600 MG Metaxalone 800 MG Metaxalone 800 MG No 1{table t} BID Metaxalone 800 MG metFORMIN HCl 500 MG metFORMIN HCl 500 MG No 1{table t_with_ a_meal} QD metFORMIN HCl 500 MG Omeprazole 40 MG Omeprazole 40 MG No QD Omeprazole 40 MG Diclofenac Sodium 75 MG Diclofenac Sodium 75 MG No Diclofenac Sodium 75 MG rOPINIRole HCl 1 MG rOPINIRole HCl 1 MG No 1{table t} BID rOPINIRole HCl 1 MG Ozempic (1 MG/DOSE) 4 MG/3ML Ozempic (1 MG/DOSE) 4 MG/3ML No Ozempic (1 MG/DOSE) 4 MG/3ML Ondansetron HCl 8 MG Ondansetron HCl 8 MG No 1{table t_as_ne eded} QD Ondansetro n HCl 8 MG Potassium 99 MG Potassium 99 MG No 1{table t} QD Potassium 99 MG traZODone HCl 50 MG traZODone HCl 50 MG No traZODone HCl 50 MG One Daily Multivitami n Men - One Daily Multivitami n Men - No One Daily Multivitam in Men - PARoxetine HCl 30 MG PARoxetine HCl 30 MG No PARoxetine HCl 30 MG Aspirin 81 81 MG Aspirin 81 81 MG No 1{table t} QD Aspirin 81 81 MG Celecoxib 200 MG Celecoxib 200 MG No 1{capsu le_with _food} BID Celecoxib 200 MG Vitamin B-12 5000 MCG Vitamin B-12 5000 MCG No Vitamin B-12 5000 MCG Magnesium 250 MG Magnesium 250 MG No 1{table t_with_ a_meal} QD Magnesium 250 MG Calcium 600 MG Calcium 600 MG No 1{table t_with_ meals} QD Calcium 600 MG Metaxalone 800 MG Metaxalone 800 MG No 1{table t} BID Metaxalone 800 MG metFORMIN HCl 500 MG metFORMIN HCl 500 MG No 1{table t_with_ a_meal} QD metFORMIN HCl 500 MG Omeprazole 40 MG Omeprazole 40 MG No QD Omeprazole 40 MG Diclofenac Sodium 75 MG Diclofenac Sodium 75 MG No Diclofenac Sodium 75 MG rOPINIRole HCl 1 MG rOPINIRole HCl 1 MG No 1{table t} BID rOPINIRole HCl 1 MG Ozempic (1 MG/DOSE) 4 MG/3ML Ozempic (1 MG/DOSE) 4 MG/3ML No Ozempic (1 MG/DOSE) 4 MG/3ML Ondansetron HCl 8 MG Ondansetron HCl 8 MG No 1{table t_as_ne eded} QD Ondansetro n HCl 8 MG traZODone HCl 50 MG traZODone HCl 50 MG No traZODone HCl 50 MG PARoxetine HCl 30 MG PARoxetine HCl 30 MG No PARoxetine HCl 30 MG Potassium 99 MG Potassium 99 MG No 1{table t} QD Potassium 99 MG Celecoxib 200 MG Celecoxib 200 MG No 1{capsu le_with _food} BID Celecoxib 200 MG One Daily Multivitami n Men - One Daily Multivitami n Men - No One Daily Multivitam in Men - Vitamin B-12 5000 MCG Vitamin B-12 5000 MCG No Vitamin B-12 5000 MCG Aspirin 81 81 MG Aspirin 81 81 MG No 1{table t} QD Aspirin 81 81 MG Calcium 600 MG Calcium 600 MG No 1{table t_with_ meals} QD Calcium 600 MG Metaxalone 800 MG Metaxalone 800 MG No 1{table t} BID Metaxalone 800 MG Diclofenac Sodium 75 MG Diclofenac Sodium 75 MG No Diclofenac Sodium 75 MG Omeprazole 40 MG Omeprazole 40 MG No QD Omeprazole 40 MG Magnesium 250 MG Magnesium 250 MG No 1{table t_with_ a_meal} QD Magnesium 250 MG metFORMIN HCl 500 MG metFORMIN HCl 500 MG No 1{table t_with_ a_meal} QD metFORMIN HCl 500 MG rOPINIRole HCl 1 MG rOPINIRole HCl 1 MG No 1{table t} BID rOPINIRole HCl 1 MG Ozempic (1 MG/DOSE) 4 MG/3ML Ozempic (1 MG/DOSE) 4 MG/3ML No Ozempic (1 MG/DOSE) 4 MG/3ML Ondansetron HCl 8 MG Ondansetron HCl 8 MG No 1{table t_as_ne eded} QD Ondansetro n HCl 8 MG traZODone HCl 50 MG traZODone HCl 50 MG No traZODone HCl 50 MG PARoxetine HCl 30 MG PARoxetine HCl 30 MG No PARoxetine HCl 30 MG Potassium 99 MG Potassium 99 MG No 1{table t} QD Potassium 99 MG Celecoxib 200 MG Celecoxib 200 MG No 1{capsu le_with _food} BID Celecoxib 200 MG One Daily Multivitami n Men - One Daily Multivitami n Men - No One Daily Multivitam in Men - Vitamin B-12 5000 MCG Vitamin B-12 5000 MCG No Vitamin B-12 5000 MCG Aspirin 81 81 MG Aspirin 81 81 MG No 1{table t} QD Aspirin 81 81 MG Calcium 600 MG Calcium 600 MG No 1{table t_with_ meals} QD Calcium 600 MG Metaxalone 800 MG Metaxalone 800 MG No 1{table t} BID Metaxalone 800 MG Diclofenac Sodium 75 MG Diclofenac Sodium 75 MG No Diclofenac Sodium 75 MG Omeprazole 40 MG Omeprazole 40 MG No QD Omeprazole 40 MG Magnesium 250 MG Magnesium 250 MG No 1{table t_with_ a_meal} QD Magnesium 250 MG metFORMIN HCl 500 MG metFORMIN HCl 500 MG No 1{table t_with_ a_meal} QD metFORMIN HCl 500 MG rOPINIRole HCl 1 MG rOPINIRole HCl 1 MG No 1{table t} BID rOPINIRole HCl 1 MG Ozempic (1 MG/DOSE) 4 MG/3ML Ozempic (1 MG/DOSE) 4 MG/3ML No Ozempic (1 MG/DOSE) 4 MG/3ML Ondansetron HCl 8 MG Ondansetron HCl 8 MG No 1{table t_as_ne eded} QD Ondansetro n HCl 8 MG traZODone HCl 50 MG traZODone HCl 50 MG No traZODone HCl 50 MG PARoxetine HCl 30 MG PARoxetine HCl 30 MG No PARoxetine HCl 30 MG Potassium 99 MG Potassium 99 MG No 1{table t} QD Potassium 99 MG Celecoxib 200 MG Celecoxib 200 MG No 1{capsu le_with _food} BID Celecoxib 200 MG One Daily Multivitami n Men - One Daily Multivitami n Men - No One Daily Multivitam in Men - Vitamin B-12 5000 MCG Vitamin B-12 5000 MCG No Vitamin B-12 5000 MCG Aspirin 81 81 MG Aspirin 81 81 MG No 1{table t} QD Aspirin 81 81 MG Calcium 600 MG Calcium 600 MG No 1{table t_with_ meals} QD Calcium 600 MG Metaxalone 800 MG Metaxalone 800 MG No 1{table t} BID Metaxalone 800 MG Diclofenac Sodium 75 MG Diclofenac Sodium 75 MG No Diclofenac Sodium 75 MG Omeprazole 40 MG Omeprazole 40 MG No QD Omeprazole 40 MG Magnesium 250 MG Magnesium 250 MG No 1{table t_with_ a_meal} QD Magnesium 250 MG metFORMIN HCl 500 MG metFORMIN HCl 500 MG No 1{table t_with_ a_meal} QD metFORMIN HCl 500 MG rOPINIRole HCl 1 MG rOPINIRole HCl 1 MG No 1{table t} BID rOPINIRole HCl 1 MG Ozempic (1 MG/DOSE) 4 MG/3ML Ozempic (1 MG/DOSE) 4 MG/3ML No Ozempic (1 MG/DOSE) 4 MG/3ML Ondansetron HCl 8 MG Ondansetron HCl 8 MG No 1{table t_as_ne eded} QD Ondansetro n HCl 8 MG traZODone HCl 50 MG traZODone HCl 50 MG No traZODone HCl 50 MG PARoxetine HCl 30 MG PARoxetine HCl 30 MG No PARoxetine HCl 30 MG Potassium 99 MG Potassium 99 MG No 1{table t} QD Potassium 99 MG Celecoxib 200 MG Celecoxib 200 MG No 1{capsu le_with _food} BID Celecoxib 200 MG One Daily Multivitami n Men - One Daily Multivitami n Men - No One Daily Multivitam in Men - Vitamin B-12 5000 MCG Vitamin B-12 5000 MCG No Vitamin B-12 5000 MCG Aspirin 81 81 MG Aspirin 81 81 MG No 1{table t} QD Aspirin 81 81 MG Calcium 600 MG Calcium 600 MG No 1{table t_with_ meals} QD Calcium 600 MG Metaxalone 800 MG Metaxalone 800 MG No 1{table t} BID Metaxalone 800 MG Diclofenac Sodium 75 MG Diclofenac Sodium 75 MG No Diclofenac Sodium 75 MG Omeprazole 40 MG Omeprazole 40 MG No QD Omeprazole 40 MG Magnesium 250 MG Magnesium 250 MG No 1{table t_with_ a_meal} QD Magnesium 250 MG metFORMIN HCl 500 MG metFORMIN HCl 500 MG No 1{table t_with_ a_meal} QD metFORMIN HCl 500 MG rOPINIRole HCl 1 MG rOPINIRole HCl 1 MG No 1{table t} BID rOPINIRole HCl 1 MG Ozempic (1 MG/DOSE) 4 MG/3ML Ozempic (1 MG/DOSE) 4 MG/3ML No Ozempic (1 MG/DOSE) 4 MG/3ML Ondansetron HCl 8 MG Ondansetron HCl 8 MG No 1{table t_as_ne eded} QD Ondansetro n HCl 8 MG traZODone HCl 50 MG traZODone HCl 50 MG No traZODone HCl 50 MG PARoxetine HCl 30 MG PARoxetine HCl 30 MG No PARoxetine HCl 30 MG Potassium 99 MG Potassium 99 MG No 1{table t} QD Potassium 99 MG Celecoxib 200 MG Celecoxib 200 MG No 1{capsu le_with _food} BID Celecoxib 200 MG Ozempic (1 MG/DOSE) 4 MG/3ML Ozempic (1 MG/DOSE) 4 MG/3ML No Ozempic (1 MG/DOSE) 4 MG/3ML One Daily Multivitami n Men - One Daily Multivitami n Men - No One Daily Multivitam in Men - Vitamin B-12 5000 MCG Vitamin B-12 5000 MCG No Vitamin B-12 5000 MCG Aspirin 81 81 MG Aspirin 81 81 MG No 1{table t} QD Aspirin 81 81 MG Calcium 600 MG Calcium 600 MG No 1{table t_with_ meals} QD Calcium 600 MG Metaxalone 800 MG Metaxalone 800 MG No 1{table t} BID Metaxalone 800 MG Diclofenac Sodium 75 MG Diclofenac Sodium 75 MG No Diclofenac Sodium 75 MG Omeprazole 40 MG Omeprazole 40 MG No QD Omeprazole 40 MG Metaxalone 800 MG Metaxalone 800 MG No 1{table t} BID Metaxalone 800 MG Magnesium 250 MG Magnesium 250 MG No 1{table t_with_ a_meal} QD Magnesium 250 MG metFORMIN HCl 500 MG metFORMIN HCl 500 MG No 1{table t_with_ a_meal} QD metFORMIN HCl 500 MG rOPINIRole HCl 1 MG rOPINIRole HCl 1 MG No 1{table t} BID rOPINIRole HCl 1 MG Ozempic (1 MG/DOSE) 4 MG/3ML Ozempic (1 MG/DOSE) 4 MG/3ML No Ozempic (1 MG/DOSE) 4 MG/3ML Ondansetron HCl 8 MG Ondansetron HCl 8 MG No 1{table t_as_ne eded} QD Ondansetro n HCl 8 MG Diclofenac Sodium 75 MG Diclofenac Sodium 75 MG No Diclofenac Sodium 75 MG Vitamin B-12 5000 MCG Vitamin B-12 5000 MCG No Vitamin B-12 5000 MCG PARoxetine HCl 30 MG PARoxetine HCl 30 MG No PARoxetine HCl 30 MG Calcium 600 MG Calcium 600 MG No 1{table t_with_ meals} QD Calcium 600 MG Potassium 99 MG Potassium 99 MG No 1{table t} QD Potassium 99 MG One Daily Multivitami n Men - One Daily Multivitami n Men - No One Daily Multivitam in Men - traZODone HCl 50 MG traZODone HCl 50 MG No traZODone HCl 50 MG rOPINIRole HCl 1 MG rOPINIRole HCl 1 MG No 1{table t} BID rOPINIRole HCl 1 MG Celecoxib 200 MG Celecoxib 200 MG No 1{capsu le_with _food} BID Celecoxib 200 MG Ondansetron HCl 8 MG Ondansetron HCl 8 MG No 1{table t_as_ne eded} QD Ondansetro n HCl 8 MG Metaxalone 800 MG Metaxalone 800 MG No 1{table t} BID Metaxalone 800 MG Omeprazole 40 MG Omeprazole 40 MG No QD Omeprazole 40 MG traZODone HCl 50 MG traZODone HCl 50 MG No traZODone HCl 50 MG Potassium 99 MG Potassium 99 MG No 1{table t} QD Potassium 99 MG Magnesium 250 MG Magnesium 250 MG No 1{table t_with_ a_meal} QD Magnesium 250 MG metFORMIN HCl 500 MG metFORMIN HCl 500 MG No 1{table t_with_ a_meal} QD metFORMIN HCl 500 MG Ozempic (1 MG/DOSE) 4 MG/3ML Ozempic (1 MG/DOSE) 4 MG/3ML No Ozempic (1 MG/DOSE) 4 MG/3ML Diclofenac Sodium 75 MG Diclofenac Sodium 75 MG No Diclofenac Sodium 75 MG Aspirin 81 81 MG Aspirin 81 81 MG No 1{table t} QD Aspirin 81 81 MG Magnesium 250 MG Magnesium 250 MG No 1{table t_with_ a_meal} QD Magnesium 250 MG Aspirin 81 81 MG Aspirin 81 81 MG No 1{table t} QD Aspirin 81 81 MG Vitamin B-12 5000 MCG Vitamin B-12 5000 MCG No Vitamin B-12 5000 MCG PARoxetine HCl 30 MG PARoxetine HCl 30 MG No PARoxetine HCl 30 MG Calcium 600 MG Calcium 600 MG No 1{table t_with_ meals} QD Calcium 600 MG One Daily Multivitami n Men - One Daily Multivitami n Men - No One Daily Multivitam in Men - traZODone HCl 50 MG traZODone HCl 50 MG No traZODone HCl 50 MG metFORMIN HCl 500 MG metFORMIN HCl 500 MG No 1{table t_with_ a_meal} QD metFORMIN HCl 500 MG rOPINIRole HCl 1 MG rOPINIRole HCl 1 MG No 1{table t} BID rOPINIRole HCl 1 MG Celecoxib 200 MG Celecoxib 200 MG No 1{capsu le_with _food} BID Celecoxib 200 MG Ondansetron HCl 8 MG Ondansetron HCl 8 MG No 1{table t_as_ne eded} QD Ondansetro n HCl 8 MG Metaxalone 800 MG Metaxalone 800 MG No 1{table t} BID Metaxalone 800 MG Omeprazole 40 MG Omeprazole 40 MG No QD Omeprazole 40 MG Potassium 99 MG Potassium 99 MG No 1{table t} QD Potassium 99 MG Magnesium 250 MG Magnesium 250 MG No 1{table t_with_ a_meal} QD Magnesium 250 MG metFORMIN HCl 500 MG metFORMIN HCl 500 MG No 1{table t_with_ a_meal} QD metFORMIN HCl 500 MG Ozempic (1 MG/DOSE) 4 MG/3ML Ozempic (1 MG/DOSE) 4 MG/3ML No Ozempic (1 MG/DOSE) 4 MG/3ML Diclofenac Sodium 75 MG Diclofenac Sodium 75 MG No Diclofenac Sodium 75 MG Aspirin 81 81 MG Aspirin 81 81 MG No 1{table t} QD Aspirin 81 81 MG Calcium 600 MG Calcium 600 MG No 1{table t_with_ meals} QD Calcium 600 MG Vitamin B-12 5000 MCG Vitamin B-12 5000 MCG No Vitamin B-12 5000 MCG PARoxetine HCl 30 MG PARoxetine HCl 30 MG No PARoxetine HCl 30 MG Calcium 600 MG Calcium 600 MG No 1{table t_with_ meals} QD Calcium 600 MG One Daily Multivitami n Men - One Daily Multivitami n Men - No One Daily Multivitam in Men - traZODone HCl 50 MG traZODone HCl 50 MG No traZODone HCl 50 MG One Daily Multivitami n Men - One Daily Multivitami n Men - No One Daily Multivitam in Men - rOPINIRole HCl 1 MG rOPINIRole HCl 1 MG No 1{table t} BID rOPINIRole HCl 1 MG Celecoxib 200 MG Celecoxib 200 MG No 1{capsu le_with _food} BID Celecoxib 200 MG Ondansetron HCl 8 MG Ondansetron HCl 8 MG No 1{table t_as_ne eded} QD Ondansetro n HCl 8 MG Metaxalone 800 MG Metaxalone 800 MG No 1{table t} BID Metaxalone 800 MG Omeprazole 40 MG Omeprazole 40 MG No QD Omeprazole 40 MG Potassium 99 MG Potassium 99 MG No 1{table t} QD Potassium 99 MG PARoxetine HCl 30 MG PARoxetine HCl 30 MG No PARoxetine HCl 30 MG Magnesium 250 MG Magnesium 250 MG No 1{table t_with_ a_meal} QD Magnesium 250 MG metFORMIN HCl 500 MG metFORMIN HCl 500 MG No 1{table t_with_ a_meal} QD metFORMIN HCl 500 MG Ozempic (1 MG/DOSE) 4 MG/3ML Ozempic (1 MG/DOSE) 4 MG/3ML No Ozempic (1 MG/DOSE) 4 MG/3ML Diclofenac Sodium 75 MG Diclofenac Sodium 75 MG No Diclofenac Sodium 75 MG Aspirin 81 81 MG Aspirin 81 81 MG No 1{table t} QD Aspirin 81 81 MG Omeprazole 40 MG Omeprazole 40 MG No QD Omeprazole 40 MG Vitamin B-12 5000 MCG Vitamin B-12 5000 MCG No Vitamin B-12 5000 MCG PARoxetine HCl 30 MG PARoxetine HCl 30 MG No PARoxetine HCl 30 MG Calcium 600 MG Calcium 600 MG No 1{table t_with_ meals} QD Calcium 600 MG Vitamin B-12 5000 MCG Vitamin B-12 5000 MCG No Vitamin B-12 5000 MCG One Daily Multivitami n Men - One Daily Multivitami n Men - No One Daily Multivitam in Men - traZODone HCl 50 MG traZODone HCl 50 MG No traZODone HCl 50 MG rOPINIRole HCl 1 MG rOPINIRole HCl 1 MG No 1{table t} BID rOPINIRole HCl 1 MG Celecoxib 200 MG Celecoxib 200 MG No 1{capsu le_with _food} BID Celecoxib 200 MG Ondansetron HCl 8 MG Ondansetron HCl 8 MG No 1{table t_as_ne eded} QD Ondansetro n HCl 8 MG Metaxalone 800 MG Metaxalone 800 MG No 1{table t} BID Metaxalone 800 MG Omeprazole 40 MG Omeprazole 40 MG No QD Omeprazole 40 MG rOPINIRole HCl 1 MG rOPINIRole HCl 1 MG No 1{table t} BID rOPINIRole HCl 1 MG Potassium 99 MG Potassium 99 MG No 1{table t} QD Potassium 99 MG Magnesium 250 MG Magnesium 250 MG No 1{table t_with_ a_meal} QD Magnesium 250 MG metFORMIN HCl 500 MG metFORMIN HCl 500 MG No 1{table t_with_ a_meal} QD metFORMIN HCl 500 MG Ozempic (1 MG/DOSE) 4 MG/3ML Ozempic (1 MG/DOSE) 4 MG/3ML No Ozempic (1 MG/DOSE) 4 MG/3ML Diclofenac Sodium 75 MG Diclofenac Sodium 75 MG No Diclofenac Sodium 75 MG Aspirin 81 81 MG Aspirin 81 81 MG No 1{table t} QD Aspirin 81 81 MG Ondansetron HCl 8 MG Ondansetron HCl 8 MG No 1{table t_as_ne eded} QD Ondansetro n HCl 8 MG Vitamin B-12 5000 MCG Vitamin B-12 5000 MCG No Vitamin B-12 5000 MCG PARoxetine HCl 30 MG PARoxetine HCl 30 MG No PARoxetine HCl 30 MG Calcium 600 MG Calcium 600 MG No 1{table t_with_ meals} QD Calcium 600 MG One Daily Multivitami n Men - One Daily Multivitami n Men - No One Daily Multivitam in Men - traZODone HCl 50 MG traZODone HCl 50 MG No traZODone HCl 50 MG rOPINIRole HCl 1 MG rOPINIRole HCl 1 MG No 1{table t} BID rOPINIRole HCl 1 MG Celecoxib 200 MG Celecoxib 200 MG No 1{capsu le_with _food} BID Celecoxib 200 MG Ondansetron HCl 8 MG Ondansetron HCl 8 MG No 1{table t_as_ne eded} QD Ondansetro n HCl 8 MG Metaxalone 800 MG Metaxalone 800 MG No 1{table t} BID Metaxalone 800 MG Omeprazole 40 MG Omeprazole 40 MG No QD Omeprazole 40 MG Potassium 99 MG Potassium 99 MG No 1{table t} QD Potassium 99 MG Magnesium 250 MG Magnesium 250 MG No 1{table t_with_ a_meal} QD Magnesium 250 MG metFORMIN HCl 500 MG metFORMIN HCl 500 MG No 1{table t_with_ a_meal} QD metFORMIN HCl 500 MG Ozempic (1 MG/DOSE) 4 MG/3ML Ozempic (1 MG/DOSE) 4 MG/3ML No Ozempic (1 MG/DOSE) 4 MG/3ML Diclofenac Sodium 75 MG Diclofenac Sodium 75 MG No Diclofenac Sodium 75 MG Aspirin 81 81 MG Aspirin 81 81 MG No 1{table t} QD Aspirin 81 81 MG Celecoxib 200 MG Celecoxib 200 MG No 1{capsu le_with _food} BID Celecoxib 200 MG Vitamin B-12 5000 MCG Vitamin B-12 5000 MCG No Vitamin B-12 5000 MCG PARoxetine HCl 30 MG PARoxetine HCl 30 MG No PARoxetine HCl 30 MG Calcium 600 MG Calcium 600 MG No 1{table t_with_ meals} QD Calcium 600 MG One Daily Multivitami n Men - One Daily Multivitami n Men - No One Daily Multivitam in Men - traZODone HCl 50 MG traZODone HCl 50 MG No traZODone HCl 50 MG rOPINIRole HCl 1 MG rOPINIRole HCl 1 MG No 1{table t} BID rOPINIRole HCl 1 MG Celecoxib 200 MG Celecoxib 200 MG No 1{capsu le_with _food} BID Celecoxib 200 MG Ondansetron HCl 8 MG Ondansetron HCl 8 MG No 1{table t_as_ne eded} QD Ondansetro n HCl 8 MG Metaxalone 800 MG Metaxalone 800 MG No 1{table t} BID Metaxalone 800 MG Omeprazole 40 MG Omeprazole 40 MG No QD Omeprazole 40 MG Potassium 99 MG Potassium 99 MG No 1{table t} QD Potassium 99 MG Magnesium 250 MG Magnesium 250 MG No 1{table t_with_ a_meal} QD Magnesium 250 MG metFORMIN HCl 500 MG metFORMIN HCl 500 MG No 1{table t_with_ a_meal} QD metFORMIN HCl 500 MG Ozempic (1 MG/DOSE) 4 MG/3ML Ozempic (1 MG/DOSE) 4 MG/3ML No Ozempic (1 MG/DOSE) 4 MG/3ML Diclofenac Sodium 75 MG Diclofenac Sodium 75 MG No Diclofenac Sodium 75 MG Aspirin 81 81 MG Aspirin 81 81 MG No 1{table t} QD Aspirin 81 81 MG Vitamin B-12 5000 MCG Vitamin B-12 5000 MCG No Vitamin B-12 5000 MCG PARoxetine HCl 30 MG PARoxetine HCl 30 MG No PARoxetine HCl 30 MG Calcium 600 MG Calcium 600 MG No 1{table t_with_ meals} QD Calcium 600 MG One Daily Multivitami n Men - One Daily Multivitami n Men - No One Daily Multivitam in Men - traZODone HCl 50 MG traZODone HCl 50 MG No traZODone HCl 50 MG rOPINIRole HCl 1 MG rOPINIRole HCl 1 MG No 1{table t} BID rOPINIRole HCl 1 MG Celecoxib 200 MG Celecoxib 200 MG No 1{capsu le_with _food} BID Celecoxib 200 MG Ondansetron HCl 8 MG Ondansetron HCl 8 MG No 1{table t_as_ne eded} QD Ondansetro n HCl 8 MG Metaxalone 800 MG Metaxalone 800 MG No 1{table t} BID Metaxalone 800 MG Omeprazole 40 MG Omeprazole 40 MG No QD Omeprazole 40 MG Potassium 99 MG Potassium 99 MG No 1{table t} QD Potassium 99 MG Magnesium 250 MG Magnesium 250 MG No 1{table t_with_ a_meal} QD Magnesium 250 MG metFORMIN HCl 500 MG metFORMIN HCl 500 MG No 1{table t_with_ a_meal} QD metFORMIN HCl 500 MG Ozempic (1 MG/DOSE) 4 MG/3ML Ozempic (1 MG/DOSE) 4 MG/3ML No Ozempic (1 MG/DOSE) 4 MG/3ML Diclofenac Sodium 75 MG Diclofenac Sodium 75 MG No Diclofenac Sodium 75 MG Aspirin 81 81 MG Aspirin 81 81 MG No 1{table t} QD Aspirin 81 81 MG Vitamin B-12 5000 MCG Vitamin B-12 5000 MCG No Vitamin B-12 5000 MCG PARoxetine HCl 30 MG PARoxetine HCl 30 MG No PARoxetine HCl 30 MG Calcium 600 MG Calcium 600 MG No 1{table t_with_ meals} QD Calcium 600 MG Vital Signs Vital Name Observation Time Observation Value Comments S forrest height 2023-05-25 13:30:00 73 [in_i] Commo n [facility] weight 2023-05-25 13:30:00 280 [lb_av] Comm on [facility] temperature 2023-05-25 13:30:00 98.0 [degF] Com [facility] bmi 2023-05-25 13:30:00 36.94 kg/m2 Comm on [facility] blood pressure systolic 2023-05-25 13:30:00 132 mm[Hg] [facility] blood pressure diastolic 2023-05-25 13:30:00 74 mm[Hg] [facility] BMI (Body Mass Index) 2023-04-20 00:00:00 38 kg/m2 [facility] Body Weight 2023-04-20 00:00:00 280 [lb_av] [facility] Height 2023-04-20 00:00:00 72 [in_i] [facility] height 2023-04-13 11:00:00 73 [in_i] Comm n [facility] weight 2023-04-13 11:00:00 280 [lb_av] Comm on [facility] temperature 2023-04-13 11:00:00 98.4 [degF] [facility] bmi 2023-04-13 11:00:00 36.94 kg/m2 Comm on [facility] blood pressure systolic 2023-04-13 11:00:00 134 mm[Hg] [facility] blood pressure diastolic 2023-04-13 11:00:00 82 mm[Hg] Common [facility] height 2023-03-14 15:45:00 73 [in_i] Commo n [facility] weight 2023-03-14 15:45:00 281 [lb_av] Comm on [facility] bmi 2023-03-14 15:45:00 37.07 kg/m2 Comm on [facility] blood pressure systolic 2023-03-14 15:45:00 131 mm[Hg] [facility] blood pressure diastolic 2023-03-14 15:45:00 79 mm[Hg] [facility] height 2023-02-28 08:30:00 73 [in_i] Commo n [facility] weight 2023-02-28 08:30:00 281 [lb_av] Comm on [facility] bmi 2023-02-28 08:30:00 37.07 kg/m2 Comm on [facility] blood pressure systolic 2023-02-28 08:30:00 127 mm[Hg] [facility] blood pressure diastolic 2023-02-28 08:30:00 74 mm[Hg] [facility] height 2023-02-07 15:15:00 73 [in_i] Commo n [facility] weight 2023-02-07 15:15:00 281 [lb_av] Comm on [facility] temperature 2023-02-07 15:15:00 97.8 [degF] Com mon [facility] bmi 2023-02-07 15:15:00 37.07 kg/m2 Comm on [facility] blood pressure systolic 2023-02-07 15:15:00 124 mm[Hg] [facility] blood pressure diastolic 2023-02-07 15:15:00 83 mm[Hg] [facility] height 2023-01-16 13:30:00 73 [in_i] Commo n [facility] weight 2023-01-16 13:30:00 281 [lb_av] Comm on [facility] temperature 2023-01-16 13:30:00 98.3 [degF] Com [facility] bmi 2023-01-16 13:30:00 37.07 kg/m2 Comm on [facility] blood pressure systolic 2023-01-16 13:30:00 112 mm[Hg] [facility] blood pressure diastolic 2023-01-16 13:30:00 69 mm[Hg] [facility] height 2023-01-09 09:30:00 73 [in_i] Commo n [facility] weight 2023-01-09 09:30:00 294 [lb_av] Comm on [facility] bmi 2023-01-09 09:30:00 38.78 kg/m2 Comm on [facility] blood pressure systolic 2023-01-09 09:30:00 121 mm[Hg] [facility] blood pressure diastolic 2023-01-09 09:30:00 74 mm[Hg] [facility] height 2022-12-15 13:45:00 73 [in_i] Commo n [facility] weight 2022-12-15 13:45:00 294 [lb_av] Comm on [facility] temperature 2022-12-15 13:45:00 98.1 [degF] Com [facility] bmi 2022-12-15 13:45:00 38.78 kg/m2 Comm on [facility] blood pressure systolic 2022-12-15 13:45:00 136 mm[Hg] [facility] blood pressure diastolic 2022-12-15 13:45:00 84 mm[Hg] [facility] height 2022-12-01 09:00:00 73 [in_i] Commo n [facility] weight 2022-12-01 09:00:00 285 [lb_av] Comm on [facility] temperature 2022-12-01 09:00:00 98.4 [degF] Com [facility] bmi 2022-12-01 09:00:00 37.6 kg/m2 Commo n [facility] blood pressure systolic 2022-12-01 09:00:00 129 mm[Hg] Common [facility] blood pressure diastolic 2022-12-01 09:00:00 76 mm[Hg] [facility] height 2022-11-09 08:30:00 73 [in_i] Commo n [facility] weight 2022-11-09 08:30:00 285 [lb_av] Comm on [facility] temperature 2022-11-09 08:30:00 97.1 [degF] Com [facility] bmi 2022-11-09 08:30:00 37.6 kg/m2 Commo n [facility] blood pressure systolic 2022-11-09 08:30:00 132 mm[Hg] [facility] blood pressure diastolic 2022-11-09 08:30:00 82 mm[Hg] [facility] height 2022-10-05 13:30:00 73 [in_i] Commo n [facility] weight 2022-10-05 13:30:00 285 [lb_av] Comm on [facility] temperature 2022-10-05 13:30:00 98.0 [degF] Com [facility] bmi 2022-10-05 13:30:00 37.6 kg/m2 Commo n [facility] blood pressure systolic 2022-10-05 13:30:00 134 mm[Hg] [facility] blood pressure diastolic 2022-10-05 13:30:00 82 mm[Hg] [facility] height 2022-09-16 10:40:00 73 [in_i] Commo n [facility] weight 2022-09-16 10:40:00 285.4 [lb_av] Co mmon [facility] temperature 2022-09-16 10:40:00 97.2 [degF] Com [facility] bmi 2022-09-16 10:40:00 37.65 kg/m2 Comm on [facility] oximetry 2022-09-16 10:40:00 96 % Commo n [facility] respiratory rate 2022-09-16 10:40:00 16 /min Common [facility] blood pressure systolic 2022-09-16 10:40:00 132 mm[Hg] Common [facility] blood pressure diastolic 2022-09-16 10:40:00 81 mm[Hg] Common [facility] temperature 2022-07-22 09:00:00 98.0 [degF] Com [facility] bmi 2022-07-22 09:00:00 38.65 kg/m2 Comm on [facility] blood pressure systolic 2022-07-22 09:00:00 134 mm[Hg] Common [facility] blood pressure diastolic 2022-07-22 09:00:00 80 mm[Hg] Common [facility] height 2022-07-22 09:00:00 73 [in_i] Commo n [facility] weight 2022-07-22 09:00:00 293 [lb_av] Comm on [facility] height 2022-06-17 11:00:00 73 [in_i] Commo n [facility] weight 2022-06-17 11:00:00 296.0 [lb_av] Co mmon [facility] temperature 2022-06-17 11:00:00 98.2 [degF] Com [facility] bmi 2022-06-17 11:00:00 39.05 kg/m2 Comm on [facility] oximetry 2022-06-17 11:00:00 95 % Commo n [facility] respiratory rate 2022-06-17 11:00:00 16 /min Common [facility] blood pressure systolic 2022-06-17 11:00:00 136 mm[Hg] [facility] blood pressure diastolic 2022-06-17 11:00:00 78 mm[Hg] [facility] Height 2022-04-07 00:00:00 72 [in_i] [facility] BMI (Body Mass Index) 2022-04-07 00:00:00 38 kg/m2 [facility] Body Weight 2022-04-07 00:00:00 280 [lb_av] [facility] Procedures Procedure Date / Time Performed Performing Clinician Source RADEX SPI CRV MINIMUM 4 VIEWS 2023-04-20 00:00:00 [facility] MRI CERVICAL SPINE W/O CONTRAST 2022-04-07 00:00:00 [facility] electromyogram + nerve conduction study 2022-04-07 00:00:00 [facility] [id number] 2021-05-18 00:00:00 [facility] Colonoscopy 2018-09-19 00:00:00 [facility] Plan of Care Planned Activity Planned Date Details Comments Source Instructions [facility] Encounters Start Date/Time End Date/Time Encounter Type Admission Type Attending Clinicians Care Facility Care Department Encounter ID Source 2022-12-01 09:04:00 Outpatient July Gonzalez [facility] [id number] [facility] 2022-11-09 14:49[facility]01 [facility] [id number] [facility] 2022-11-03 13:34[facility]00 [facility] [id number] [facility] 2022-07-25 10:01:02 Outpatient July Gonzalez [facility] [id number] [facility] 2022-07-22 11:46:08 Outpatient July Gonzalez [facility] [id number] [facility] 2022-07-01 08:21:02 Outpatient July Gonzalez [facility] [id number] [facility] 2022-06-17 11:07:03 Outpatient July Gonzalez [facility] [id number] [facility] 2021-05-07 14:00:00 Inpatient Ricky Vance [facility]AT[facility] ADMI [id number] [facility] 2023-05-25 00:00:00 2023-05-25 00:00:00 [facility] [id number] 2023-05-03 00:00:00 2023-05-03 00:00:00 (TEL) [facility] [id number] [facility] 2023-04-20 00:00:00 2023-04-20 00:00:00 Outpatient TRICIA_Melissa_ Ricky_ AO AO [id number] [facility] 2023-04-20 00:00:00 2023-04-20 00:00:00 Kevin Villagomez MD: [address] [place] [phone] , Ph. [phone] [place] [facility] [place] [facility] [id number] [facility] 2023-04-13 00:00:00 2023-04-13 00:00:00 (PO) Post Op [facility] [id number] [facility] 2023-03-29 00:00:00 2023-03-29 00:00:00 (TEL) [facility] [id number] [facility] 2023-03-14 00:00:00 2023-03-14 00:00:00 (TEL) [facility] [id number] [facility] 2023-03-14 00:00:00 2023-03-14 00:00:00 NON-BILLAB LE VISIT STLMLC STLMLC [id number] [facility] 2023-03-06 00:00:00 2023-03-06 00:00:00 (TEL) STLMLC STLMLC [id number] [facility] 2023-02-28 00:00:00 2023-02-28 00:00:00 NON-BILLAB LE VISIT STLMLC STLMLC [id number] [facility] 2023-02-17 00:00:00 2023-02-17 00:00:00 (TEL) STLMLC STLMLC [id number] [facility] 2023-02-15 00:00:00 2023-02-15 00:00:00 (TEL) STLMLC STLMLC [id number] [facility] 2023-02-13 00:00:00 2023-02-13 00:00:00 (TEL) STLMLC STLMLC [id number] [facility] 2023-02-07 00:00:00 2023-02-07 00:00:00 (F/U) Follow Up Visit STLMLC STLMLC [id number] [facility] 2023-01-17 00:00:00 2023-01-17 00:00:00 (TEL) STLMLC STLMLC [id number] [facility] 2023-01-16 00:00:00 2023-01-16 00:00:00 OFFICE VISIT ESTAB PT LEVEL 4 STLMLC STLMLC [id number] [facility] 2023-01-09 00:00:00 2023-01-09 00:00:00 NON-BILLAB LE VISIT STLMLC STLMLC [id number] [facility] 2022-12-27 00:00:00 2022-12-27 00:00:00 (TEL) STLMLC STLMLC [id number] [facility] 2022-12-19 00:00:00 2022-12-19 00:00:00 (TEL) STLMLC STLMLC [id number] [facility] 2022-12-15 00:00:00 2022-12-15 00:00:00 NON-BILLAB LE VISIT STLMLC STLMLC [id number] [facility] 2022-12-01 00:00:00 2022-12-01 00:00:00 NON-BILLAB LE VISIT STLMLC STLMLC [id number] [facility] 2022-11-22 00:00:00 2022-11-22 00:00:00 (TEL) STLMLC STLMLC [id number] [facility] 2022-11-09 00:00:00 2022-11-09 00:00:00 OFFICE VISIT ESTAB PT LEVEL 4 STLMLC STLMLC [id number] [facility] 2022-10-24 00:00:00 2022-10-24 00:00:00 (TEL) STLMLC STLMLC [id number] [facility] 2022-10-11 00:00:00 2022-10-11 00:00:00 (TEL) STLMLC STLMLC [id number] [facility] 2022-10-11 00:00:00 2022-10-11 00:00:00 (TEL) STLMLC STLMLC [id number] [facility] 2022-10-05 00:00:00 2022-10-05 00:00:00 OFFICE VISIT ESTAB PT LEVEL 4 STLMLC STLMLC [id number] [facility] 2022-10-04 00:00:00 2022-10-04 00:00:00 (TEL) STLMLC STLMLC [id number] [facility] 2022-09-16 00:00:00 2022-09-16 00:00:00 OFFICE VISIT ESTAB PT LEVEL 4 STLMLC STLMLC [id number] [facility] 2022-07-22 00:00:00 2022-07-22 00:00:00 OFFICE VISIT ESTAB PT LEVEL 4 STLMLC STLMLC [id number] [facility] 2022-06-17 00:00:00 2022-06-17 00:00:00 OFFICE VISIT NEW PT LEVEL 4 STLMLC STLMLC [id number] [facility] 2022-04-08 00:00:00 2022-04-08 00:00:00 Outpatient FOG_Goytia_ Robin_MD AOSM AOSM [id number] [facility] 2022-04-08 00:00:00 2022-04-08 00:00:00 Outpatient FOG_Goytia_ Robin_MD AOSM AOSM [id number] [facility] 2022-04-08 00:00:00 2022-04-08 00:00:00 Outpatient FOG_Goytia_ Robin_MD AOSM AOSM [id number] [facility] 2022-04-07 00:00:00 2022-04-07 00:00:00 Outpatient FOG_Goytia_ Robin_MD AOSM AOSM [id number] [facility] 2022-04-07 00:00:00 2022-04-07 00:00:00 Kevin Villagomez MD: [address] [place] [phone] , Ph. [phone] [facility]OSM [facility] - [facility] [place] [facility] [id number] [facility] 2021-10-01 03:15:00 2021-10-01 03:15:00 Outpatient FOG_Goytia_ Robin_MD AOSM AOSM [id number] [facility] 2021-10-01 00:00:00 2021-10-01 00:00:00 Outpatient FOG_Goytia_ Robin_MD AOSM AOSM [id number] [facility] 2021-10-01 00:00:00 2021-10-01 00:00:00 Outpatient FOG_Goytia_ Robin_MD AOSM AOSM [id number] [facility] 2021-05-18 07:44:00 2021-05-19 12:18:00 Inpatient Ricky Vance ADMI [id number] [facility] 2021-05-18 07:44:00 2021-05-19 12:18:00 Inpatient Ricky Vance ADMI [id number] [facility] 2021-05-07 18:12:00 2021-05-07 18:12:00 Outpatient Ricky TorresCL LABO [id number] 43 [facility] Results Test Description Test Time Test Comments Results Result Co mments Source HEMOGLOBIN [id number] 00:00:00* Test Item Value Reference Range Interpretation Comme nts HEMOGLOBIN A1c (test code = 4548-4) 5.2 % of total Hgb See_Comment N [Automated message] The system which generated this result transmitted reference range: <5.7 % of total Hgb. The reference range was not used to interpret this result as normal/abnormal. CBC (INCLUDES DIFF/PLT)2022-09-23 00:00:00* Test Item Value Reference Range Interpretation Comme nts ABSOLUTE BASOPHILS (test code = 704-7) 29 cells/uL See_Comment N [Automated m essage] The system which generated this result transmitted reference range: 0-200 cells/uL. The reference range was not used to interpret this result as normal/abnormal. ABSOLUTE EOSINOPHILS (test code = 711-2) 182 cells/uL See_Comment N [Automated m essage] The system which generated this result transmitted reference range: 15-500 cells/uL. The reference range was not used to interpret this result as normal/abnormal. ABSOLUTE LYMPHOCYTES (test code = 731-0) 1226 cells/uL See_Comment N [Automated m essage] The system which generated this result transmitted reference range: 850-3900 cells/uL. The reference range was not used to interpret this result as normal/abnormal. ABSOLUTE MONOCYTES (test code = 742-7) 393 cells/uL See_Comment N [Automated m essage] The system which generated this result transmitted reference range: 200-950 cells/uL. The reference range was not used to interpret this result as normal/abnormal. ABSOLUTE NEUTROPHILS (test code = 751-8) 3870 cells/uL See_Comment N [Automated m essage] The system which generated this result transmitted reference range: 9199-8526 cells/uL. The reference range was not used to interpret this result as normal/abnormal. BASOPHILS (test code = 706-2) 0.5 % N EOSINOPHILS (test code = 713-8) 3.2 % N HEMATOCRIT (test code = 4544-3) 42.9 % See_Comment N [Automated messa ge] The system which generated this result transmitted reference range: 38.5-50.0 %. The reference range was not used to interpret this result as normal/abnormal. HEMOGLOBIN (test code = 718-7) 14.9 g/dL See_Comment N [Automated messa ge] The system which generated this result transmitted reference range: 13.2-17.1 g/dL. The reference range was not used to interpret this result as normal/abnormal. LYMPHOCYTES (test code = 736-9) 21.5 % N MCH (test code = 785-6) 31.6 pg See_Comment N [Automated messa ge] The system which generated this result transmitted reference range: 27.0-33.0 pg. The reference range was not used to interpret this result as normal/abnormal. MCHC (test code = 786-4) 34.7 g/dL See_Comment N [Automated messa ge] The system which generated this result transmitted reference range: 32.0-36.0 g/dL. The reference range was not used to interpret this result as normal/abnormal. MCV (test code = 787-2) 90.9 fL See_Comment N [Automated messa ge] The system which generated this result transmitted reference range: 80.0-100.0 fL. The reference range was not used to interpret this result as normal/abnormal. MONOCYTES (test code = 5905-5) 6.9 % N MPV (test code = 776-5) 11.4 fL See_Comment N [Automated messa ge] The system which generated this result transmitted reference range: 7.5-12.5 fL. The reference range was not used to interpret this result as normal/abnormal. NEUTROPHILS (test code = 770-8) 67.9 % N PLATELET COUNT (test code = 777-3) 209 Thousand/uL See_Comment N [Automated message] The system which generated this result transmitted reference range: 140-400 Thousand/uL. The reference range was not used to interpret this result as normal/abnormal. RDW (test code = 788-0) 13.1 % See_Comment N [Automated messa ge] The system which generated this result transmitted reference range: 11.0-15.0 %. The reference range was not used to interpret this result as normal/abnormal. RED BLOOD CELL COUNT (test code = 789-8) 4.72 Million/uL See_Comment N [Automated message] The system which generated this result transmitted reference range: 4.20-5.80 Million/uL. The reference range was not used to interpret this result as normal/abnormal. WHITE BLOOD CELL COUNT (test code = 6690-2) 5.7 Thousand/uL See_Comment N [Automated message] The system which generated this result transmitted reference range: 3.8-10.8 Thousand/uL. The reference range was not used to interpret this result as normal/abnormal. MICROALBUMIN, RANDOM URINE (W/CREATININE)2022-09-23 00:00:00* Test Item Value Reference Range Interpretation Comme nts CREATININE, RANDOM URINE (test code = 2161-8) 201 mg/dL See_Comment N [Automated messa ge] The system which generated this result transmitted reference range: 20-320 mg/dL. The reference range was not used to interpret this result as normal/abnormal. ALBUMIN, URINE (test code = 66987-5) 1.4 mg/dL See Note: mg/dL N ALBUMIN/CREATININ E RATIO, RANDOM URINE (test code = 9318-7) 7 mcg/mg creat See_Comment N [Automated messa ge] The system which generated this result transmitted reference range: <30 mcg/mg creat. The reference range was not used to interpret this result as normal/abnormal. LIPID [id number] 00:00:00* Test Item Value Reference Range Interpretation Comme nts CHOL/HDLC RATIO (test code = 9830-1) 4.3 (calc) See_Comment N [Automated messa ge] The system which generated this result transmitted reference range: <5.0 (calc). The reference range was not used to interpret this result as normal/abnormal. CHOLESTEROL, TOTAL (test code = 2093-3) 167 mg/dL See_Comment N [Automated message] The system which generated this result transmitted reference range: <200 mg/dL. The reference range was not used to interpret this result as normal/abnormal. HDL CHOLESTEROL (test code = 2085-9) 39 mg/dL See_Comment L [Automated MetaJurea Tail] The system which generated this result transmitted reference range: > OR = 40 mg/dL. The reference range was not used to interpret this result as normal/abnormal. LDL-CHOLESTEROL (test code = 16355-0) 111 mg/dL (calc) H NON HDL CHOLESTEROL (test code = 20587-8) 128 mg/dL (calc) See_Comment N [Automated message] The system which generated this result transmitted reference range: <130 mg/dL (calc). The reference range was not used to interpret this result as normal/abnormal. TRIGLYCERIDES (test code = 2571-8) 79 mg/dL See_Comment N [Automated MetaJurea ge] The system which generated this result transmitted reference range: <150 mg/dL. The reference range was not used to interpret this result as normal/abnormal. [id number] 00:00:00* Test Item Value Reference Range Interpretation Comme nts TSH (test code = 3016-3) 0.29 mIU/L See_Comment L [Automated MetaJurea Tail] The system which generated this result transmitted reference range: 0.40-4.50 mIU/L. The reference range was not used to interpret this result as normal/abnormal. - XR PELVIS /2 [id number] 07:25:00 [facility] 1970 Sex: M Patient Name: BRANDON SWEENEY Unit No: [id number] EXAMS: CPT CODE: [id number] XR PELVIS 1/2 VIEWS 63772 INTRAOPERATIVE LEG LENGTH FILM COMMENT: COMPARISON: No prior exams available. In progress right hip replacement is noted. INTRAOPERATIVE LEG LENGTH FILM COMMENT: COMPARISON: No prior examsavailable. In progress right hip replacement is noted. AP portable right hip COMMENT: The patient is status post joint replacement which is articulating normally. at 0725 Reported and signed by: Jonathan Park MD CC: Ricky Torres Technologist: ALEXIS ANNA. RT(R) Transcribed D/ (0725) tMARISELAL [facility] NAME: BRANDON SWEENEY [address] [facility] PHYS: Ricky Rizzo MD : 1970 AGE: 50 SEX: M [place], [place] [address] LOC: Y.315 A PHONE #: [phone] EXAMDATE: 05/18/2021 STATUS: ADM IN FAX #: [phone] RAD #: D/C DT PAGE 1 Signed Report Patient Name: BRANDON SWEENEY Unit No: [id number] EXAMS: CPT CODE: [id number] XR PELVIS 1/2 VIEWS 99287 (Continued) Orig Print D/T: S: 05/19/2021 (0856) [facility] NAME: BRANDON SWEENEY[address] [facility] PHYS: Ricky Rizzo MD : 1970 AGE: 50 SEX: M [place], [place] [address] LOC: Y.315 A PHONE #: [phone] EXAM DATE: 05/18/2021 STATUS: ADM IN FAX #: [phone] RAD #: D/C DT PAGE 2 Signed Report- XR PELVIS 1/2 [id number] 07:25:00 [facility] : 1970 Sex: M Patient Name: BRANDON SWEENEY Unit No: [id number] EXAMS: CPT CODE: [id number] XR PELVIS 1/2 VIEWS 04376 INTRAOPERATIVE LEG LENGTH FILM COMMENT: COMPARISON: No prior exams available. In progress right hip replacement is noted. INTRAOPERATIVE LEG LENGTH FILM COMMENT: COMPARISON: No prior examsavailable. In progress right hip replacement is noted. AP portable right hip COMMENT: The patient is status post joint replacement which is articulating normally. at 0725 Reported and signed by: Jonathan Park MD CC: Ricky Torres Technologist: ALEXIS ANNA. RT(R) Transcribed D/ (0725) ValerieJCL [facility] NAME: BRANDON SWEENEY [address] [facility] PHYS: Ricky Rizzo MD : 1970 AGE: 50 SEX: M [place], [place] [address] LOC: Y.315 A PHONE #: [phone] EXAM DATE: 05/18/2021 STATUS: ADM IN FAX #: [phone] RAD #: D/C DT PAGE 1 Signed Report Patient Name: BRANDON SWEENEY Unit No: [id number] EXAMS: CPT CODE: [id number] XR PELVIS 1/2 VIEWS 67803 (Continued) Orig Print D/T: S: 05/19/2021 (0856) [facility] NAME: BRANDON SWEENEY [address] [facility] PHYS: Ricky Rizzo MD : 1970 AGE: 50 SEX: M [place], [place] [address] LOC: Y.315 A PHONE #: [phone] EXAM DATE: 05/18/2021 STATUS: ADM IN FAX #: [phone] RAD #: D/C DT PAGE 2 Signed Report- XR PELVIS 1/2 [id number] 07:25:00 [facility] : 1970 Sex: M Patient Name: BRANDON SWEENEY Unit No: [id number] EXAMS: CPT CODE: [id number] XR PELVIS 1/2 VIEWS 36543 INTRAOPERATIVE LEG LENGTH FILM COMMENT: COMPARISON: No prior exams available. In progress right hip replacement is noted. INTRAOPERATIVE LEG LENGTH FILM COMMENT: COMPARISON: No prior examsavailable. In progress right hip replacement is noted. AP portable right hip COMMENT: The patient is status post joint replacement which is articulating normally. at 0725 Reported and signed by: Jonathan Park MD CC: Ricky Torres Technologist: IVAN HUDSON RT(R) Transcribed D/ (0725) tCHITRA [facility] NAME: BRANDON SWEENEY [address] [facility] PHYS: Ricky Rizoz MD : 1970 AGE: 50 SEX: M [place], [place] [address] LOC: Y.315 A PHONE #: [phone] EXAM DATE: 05/18/2021 STATUS: ADM IN FAX #: [phone] RAD #: D/C DT PAGE 1 Signed Report PatientName: BRANDON SWEENEY Unit No: [id number] EXAMS: CPT CODE: [id number] XR PELVIS 1/2 VIEWS 55422 (Continued) Orig Print D/T: S: 05/19/2021 (0856) [facility] NAME: BRANDON SWEENEY [address] [facility] PHYS: Ricky Rizzo MD : 1970 AGE: 50 SEX: Angelica Dasilva, [place] LOC: Y.315 A PHONE #: [phone] EXAM DATE: 05/18/2021 STATUS: ADM IN FAX #: [phone] RAD #: D/C DT PAGE 2 Signed ReportBASIC METABOLIC [id number] 06:46:00* Test Item Value Reference Range Interpretation Comme nts SODIUM (test code = NA) 141 mmol/L 136-145 N POTASSIUM (test code = K) 4.6 mmol/L 3.5-5.1 N CHLORIDE (test code = CL) 104.0 mmol/L 98-107 N CARBON DIOXIDE (test code = CO2) 27.6 mmol/L 21-32 N GLUCOSE (test code = GLU) 95 mg/dL 70-110 N BLOOD UREA NITROGEN (test code = BUN) 15 mg/dL 7-18 N GLOMERULAR FILTRATION RATE (test code = GFR) 66.9 >60 Unit of m easure: mL/min/1.73 [id number] Range:Healthy Adults >90 mL/min/1.73 m2 For Chronic Kidney Disease: Stage II Mild Decrease in GFR 60-90 Stage III Moderate Decrease in GFR 30-59 Stage IV Severe Decrease in GFR 15-29 Stage V Kidney Failure <15 CREATININE (test code = CREAT) 1.16 mg/dL 0.55-1.30 N CALCIUM (test code = CA) 8.4 mg/dL 8.2-10.1 N HGB [id number] 06:04:00* Test Item Value Reference Range Interpretation Comme nts HEMOGLOBIN (test code = HGB) 12.1 g/dL 12-16 N HEMATOCRIT (test code = HCT) 36.1 % 37-47 L SPECIMEN COMMENT: POD #[id number] 08:39:00* Test Item Value Reference Range Interpretation Comme nts [id number] (test code = YZELY64Vvatvofy) Negative Negative The test was pe rformed at: [facility] [place] 2[place] TESTING SITENote: this entry is for TRACKING purposes only and the testwas done outside [facility] Healthcare, the perfroming entitiy isfound in specimen comments. The test was performed at: [facility] [place]NOTE 2] TESTING SITEon: 05/11/21Patient's account number fromtransferring facility: [id number] patient's current lab results are: NegativePROTHROMBIN [id number] 17:18:00* Test Item Value Reference Range Interpretation Comme nts PROTHROMBIN TIME PATIENT (test code = PTP) 11.7 secs 10.1-12.5 N INTERNATIONAL NORMAL RATIO (test code = INR) 1.03 <2.0 RECOMMENDED THER APEUTIC RANGE FOR ORAL ANTICOAGULANTTREATMENT: CONDITION INRProphylaxis of venous thrombosis in 2.0 - 3.0 high-risk medical or surgical patientsTreatment of venous thrombosis 2.0 - 3.0Prevention of embolism 2.0 - 3.0Prevention of recurrent embolism, or 3.0 - 4.5 patients with mechanical prosthetic intravascular valves IS PATIENT ON ANTICOAGULANTS ? YLIST ANTICOAGULANT/ANTI PLT MEDICATION : AspirinHas Lab been notified if Patient is on Heparin Drip? NOIf Yes, order CBC, OCCULT BLOOD, PT every other day NTHROMBOPLASTIN TIME [id number] 17:18:00 * Test Item Value Reference Range Interpretation Comme nts PTT ACTIVATED (test code = APTT) 40.1 secs 24.9-37.0 HH VERIFIED BY REPE AT ANALYSIS.CRITICAL VALUE CALLED TO KEVIN GRANADOS BACK & CONFIRMED? RHIANNA MontoyaAEG 05/07/21 1718 IS PATIENT ON ANTICOAGULANTS ? YLIST ANTICOAGULANT/ANTI PLT MEDICATION : AspirinHas Lab been notified if Patient is on Heparin Drip? NOIf Yes, order CBC, OCCULT BLOOD, PT every other day NCOMPREHENSIVE METABOLIC [id number] 17:08:00* Test Item Value Reference Range Interpretation Comme nts SODIUM (test code = NA) 140 mmol/L 136-145 N POTASSIUM (test code = K) 4.6 mmol/L 3.5-5.1 N CHLORIDE (test code = CL) 104.0 mmol/L 98-107 N CARBON DIOXIDE (test code = CO2) 27.5 mmol/L 21-32 N GLUCOSE (test code = GLU) 114 mg/dL 70-110 H BLOOD UREA NITROGEN (test code = BUN) 15 mg/dL 7-18 N GLOMERULAR FILTRATION RATE (test code = GFR) 66.9 >60 Unit of m easure: mL/min/1.73 [id number] Range:Healthy Adults >90 mL/min/1.73 m2 For Chronic Kidney Disease: Stage II Mild Decrease in GFR 60-90 Stage III Moderate Decrease in GFR 30-59 Stage IV Severe Decrease in GFR 15-29 Stage V Kidney Failure <15 CREATININE (test code = CREAT) 1.16 mg/dL 0.55-1.30 N TOTAL PROTEIN (test code = PROT) 6.9 g/dL 6.4-8.2 N ALBUMIN (test code = ALB) 3.6 g/dL 3.4-5.0 N GLOBULIN (test code = GLOB) 3.3 g/dL 2.2-4.2 N ALBUMIN/GLOBULIN RATIO (test code = A/G) 1.1 0.7-2.0 N CALCIUM (test code = CA) 8.4 mg/dL 8.2-10.1 N BILIRUBIN TOTAL (test code = BILT) 0.40 mg/dL 0.2-1.00 N SGOT/AST (test code = AST) 16.0 U/L 15-37 N SGPT/ALT (test code = ALT) 28.0 U/L 12-78 N Please note new normal range. ALKALINE PHOSPHATASE TOTAL (test code = ALKP) 115 U/L 46-116 N CBC W/AUTO [id number] 17:07:00* Test Item Value Reference Range Interpretation Comme nts WHITE BLOOD CELL (test code = WBC) [...] 27-34 N MEAN CELL HGB CONCENTRATION (test code = MCHC) 34.8 g/dL 30.8-34.1 H RED CELL DISTRIBUTION WIDTH (test code = RDW) 12.6 % 11-16 N PLT (test code = PLT) 269 K/mm3 130-400 N MEAN PLATELET VOLUME (test c ode = MPV) 10.6 fL 8.9-12.1 N NEUTROPHIL % (test code = NT%) 51.3 [...] K/mm3 0.02-0.10 N MANUAL DIFF REQUIRED (test c ode = MDIFF) NO MANUAL DIFF NUCLEATED RED BLOOD CELL (te st code = NRBC) 0 % 0-0 [facility] [id number] 12:20:00Patient Name: BRANDON SWEENEY Unit No: [id number] EXAMS: CPT CODE: [id number] MRI JNT W/CONTRASTRT 34180 MRI ARTHROGRAM RIGHT HIP DIAGNOSIS: 1. Congenitally [...] on this exam. Post arthrographic films show noextravasation of contrast outside the joint. at 1220 Reported and signed by: Tina Kate MD [facility] NAME: BRANDON SWEENEY [address] [facility] PHYS: Eric Scherer : 1970 AGE: 47 SEX: M [place], [place] [address] LOC: Y.RAD PHONE #: [phone] EXAM DATE: 07/30/2018 STATUS: REG CLI FAX #: [phone] RAD #: D/C DT PAGE 1 Signed Report (CONTINUED) Patient Name: BRANDON SWEENEY Unit No: [id number] EXAMS: CPT CODE: [id number] [place] LW JNT W/[place] [address] (Continued) CC: Eric Vargas MD Technologist: Caro Paredes(R) Transcribed D/ (1220) Diana [facility] NAME: BRANDON SWEENEY [address] [facility] PHYS: Eric Scherer : 1970 AGE: 47 SEX: M [place], [place] [address] LOC: Y.RAD PHONE #: [phone] EXAM DATE: 07/30/2018 STATUS: REG CLI FAX #: [phone] RAD #: D/C DT PAGE 2 Signed Report Patient Name: BRANDON SWEENEY Unit No: [id number] EXAMS: CPT CODE: [id number] MRI LW JNT W/[place] [address] (Continued) Orig Print D/T: S: 07/30/2018 (1223) [facility] NAME: BRANDON SWEENEY [address] [facility] PHYS: Eric Scherer : 1970 AGE: 47 SEX: M [place] [address] LOC: Y.RAD PHONE #: [phone] EXAM DATE: 07/30/2018 STATUS: REG CLI FAX #: [phone] RAD #: D/C DT PAGE 3 Signed Report- XR ARTHROGRAM HIP W/O AN RT+2018-07-30 12:20:00Patient Name: BRANDON SWEENEY Unit No: [id number] EXAMS: CPT CODE: [id number] XR ARTHROGRAM HIP W/OAN RT+ 76988 MRI ARTHROGRAM RIGHT HIP DIAGNOSIS: 1. Congenitally [...] Reported and signed by: Tina Kate MD [facility] NAME: BRANDON SWEENEY [address] [facility] PHYS: Eric Scherer : 1970 AGE: 47 SEX: M [place] [address] LOC: Y.RAD PHONE #: [phone] EXAM DATE: 07/30/2018 STATUS: REG CLI FAX #: [phone] RAD #: D/C DT PAGE 1 Signed Report (CONTINUED) Patient Name: BRANDON SWEENEY Unit No: [id number] EXAMS: CPT CODE: [id number] XR ARTHROGRAM HIP W/O AN RT+ 02340 (Continued) CC: Kevin Hurtado MD; Eric Vargas MD Technologist: WERNER LAUREN, RT(R) Transcribed D/ (1220) ValerieGVG [facility] NAME: BRANDON SWEENEY [address] [facility] PHYS: DEVANTECAROLA Eric Winn : 1970 AGE: 47 SEX: M [place] [address] LOC: Y.RAD PHONE #: [phone] EXAM DATE: 07/30/2018 STATUS: REG CLI FAX #: [phone] RAD #: D/C DT PAGE 2 Signed Report Patient Name: BRANDON SWEENEY Unit No: [id number] EXAMS: CPT CODE: [id number] XR ARTHROGRAM HIP W/O AN RT+ 92468 (Continued) Orig Print D/T: S: 07/30/2018 (1223) [facility] NAME: BRANDON SWEENEY [address] [facility] PHYS: Eric Scherer : 1970 AGE: 47 SEX: M [place], [place] [address] LOC: Y.RAD PHONE #: [phone] EXAM DATE: 07/30/2018 STATUS: REG CLI FAX #: [phone] RAD #: D/C DT PAGE 3 Signed ReportMRI Shoulder Rt Wo ContMRI Shoulder Rt Wo Cont Notes Date/Time Note Provider Source 2021-05-19 09:10:00 [facility] ([facility]) Clinical Note REPORT#:[id number] REPORT STATUS: Signed DATE:05/19/21 TIME: 909 PATIENT: BRANDON SWEENEY UNIT #: [id number] ROOM/BED: [address] : [birth year] AGE: 50 SEX: M ATTEND: Ricky Torres MD ADM AUTHOR: Flako Hoover MD * ALL edits or amendments must be made on the electronic/computer document * Clinical Note Note: [facility] Flako Mccauley M.D. (cell text [phone]) Assessment/Plan 1.) Anemia of acute blood loss- .Hgb 12.1, asymptomatic. 2.) S/p Right AHA- .acute multi-modal pain control and followup. Anticoagulation as per Dr. Torres. 3.) GERD Hx DVT LLE 2010- .on Tx. States he is on life long asa. 4.) OsteoArthritis Morbid Obeisty[BMI 40.6]- .continue on Rx. Body habitus may slow [...] MS/Skin: No sign of compartment syndrome / +ankle DF/PF Other: Labs/X-ray: Laboratory Tests: 05/19 0404 [...] 36.1 L Flako Mccauley M.D. at 1053 RPT #:[id number] END OF REPORT [facility] 2021-05-19 06:44:00 [facility] ([facility]) Discharge Summary REPORT#:[id number] REPORT STATUS: Signed DATE:05/19/21 TIME: 06 PATIENT: BRANDON SWEENEY UNIT #: [id number] [facility] AGE: 50 SEX: M ATTEND: Ricky Torres MD ADM AUTHOR: Ricky Torres MD * ALL edits or amendments must be made on the electronic/computer document * General Information Discharge date: 05/19/21 Hospital course: Discharge Diagnosis: Right Hip Degenerative Disease Procedure: Right Hip Arthroplasty Hospital Course and Findings The patient underwent the procedure without incident. Findings were significant for degenerative disease of the hip. The patient was hemodynamically and medically monitored during the postoperative period. Anticoagulation was instituted for postoperative DVT prophylaxis. The patient was progressively able to tolerate PO pain medications and the appropriate diet. Physical therapy was instituted, with a progressive ability to ambulate and perform exercises. The patient was eventually deemed stable and safe for discharge. Despite factors which projected a longer hospital stay, the patient fulfilled criteria for earlier than expected discharge, including control of pain, early mobilization with therapy, and a stable hemodynamic status. At discharge, the patient was comfortable, with a controlled pain level. There were no chest or abdominal symptoms present. Discharge physical examination demonstrated stable vital signs and no acute distress. The patient had an intact wound with no significant drainage, and no calf tenderness and a negative Pat s sign bilaterally. There were no neurologic or vascular deficits or changes from the preoperative state. Disposition: Discharged to home Discharge Condition: Stable Instructions: Instruction sheet given to patient Activity: Ambulate with assistance and walking aid, with weight-bearing as instructed in the hospital. Weight bearing limitations were reviewed with the patient during the hospitalization. Diet: As per preoperatively Prescriptions 1. Pain Medications: As per discharge prescription, with progressive weaning as pain decreases 2. Anticoagulation: As per discharge prescription, or PreOp anticoagulant, as discussed with patient Follow-up Appointment: Patient instructed to arrange appointment for an office visit in 2 weeks Med Rec Med Rec Discharge meds: Stop taking the following medications: ASPIRIN (ASPIRIN) 81 MG TAB.CHEW 162 MILLIGRAM ORAL DAILY. traMADol (ULTRAM) 50 MG TAB 50 MILLIGRAM ORAL EVERY 6 HOURS NEEDED. as needed for PAIN Continue taking these medications: OMEPRAZOLE [...] TABLET ORAL EVERY SIX HOURS NEEDED as needed for prn break through pain Qty = 28 No Refills Instructions: one tab every 6 hours only for breakthrough pain methocarbamoL (ROBAXIN) 500 MG TAB 500 MILLIGRAM ORAL THREE TIMES DAILY NEEDED. as needed for muscle spasm Qty = 28 No Refills traMADol (ULTRAM) 50 MG TAB 50 MILLIGRAM ORAL EVERY 4 HOURS NEEDED. as needed for pain Days = 7 Qty = 28 No Refills Discharge Instructions PCP )( Discharge to: Home/Self Care Discharge Instructions Additional Discharge Routines: Attending Follow-Up )( Diet: Res Diet )( Activity: As Tolerated, Crutches/Walker, Do not Submerge Incision, No Driving Follow-up Appointments Attending Physician: Attending Physician: Ricky Torres MD at 0756 RPT #:[id number] END OF REPORT [facility] 2021-05-19 06:43:00 [facility] ([facility]) Clinical Note REPORT#:[id number] REPORT STATUS: Signed DATE:05/19/21 TIME: 06 PATIENT: BRANDON SWEENEY UNIT #: [id number] ROOM/BED: [address] : [birth year] AGE: 50 SEX: M ATTEND: Ricky Torres MD ADM AUTHOR: Ricky Torres MD * ALL edits or amendments must be made on the electronic/computer document * Clinical Note Note: POD# 1 Joint Arthroplasty Patient well, reports pain is mild-moderate AF VSS Exam: dressing dry/intact Moves toes DF/PF Sensory unchanged A/P: Mobilize with physical Therapy DVT prophylaxis ongoing Following labs Remove coverlet, do not recover, patient may shower Discharge planning home today if PT clears Laboratory Tests 05/19/21 0404: [Embedded Image Not Available] 24 hour I O ending at 0700: 05/19 0700 05/18 1900 Intake Total 680.00 Output Total 1300 300 Balance -620.00 -300 Intake, IV 440.00 Intake, Oral 240 Number Voids 3 1 Output, Urine 1300 300 Patient 291 lb Weight at 0643 RPT #:[id number] END OF REPORT [facility] 2021-05-18 20:33:00 [facility] ([facility]) Clinical Note REPORT#:[id number] REPORT STATUS: Signed DATE:05/18/21 TIME: 2032 PATIENT: BRANDON SWEENEY UNIT #: [id number] ROOM/BED: [address] : [birth year] AGE: 50 SEX: M ATTEND: Ricky Torres MD ADM AUTHOR: Flako Hoover MD * ALL edits or amendments must be made on the electronic/computer document * Clinical Note Note: [facility] Flako Mccauley MD (cell text [phone]) Internal Medicine Consult at request of : Dr. Ricky Torres Chief Complaint: right hip pain HPI: 50yo M is now s/p Right Anterior Total Hip Arthroplasty (AHA) with spinal anesthesia by Dr. Torres. Mr. Sweeney relates 3 months of progressive right hip pain (recently severe), worse with activity, and popping crunchy with restricted motion at times in quality. He has failed conservative management. Comorbidities: see below. PmHx: . DVT left leg 10 years ago, childhood asthma, GERD, BMI 40.6 ALLERGY: Allergies: methylprednisolone (From MEDROL) (Coded, Severe, BLISTERS FACE/MOUTH, 07/30/18) Home Medications: Home Medications: OMEPRAZOLE ER (PriLOSEC) 40 MG PO DAILY MAGNESIUM OXIDE (MAG-OXIDE) 400 MG PO BID ASPIRIN EC (ECOTRIN) 81 MG PO BID MEALS DOXYCYCLINE HYCLATE (VIBRAMYCIN) 100 MG PO BID POLYETHYLENE GLYCOL 3350 (MIRALAX) 17 GM PO BEDTIME MELOXICAM (MOBIC) 15 MG PO DAILY HYDROcodone/APAP (NORCO 10/325) 1 TAB PO Q6HPRN PRN prn break through pain methocarbamoL (ROBAXIN) 500 MG PO TID PRN PRN muscle spasm traMADol (ULTRAM) 50 MG PO Q4H PRN PRN pain SgHx: . Laminectomy, hernia repair, cholecystectomy, lap band, right hip SHx: Tob: none FHx: .No significant hx of DVT/PE. Alcohol: none Drugs: none Lives: with spouse Vitals: Vital Signs Date Temp Pulse Resp B/P B/P Mean Pulse Ox FiO2 05/18 96.3-97.8 60-80 12-18 121-163/62-80 93-98.3 97-100 32 Gen: Alert, in mild discomfort, nl nutrition. EYE: Nl lids conjunctiva. ENT: Nl ears Nose, nl lips,. Neck: Supple, nl thyroid, No masses. CV: Regular Rate Rhythm, no heave or significant murmur. Edema- none RESP: Clear to Auscultation, normal Respiratory effort. ABD: Soft, NonDistended,. LYM: No significant cervical Lymphadenopathy. MS: No sign of compartment syndrome, hip dressing dry and intact, NEURO: Nonfocal, grossly normal sensation of LE, +Ankle DF/PF . Preop Labs(05/07/2021): CBC:. Hgb 13.7, Plt 269, CHEM: Na 140, K 4.6, Cr 1.16 (eGFR 66.9%), . (medium to high risk of complications or morbidity) (major surgery) (IV sedative, meds) Assessment Plan 1.) Anemia of Acute Blood Loss- .will recheck tomorrow. 2.) S/p Right AHA0 .acute multi-modal pain control and followup. Anticoagulation as per Dr. Torres. 3.) GERD Hx DVT LLE 2020- .on Tx. 4.) OsteoArthritis Morbid Obeisty[BMI 40.6]- .continue on Rx. Body habitus may slow recovery rehab. Flako Mccauley M.D. Thanks! G8427 - current medications obtained and reviewed. G8730 - pain assessment with tool and followup plan 1126F - offered discussion on advanced care plan and patient declined to address issue at this time. at 2035 RPT #:[id number] END OF REPORT [facility] 2021-05-18 12:44:00 [facility] ([facility]) Operative Note - Full REPORT#:[id number] REPORT STATUS: Signed DATE:05/18/21 TIME: 1244 PATIENT: BRANDON SWEENEY UNIT #: [id number] ROOM/BED: Y998-9 : 72 AGE: 50 SEX: M ATTEND: Ricky Torres MD ADM AUTHOR: Ricky Torres MD * ALL edits or amendments must be made on the electronic/computer document * Operative Report Start date: 05/18/21 Start time: 0000 Pre-procedure diagnosis: R hip dysplasia, OA, OBESITY BMI 40.6 Post-procedure diagnosis: same Procedures performed: R COMPLEX ZELALEM Technique/Procedure: Posterior Total Hip Replacement OPERATIVE PROCEDURE IN DETAIL The patient was identified in the holding area, and all questions and concerns were answered. The patient verbally confirmed the site and side of the surgery and marking of the site was done. The patient was brought to the operating room and, after adequate anesthesia was obtained was turned into the lateral decubitus position and held there with a well padded pelvic gunn and airplane arm splint. The leg was then prepped in routine sterile manner, following which it was draped free, including the perineum and operative areas with adhesive Ioban Drape. A surgical time-out was performed to identify correct patient, surgical site and surgery. We verified patient had received preoperative antibiotics. The skin incision was made in the axis of the shaft of the femur centered on the greater trochanter and slanted backward in the direction of the fibers of the gluteus seamus. The skin incision was carried through subcutaneous tissue down to fascia. After hemostasis, the fascia was divided in the direction of its fibers, splitting [...] piriformis tendon and the rest of the short external rotators and capsule were identified and cut close to its attachment to the greater trochanter by internally rotating the leg. The hip was then dislocated. Retractors were placed around the femoral neck. Using a neck cuting guide, the femoral head and neck were cut at the pre- templated level. Attention was directed to the acetabulum where anterior and posterior retractors were placed. Remnants of labrum were excised anteriorly and posteriorly using a combination of electrocautery and sharp dissection. Posterior capsule was preserved. The contents of the acetabular fossa were removed by electrocautery and curettes. This allowed visualization of the cavity of the acetabulum, which was then reamed with successive reamers. The acetabular component was then inserted in press-fit mode into the floor of the acetabulum in an appropriate amount of inclination and anteversion. The trial liner was then introduced into the cup. The retractors were removed, and attention was directed to the femur. Electrocautery was used to remove the tendinous stump of piriformis and surrounding soft tissue to expose the lateral-most extent of the femoral neck. A box osteotome was then used to enter the proximal femur, following which the femur was reamed with successive reamers. The femur was then broached with appropriate broaches. A trial neck and head were placed onto the broach and the hip was reduced. ROM and stability were checked. An intraoperative x-ray confirmed placement of the components and it was used to see if any adjustments were needed. The trial components were then removed, and the cup liner was inserted and fully seated. The stem was inserted in press-fit mode. The femoral head was seated onto the trunion. The hip was then reduced after thoroughly cleansing the inner aspect of the acetabulum to assure that all debris was removed. The wound was thoroughly washed, and, after reduction of the hip, the leg was placed on a metal payroll accounting specialist slight abduction and internal rotation. The capsule, with overlying short rotators, was then reattached in anatomic fashion to the intertrochanteric line and posterior trochanteric ridge through bony tunnels. The fascia was closed with interrupted #1 Vicryl and #2 Quill sutures. The subcutaneous tissues were closed with as deep layer of #1 Vicryl, superficial layer of 2-0 Vicryl sutures, and the skin edges were re-approximate. Dermabond mesh applied. A pillow was placed between the knees and the patient was then returned to the recovery room in good condition having tolerated the procedure well. Complexity Case was off added complexity due to patient s morbid obesity with a BMI of 40.6. We needed additional time for positioning, exposure, handling of the soft tissues, management of limb, positioning of retractors and additional time for complex multilayer closure. This case took 1.5 times longer than a typical procedure INDICATIONS FOR MANAGER REGISTRATION The presence of a skilled surgical first assistant was medically necessary to aid for the entire procedure. Their responsibilities include patient positioning, retraction of soft tissues for wide exposure so that the surgeon can use both hands to perform the surgery, as well as stabilizing the limb for surgical instrumentation throughout the case. Retraction for exposure/visualization, as well as stabilization of the extremity is vital to the procedure and not possible without an customer service assistant. In addition having an customer service assistant shortens operative times which decreases expenses and improves outcomes. I am not part of any residency or fellowship training programs and therefore require the help of the customer service assistant listed above for this surgery. IMPLANTS Depuy 54 mm [place] cup, 36+4 liner, 6std trilock, 36+ 1.5mm CERAMIC head Primary Surgeon: MELISSA Printer Apprentice(s): YOHAN KATZ Anesthesia: general anesthesia Operative findings: OA Complications: none Estimated blood loss in ml's: 300 Specimens removed/altered: none Implant(s): DEPUY at 1247 [facility] #:[id number] END OF REPORT [facility] 2018-08-07 10:20:00 [id number] [place] [id number] PATIENT NAME: BRANDON SWEENEY ADMIT DATE: 08/07/18 ACCOUNT NO: [id number] ROOM NO: AGE: 47 REPORT TYPE: OPERATIVE REPORT SEX: M ADMITTING PHYSICIAN: ATTENDING PHYSICIAN:Eric Vargas MD OPERATION DATE: 08/07/2018 PREOPERATIVE DIAGNOSIS: 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 PROCEDURE: Right hip arthroscopy with labral debridement. SURGEON: Eric Vargas MD MANAGER REGISTRATION: ANESTHESIA: General. DESCRIPTION OF FINDINGS AND INDICATIONS FOR PROCEDURE: The patient is a 47-year-old male with right hip pain and mechanical symptoms, progressive in nature, unresponsive to conservative measures. Clinical and radiographic evaluation is consistent with a labral tear and proximal femoral deformity. He had a positive anesthetic response after arthrogram injection to the right hip. Clinical and radiographic evaluation is consistent with a labral tear. He was counseled as to the risks and benefits of recommended treatment of operative intervention including but not limited to bleeding, infection, neurovascular injury, persistent pain, need for additional procedures, re-tear, loss of function, development or progression of arthritis, inability to return to activity, as well as anesthetic risks including but not limited to change in blood pressure, deep venous thrombosis, pulmonary embolism, heart attack, stroke, or . The patient voiced understanding and wished to proceed. PROCEDURE IN DETAIL: After obtaining informed consent, the right hip was marked by me in the preoperative holding area. The patient was brought to the operative room suite where satisfactory anesthesia was established by the anesthesia service. The patient was placed in the Cruz and Nephew hip positioner, well-padded perineal post, and well-padded traction boots. All bony prominences were well padded. Region of the right hip anterior peritrochanteric portal was prepped with ChloraPrep. Time-out was called prior to commencing of procedure, verifying the correct site and correct side. The patient received preoperative antibiotics within 1 hour of commencing of procedure. At this point, under spinal needle guidance, the anterior peritrochanteric portal was established. Traction was placed at the appropriate level. This was marked and subsequently released. At this point, the region of the right hip itself was PATIENT NAME: BRANDON SWEENEY prepped and draped using ChloraPrep. Time-out was called prior to commencing of procedure, verifying the correct site and correct side. The patient received preoperative antibiotics within 1 hour of commencing of procedure. Subsequently, traction was placed and spinal needle was then utilized to establish the anterior peritrochanteric portal. Skin incision was made through the skin only. Hemostat was utilized to spread the subcutaneous tissue. After placement of a nitinol wire in the hip joint proper through the spinal needle, Cruz and Nephew 4.5-mm trocar was inserted into the hip joint. Upon initial inspection of the hip, there was advanced articular cartilage change on the femoral head as well as the acetabulum. Mid anterior portal was then established under spinal needle guidance. Identical technique was utilized. A 5.0-mm trocar was inserted. Arthroscope was placed in the mid anterior portal. Satisfactory positioning of the anterior peritrochanteric portal was noted. At this point, systematic inspection was performed. Again, there was diffuse labral tearing as well as advanced articular cartilage change on the femoral head and acetabulum. Subsequently, using a combination of motorized shaver as well as radiofrequency ablator, unstable labral tissue was debrided to a stable base. Hemostasis was obtained with electrocautery. This was performed sequentially with the arthroscope both in the mid anterior as well as anterior peritrochanteric portals. Anterosuperiorly, there was an osteocartilaginous flap that was unstable. This was debrided using motorized shaver back to a stable base. Completion of the labral debridement, final images were then obtained. Satisfactory hemostasis was obtained. Traction was then released. Excess fluid was extravasated from the hip. All arthroscopic instruments were removed. A total of 50 mL of 0.5% Marcaine with epinephrine was instilled into the elina-incisional tissues. Wounds were closed using interrupted nylon suture. Sterile dressing of Xeroform and 4 x 4s were applied, and they were secured with a Tegaderm. The patient tolerated the procedure well, was extubated, transferred to [facility], onto the recovery room in satisfactory condition. ESTIMATED BLOOD LOSS: Minimal. IV FLUIDS: Maintenance. PROGNOSIS: Guarded given underlying nature of his condition. Dictated By: Eric Vargas MD WT: OP:ANTONIETA/SOO/BARON Conf#: [id number]/DID#: [id number] Authenticated and Edited by Eric Vargas MD On 08/08/18 7:27:37 AM at 0741 PATIENT NAME: BRANDON SWEENEY [facility]
[2023-12-06] MEDS ORDERED: MORPHINE 4 MG/ML SYR ONE (12:20)
[2023-12-06] MEDS ORDERED: KETOROLAC 30 MG/ML INJ ONE (12:20)
[2023-12-06] MEDS ORDERED: GABAPENTIN 300 MG CAP ONE (12:20)
[2023-12-06 12:25] LABS: Absolute Eosinophils 0.3 K/uL (0-0.5); Absolute Lymphocytes (CBC) 1.3 K/uL (0.7-4.9); Absolute Monocytes 0.4 K/uL (0.1-1.3); Absolute Neutrophil 2.6 K/uL (1.8-8.0); Basophils % 0.8 % (0-1.3); Eosinophils % 6.2 % (0-4.4); Hematocrit 43.2 % (39.6-49.0); Hemoglobin 14.5 g/dL (13.6-17.9); Lymphocytes % 28.6 % (15.3-44.8); MCH 30.5 pg (27.0-35.0); MCHC 33.6 g/dL (32.0-36.0); MCV 90.7 fL (80-100); MPV 8.1 fL (7.6-11.3); Monocytes % 9.5 % (3.3-12.3); Neutrophils % 54.9 % (41.7-73.7); Platelets 261 thou/uL (152-406); RBC Red Blood Cell Count 4.76 M/uL (4.33-5.43); Red Cell Distribution Width 13.8 % (12.1-15.2)
[2023-12-06 12:38] LABS: Anion Gap 9.6 mEq/L (5.0-15.0); Potassium 3.6 mEq/L (3.5-5.1)
--- NOTE | 2023-12-06 12:50 | RAD REPORT ---
EXAM DESCRIPTION: CTStone Protocol - 12/06/2023 12:29 pm CLINICAL HISTORY: right back pain COMPARISON: Stone Protocol dated 03/07/2021; Abdomen Pelvis W Contrast dated 01/30/2020; Stone Christian col dated 11/16/2019 TECHNIQUE: CT of the abdomen and pelvis was performed without contrast. All CT scans are performed using dose optimization technique as appropriate and may include automated exposure control or mA/KV adjustment according to patient size. FINDINGS: Lower chest: Patulous distal esophagus. Liver: No acute abnormality or suspicious lesions. Biliary: No biliary ductal dilatation. Stomach: Surgical changes at the stomach. Duodenum: No significant focal abnormality. Pancreas: No significant abnormality. Spleen: No significant abnormality. Adrenal: No suspicious lesions. Kidney/ureter: No hydronephrosis. No renal calculi. Retroperitoneum: No retroperitoneal adenopathy. Vascular: No aneurysm. Atherosclerosis . Bowel: No significant focal abnormality. Normal appendix. Peritoneum: No ascites or free air. Fat containing narrow neck supraumbilical and umbilical hernia. T he supraumbilical hernia is larger. Bladder: Grossly unremarkable. Reproductive: No adnexal masses. Bones: No acute fracture. Right hip arthroplasty. Moderate disc height loss L5-S1 . Other: n/a IMPRESSION: No acute intra-abdominal or pelvic finding. No urinary tract calculi . Normal appendix.
[2023-12-06 13:10] LABS: SARS-CoV-2 Antigen CONTROL BLUE LINE VIS/BG OK
[2023-12-06 13:13] LABS: SARS-CoV-2 Antigen Rapid Res Positive (Negative)
[2023-12-06] MEDS ORDERED: CYCLOBENZAPRINE 10 MG TAB ONE (13:38)
[2023-12-06] MEDS ORDERED: HYDROMORPHONE HCL 1 MG/ML INJ ONE (13:38)
--- NOTE | 2023-12-06 14:39 | ER ---
Nurse's Notes [facility] Name: Brandon Galdamez Age: 53 yrs Sex: Male : 1970 Arrival Date: 12/06/2023 Time: 11:37 Bed 19 Private MD: Diagnosis: Low back pain;SARS-associated coronavirus as the cause of diseases classified elsewhere Presentation: 12/05 12:03 Chief complaint: Patient states: Right lower back pain that he describes as sharp onset cm10 in the middle of the night. Pt states that the pain is worse with movement. Coronavirus screen: Client denies travel out of the [place] in the last 14 days. At this time, the client does not indicate any symptoms associated with coronavirus-19. Ebola Screen: Patient denies travel to an Ebola-affected area in the 21 days before illness onset. No symptoms or risks identified at this time. Initial Sepsis Screen: Does the patient meet any 2 criteria? No. Patient's initial sepsis screen is negative. Does the patient have a suspected source of infection? No. Patient's initial sepsis screen is negative. Risk Assessment: Do you want to hurt yourself or someone else? Patient reports no desire to harm self or others. Onset of symptoms was December 06, 2023. 12:03 Method Of Arrival: Wheelchair cm10 12:03 Acuity: KAILA 4 cm10 Triage Assessment: 12:04 General: Appears in no apparent distress. uncomfortable, Behavior is calm, cooperative. cm10 Pain: Complains of pain in right low back Pain currently is 10 out of 10 on a pain scale. Quality of pain is described as sharp. Neuro: No deficits noted. Level of Consciousness is awake, alert, obeys commands, Oriented to person, place, time, situation, Appropriate for age. Respiratory: No deficits noted. Airway is patent Respiratory effort is even, unlabored, Respiratory pattern is regular, symmetrical. Historical: - Allergies: 12:02 No Known Allergies; cm10 - Home Meds: 14:59 Flomax Oral [Active]; gabapentin Oral [Active]; Omeprazole Oral [Active]; kj2 - PMHx: 12:02 Bordeline Diabetes; GERD; Kidney stone; Diabetes mellitus; cm10 - PSHx: 12:02 back; Cholecystectomy; Gastric restriction; hernia repair; R hip repair; cm10 - Immunization history:: Adult Immunizations up to date. - Infectious Disease History:: Denies. - Social history:: Smoking status: Reported history of juuling and/or vaping. - Family history:: not pertinent. - Hospitalizations: : No recent hospitalization is reported. Screenin:51 [facility] ED Fall Risk Assessment (Adult) History of falling in the last 3 months, kj2 including since admission No falls in past 3 months (0 pts) Confusion or Disorientation No (0 pts) Intoxicated or Sedated No (0 pts) Impaired Gait No (0 pts) Mobility Assist Device Used No (0 pt) Altered Elimination Score/Fall Risk Level 0 - 2 = Low Risk Maintained a safe environment, Educated pt \T\ family on fall prevention, incl call for assistance when getting out of bed, Hourly rounding (assess needs \T\ fall precautionary measures) done. Abuse screen: Denies threats or abuse. Denies injuries from another. Nutritional screening: No deficits noted. Tuberculosis screening: No symptoms or risk factors identified. Assessment: 13:50 General: Appears in no apparent distress. uncomfortable, Behavior is calm, cooperative, kj2 appropriate for age. Pain: Complains of pain in right low back Pain currently is 10 out of 10 on a pain scale. Neuro: Level of Consciousness is awake, alert, obeys commands, Oriented to person, place, time, situation. Cardiovascular: Patient's skin is warm and dry. Respiratory: Airway is patent. 14:00 Reassessment: No changes from previously documented assessment. Patient and/or family kj2 updated on plan of care and expected duration. Pain level reassessed. Patient is alert, oriented x 3, equal unlabored respirations, skin warm/dry/pink. Vital Signs: 12:03 BP 131 / 97; Pulse 79; Resp 15; Temp 97.7; Pulse Ox 97% on R/A; Weight 131.09 kg; cm10 Height 6 ft. 1 in. ; Pain 10/10; 13:45 BP 121 / 85; Pulse 68; Resp 18; Pulse Ox 96% on R/A; Pain 10/10; nj1 15:11 BP 122 / 97; Pulse 52; Resp 18; Pulse Ox 94% on R/A; kj2 12:03 Body Mass Index 38.13 (131.09 kg, 185.42 cm) cm10 12:03 Pain Scale: Adult cm10 13:45 Pain Scale: Adult nj1 ED Course: 11:42 Patient arrived in ED. mg5 11:50 Jose Alves MD is Attending Physician. rn 12:04 Triage completed. cm10 12:05 Arm band placed on Patient placed in waiting room. cm10 12:24 CBC with Diff Sent. cm10 12:24 Basic Metabolic Panel Sent. cm10 12:24 SARS RAPID Sent. cm10 12:24 Initial lab(s) drawn, by me, sent to lab. COVID swab sent to lab. Inserted saline lock: cm10 20 gauge in left antecubital area, using aseptic technique. Blood collected. Flushed with 10 mL NS Missed attempt(s): 20 gauge in left forearm. Bleeding controlled, band aid applied, catheter tip intact. 12:31 CT Stone Protocol In Process Unspecified. EDMS 13:35 Reanna Mallory, RN is Primary Nurse. kj2 13:51 Bed in low position. Call light in reach. Adult w/ patient. Provided Education on: call kj2 light, fall precautions. 13:52 No provider procedures requiring assistance completed. kj2 15:01 IV discontinued, intact, bleeding controlled, No redness/swelling at site. Pressure kj2 dressing applied. Administered Medications: 12:24 Drug: morphine IVP or IV 4 mg IVP once over 4 mins Route: IVP; Infused Over: 4 mins; cm10 Site: left antecubital; 14:12 Follow up: Response: No adverse reaction; Pain is decreased kj2 12:24 Drug: Ketorolac IVP 15 mg IVP once Route: IVP; Site: left antecubital; cm10 14:12 Follow up: Response: No adverse reaction; Pain is decreased kj2 12:24 Drug: Gabapentin PO 300 mg PO once Route: PO; cm10 14:11 Follow up: Response: No adverse reaction kj2 13:45 Drug: Cyclobenzaprine PO 10 mg PO once Route: PO; nj1 14:11 Follow up: Response: No adverse reaction; Pain is decreased kj2 13:45 Drug: HYDROmorphone IVP 1 mg IVP once Route: IVP; Site: left antecubital; nj1 14:11 Follow up: Response: No adverse reaction; Pain is decreased kj2 Medication: 13:51 VIS not applicable for this client. kj2 Outcome: 14:38 Discharge ordered by . rn 15:00 Discharged to home ambulatory, with family, kj2 15:00 Condition: stable 15:01 Discharge instructions given to Instructed on Demonstrated understanding of kj2 Prescriptions given X 3, 15:11 Patient left the ED. kj2 Signatures: Dispatcher [employer] EDJose Guzmán MD MD rn Jaco, Norma RN RN nj1 Elizabeth Lucas RN RN 10 Veronica Stovall 5 Reanna Mallory, JOSE ENRIQUE RN kj2
--- NOTE | 2023-12-06 14:39 | EDPHYS ---
Physician Documentation [facility] Name: Brandon Galdamez Age: 53 yrs Sex: Male : 1970 Arrival Date: 12/06/2023 Time: 11:37 Bed 19 Private MD: ED Physician Jose Alves HPI: 12/05 13:20 This 53 yrs old Male presents to ER via Wheelchair with complaints of Back Pain. rn 13:29 The patient presents with pain that is acute. The symptoms are located in the low back. rn 13:30 Onset: The symptoms/episode began/occurred last night. The pain does not radiate. rn Associated signs and symptoms: Pertinent negatives: abdominal pain, chest pain, fever, hematuria, incontinence, nausea, numbness, tingling, urinary retention. Modifying factors: The patient symptoms are alleviated by remaining still, the patient symptoms are aggravated by coughing, movement. Severity of symptoms: At their worst the symptoms were moderate, in the emergency department the symptoms are unchanged. The patient has experienced similar episodes in the past. 13:30 Patient reports right lower back pain that began last night. Has been having a cough rn and congestion and felt like after coughing fit hurt his back. States ribs are sore from coughing as well. Has previous back surgery as well as hip surgery and longstanding back problems including sciatica and pinched nerves. Patient has a history of kidney stones but states this feels different than a kidney stone. No urinary symptoms. No fever or chills. No drug use.. Historical: - Allergies: 12:02 No Known Allergies; cm10 - Home Meds: 14:59 Flomax Oral [Active]; gabapentin Oral [Active]; Omeprazole Oral [Active]; kj2 - PMHx: 12:02 Bordeline Diabetes; GERD; Kidney stone; Diabetes mellitus; cm10 - PSHx: 12:02 back; Cholecystectomy; Gastric restriction; hernia repair; R hip repair; cm10 - Immunization history:: Adult Immunizations up to date. - Infectious Disease History:: Denies. - Social history:: Smoking status: Reported history of juuling and/or vaping. - Family history:: not pertinent. - Hospitalizations: : No recent hospitalization is reported. ROS: 13:30 Constitutional: Negative for fever, chills, and weight loss, Cardiovascular: Negative rn for chest pain, palpitations, and edema, Respiratory: Negative for shortness of breath, cough, wheezing, and pleuritic chest pain, Abdomen/GI: Negative for abdominal pain, nausea, vomiting, diarrhea, and constipation, Back: Positive for back pain : Negative for injury, bleeding, discharge, and swelling, MS/Extremity: Negative for injury and deformity, Skin: Negative for injury, rash, and discoloration, Neuro: Negative for headache, weakness, numbness, tingling, and seizure, Exam: 13:30 Constitutional: This is a well developed, well nourished patient who is awake, alert, rn appears uncomfortable with movement Head/Face: Normocephalic, atraumatic. Cardiovascular: Regular rate and rhythm. No pulse deficits. Respiratory: No increased work of breathing, no retractions or nasal flaring. Abdomen/GI: Soft, non-tender Back: No midline spinal tenderness MS/ Extremity: Pulses equal, no cyanosis Neuro: Awake and alert, GCS 15 Vital Signs: 12:03 BP 131 / 97; Pulse 79; Resp 15; Temp 97.7; Pulse Ox 97% on R/A; Weight 131.09 kg; cm10 Height 6 ft. 1 in. ; Pain 10/10; 13:45 BP 121 / 85; Pulse 68; Resp 18; Pulse Ox 96% on R/A; Pain 10/10; nj1 15:11 BP 122 / 97; Pulse 52; Resp 18; Pulse Ox 94% on R/A; kj2 12:03 Body Mass Index 38.13 (131.09 kg, 185.42 cm) cm10 12:03 Pain Scale: Adult cm10 13:45 Pain Scale: Adult nj1 MDM: 11:50 Patient medically screened. rn 14:37 Differential diagnosis: arthritis, chronic back pain, Osteoarthritis sprain, rn Ureterolithiasis vertebral fracture. Data reviewed: vital signs, nurses notes, lab test result(s), radiologic studies, CT scan, and as a result, I will discharge patient. Counseling: I had a detailed discussion with the patient and/or guardian regarding the historical points, exam findings, and any diagnostic results supporting the discharge/admit diagnosis, lab results, radiology results, the need for outpatient follow up, to return to the emergency department if symptoms worsen or persist or if there are any questions or concerns that arise at home. Response to treatment: the patient's symptoms have markedly improved after treatment, and as a result, I will discharge patient. Special discussion: I discussed with the patient/guardian in detail that at this point there is no indication for admission to the hospital. It is understood, however, that if the symptoms persist or worsen the patient needs to return immediately for re-evaluation. 12/05 12:03 Order name: CBC with Diff; Complete Time: 12:42 rn 12/05 12:03 Order name: Basic Metabolic Panel; Complete Time: 12:42 rn 12/05 12:03 Order name: SARS RAPID; Complete Time: 13:16 rn 12/05 12:03 Order name: CT Stone Protocol; Complete Time: 12:51 rn 12/05 12:03 Order name: IV Start; Complete Time: 12:24 rn Administered Medications: 12:24 Drug: morphine IVP or IV 4 mg IVP once over 4 mins Route: IVP; Infused Over: 4 mins; cm10 Site: left antecubital; 14:12 Follow up: Response: No adverse reaction; Pain is decreased kj2 12:24 Drug: Ketorolac IVP 15 mg IVP once Route: IVP; Site: left antecubital; cm10 14:12 Follow up: Response: No adverse reaction; Pain is decreased kj2 12:24 Drug: Gabapentin PO 300 mg PO once Route: PO; cm10 14:11 Follow up: Response: No adverse reaction kj2 13:45 Drug: Cyclobenzaprine PO 10 mg PO once Route: PO; nj1 14:11 Follow up: Response: No adverse reaction; Pain is decreased kj2 13:45 Drug: HYDROmorphone IVP 1 mg IVP once Route: IVP; Site: left antecubital; nj1 14:11 Follow up: Response: No adverse reaction; Pain is decreased kj2 Disposition Summary: 12/06/23 14:38 Discharge Ordered Notes: Location: Home rn Problem: new rn Symptoms: have improved rn Condition: Stable rn Diagnosis - Low back pain rn - SARS-associated coronavirus as the cause of diseases classified elsewhere rn Followup: rn - With: Private Physician - When: As needed - Reason: Recheck today's complaints, Re-evaluation by your physician Discharge Instructions: - Discharge Summary Sheet rn - Acute Back Pain, Adult rn - COVID-19 rn - Viral Illness, Adult rn Forms: - Medication Reconciliation Form rn - Antibiotic elastic yarn twister - Prescription Opioid Use rn - Patient Portal Instructions rn - Leadership Thank You Letter rn Prescriptions: - gabapentin 100 mg Oral capsule - take 1 capsule ORAL route every 12 hours; 14 capsule; Refills: 0, Product rn Selection Permitted - Cyclobenzaprine 10 mg Oral tablet - take 1 tablet ORAL route every 8 hours As needed; 15 tablet; Refills: 0, rn Product Selection Permitted - Tramadol 50 mg Oral Tablet - take 1 tablet ORAL route every 8 hours as needed; 12 tablet; Refills: 0, rn Product Selection Permitted Signatures: Dispatcher [employer] EDMS Jose Alves MD MD rn Jaco, Norma, RN RN nj1 Elizabeth Lucas RN RN cm10 Reanna Mallory RN RN kj2
[2023-12-06 15:38] VITALS: TEMP 97.7
[2023-12-06 15:49] VITALS: BP 122/97; O2SAT 94
== END 2023-12-06 15:11 | disposition home or self-care (01) ==
LOC: ER 11:37
DX: U07.1 COVID-19 (principal)
CPT/HCPCS: 85025; 80048; 36415; 76377; 74176; 87811; J1170